=== PATIENT | male | born 2000 | race Asian ===

== ENCOUNTER 2022-05-18 14:08 | Outpatient (CLI) | payer BC, SELFPAY ==
--- OUTSIDE RECORDS SUMMARY | 2022-05-18 14:35 | XMS_ITS | Clinical Summary ---
:2000 Author Organization [facility] Address [address] [place] [id number] Care Team Providers Name Role Phone No Ref-Primary, Physician Primary Care Provider [phone] Allergies Active Allergy Reactions Severity Noted Date Comments Amoxicillin 10/25/2019 I don't even k now Sulfa Drugs 10/25/2019 I don't even k now Medications No known medications Social History Tobacco Use Types Packs/Day Years Used Date Smoking Tobacco: Never Assessed Sex Assigned at Date Recorded Not on file Last Filed Vital Signs Vital Sign Reading Time Taken Comments Blood Pressure 90/60 12/24/2019 6:40 AM CDT Pulse 57 12/24/2019 6:40 AM CDT Temperature 36.5 ??C (97.7 ??F) 12/23/2019 7:18 PM CDT Respiratory Rate 14 12/23/2019 9:45 PM CDT Oxygen Saturation 98% 12/24/2019 6:40 AM CDT Inhaled Oxygen Concentration - - Weight 95.3 kg (210 lb) 11/02/2019 3:09 PM CDT Height 177.8 cm (5' 10) 11/02/2019 3:09 PM CDT Body Mass Index 30.13 11/02/2019 3:09 PM CDT Plan of Treatment Health Maintenance Due Date Last Done Comments ADVANCE CARE PLANNING 2000 ANNUAL REVIEW OF HM ORDERS 2000 COVID-19 Vaccine (#1) 2000 YEARLY PREVENTIVE VISIT 01/28/2009 01/29/2008, 11/09/2006 DTAP/TDAP/TD IMMUNIZATION 01/26/2011 07/12/2004, 05/15/2001 , (6 - Tdap) 2000, Additional history exists HIV SCREENING 01/26/2015 HEPATITIS C SCREENING 01/26/2018 HPV IMMUNIZATION (2 - Male 06/27/2018 05/30/2018 3-dose series) PHQ-2 (once per calendar 07/03/2021 year) INFLUENZA VACCINE (#1) 2022 05/30/2018, 06/15/2010, 06/15/2010, Additional history exists Pneumococcal Vaccine: Aged Out 01/24/2002 No longer eligible Pediatrics (0 to 5 Years) based on patient's age and At-Risk Patients (6 to to co mplete this topic 64 Years) IPV IMMUNIZATION Completed 07/12/2004, 2000, 2000, Additional history exists HEPATITIS B IMMUNIZATION Completed 12/05/2007, 2000, 2000, Additional history exists MENINGITIS IMMUNIZATION Completed 05/30/2018 Insurance Payer Benefit Plan / Subscriber ID Effective Dates Phone Addre ss Type Group [facility] [id number] 2017-Present [phone] [id number] [place] [address] Care Teams Supervisor Dog License Officer Relationship Specialty Start Date End Date No Ref-Primary, Physician PCP - General 10/25/19
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
--- OUTSIDE RECORDS SUMMARY | 2022-05-18 14:35 | XMS_ITS | Encounter Summary ---
:2000 Author Organization [facility] Address [address] [place] [address] Care Team Providers Name Role Phone No Ref-Primary, Physician Primary Care Provider [phone] Reason for Visit Reason Comments Abdominal Pain Encounter Details Date Type Department Care Team Description 11/02/2019 [facility] Abiel Dietrich MD [facility] [address] [place], [place] [id number] Abdominal pain, epigastric; [facility] Emergency Dep t Tyler Wilkins MD [facility] [address] [place], [place] [id number] Likely Acute gastritis with hemorrhage, unspecified gastritis type [address] [place] [id number] Social History Tobacco Use Types Packs/Day Years Used Date Smoking Tobacco: Never Assessed Sex Assigned at Date Recorded Not on file COVID-19 Exposure Response Date Recorded In the last month, have you been in contact with No / Unsure 11/02/2019 3:08 PM CDT someone who was confirmed or suspected to have Coronavirus / COVID-19? documented as of this encounter Last Filed Vital Signs Vital Sign Reading Time Taken Comments Blood Pressure 144/86 11/02/2019 3:09 PM CDT Pulse 76 11/02/2019 3:09 PM CDT Temperature 36.7 ??C (98.1 ??F) 11/02/2019 3:09 PM CDT Respiratory Rate 14 11/02/2019 3:09 PM CDT Oxygen Saturation 96% 11/02/2019 3:09 PM CDT Inhaled Oxygen Concentration - - Weight 95.3 kg (210 lb) 11/02/2019 3:09 PM CDT Height 177.8 cm (5' 10) 11/02/2019 3:09 PM CDT Body Mass Index 30.13 11/02/2019 3:09 PM CDT documented in this encounter Discharge Instructions AttachmentsThe following attachments cannot be sent through Care Everywhere. Gastritis (Adult) (Stateless)documented in this encounter Medications at Time of Discharge Medication Sig Dispensed Refills Start Date End Date pantoprazole (PROTONIX) 40 Take 1 tablet (40 14 tablet 0 11/16/2019 MG EC tablet mg) by mouth daily for 14 days documented as of this encounter ED Notes Kaila Pike RN - 11/02/2019 4:18 PM CDT Reports relief from GI cocktail and pepcid. MD notified Shayy Florez RN - 11/02/2019 3:05 PM CDT Seen last in ED here for abdominal pain. Pt left without getting the recommended ultrasound. States his gallbladder may be infected and needs ultrasound and bloodwork. States RUQ pain that hasremained the same. Denies NVD or fevers. Tyler Wilkins MD - 11/02/2019 3:01 PM CDT History Chief Complaint: Abdominal Pain The history is provided by the patient. Hadley Ratliff is a 19 year old male who presents with abdominal pain. He had an episode of abdominal pain that started about 4 days ago and has continued. He vomited blood once 3 days ago but has had no black or bloody stools. He has no history of medical problems including gastritis, ulcers, or is not and is not on any anticoagulation. The patient notes he currently feels much better after he received ranitidine intravenously and a GI cocktail here in the emergency room prior to my arrival. No history of gallbladder disease. No further vomiting blood and there is only one episode of vomiting blood Allergies: Amoxicillin Sulfa Drugs Medications: The patient is not currently taking any prescribed medications. Past Medical History: ADHD Past Surgical History: The patient does not have any pertinent past surgical history. Family History: No past pertinent family history. Social History: Negative for tobacco use. Negative for alcohol use. Negative for drug use. Marital Status: Single Review of Systems Respiratory: Negative for chest tightness. Cardiovascular: Negative for chest pain. Gastrointestinal: Positive for abdominal pain. Genitourinary: Negative for flank pain. Neurological: Negative for weakness. All other systems reviewed and are negative. Physical Exam Patient Vitals for the past 24 hrs: BP Temp Temp src Pulse Heart Rate Resp SpO2 Height Weight 11/02/19 1509 (!) 144/86 98.1 ??F (36.7 ??C) Oral 76 76 14 96 % 1.778 m (5' 10) 95.3 kg (210 lb) Physical Exam General: Patient is alert and interactive when I enter the room Head: The scalp, face, and head appear normal Eyes: The pupils are equal, round, and reactive to light Conjunctivae and sclerae are normal ENT: External acoustic canals are normal The oropharynx is normal without erythema. Uvula is in the midline Neck: Normal range of motion CV: Regular rate. S1/S2. No murmurs. Resp: Lungs are clear without wheezes or rales. No distress GI: Abdomen is soft, no rigidity, guarding, or rebound No distension. No tenderness to palpation in any quadrant but I did examine him after a GI cocktailwas given and this did alleviate his pain. Prior to my arrival the patient was started by another physician and he did note right upper quadrant and epigastric tenderness.. MS: Normal tone. Joints grossly normal without effusions. No asymmetric leg swelling, calf or thigh tenderness. Normal motor assessment of all extremities. Skin: No rash or lesions noted. Normal capillary refill noted Neuro: Speech is normal and fluent. Face is symmetric. Moving all extremities well. Psych: Awake. Alert. Normal affect. Appropriate interactions. Lymph: No anterior cervical lymphadenopathy noted Emergency Department Course Imaging: US Abdomen, Limited, RUQ Only: Negative abdominal ultrasound. As per radiology. Laboratory: CBC: WBC: 7.1, HGB: 16.8, PLT: 438 CMP: Urea Nitrogen: 6 (L), o/w WNL (Creatinine: 0.74) Lipase: 54 (L) UA with Microscopic: Mucous: Present, o/w Negative Interventions: 1547 GI Cocktail 30 mL PO 1547 Pepcid 20 mg PO Emergency Department Course: Nursing notes and vitals reviewed. 1600 I performed an exam of the patient as documented above. IV inserted. Medicine administered as documented above. Blood drawn. This was sent to the lab for further testing, results above. The patient was sent for an abdominal US while in the emergency department, findings above. 1640 I rechecked the patient and discussed the results of his workup thus far. Findings and plan explained to the Patient. Patient discharged home with instructions regarding supportive care, medications, and reasons to return. The importance of close follow-up was reviewed. The patient was prescribed Protonix. I personally reviewed the laboratory results with the Patient and answered all related questions prior to discharge. Impression & Plan Medical Decision Making: Hadley Ratliff is a 19 year old male who presents for evaluation of epigastric abdominal pain. I considered a broad differential diagnosis for this patient including gastritis, GERD, cholecystitis, choledocholithiasis, biliary colic, pancreatitis, colonic or small bowel pathology, vascular etiologies including aneurysm, ulcer. Signs and symptoms here are consistent with gastritis. Patient experiencedrelief here with GI cocktail. Given extent of relief with GI cocktail would not do a further workup including CT. There are no signs of any serious etiologies as mentioned above or intraabdominal catastrophes. I highly doubt this is a PE or acute coronary syndrome and as he is tender in the abdomen would not do any further workup for this. Doubt perforated ulcer at this point. Will refer back to primary and do scheduled medication for stomach acid reduction x 14 days. Consider endoscopy if further symptoms despite this. Gastritis precautions given for home. Diagnosis: ICD-10-CM 1. Abdominal pain, epigastric R10.13 2. Likely Acute gastritis with hemorrhage, unspecified gastritis type K29.01 Disposition: discharged to home Discharge Medications: Discharge Medication List as of 11/02/2019 4:34 PM START taking these medications Details pantoprazole (PROTONIX) 40 MG EC tablet Take 1 tablet (40 mg) by mouth daily for 14 days, Disp-14 tablet,R-0, Local Print Scribe Disclosure: Alana Duran, am serving as a scribe on 11/02/2019 at 4:50 PM to personally document services performed by Tyler Wilkins MD, based on my observations and the provider's statements to me. Alana Dixonrenny 11/02/2019 [facility] EMERGENCY DEPARTMENT Tyler Wilkins MD 11/02/19 1659 Eliezer Dietrich MD - 11/02/2019 3:01 PM CDT Brief attending note: Patient presents with 1-1/2 weeks of right upper quadrant abdominal pain. Associated nausea and vomiting but has not had any vomiting over the past few days. No fever or cough or diarrhea. He drinks alcohol occasionally but no daily use or heavy use recently. He denies prior abdominal surgeries or medical problems. Lab work and right upper quadrant ultrasound were ordered. Abdomen is without any peritoneal signs but does have mild to moderate tenderness of the right upper quadrant. GI cocktail and famotidine werealso ordered for symptomatic management. Dr Wilkins assumed care. Eliezer Dietrich MD 11/02/19 1625 Tyler Wilkins MD - 11/02/2019 3:01 PM CDT Tyler Wilkins MD 11/03/19 4906 documented in this encounter Plan of Treatment Not on filedocumented as of this encounter Procedures Procedure Name Priority Date/Time Associated Comments Diagnosis US ABDOMEN LIMITED STAT 11/02/2019 4:19 PM Res ults for this CDT procedure are i n the results section. CBC WITH PLATELETS & Routine 11/02/2019 3:57 PM R esults for this DIFFERENTIAL CDT procedure are i n the results section. ROUTINE UA WITH STAT 11/02/2019 3:57 PM Result s for this MICROSCOPIC CDT procedure are i n the results section. LIPASE STAT 11/02/2019 3:57 PM Results f or this CDT procedure are i n the results section. COMPREHENSIVE STAT 11/02/2019 3:57 PM Results for this METABOLIC PANEL CDT procedure ar e in the results section. documented in this encounter Results Abdomen US, limited (RUQ only) (11/02/2019 4:19 PM CDT) Anatomical Region Laterality Modality Abdomen/Pelvis Ultrasound Specimen (Source) Anatomical Location Collection Method / Collectio n Time Received Time / Laterality Volume Impressions 11/02/2019 4:40 PM CDT IMPRESSION: Negative abdominal ultrasound. SUGAR LEON MD Narrative 11/02/2019 4:40 PM CDT ULTRASOUND ABDOMEN LIMITED ??11/02/2019 4:19 PM HISTORY: Right upper quadrant pain. COMPARISON: None. FINDINGS: Liver is unremarkable in echog enicity without focal lesions. Gallbladder is normal without stones or sludge. Extrahepatic bile duct is normal in diameter. Pancreas is greta l where visualized. Right kidney is normal in size. There is no hy dronephrosis. Procedure Note Sugar Leon MD - 11/02/2019Fo rmatting of this note might be different from the original. ULTRASOUND ABDOMEN LIMITED 11/02/2019 4:19 PM HISTORY: Right upper quadrant pain. COMPARISON: None. FINDINGS: Liver is unremarkable in echog enicity without focal lesions. Gallbladder is normal without stones or sludge. Extrahepatic bile duct is normal in diameter. Pancreas is greta l where visualized. Right kidney is normal in size. There is no hy dronephrosis. IMPRESSION: Negative abdominal ultrasoun d. SUGAR LEON MD Eliezer Dietrich MD IMG US ORDERABLES (ABNORMAL) CBC with platelets differential (11/02/2019 3:57 PM CDT) [facility] Method Time Signature WBC 7.1 4.0 - 11/02/2019 [facility] 11.0 4:12 PM [facility] 10e9/L [facility] RBC Count 5.95 (H) 4.4 - 5.9 11/02/2019 [facility] 10e12/L 4:12 PM [facility] Hemoglobin 16.8 13.3 - 11/02/2019 [facility] 17.7 g/dL 4:12 PM [facility] Hematocrit 51.7 40.0 - 11/02/2019 [facility] 53.0 % 4:12 PM [facility] MCV 87 78 - 100 11/02/2019 [facility] fl 4:12 PM [facility] MCH 28.2 26.5 - 11/02/2019 [facility] 33.0 pg 4:12 PM [facility] MCHC 32.5 31.5 - 11/02/2019 [facility] 36.5 g/dL 4:12 PM [facility] RDW 12.0 10.0 - 11/02/2019 [facility] 15.0 % 4:12 PM [facility] Platelet Count 438 150 - 450 11/02/2019 [facility] 10e9/L 4:12 PM [facility] Diff Method Automated 11/02/2019 [facility] Method 4:12 PM [facility] % Neutrophils 57.2 % 11/02/2019 [facility] 4:12 PM [facility] % Lymphocytes 30.1 % 11/02/2019 [facility] 4:12 PM [facility] % Monocytes 11.3 % 11/02/2019 [facility] 4:12 PM [facility] % Eosinophils 0.7 % 11/02/2019 [facility] 4:12 PM [facility] % Basophils 0.3 % 11/02/2019 [facility] 4:12 PM [facility] % Immature 0.4 % 11/02/2019 [facility] Granulocytes 4:12 PM [facility] Nucleated RBCs 0 0 /100 11/02/2019 [facility] 4:12 PM [facility] Absolute 4.0 1.6 - 8.3 11/02/2019 [facility] Neutrophil 10e9/L 4:12 PM [facility] Absolute 2.1 0.8 - 5.3 11/02/2019 [facility] Lymphocytes 10e9/L 4:12 PM [facility] Absolute 0.8 0.0 - 1.3 11/02/2019 [facility] Monocytes 10e9/L 4:12 PM [facility] Absolute 0.1 0.0 - 0.7 11/02/2019 [facility] Eosinophils 10e9/L 4:12 PM [facility] Absolute 0.0 0.0 - 0.2 11/02/2019 [facility] Basophils 10e9/L 4:12 PM [facility] Abs Immature 0.0 0 - 0.4 11/02/2019 [facility] Granulocytes 10e9/L 4:12 PM [facility] Absolute 0.0 11/02/2019 [facility] Nucleated RBC 4:12 PM [facility] Specimen Anatomical Collection Method Collection Time Receive d Time (Source) Location / / Volume Laterality 11/02/2019 3:57 PM 0 4:07 CDT PM CDT Eliezer Dietrich MD LAB - BLOOD ORDERABLES Performing Organization Address City/State/ZIP Code Phon e Number [facility] [address] [place], [place] [address] [facility] [address] [place] [id number] [phone] (ABNORMAL) UA with Microscopic (11/02/2019 3:57 PM CDT) [facility] Method Time Signature Color Urine Yellow 11/02/2019 [facility] 4:14 PM [facility] Appearance Urine Clear 11/02/2019 [facility] 4:14 PM [facility] Glucose Urine Negative NEG^Negat 11/02/2019 [place] clarisse mg/dL 4:14 PM [facility] Bilirubin Urine Negative NEG^Negat 11/02/2019 [facility] clarisse 4:14 PM [facility] Ketones Urine Negative NEG^Negat 11/02/2019 [place] clarisse mg/dL 4:14 PM [facility] Specific [place] 1.023 1.003 - 11/02/2019 [place] Urine 1.035 4:14 PM [facility] Blood Urine Negative NEG^Negat 11/02/2019 [facility] clarisse 4:14 PM [facility] pH Urine 6.0 5.0 - 7.0 11/02/2019 [facility] pH 4:14 PM [facility] Protein Albumin Negative NEG^Negat 11/02/2019 [place] Urine clarisse mg/dL 4:14 PM [facility] Urobilinogen Normal 0.0 - 2.0 11/02/2019 [place] mg/dL mg/dL 4:14 PM [facility] Nitrite Urine Negative NEG^Negat 11/02/2019 [facility] clarisse 4:14 PM [facility] Leukocyte Negative NEG^Negat 11/02/2019 [place] Esterase Urine clarisse 4:14 PM [facility] Source Midstream 11/02/2019 [facility] Urine 3:57 PM [facility] WBC Urine <1 0 - 5 11/02/2019 [place] /HPF 4:14 PM [facility] RBC Urine 1 0 - 2 11/02/2019 [place] /HPF 4:14 PM [facility] Squamous <1 0 - 1 11/02/2019 [place] Epithelial /HPF /HPF 4:14 PM [facility] Mucous Urine Present (A) NEG^Negat 11/02/2019 [place] clarisse /LPF 4:14 PM [facility] Specimen (Source) Anatomical Collection Method Collection Time Re ceived Time Location / / Volume Laterality Examination of 11/02/2019 3:57 11/02/2019 4:09 midstream urine PM CDT PM CDT specimen (procedure) Eliezer Dietrich MD LAB - URINE ORDERABLES Performing Organization Address City/[facility]/ZIP Code Phon e Number M [facility] [address] [place], [place] [address] [facility] [address] [phone] (ABNORMAL) Lipase (11/02/2019 3:57 PM CDT) P athologist Signature Lipase 54 (L) 73 - 393 11/02/2019 [place] U/L 4:30 PM [facility] Specimen Anatomical Collection Method Collection Time Receive d Time (Source) Location / / Volume Laterality Blood specimen 11/02/2019 3:57 PM 020 4:07 (specimen) CDT PM CDT Eliezer Dietrich MD LAB - BLOOD ORDERABLES Performing Organization Address City/State/ZIP Code Phon e Number M [facility] [address] [place] [address] [facility] [address] [address], [place] [phone] (ABNORMAL) Comprehensive metabolic panel (11/02/2019 3:57 PM CDT) P athologist Signature Sodium 141 133 - 144 11/02/2019 [place] mmol/L 4:22 PM [facility] Potassium 3.8 3.4 - 5.3 11/02/2019 [facility] mmol/L 4:22 PM [facility] Chloride 109 98 - 110 11/02/2019 [facility] mmol/L 4:22 PM [facility] Carbon Dioxide 24 20 - 32 11/02/2019 [facility] mmol/L 4:27 PM [facility] Anion Gap 8 3 - 14 11/02/2019 [facility] mmol/L 4:27 PM [facility] Glucose 85 70 - 99 11/02/2019 [facility] mg/dL 4:27 PM [facility] Urea Nitrogen 6 (L) 7 - 30 11/02/2019 [facility] mg/dL 4:27 PM [facility] Creatinine 0.74 0.50 - 11/02/2019 [facility] 1.[facility] mg/dL 4:27 PM [facility] GFR Estimate >90 >60 11/02/2019 [place] mL/min/{1. 4:27 PM [facility] 73_m2} HOSPITAL Comment: Non GFR Calc Starting 06/19/2018, serum creatinine ba sed estimated GFR (eGFR) will be calculated using the Chronic Kidney Dise [facility] Epidemiology Collaboration (CKD-EPI) equation. GFR Estimate If >90 >60 mL/min/{1.73_m2} 11/02/2019 4: 27 PM [facility] Comment: GFR Calc Starting 06/19/2018, serum creatinine ba sed estimated GFR (eGFR) will be calculated using the Chronic Kidney Dise [facility] Epidemiology Collaboration (CKD-EPI) equation. Calcium 9.0 8.5 - 10.1 mg/dL 11/02/2019 4:27 PM [facility] Bilirubin Total 0.7 0.2 - 1.3 mg/dL 11/02/2019 4:30 PM [facility] Albumin 4.1 3.4 - 5.0 g/dL 11/02/2019 4:30 PM [facility] Protein Total 7.7 6.8 - 8.8 g/dL 11/02/2019 4:30 PM [facility] Alkaline Phosphatase 102 65 - 260 U/L 11/02/2019 4:30 PM [facility] ALT 33 0 - 50 U/L 11/02/2019 4:30 PM [facility] AST 19 0 - 35 U/L 11/02/2019 4:30 PM [facility] Specimen Anatomical Collection Method Collection Time Receive d Time (Source) Location / / Volume Laterality Blood specimen 11/02/2019 3:57 PM 020 4:07 (specimen) CDT PM CDT Eliezer Dietrich MD LAB - BLOOD ORDERABLES Performing Organization Address City/State/ZIP Code Phon e Number [facility] [address] [place] [address] [facility] [address] [place], [place] [address], [facility] [phone] [place] [address] [place] [address], [facility] documented in this encounter Visit Diagnoses Diagnosis Abdominal pain, epigastric Likely Acute gastritis with hemorrhage, unspecified gastritis type documented in this encounter Administered Medications Inactive Administered Medications - up to 3 most recent administrations Medication Order MAR Action Action Date Dose Rate Site famotidine (PEPCID) tablet 20 mg Given 11/02/2019 3:47 PM CDT 20 mg 20 mg, Oral, ONCE, On 11/02/19 at 1516, For 1 dose lidocaine (XYLOCAINE) 2 % 15 mL, alum & mag Given 11/02/2019 3:47 PM CDT 30 mLs hydroxide-simethicone (MAALOX ES) 15 mL GI Cocktail 30 mL, Oral, ONCE, On 11/02/19 at 1516, For 1 dose documented in this encounter Active and Recently Administered Medications Times are shown in CDT. Scheduled Medication Order 10/31/2019 11/01/2019 11/02/2019 famotidine (PEPCID) tablet 20 mg (COMPLETED) 1547 (Given - Provider: Kaila Pike RN) 20 mg, Oral, ONCE, 11/02/19 at 1516, For 1 dose lidocaine (XYLOCAINE) 2 % 15 mL, alum & mag hydroxide-simethicone (MAALOX ES) 15 mL GI Cocktail (COMPLETED) 1547 (Given - Provider: Kaila Pike RN) 30 mL, Oral, ONCE, 11/02/19 at 1516, For 1 dose documented in this encounter Care Teams Composer Teaching Artist Relationship Specialty Start Date End Date No Ref-Primary, Physician PCP - General 10/25/19 documented as of this encounter
--- OUTSIDE RECORDS SUMMARY | 2022-05-18 14:35 | XMS_ITS | Encounter Summary ---
:2000 Author Organization [facility] Address [address] [place] [address] Care Team Providers Name Role Phone No Ref-Primary, Physician Primary Care Provider [phone] Encounter Details Date Type Department Care Team Description 11/02/2019 Travel Social History Tobacco Use Types Packs/Day Years Used Date Smoking Tobacco: Never Assessed Sex Assigned at Date Recorded Not on file COVID-19 Exposure Response Date Recorded In the last month, have you been in contact with No / Unsure 11/02/2019 3:08 PM CDT someone who was confirmed or suspected to have Coronavirus / COVID-19? documented as of this encounter Plan of Treatment Not on filedocumented as of this encounter Visit Diagnoses Not on filedocumented in this encounter Care Teams Crm Analyst Relationship Specialty Start Date End Date No Ref-Primary, Physician PCP - General 10/25/19 documented as of this encounter
--- OUTSIDE RECORDS SUMMARY | 2022-05-18 14:35 | XMS_ITS | Encounter Summary ---
:2000 Author Organization [place] Address [address] [place] [address] Care Team Providers Name Role Phone No Ref-Primary, Physician Primary Care Provider [phone] Reason for Visit Reason Comments Generalized Body Aches Encounter Details Date Type Department Care Team Description 10/25/2019 Emergency [facility] Tiffanie Adams B shailesh aches; [facility] Emergency [place] Nonintractable headache, unspecified chr onicity pattern, unspecified headache type; Dept [facility] Vomiting [address] [place], [place] [address] [id number] [facility] [address] [place] [address] (Wo rk) Social History Tobacco Use Types Packs/Day Years Used Date Smoking Tobacco: Never Assessed Sex Assigned at Date Recorded Not on file COVID-19 Exposure Response Date Recorded In the last month, have you been in contact with No / Unsure 10/25/2019 3:03 PM CDT someone who was confirmed or suspected to have Coronavirus / COVID-19? documented as of this encounter Last Filed Vital Signs Vital Sign Reading Time Taken Comments Blood Pressure - - Pulse 101 10/25/2019 3:04 PM CDT Temperature 36.8 ??C (98.3 ??F) 10/25/2019 3:04 PM CDT Respiratory Rate 19 10/25/2019 3:04 PM CDT Oxygen Saturation 97% 10/25/2019 3:04 PM CDT Inhaled Oxygen Concentration - - Weight - - Height - - Body Mass Index - - documented in this encounter Discharge Instructions Discharge InstructionsTiffanie Adams PA - 10/25/2019 3:40 PM CDT We are unable to rule out issues with your gallbladder or appendix without further testing. If you have worsening abdominal pain, persistent vomiting, fevers, you need to return to the emergency department for further evaluation. Your symptoms do not appear consistent with coronavirus. However, due totesting shortage, we are unable to test everyone at this time. documented in this encounter ED Notes Casey Moreno RN - 10/25/2019 3:03 PM CDT Headaches, body aches, no appetite and difficulty sleeping x 3 days. A&O x 4, ABC's intact. Afebrile, work wanted him to get checked out. Tiffanie Adams PA - 10/25/2019 2:55 PM CDT History Chief Complaint: Inability to Sleep WEN Ratliff is a 19 year old male who presents for the evaluation of inability to sleep. The patient reports that over the past three days he has not been able to sleep and that he also has not eaten, prompting him to the ED. The patient notes that over the past few days he has been experiencing increased stress and anxiety as well. He states that his appetite is very decreased, that he has a headache, and that he is also experiencing body aches and right sided abdominal pain. 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 Patient also states that he would like a work note so that he can return to work. The patient denies fever, cough, fatigue, chest celestine n, blood in his stool, and other issues. No recent travel. No history of GERD. Allergies: Amoxicillin Sulfa drugs Medications: The patient is currently on no regular medications. Past Medical History: History reviewed. No pertinent past medical history. Past Surgical History: History reviewed. No pertinent surgical history. Family History: History reviewed. No pertinent family history. Social History: Patient presents to the ED alone. Smoking Status: Never smoker Smokeless Tobacco: No Alcohol Use: No Marital Status: Single Review of Systems Constitutional: Negative for fatigue and fever. Respiratory: Negative for cough. Cardiovascular: Negative for chest pain. Gastrointestinal: Negative for abdominal pain and blood in stool. Musculoskeletal: Positive for myalgias. Neurological: Positive for headaches. All other systems reviewed and are negative. Physical Exam Patient Vitals for the past 24 hrs: Temp Temp src Pulse Heart Rate Resp SpO2 10/25/19 1504 98.3 ??F (36.8 ??C) Oral 101 101 19 97 % Physical Exam General: Well appearing, well nourished. Normal mood and affect. Skin: Good turgor, no rash, no unusual bruising or prominent lesions. HEENT: Head: Normocephalic, atraumatic, no visible masses. Eyes: Conjunctiva clear. Cardiac: Normal rate and regular rhythm, no murmur or gallop. Lungs: Clear to auscultation. Abdomen: Mild right-sided abdominal tenderness, both in the right upper and the right lower quadrants. No rebound or guarding. No CVA tenderness bilaterally. Musculoskeletal: Normal gait and station. No calf tenderness or swelling. Neurologic: Oriented x 3. GCS: 15. Psychiatric: Intact recent and remote memory, judgment and insight. Mildly anxious appearing. Emergency Department Course Emergency Department Course: Past medical records, nursing notes, and vitals reviewed. 1526: I performed an exam of the patient and obtained history, as documented above. Findings and plan explained to the Patient. Patient discharged home with instructions regarding supportive care, medications, and reasons to return. The importance of close follow-up was reviewed. Impression & Plan Medical Decision Making: Hadley Ratliff is a 19 year old male who presents the ED today for evaluation of body aches, headache, vomiting, abdominal discomfort. Details the patient's history can be known the HPI. Differentials considered included gallbladder pathology, appendicitis, gastritis, PUD, IBS, mononucleosis, amongst others. On my exam, he did have right-sided abdominal discomfort. I advised him to complete laboratory testing and imaging studies here to evaluate further for potential gallbladder or appendix etiology. However, at this time he strongly declines this. He feels that his symptoms are related to stress. He simply wishes to have a work note stating that he does not have coronavirus. We discussed that I am unable to complete this as we are not to routinely testing for COVID19 due to testing shortage. I did tell him that he does not currently meet testing criteria at this time. I strongly advised him to return if he has any changing or worsening symptoms, worsening abdominal pain, fevers, weakness, new concerns. We discussed that we cannot rule out serious pathology without further testing and that if he were to have pathology such as appendicitis, this could be a life-threatening. Patient understandsthis. Return precautions stressed. All questions were answered prior to discharge. He is in agreement with the treatment plan as stated above. Diagnosis: ICD-10-CM 1. Body aches R52 2. Nonintractable headache, unspecified chronicity pattern, unspecified headache type R51 3. Vomiting R11.10 Disposition: Discharged to home. Scribe Disclosure: I, Jeet Carias, am serving as a scribe at 3:18 PM on 10/25/2019 to document services personally performed by Tiffanie Adams PA based on my observations and the provider's statements to me. Jeet Carias 10/25/2019 [facility] EMERGENCY DEPARTMENT This was created at least in part with a voice recognition software. Mistakes/typos may be present. Tiffanie Adams PA 10/26/19 0021 documented in this encounter Plan of Treatment Not on filedocumented as of this encounter Visit Diagnoses Diagnosis Body aches Generalized pain Nonintractable headache, unspecified chr onicity pattern, unspecified headache type Vomiting Vomiting alone documented in this encounter Care Teams Bilingual Student Tutor Relationship Specialty Start Date End Date No Ref-Primary, Physician PCP - General 10/25/19 documented as of this encounter
--- OUTSIDE RECORDS SUMMARY | 2022-05-18 14:35 | XMS_ITS | Encounter Summary ---
:2000 Author Organization [facility] Address [address] [place] [address] Care Team Providers Name Role Phone No Ref-Primary, Physician Primary Care Provider [phone] Encounter Details Date Type Department Care Team Description 10/25/2019 Travel Social History Tobacco Use Types Packs/Day [...] on filedocumented in this encounter Care Teams Molded Goods Spot Picker Relationship Specialty Start Date End Date No Ref-Primary, Physician PCP - General 10/25/19 documented as of this encounter
--- OUTSIDE RECORDS SUMMARY | 2022-05-18 14:36 | XMS_ITS | Encounter Summary ---
:2000 Author Organization [facility] Address [address] [place] [address] Care Team Providers Name Role Phone Janelle Ambriz MD Primary Care Provider Reason for Visit Reason Comments OVERDOSE, NOS Encounter Details Date Type Department Care Team Description 11/11/2019 - Emergency [facility] Emergency [facility] Levy Sanford Opioid intoxication without complication (HRC) (Primary Dx); 11/12/2019 Kimberli Sy MD Respiratory arrest (HRC); [place] [address] [address] [facility] Nonintractable headache, unspecified chr onicity pattern, unspecified headache type; [phone] [place], [place] Accidental co deine poisoning, initial encounter (HRC); [id number] Tachycardia, unspecified Social History Tobacco Use Types Packs/Day Years Used Date Smoking Tobacco: Some Days Cigarettes 0.5 Smokeless Tobacco: Never Comments: 4-5 cigs Alcohol Use Standard Drinks/Week Comments Not Currently 0 (1 standard drink = 0.6 oz pure alcoho l) Sex Assigned at Date Recorded Not on file documented as of this encounter Last Filed Vital Signs Vital Sign Reading Time Taken Comments Blood Pressure 107/68 11/11/2019 10:30 PM CDT Pulse 79 11/11/2019 10:30 PM CDT Temperature 36.4 ??C (97.5 ??F) 11/11/2019 8:31 PM CDT Respiratory Rate 19 11/11/2019 10:30 PM CDT Oxygen Saturation 92% 11/11/2019 10:30 PM CDT Inhaled Oxygen Concentration - - Weight - - Height - - Body Mass Index - - documented in this encounter Discharge Instructions Discharge InstructionsStaci Treadwell MD - 11/12/2019 12:03 AM CDT Stop using drugs. Don't use opioids any more because if you stop breathing and nobody is around, youwill . If you do use the drugs, keep the narcan on you and let people know so if you stop breathing again, they can give you the medicine so you don't stop breathing again. Come back to the ER as needed for any new symptoms, if you stop breathing again, or if you have difficulty breathing. documented in this encounter Medications at Time of Discharge Medication Sig Dispensed Refills Start Date End Date Misc. Devices (MUCOSAL Dispense two Mucosal 2 Each 0 05/2020 ATOMIZATION DEVICE) MISC Atomization Devices for use with Naloxone. naloxone (NARCAN) 2 For suspected opioid 4 mL 0 2019 MG/2ML injection overdose, spray 1mL in each nostril. Repeat after 3 minutes if no or minimal response. documented as of this encounter ED Notes Monica Dasilva RN - 11/12/2019 12:33 AM CDT [facility] ED Nursing Discharge Note Patient discharged: to Home. Patient accompanied by: self. Transported by: Walked Valuables were taken home by patient: Yes Work/School Slip given: Yes Discharge instructions given and explained to patient: Yes Discharge prescriptions explained to patient: Yes: Medications Prescribed this Visit Disp Refills Start End naloxone (NARCAN) 2 MG/2ML injection 4 mL 0 11/11/2019 For suspected opioid overdose, spray 1mL in each nostril. Repeat after 3 minutes if no or minimal response. Misc. Devices (MUCOSAL ATOMIZATION DEVICE) MISC 2 Each 0 11/11/2019 Dispense two Mucosal Atomization Devices for use with Naloxone. Patient verbalized understanding. Yes Patient level of pain on discharge: Tolerable. Patients condition on discharge related to chief complaint and treatment in ED: Pt monitored for 4 hours. Pt maintained airway throughout stay. VS WDL. Pt educated by pharmacist on narcan use. Holds documented by nursing during this visit, please review chart for most current hold status: No orders of the defined types were placed in this encounter. ---End of Report--- Erna Sandoval MD - 11/12/2019 12:28 AM CDT ED Patient Handoff Acceptance Note (Staff Supervision) I supervised the resident/PA who assumed patient care and any procedures performed. Discharged after approximately 4 hours observation, given rx for narcan Remains alert and interactive Erna Sandoval MD Saumya Greenwood RN - 11/11/2019 11:25 PM CDT Report handed off to Monica, resting in room until midnight when he is able to be discharged home safely. Levy Sanford MD - 11/11/2019 9:28 PM CDT [facility] Emergency Department Attending Supervision Note I performed the sparks elements of history and exam, and agree with resident's findings and plan of care as discussed with Sai Kumar. I have reviewed and agreed with the PMH, FH, SOC, ROS. Please see today's note by resident physician. Assessment: Opiate overdose Plan: Re-check Vitals Administrative Office Manager patient/family Re-evaluate patient Check response to treatment Planned Disposition: home Author: Levy Sanford MD Staci Treadwell MD - 11/11/2019 9:18 PM CDT [facility] Emergency Medicine Visit Note Chief Complaint: OVERDOSE, NOS HPI Hadley Ratliff is a 19 y.o. old male with a history significant for opiate abuse who presents with an overdose secondary to opioid intoxication. Patient states that he is hang with friends earlier and recently bought a Percocet. He took half a pill in attempt to get high. Patient was then found down by EMS in a gas station bathroom with oxygen saturations in the teens in agonal respirations that werefew. Patient was unresponsive and not following commands. They administered 2 mg intranasal Narcan followed by 0.5 mg IV Narcan. Following the administration of IV Narcan, patient awoke and became morealert with increased respiratory drive. At this point time, patient's only complaint is for headache. He states that this is his 4th time using Percocet to get high. He has required 1 additional episode/trip to the emergency department prior to this episode. Earlier today, he stated he bought this renewed either and snorted it. He denies any chest pain, shortness of breath, muscle aches, abdominal pain, nausea, vomiting, other concerning symptoms. In addition to the above, I have personally reviewed any medications, allergies, problem list, medical history, surgical history and social history in the health record as of this visit. Review of Systems A complete review of systems was performed and is otherwise negative. Triage Vitals [11/11/192030] Temp 97.5 ??F (36.4 ??C) Temp src Oral Pulse (!) 104 Resp 17 BP 136/84 SpO2 99 % Physical Exam General: Tired appearing young male partially reclined in bed in no distress Eyes: PERRL. Pupils 3 mm and react to light bilaterally. HENT: normocephalic, atraumatic. Moist mucous membranes. CV: Tachycardic but regular rhythm. No murmur rubs or gallops. Respiratory: CTAB without wheeze easy work of breathing on room air. GI: abdomen soft, non-tender, non-distended Musculoskel: no lower extremity edema. Moves all extremities appropriately. Skin: warm and dry. No rashes. Neuro: alert and interactive. No gross neurological deficits. Psychiatric: Patient denies any depression, suicidal ideation, homicidal ideation MDM: Hadley Ratliff is a 19 y.o. old male presenting with opiate overdose. Differential includes opiate overdose in attempt to get high versus self-harm. Patient states he is attempting the high. He has used opiates to try to kill himself in the past, but denies this currently. Patient requesting speak with family and is currently okay with observation in the hospital. Patient's vital signs are reassuring he has adequate respiratory drive and normal oxygen saturations on exam. Patient will likely need further observation emergency department for approximately 4 hours given the IV Narcan use with EMS. Anticipate patient will go home following his observation with Narcan kit. I do not believe patient holdable at this time. Plan: Continued monitoring. Anticipate disposition home with Narcan rescue kit. Continued monitoring while in emergency department. Remainder of course as below Sai Kumar MD ED Course as of Nov 12 19MonNovember 11, [id number] Patient requesting to leave. Patient has only been here 1 hour needs further observation. Will place patient on hold if needed. [JM] 2259 Patient signed out pending 1 more hour of eval and d/c home. [JM] 2314 Sign out received, assumed care at this time. [MS] MonNovember 12, 2019 001 Patient has been here approximately 4 hours. No additional narcan given during ED course. Discharged with return precautions and narcan rx. [MS] ED Course User Index [JM] Sai Kumar MD [MS] Staci Treadwell MD Clinical Impressions as of Nov 12 19 Opioid intoxication without complication (HRC) Respiratory arrest (HRC) Nonintractable headache, unspecified chronicity pattern, unspecified headache type documented in this encounter Plan of Treatment Not on filedocumented as of this encounter Visit Diagnoses Diagnosis Opioid intoxication without complication (HRC) - Primary Respiratory arrest (HRC) Respiratory arrest Nonintractable headache, unspecified chr onicity pattern, unspecified headache type Accidental codeine poisoning, initial en counter (HRC) Tachycardia, unspecified Plan of Care - Eren Corcoran, Eleonora - 11/11/2019 11:43 PM CDT Pharmacy Medication Education I was asked by Dr. Kumar to educate this patient on their new regimen of narcan intranasal. I educated this patient on the correct administration, side effects, monitoring parameters and mechanism of action for the drug(s). Unfortunately, patient was alone so was not able to provide educationto family or friends. Informed patient to educate family/friends that may find him down after an overdose on how to administer narcan to him if he is found down. All questions answered. Eren Corcoran PharmD 11/11/2019, 11:43 PM documented in this encounter Administered Medications Inactive Administered Medications - up to 3 most recent administrations Medication Order MAR Action Action Date Dose Rate Site acetaminophen (TYLENOL) tablet 650 Given 11/11/2019 9:39 PM CDT 650 mg mg 650 mg, Oral, NOW, On Mon11/11/19 at 2145, For 1 dose documented in this encounter Active and Recently Administered Medications Times are shown in CDT. Scheduled Medication Order 11/10/2019 11/11/2019 11/12/2019 acetaminophen (TYLENOL) tablet 650 mg (COMPLETED) 2138 (Given - Provider: Saumya Greenwood, CHRISTIAN) 650 mg, Oral, NOW, Mon11/11/19 at 2145, For 1 dose documented in this encounter Care Teams Social Science Teacher Relationship Specialty Start Date End Date Janelle Ambriz MD PCP - General 04/03/07 [address] [place] [address] documented as of this encounter
--- OUTSIDE RECORDS SUMMARY | 2022-05-18 14:36 | XMS_ITS | Encounter Summary ---
:2000 Author Organization [employer] Address [address] [place] [address] Care Team Providers Name Role Phone Janelle Ambriz MD Primary Care Provider Reason for Visit Reason Comments Chlamydia Encounter Details Date Type Department Care Team Description 05/31/2018 Telephone [place] [facility] Yuko Carlin PA-C Chlamydia [address] [place] [address] [place] [address] [phone] (Wo rk) Social History Tobacco Use Types Packs/Day Years Used Date Smoking Tobacco: Some Days Cigarettes 0.5 Smokeless Tobacco: Never Comments: 4-5 cigs Alcohol Use Standard Drinks/Week Comments Not Currently 0 (1 standard drink = 0.6 oz pure alcoho l) Sex Assigned at Date Recorded Not on file documented as of this encounter Patient Instructions Patient InstructionsAfia Centeno RN - 05/31/2018 3:17 PM CST Instructions: It is important that you and your partner(s) begin taking the medication Azithromycin 1 Gram PO x 1 dose and complete the therapy. Abstain from sexual intercourse for 7 days following completion of treatment and resolution of symptoms, if any If you are not , and test positive, please follow up in three months for a urine lab test ora clinic visit. While not necessary, it is encouraged that your partner contact his/her clinician for possible follow up. Abstain from sexual intercourse until your partner has completed treatment therapy and symptoms haveresolved. Follow-up if symptoms persist or reinfection is suspected. IED RESEARCH DIRECTOR documented in this encounter Nursing Notes Afia Centeno RN - 05/31/2018 3:00 PM CST Hadley Ratliff has a positive chlamydia test. The source of the chlamydia test was vaginal swab, endocervical swab, urethral swab, rectal swab, oral swab, or urine specimen? yes Has treatment already been started by clinician? No. Proceed with Chlamydia Treatment Standing Order. Has patient received previous treatment in the past 3-4 months? Yes, will proceed with standing order and will update clinician with number of Chlamydia infections in number of months. 0 If positive, notify patient per clinic/department process. Follow the appropriate [place] or [place] Minor Consent Laws using the appropriate clinical guides for result sharing. Allergies: Allergies Allergen Reactions ??? Amoxicillin ??? Sulfa Antibiotics Is patient ? No Does patient have history of Long (or Prolonged) QT syndrome? No. Patient has been informed of the following: Positive Chlamydia Results. Importance of receiving treatment. If left untreated, serious side effects may occur, including PID, ectopic , and infertility. Importance of completing medication as ordered. Importance of partner(s) being notified and treated if sexual contact occurred during the 60 days preceding the patient's onset of symptoms or chlamydia diagnosis. The most recent sex partner should be evaluated and treated, even if the time of the last sexual contact was >60 days before symptom onset or diagnosis. Partners can be provided treatment via the Expedited Partner Therapy Letter in [employer]: AMB Chlamydia Treatment for Partner. (Go to Letters Activity, search AMB Chlamydia Treatment for Partner Letter. Keep the Patient and sections blank for the recipient to fill in the blanks.) Patient can notify partner(s) by using the website http://www.inspot.org To abstain from sexual intercourse during treatment and for 7 days after completion of treatment. To abstain from sexual intercourse while partner is taking treatment and for 7 days after completionof treatment. All patients (including and non-), to return for re-screening urine tests in 3-4 months after completion of treatment. The Department of Health may be contacting the patient about the positive test results. Follow-up with clinician if symptoms persist or return after treatment. Afia Centeno, RN IED RESEARCH DIRECTOR documented in this encounter Plan of Treatment Not on filedocumented as of this encounter Visit Diagnoses Diagnosis Screening for chlamydial disease Special screening examination for unspec ified chlamydial disease documented in this encounter Care Teams Asphalt Mixer Relationship Specialty Start Date End Date Janelle Ambriz MD PCP - General 04/03/07 [address] [place] [address] documented as of this encounter
--- OUTSIDE RECORDS SUMMARY | 2022-05-18 14:36 | XMS_ITS | Encounter Summary ---
:2000 Author Organization [facility] Address [address] [place] [address] Care Team Providers Name Role Phone Unavailable Primary Care Provider Unavailable Reason for Visit Reason Comments Earache x 3 days Sore Throat Nasal Congestion Encounter Details Date Type Department Care Team Description 02/15/2021 Office Visit Urgent Care, [facility] Remedios Gunn, In [facility], in [place], MARIAMA, C.N .P. Respiratory (Primary [place] [address] Dx) [address] [place] [phone] Social History Tobacco Use Types Packs/Day Years Used Date Smoking Tobacco: Every Day Smokeless Tobacco: Never Sex Assigned at Date Recorded Not on file documented as of this encounter Last Filed Vital Signs Vital Sign Reading Time Taken Comments Blood Pressure 122/71 02/15/2021 12:50 PM CDT Pulse 82 02/15/2021 12:50 PM CDT Temperature 37 ??C (98.6 ??F) 02/15/2021 12:50 PM CDT Respiratory Rate - - Oxygen Saturation 98% 02/15/2021 12:50 PM CDT Inhaled Oxygen Concentration - - Weight - - Height - - Body Mass Index - - documented in this encounter Patient Instructions Patient InstructionsRemedios Gunn, MARIAMA, C.N.P. - 02/15/2021 12:30 PM CDT Continue pain relievers as needed for comfort. Ok to supplement dayquil and nyquil with ibuprofen asdesire. Warm fluids, hot tea, hot honey lemon water, chicken noodle soup, frequent warm showers for steam to loosen post nasal drip. We will notify you of test results. And prescribe antibiotic only if the strep test is positive. Follow up if not gradually improving over the next 5-7 days or sooner if symptoms worsen. Hope you feel better soon. AttachmentsThe following attachments cannot be sent through Care Everywhere. Upper Respiratory Infection Adult Olkn-xv-Idzn (Belarusian)documented in this encounter Progress Notes Remedios Gunn APRN, C.N.P. - 02/15/2021 12:30 PM CDT SUBJECTIVE CHIEF COMPLAINT / REASON FOR VISIT Earache (x 3 days), Sore Throat, and Nasal Congestion HISTORY OF PRESENT ILLNESS Hadley Ratliff is a 21 y.o. male who presents for evaluation of past 3 days sore throat, congestion, rhinitis, ears are plugged. No fever. No chills. Exposed to strep throat 4 days ago. No prior history of strep throat known. Tenderness with swallowing. Forces self to eat. Treating with dayquil nyquil and ecola cough drops. Notes right sided abdominal discomfort. Right lower abdomen. Started yesterday with taking dayquil and nyquil. No longer having discomfort, occurred last night with movement. No nausea no vomiting no diarrhea. LBM last night-normal. The following portions of the patient's history were reviewed and updated as appropriate: Allergies,current medications, medical history. Not covid vaccinated. History of covid disease may 2020. REVIEW OF SYSTEMS Pertinent items are noted in HPI; all other review of systems was negative. OBJECTIVE VITAL SIGNS BP 122/71 Pulse 82 Temp 37 ??C SpO2 98% PHYSICAL EXAMINATION Physical Exam Pleasant 21-year-old male obviously congested, in no acute distress. Skin: Warm dry and intact. Afebrile. Head: Minimal congestion in frontal, maxillary, nasal regions. Nose: Nares boggy draining clear secretions. Nasal alae erythemic an crusted. Throat: Posteriorly clear postnasal drip present on a bright pink base. Ears: Bulging pearly white tympanic membranes bilaterally. Neck: Full and supple. No lymphadenopathy palpated. Full range of motion. Lungs: Clear auscultation anterior and posterior throughout. Respirations nonlabored. Mental status: Alert and oriented. Pleasant and cooperative. DIAGNOSTICS Results for orders placed or performed in visit on 02/15/21 SARS Coronavirus 2, PCR Rapid, V Specimen: Varies Result Value Ref Range SARS Coronavirus 2, Source, Rapid Nasopharynx Strep Group A, PCR, Point of Care Result Value Ref Range Strep Group A, PCR, POCT Collected Strep Group A, PCR, Point of Care Result Value Ref Range Strep Group A, PCR, POCT Negative Negative ASSESSMENT / PLAN #1 Infection Upper Respiratory - SARS Coronavirus-2 RNA, V Symptomatic - Strep Group A, PCR, Point of Care Reviewed symptomatic relief measures. Will notify only of tests come back positive. Main concern is exposure to strep in possibility of strep throat. No further questions or concerns. Follow up as discussed and reviewed in AVS. Discharged from [facility] in stable condition. I personally spent 20 minutes in total care of the patient today. documented in this encounter Plan of Treatment Not on filedocumented as of this encounter Procedures Procedure Name Priority Date/Time Associated Diagnosis Comme nts STREP GROUP A, PCR, Routine 02/15/2021 1:29 PM Re sults for this POCT CDT procedure are i n the results section. SARS CORONAVIRUS 2, STAT 02/15/2021 1:16 PM Re sults for this PCR RAPID, V CDT procedure are i n the results section. STREP GROUP A, PCR, Routine 02/15/2021 1:07 PM Infection Upper Results for this POCT CDT Respiratory procedure are i n the results section. documented in this encounter Results Strep Group A, PCR, Point of Care (02/15/2021 1:29 PM CDT) P athologist Signature Strep Group A, Negative Negative 02/15/2021 [facility] PCR, POCT 1:29 PM CDT Specimen Anatomical Collection Method Collection Time Receive d Time (Source) Location / / Volume Laterality Varies 02/15/2021 1:29 PM 1:30 CDT PM CDT Generic Rals LAB POCT ORDERABLES - DEVICE Performing Organization Address City/State/[facility] Phon e Number [address] [place] [address], [place] [address] [place] [address] SARS Coronavirus 2, PCR Rapid, V (02/15/2021 1:16 PM CDT) Patholo gist Method Time Signature SARS CoV-2, Undetected Undetected 02/15/2021 [facility] PCR, Rapid, V 1:54 PM CDT Comment: ----ADDITIONAL INFORMATION---- This RT-PCR test was performed using the Christelle SARS-CoV-2 and Influenza A/B Reagent assay from [employer], which has received Emergency Use Authori zation(EUA) by the U.S. Food and Drug Administration . Fact sheets for this Emergency Use Autho rization (EUA) assay can be found at the following link s: For Healthcare Providers: https://www.fda.gov/media/036454/downloa d For Patients: https://www.fda.gov/media/396459/downloa d SARS Coronavirus 2, Source, Rapid Nasopharynx 01/31 1:16 PM CDT NPR[facility] Specimen Anatomical Collection Method Collection Time Receive d Time (Source) Location / / Volume Laterality Varies 02/15/2021 1:16 PM 1:16 CDT PM CDT Remedios Gunn APRN C.N.P. LAB MICROBIOLOGY - GENERAL ORDERABLES Performing Organization Address City/[facility]/ZIP Code Phon e Number [address] [address] [address] [place] [address] Strep Group A, PCR, Point of Care (02/15/2021 1:07 PM CDT) Analysis Performed At Patho logist Time Signature Strep Group A, Collected DEFAULT 02/15/2021 [facility] PCR, POCT 1:13 PM CDT Specimen Anatomical Collection Method Collection Time Receive d Time (Source) Location / / Volume Laterality Varies (Throat) 02/15/2021 1:07 PM 2020 1:13 CDT PM CDT Alice Gaston APRNNKaylenePKaylene LAB POCT ORDERABLES - JUAN J CE Performing Organization Address City/State/ZIP Code Phon e Number [facility]- [address] [place], [place] [address] [place] [address] documented in this encounter Visit Diagnoses Diagnosis Infection Upper Respiratory - Primary documented in this encounter Additional Health Concerns Infection Onset Date Last Indicated Resolved Time COVID19 Pending 02/15/2021 02/15/2021 02/15/2021 1:16 PM CDT COVID19 Pending 02/15/2021 02/15/2021 02/15/2021 1:54 PM CDT documented as of this encounter
--- OUTSIDE RECORDS SUMMARY | 2022-05-18 14:36 | XMS_ITS | Encounter Summary ---
:2000 Author Organization [facility] Address [address] [place] [address] Care Team Providers Name Role Phone Unavailable Primary Care Provider Unavailable Reason for Referral Outpatient (Routine) - Authorized Specialty Diagnoses / Procedures Referred By Contact Refer red To Contact Orthopedic Surgery Diagnoses Injury Ankle Initial Right Fracture Lower Leg Other Closed Initial Right Daily Moscoso [facility] A, MARIAMA, C.N.P., D.N.P. [address] [place] [phone] Referral ID Status Reason Start Date Expiration Date Visits V isits Requested Authorized [id number] Authorized 02/23/2022 02/23/2023 1 1 Scheduling Instructions Ortho internal referral panel order, patsy ging before Consult visit utpatient (Routine) - Closed Specialty Diagnoses / Procedures Referred By Contact Refer red To Contact Diagnoses Injury Ankle Initial Right Daily Moscoso [facility] Region Procedures DX Ankle Right 3+ Views MARIAMA, C.N.P., D.N.P. [address] [place] [phone] Referral ID Status Reason Start Date Expiration Date Visits Requ ested Visits Authorized [id number] Closed 02/23/2022 02/23/2023 1 1 Reason for Visit Reason Comments Ankle Pain R last night twisted when wa lking Encounter Details Date Type Department Care Team Description 02/23/2022 Office Visit Urgent Care, [facility], Injury Ankle Initial Right (Primary Dx); [place], in [facility] Daily Zuniga APRN, Fractur e Lower Leg Other Closed Initial Right [place], [place] C.N.P., D.N.P. [address] [place] [phone] (Wo rk) Social History Tobacco Use Types Packs/Day Years Used Date Smoking Tobacco: Every Day Smokeless Tobacco: Never Tobacco Cessation: Ready to Quit: Not As ked; Counseling Given: Not Answered Sex Assigned at Date Recorded Not on file documented as of this encounter Last Filed Vital Signs Vital Sign Reading Time Taken Comments Blood Pressure 133/83 02/23/2022 5:44 PM CDT Pulse 104 02/23/2022 5:44 PM CDT Temperature 37.2 ??C (99 ??F) 02/23/2022 5:44 PM CDT Respiratory Rate - - Oxygen Saturation 99% 02/23/2022 5:44 PM CDT Inhaled Oxygen Concentration - - Weight - - Height - - Body Mass Index - - documented in this encounter Patient Instructions Patient InstructionsDanis Daily Zuniga APRN, C.N.P., D.N.P. - 02/23/2022 5:45 PM CDT Keep on ankle brace at all times, and follow up with ortho in a week. Please do not bear weight on that right foot until ortho clears you. Take tylenol and ibuprofen around the clock for pain control, one every 3 hours not to exceed more than 3000 mg of ibuprofen in a day or 4000 mg of tylenol in a day. Take oxycodone as needed for severe pain. INSTRUCTIONS FOLLOWING AN ACUTE INJURY Obln-Usc-Pdzhvgrfvtc-Elevation (R.I.C.E.) R.I.C.E. stands for Rest, Ice, Compression, and Elevation, the standard treatment method used for sprains, strains, and severe bruises or contusions. R.I.C.E. helps limit pain and swelling after an injury. It also helps injuries heal faster. Begin R.I.C.E. as soon as possible after your injury. This method is an effective mode of treatment for the first 48 to 72 hours. Rest: Pain is your body???s way of telling you to rest an injured area. No sports. Avoid any activity that causes pain, swelling and discomfort. Ice: Cold reduces pain and swelling in injured muscles, joints and ligaments. Apply ice and wrap it (for compression) around the injured area with a towel or efren bandage, for 15 to 20 minutes. Repeat every 2 to 3 hours while awake for the first 48 to 72 hours. Applications can include crushed ice in a wet towel or cloth, a bag of frozen vegetables, or a cold pack. Compression: Between ice applications, apply compression around the injured area to help prevent swelling and to provide support. Wrap the injured area firmly with an elastic (efren) bandage or the appropriate splint. If a hand or foot tingles, becomes discoloured, or feels cold to the touch, the bandage or splint may be too tight.Rewrap it more loosely. If the elastic bandage or splint becomes too loose, rewrap it. Do not wear an elastic bandage or splint overnight. Elevation: Keeping the injured area raised helps reduce swelling, pain, and throbbing. It also speeds up healing. Elevate the injured area. If appropriate, rest it upon a pillow for comfort. Seek medical attention if you notice any of the following: Fingers or toes feel numb, are cold to the touch, or change colour Skin looks shiny or tight Pain, swelling, or bruising worsens and does not improve with elevation documented in this encounter Progress Notes Daily Moscoso APRN, C.N.P., D.N.P. - 02/23/2022 5:45 PM CDT SUBJECTIVE CHIEF COMPLAINT / REASON FOR VISIT Ankle Pain (R last night twisted when walking ). HISTORY OF PRESENT ILLNESS Coel is a 22 y.o. male who presents to the urgent care for evaluation of right ankle pain after twisting it this morning at about 10:30 a.m.. The patient reports that he heard a pop. He reportsthat he has fractured this ankle in the past. He reports he is not taken any medicine for the pain. He denies any numbness or tingling in his foot. He reports pain when walking. REVIEW OF SYSTEMS Review of systems per HPI. All others negative at this time. CURRENT MEDICATIONS Current Outpatient Medications: escitalopram (LEXAPRO) 10 mg tablet, Take 10 mg by mouth daily., Disp: , Rfl: Current Facility-Administered Medications: ketorolac injection 30 mg (TORADOL), 30 mg, intramuscular, Once, Daily Moscoso APRN, C.N.P., D.N.P. ALLERGIES/CONTRAINDICATIONS Allergies Allergen Reactions Amoxicillin Rash I don't even know Sulfa (Sulfonamide Antibiotics) Rash and Other (see comments) I don't even know The following portions of the patient's history were reviewed and updated as appropriate: family history, medical history and surgical history. MEDICAL HISTORY There is no problem list on file for this patient. OBJECTIVE VITAL SIGNS BP 133/83 Pulse 104 Temp 37.2 ??C SpO2 99% PHYSICAL EXAMINATION General: Patient is a pleasant, cooperative 22 y.o. male. He is alert, oriented x3, well-groomed, and reliable historian. He is in no acute distress. Respiratory: Respirations regular and unlabored. Musculoskeletal: CMS intact. Swelling on right outer ankle, tender to touch. Range of motion normal. DIAGNOSTICS EXAM: DX ANKLE RIGHT 3+ VIEWS COMPARISON: None FINDINGS: Ankle joint effusion. Mild soft tissue swelling along anterior/medial aspect of ankle. Ankle mortise intact. Tiny irregular bony density along medial aspect of talus seen on AP view only suggesting subtle avulsion fracture. IMPRESSION: 1. Ankle joint effusion and mild anteromedial soft tissue swelling. 2. Subtle avulsion fracture along medial aspect of talus, seen on AP view only. ASSESSMENT / PLAN #1 Injury Ankle Initial Right - DX Ankle Right 3+ Views; Future; Expected date: 02/23/2022 - ketorolac injection 30 mg (TORADOL); 30 mg, intramuscular, Once, On Mon02/23/22 at 1800, For 1 doseAdult IV push rate: Over 15 seconds. Peds IV push rate: Over 1 minute. 60 mg dose only for IM, not recommended for IV. Keep brace or Efren wrap on at all times. Patient has ankle brace/boot at home as well as crutches. Follow-up with orthopedics within 1 week. Do not bear weight on your ankle. INSTRUCTIONS FOLLOWING AN ACUTE INJURY Zhjp-Hme-Nptjnarcgft-Elevation (R.I.C.E.) R.I.C.E. stands for Rest, Ice, Compression, and Elevation, the standard treatment method used for sprains, strains, and severe bruises or contusions. R.I.C.E. helps limit pain and swelling after an injury. It also helps injuries heal faster. Begin R.I.C.E. as soon as possible after your injury. This method is an effective mode of treatment for the first 48 to 72 hours. Rest: Pain is your body???s way of telling you to rest an injured area. No sports. Avoid any activity that causes pain, swelling and discomfort. Ice: Cold reduces pain and swelling in injured muscles, joints and ligaments. Apply ice and wrap it (for compression) around the injured area with a towel or efren bandage, for 15 to 20 minutes. Repeat every 2 to 3 hours while awake for the first 48 to 72 hours. Applications can include crushed ice in a wet towel or cloth, a bag of frozen vegetables, or a cold pack. Compression: Between ice applications, apply compression around the injured area to help prevent swelling and to provide support. Wrap the injured area firmly with an elastic (efren) bandage or the appropriate splint. If a hand or foot tingles, becomes discoloured, or feels cold to the touch, the bandage or splint may be too tight.Rewrap it more loosely. If the elastic bandage or splint becomes too loose, rewrap it. Do not wear an elastic bandage or splint overnight. Elevation: Keeping the injured area raised helps reduce swelling, pain, and throbbing. It also speeds up healing. Elevate the injured area. If appropriate, rest it upon a pillow for comfort. Seek medical attention if you notice any of the following: Fingers or toes feel numb, are cold to the touch, or change colour Skin looks shiny or tight Pain, swelling, or bruising worsens and does not improve with elevation All questions answered. Patient verbalized understanding and agreement with the plan of care. He wasdischarged in a stable condition. Electronically signed by: Daily Moscoso APRN C.N.PKaylene, D.N.P. 02/23/22 5:55 PM CDT documented in this encounter Plan of Treatment Scheduled Referrals Name Type Priority Associated Order Schedule Diagnoses Orthopedic Surgery - Outpatient Referral Routine Injury Ankle Expected: Trauma (lower Initial Right 02/23/2022 extremity) surgical Fracture Lower Leg (A pproximate), consult (clinic) Other Closed Expires: Initial Right 05/26/2023 documented as of this encounter Results DX Ankle Right 3+ Views (02/23/2022 5:58 PM CDT) Anatomical Region Laterality Modality Lower Extremity, Ankle, Musculoskeletal RST LOS, Right Digital Radiography Musculoskeletal ARZ LOS, Muskuloskeletal FLA LOS Specimen (Source) Anatomical Collection Method Collection Time Re ceived Time Location / / Volume Laterality 02/23/2022 6:18 PM CDT Impressions 02/23/2022 6:23 PM CDT 1. Ankle joint effusion and mild anteromedial soft tissue swelling. 2. Subtle avulsion fracture along medial aspect of talus, seen on AP view only. Narrative 02/23/2022 6:23 PM CDT EXAM: DX ANKLE RIGHT 3+ VIEWS COMPARISON: None FINDINGS: Ankle joint effusion. Mild sof t tissue swelling along anterior/medial aspect of ankle. Ankle mortise intact. Tiny irregular bon y density along medial aspect of talus seen on AP view only suggesting subtle avulsion fracture. Procedure Note Patience Camejo M.D. - 02/23/2022Format ting of this note might be different from the original. EXAM: DX ANKLE RIGHT 3+ VIEWS COMPARISON: None FINDINGS: Ankle joint effusion. Mild sof t tissue swelling along anterior/medial aspect of ankle. Ankle mortise intact. Tiny irregular bon y density along medial aspect of talus seen on AP view only suggesting subtle avulsion fracture. IMPRESSION: 1. Ankle joint effusion and mild anterom edial soft tissue swelling. 2. Subtle avulsion fracture along medial aspect of talus, seen on AP view only. Daily Moscoso APRN, C.N.P., D.N.P. IMG DIAGNOS TIC IMAGING PROCEDURES documented in this encounter Visit Diagnoses Diagnosis Injury Ankle Initial Right - Primary Fracture Lower Leg Other Closed Initial Right Injury Ankle Initial Right documented in this encounter Administered Medications Inactive Administered Medications - up to 3 most recent administrations Medication Order MAR Action Action Date Dose Rate Site ketorolac injection 30 mg Given 02/23/2022 6:06 PM CDT 30 mg Left Deltoid (TORADOL) 30 mg, intramuscular, Once, On Mon02/23/22 at 1800, For 1 dose, Adult IV push rate: Over 15 seconds. Peds IV push rate: Over 1 minute. 60 mg dose only for IM, not recommended for IV. documented in this encounter
--- OUTSIDE RECORDS SUMMARY | 2022-05-18 14:36 | XMS_ITS | Encounter Summary ---
:2000 Author Organization [facility] Address [address] [place] [address] Care Team Providers Name Role Phone Unavailable Primary Care Provider Unavailable Reason for Referral Outpatient (Routine) - Closed Specialty Diagnoses / Procedures Referred By Contact Refer red To Contact Diagnoses Injury Ankle Initial Right Daily Moscoso [facility] Region Procedures DX Ankle Right 3+ Views MARIAMA, C.N.P., D.N.P. [address] [place] [phone] Referral ID Status Reason Start Date Expiration Date Visits Requ ested Visits Authorized [id number] Closed 02/23/2022 02/23/2023 1 1 Reason for Visit Outpatient (Routine) - Closed Specialty Diagnoses / Procedures Referred By Contact Refer red To Contact Diagnoses Injury Ankle Initial Right [facility] Region Procedures DX Ankle Right 3+ Views MARIAMA, C.N.P., D.N.P. [address] [place] [phone] Referral ID Status Reason Start Date Expiration Date Visits Requ ested Visits Authorized [id number] Closed 02/23/2022 02/23/2023 1 1 Encounter Details Date Type Department Care Team Description 02/23/2022 Hospital Encounter Department of Florencio Moscoso Radiology, Steve Zuniga APRN, [facility], in C.N.P., D.N. P. [address] [place] [phone] [place] [phone] (Work) [phone] Social History Tobacco Use Types Packs/Day Years Used Date Smoking Tobacco: Every Day Smokeless Tobacco: Never Sex Assigned at Date Recorded Not on file documented as of this encounter Medications at Time of Discharge Medication Sig Dispensed Refills Start Date End Date escitalopram (LEXAPRO) 10 Take 10 mg by mouth 0 0 12/27/2021 mg tablet daily. oxyCODONE (OXY-IR) 5 mg Take 1 capsule (5 16 capsule 0 02/2302/26/2022 immediate release mg total) by mouth capsuleIndications: Acute every 4 (four) Pain hours as needed for pain for up to 3 days Indication: Acute Pain. documented as of this encounter Plan of Treatment Not on filedocumented as of this encounter Procedures Procedure Name Priority Date/Time Associated Comments Diagnosis DX ANKLE RIGHT 3+ RAD - Routine 02/23/2022 5:58 Injury Ankle Result s for this VIEWS (most inpatients PM CDT Initial Right procedure are in and all the results outpatients) section. documented in this encounter Results DX Ankle Right 3+ [...] Visit Diagnoses Diagnosis Injury Ankle Initial Right documented in this encounter
--- OUTSIDE RECORDS SUMMARY | 2022-05-18 14:36 | XMS_ITS | Encounter Summary ---
:2000 Author Organization [employer] Address [address] [place] [address] Care Team Providers Name Role Phone Janelle Ambriz MD Primary Care Provider Reason for Visit Reason Comments FOLLOW-UP,LAB Encounter Details Date Type Department Care Team Description 10/18/2016 Telephone [facility] David Leonard MD FOLLOW-UP,LAB Practice [id number] [place] [id number] [place] [address] [place], [place] [address] [phone] Social History Tobacco Use Types Packs/Day Years Used Date Smoking Tobacco: Passive Smoke Exposure - Never Smoker Comments: Dad smokes outside Alcohol Use Standard Drinks/Week Comments Not Asked 0 (1 standard drink = 0.6 oz pure alcoho l) Sex Assigned at Date Recorded Not on file documented as of this encounter Nursing Notes Staci Smith LPN - 10/18/2016 10:55 AM CDT Lab results give to father per phone. Staci Smith LPN 10/18/2016, 10:55 AM;' Staci Smith LPN - 10/18/2016 10:24 AM CDT ----- Message from David Leonard MD sent at 10/17/2016 7:47 PM CDT ----- I have reviewed your lab tests and they are all normal or within acceptable limits. David Leonard MD 10/17/2016, 7:46 PM documented in this encounter Plan of Treatment Not on filedocumented as of this encounter Visit Diagnoses Not on filedocumented in this encounter Care Teams Hook Up Relationship Specialty Start Date End Date Janelle Ambriz MD PCP - General 04/03/07 [address] [place] [address] documented as of this encounter
--- OUTSIDE RECORDS SUMMARY | 2022-05-18 14:36 | XMS_ITS | Encounter Summary ---
:2000 Author Organization [facility] Address [address] [place] [address] Care Team Providers Name Role Phone Janelle Ambriz MD Primary Care Provider Reason for Visit Reason Comments Dental Conversion [facility] to [place] convers ion Encounter Details Date Type Department Care Team Description 12/08/2016 Dental Conversion [place] [facility] Chun Domingo, [facility] [address] [place], [place] [address] [phone] [phone] [place] [address] (Wo rk) Social History Tobacco Use Types Packs/Day Years Used Date Smoking Tobacco: Passive Smoke Exposure - Never Smoker Comments: Dad smokes outside Alcohol Use Standard Drinks/Week Comments Not Asked 0 (1 standard drink = 0.6 oz pure alcoho l) Sex Assigned at Date Recorded Not on file documented as of this encounter Discharge Summaries Interface, In Edr Dental Conversion - 09/26/2011 12:00 AM CDT EDR dismissed Popup Note, entered 09/26/2011: We have received returned mail for this member. Please get new address/phone number if patient contacts the clinic. Go to the properties tab to remove the suppressed statement if a new address is documented in this encounter Miscellaneous Notes Miscellaneous - Interface, In Edr Dental Conversion - 01/30/2008 12:00 AM CDT 01/30/2008: Films Duplicated: films dupicated for pt pickup 01/28/08 Miscellaneous - Interface, In Edr Dental Conversion - 01/29/2008 12:00 AM CDT 01/29/2008: In Person Contact: mom says family is going to another dental clinic Miscellaneous - Interface, In Edr Dental Conversion - 12/18/2007 12:00 AM CDT 12/18/2007: SNC/NS Notification: called left mess 12/18/07 .talked to mom yesterday and she said they would be here. Miscellaneous - Interface, In Edr Dental Conversion - 12/18/2007 12:00 AM CDT 12/18/2007: No Show Call: dad called at 9:45 they had a family emerg up in [place]--he knows this is a failed appt and we have no other schedules to offer until aug documented in this encounter Plan of Treatment Not on filedocumented as of this encounter Visit Diagnoses Not on filedocumented in this encounter Care Teams Hospice Administrator Relationship Specialty Start Date End Date Janelle Ambriz MD PCP - General 04/03/07 [address] [place] [address] documented as of this encounter
--- OUTSIDE RECORDS SUMMARY | 2022-05-18 14:36 | XMS_ITS | Encounter Summary ---
:2000 Author Organization [facility] Address [address] [place] [address] Care Team Providers Name Role Phone Janelle Ambriz MD Primary Care Provider Reason for Visit Reason Comments Forms Encounter Details Date Type Department Care Team Description 06/21/2017 Telephone [facility] Practice David Leonard MD Forms [address] [facility] [address] [place], [place] [address] [place] [address] [phone] (Wo rk) Social History Tobacco Use Types Packs/Day Years Used Date Smoking Tobacco: Passive Smoke Exposure - Never Smoker Smokeless Tobacco: Never Comments: Dad smokes outside Alcohol Use Standard Drinks/Week Comments Not Asked 0 (1 standard drink = 0.6 oz pure alcoho l) Sex Assigned at Date Recorded Not on file documented as of this encounter Nursing Notes Dena Perez LPN - 07/04/2017 10:53 AM CST Spoke to school nurse about this form. She will see if she can get this through previous BH. We can toss this form. Nothing more needed at this time. Dena Perez LPN 07/04/2017, 11:43 AM UITER SPECIALIST Dena Perez LPN - 06/21/2017 4:[address] Leonard received forms from pt's school regarding ADHD evaluation from [facility] (pt is trying to get special education help). I do not see that an evaluation was done here at . Spoke to father. He said that pt was seeing outside psych at the [facility] but that was back when he was 6 years old. He reports that he didn't know they were going to send us this form and wonders if school should sent it to the [facility]. Message left with nurse to let her know that we have not seen pt for this and he will need to have done through if [facility] is unable to complete it. Forms will remain in nurse in basket on Dr Leonard's nurses desk until we hear back. Dena Perez LPN 06/21/2017, 4:32 PM UITER SPECIALIST documented in this encounter Plan of Treatment Not on filedocumented as of this encounter Visit Diagnoses Not on filedocumented in this encounter Care Teams Mechanical Operator Relationship Specialty Start Date End Date Janelle Ambriz MD PCP - General 04/03/07 [address] [place] [address] documented as of this encounter
--- OUTSIDE RECORDS SUMMARY | 2022-05-18 14:36 | XMS_ITS | Encounter Summary ---
:2000 Author Organization [facility] Address [address] [place] [address] Care Team Providers Name Role Phone Janelle Ambriz MD Primary Care Provider Encounter Details Date Type Department Care Team Description 05/30/2018 Lab Visit [place] [facility] Hematuria, unspecified type; [address] Screening for STDs (sexually transmitted diseases) [place], [place] [id number] Social History Tobacco Use Types Packs/Day Years Used Date Smoking Tobacco: Some Days Cigarettes 0.5 Smokeless Tobacco: Never Comments: 4-5 cigs Alcohol Use Standard Drinks/Week Comments Not Currently 0 (1 standard drink = 0.6 oz pure alcoho l) Sex Assigned at Date Recorded Not on file documented as of this encounter Progress Notes Yuko Palencia PA-C - 05/30/2018 2:55 PM CST Reviewed and addressed with the patient today. OR SOFTWARE DEVELOPMENT MANAGER Yuko Palencia PA-C - 05/30/2018 2:55 PM CST Reviewed positive chlamydia result, patient was contacted with these results and is being treated appropriately. OR SOFTWARE DEVELOPMENT MANAGER Yuko Palencia PA-C - 05/30/2018 2:55 PM CST Reviewed urine culture results. OR SOFTWARE DEVELOPMENT MANAGER documented in this encounter Plan of Treatment Not on filedocumented as of this encounter Procedures Procedure Name Priority Date/Time Associated Diagnosis Comme nts CHLAMYDIA & GC, Routine 05/30/2018 2:56 PM Screening for STDs Results for this URINE (14 YEARS AND SENIOR SOFTWARE DEVELOPMENT MANAGER (sexually procedur e are in OLDER) transmitted the results diseases) section. URINE MICROSCOPIC STAT 05/30/2018 2:55 PM Resu lts for this SENIOR SOFTWARE DEVELOPMENT MANAGER procedure are i n the results section. URINALYSIS ROUTINE, STAT 05/30/2018 2:55 PM Hematuria, Re sults for this MICRO/CULTURE IF POS SENIOR SOFTWARE DEVELOPMENT MANAGER unspecified type pro cedure are in the results section. URINE CULTURE STAT 05/30/2018 2:55 PM Results for this SENIOR SOFTWARE DEVELOPMENT MANAGER procedure are i n the results section. documented in this encounter Results (ABNORMAL) Chlamydia and GC, Urine STD (05/30/2018 2:56 PM SENIOR SOFTWARE DEVELOPMENT MANAGER) [facility] Method Time Signature Urine Positive (A) Negative PN SOFT Chlamydia STD Comment: This result has been reported to the [facility] Department of Health. Test Performed by Supervisor Salvage Mediated Amplification CLIA Number [id number] Urine N. gonnorrhoeae STD Negative Negative PN S OFT Comment: Test Performed by Supervisor Salvage Mediated Amplification Performed at [facility], [address] [place] [address] CLIA Number [id number] Specimen Anatomical Collection Method Collection Time Receive d Time (Source) Location / / Volume Laterality 05/30/2018 2:56 PM 8 SENIOR SOFTWARE DEVELOPMENT MANAGER 10:03 PM SENIOR SOFTWARE DEVELOPMENT MANAGER Yuko Palencia PA-C LAB_1 Performing Organization Address City/State/ZIP Code Phon e Number PN SOFT [address] [place], [place] [id number] (ABNORMAL) Urine Microscopic (05/30/2018 2:55 PM SENIOR SOFTWARE DEVELOPMENT MANAGER) [facility] Method Time Signature Urine WBC 25-49 (A) 0 - 4 PN SOFT /HPF Urine RBC 0-2 0 - 2 PN SOFT /HPF Bacteria Urine Moderate (A) /HPF PN SOFT Comment: Urine culture has been ordered per reflex protocol. Epithelial Cells Few /HPF PN SOFT Specimen (Source) Anatomical Collection Method Collection Time Re ceived Time Location / / Volume Laterality Urine: 05/30/2018 2:55 PM SENIOR SOFTWARE DEVELOPMENT MANAGER Narrative PN SOFT - 05/30/2018 3:09 PM SENIOR SOFTWARE DEVELOPMENT MANAGER Performed at [facility], [address] [place] [address] CLIA number [id number] Yuko Palencia PA-C LAB_1 Performing Organization Address City/[facility] Phon e Number PN SOFT [address] [place] [address] Urine Culture (05/30/2018 2:55 PM SENIOR SOFTWARE DEVELOPMENT MANAGER) Analysis Performed At Path logist Time Signature Source Urine PN SOFT Site PN SOFT Urine Cuture No Growth 05/31/2018 PN SOFT After 1 Day 8:01 PM SENIOR SOFTWARE DEVELOPMENT MANAGER Specimen (Source) Anatomical Collection Method Collection Time Re ceived Time Location / / Volume Laterality Urine: 05/30/2018 2:55 PM SENIOR SOFTWARE DEVELOPMENT MANAGER Narrative PN SOFT - 05/31/2018 8:01 PM SENIOR SOFTWARE DEVELOPMENT MANAGER Performed at [facility], [address] [place] [address], CLIA Number [id number] Yuko Palencia PA-C LAB_1 Performing Organization Address [facility] Phon e Number PN SOFT [address] [place] [address] [phone] (ABNORMAL) Urinalysis Routine, Micro/Culture if Pos (05/30/2018 2:55 PM SENIOR SOFTWARE DEVELOPMENT MANAGER) [facility] Method Time Signature Urine Type URINE:clean PN SOFT cat Turbidity Sl Cloudy Clear PN SOFT (A) U BILI Negative Negative PN SOFT Blood Urine Trace Neg - Trace PN SOFT Glucose, Negative Neg-30 PN SOFT Qualitative U mg/dL Ketones Negative Negative PN SOFT Leukocyte Small (A) Negative PN SOFT Esterase Urine Nitrite Urine Negative Negative PN SOFT pH Urine 7.0 5.0 - 8.0 PN SOFT Protein Urine Negative Neg - Trace PN SOFT mg/dL U Specific 1.025 1.005 - PN SOFT [place] 1.030 Urobilinogen Negative Negative PN SOFT Urine Eu/dL Specimen (Source) Anatomical Collection Method Collection Time Re ceived Time Location / / Volume Laterality Urine: 05/30/2018 2:55 PM SENIOR SOFTWARE DEVELOPMENT MANAGER Narrative PN SOFT - 05/30/2018 3:00 PM SENIOR SOFTWARE DEVELOPMENT MANAGER Performed at [facility], [address] [facility] [address], [place] [address] CLIA number [id number] Yuko Palencia PA-C LAB_1 Performing Organization Address City/State/ZIP Code Phon e Number PN SOFT [address] [place] [address] documented in this encounter Visit Diagnoses Diagnosis Hematuria, unspecified type Screening for STDs (sexually transmitted diseases) Screening examination for venereal disea se documented in this encounter Care Teams Smooth Plater Relationship Specialty Start Date End Date Janelle Ambriz MD PCP - General 04/03/07 [address] [place] [address] documented as of this encounter
--- OUTSIDE RECORDS SUMMARY | 2022-05-18 14:36 | XMS_ITS | Clinical Summary ---
:2000 Author Organization [facility] Address [address] [place] [address] Care Team Providers Name Role Phone Unavailable Primary Care Provider Unavailable Source Comments Patient records contain information from all sites at [facility]. For routine questions regarding patient records, call [phone] during business hours, M-F 8:00 AM - 5:00 PM Central Time. Record requests for emergency care only can be directed to [phone] at any time.[facility] Allergies Active Allergy Reactions Severity Noted Date Comments Amoxicillin Rash 07/30/2006 I don't even k now Sulfa (Sulfonamide Rash, Other (see 07/30/2006 I do n't even know Antibiotics) comments) Medications Medication Sig Dispensed Refills Start Date End Date Status escitalopram (LEXAPRO) Take 10 mg by 0 12/27/2021 Active 10 mg tablet mouth daily. Active Problems Problem Noted Date Attention Deficit Hyperactive Disorder 11/22/2006 Overview: Formatting of this note might be differe nt from the original. [facility] [phone] Encounters Date Type Specialty Care Team Description 02/23/2022 Hospital Encounter Radiology Danis, Injury An kle Initial Daily Zuniga APRN, Right C.N.P., D.N.P. 02/23/2022 Office Visit Express or Urgent Danis, Injury Ank le Initial Right (Primary Dx); Care Daily Zuniga APRN, Fracture Lower Leg Other Closed Initial Right C.N.P., D.N.P. from Last 3 Months Immunizations Name Administration Dates Next Due 9vHPV 05/30/2018 DTaP (Infanrix, Tripedia) 07/12/2004, 05/15/2001, 2000 , 2000, 2000 DTaP / Hib 2000, 2000, 2000 HepA Pediatric/Adolescent 05/30/2018 HepB Pediatric/Adolescent 12/05/2007, 2000, 2000 , 2000 Hib (HbOC) (discontinued) 07/31/2001 Hib, Unspecified 07/31/2001, 2000, 2000, 2000 IPV 07/12/2004, 2000, 2000, 2000 Influenza TIV (IM) 06/15/2010, 05/16/2007, 04/16/2007 Influenza, Seasonal, Injectable 06/15/2010, 05/16/2007 Influenza, Unspecified 06/15/2010, 05/16/2007 MCV4 (Menveo) 05/30/2018 MMR 07/12/2004, 02/15/2001 PCV7 (discontinued) 01/24/2002 Tdap 02/29/2012 CHIO 12/05/2007, 02/15/2001 influenza vaccine quad 05/30/2018 (FLUZONE/FLUARIX) (6 months and older)(PF) Social History Tobacco Use Types Packs/Day Years [...] - - Body Mass Index - - Plan of Treatment Health Maintenance Due Date Last Done Comments HIV Screening 2000 Hepatitis C Screening 2000 Tobacco Cessation counseling 2000 COVID-19 Vaccine (#1) 2000 Pneumococcal vaccine (0-64 years) 01/26/2006 01/24/2002 (1 - PCV) HPV Vaccines (2 - Male 3-dose 06/27/2018 05/30/2018 series) Depression Screening (Annual 07/03/2021 PHQ-2) DTaP,Tdap,and Td Vaccines (7 - Td 02/28/2022 02/29/2012, , or Tdap) 05/15/2001, Additional history exists Influenza Vaccine (#1) 2022 05/30/2018, 06/15/2010, 06/15/2010, Additional history exists Hepatitis B Vaccines Completed 12/05/2007, 2000, 2000, Additional history exists Meningococcal Vaccine Completed 05/30/2018 Procedures Procedure Name Priority Date/Time Associated Comments Diagnosis DX ANKLE RIGHT 3+ RAD - Routine 02/23/2022 5:58 Injury Ankle Result s for this VIEWS (most inpatients PM CDT Initial Right procedure are in and all the results outpatients) section. from Last 3 Months Results DX Ankle Right 3+ Views (02/23/2022 [...] of talus, seen on AP view only. Jon Jack APRN.N.P., D.N.P. IMG DIAGNOS TIC IMAGING PROCEDURES from Last 3 Months Insurance Payer Benefit Plan / Subscriber ID Effective Dates Phone Addre ss Type Group [facility] [id number] 2017-Present PPO SHIELD BASIC/FOCUS
--- OUTSIDE RECORDS SUMMARY | 2022-05-18 14:36 | XMS_ITS | Encounter Summary ---
:2000 Author Organization [facility] Address [address] [place] [address] Care Team Providers Name Role Phone Janelle Ambriz MD Primary Care Provider Reason for Visit Reason Comments Urine, Blood in x3-4 days Encounter Details Date Type Department Care Team Description 05/30/2018 Office Visit [place] Yuko Soria, Acute cystitis with hematuria (Primary Dx); Medicine PA-C Hematuria, unspecified type; [address] [place] [address] eening for STDs (sexually transmitted diseases); [address] Need for HPV vaccination; [place] [address] [address] [place], [place] Need for influenza vaccinati on; [phone] [address] Need for meningitis vaccination; [phone] (Wo rk) Need for hepatitis A vaccination Social History Tobacco Use Types Packs/Day Years Used Date Smoking Tobacco: Some Days Cigarettes 0.5 Smokeless Tobacco: Never Comments: 4-5 cigs Alcohol Use Standard Drinks/Week Comments Not Currently 0 (1 standard drink = 0.6 oz pure alcoho l) Sex Assigned at Date Recorded Not on file documented as of this encounter Last Filed Vital Signs Vital Sign Reading Time Taken Comments Blood Pressure 120/68 05/30/2018 2:15 PM METER SHOP SUPERINTENDENT Pulse 96 05/30/2018 2:15 PM METER SHOP SUPERINTENDENT Temperature - - Respiratory Rate - - Oxygen Saturation - - Inhaled Oxygen Concentration - - Weight 88.9 kg (196 lb) 05/30/2018 2:15 PM METER SHOP SUPERINTENDENT Height - - Body Mass Index - - documented in this encounter Progress Notes Yuko Palencia PA-C - 05/30/2018 2:00 PM CST SUBJECTIVE: Hadley is a 18 y.o. male presenting to clinic for evaluation of a possible UTI. Over the past 3 days has been experiencing intermittent dysuria, slight increase in urinary urgency and urinaryfrequency. He also noticed a couple drops of dark red blood after completion of micturition, does not occur everytime he urinates. He recently broke up with his girlfriend of 6 months about 1 week ago.Last sexually active 2 weeks ago, did not use condoms. He has never had a STD before and his ex-girlfriend has not told him she had any STDs. Denies any recent fever, localized abdominal pain, back/flank pain, nausea, vomiting, testicular/scrotal pain, or skin changes: Itching, rashes, vesicles, blisters, warts or bumps in his genital area. History reviewed. No pertinent past medical history. No outpatient medications prior to visit. No facility-administered medications prior to visit. Allergies Allergen Reactions ??? Amoxicillin ??? Sulfa Antibiotics Social History Socioeconomic History ??? Marital status: Single Spouse name: Not on file ??? Number of children: Not on file ??? Years of education: Not on file ??? Highest education level: Not on file Social Needs ??? Financial resource strain: Not on file ??? Food insecurity - worry: Not on file ??? Food insecurity - inability: Not on file ??? Transportation needs - medical: Not on file ??? Transportation needs - non-medical: Not on file Occupational History ??? Not on file Tobacco Use ??? Smoking status: Current Some Day Smoker Packs/day: 0.50 Types: Cigarettes ??? Smokeless tobacco: Never Used ??? Tobacco comment: 4-5 cigs Substance and Sexual Activity ??? Alcohol use: Not Currently ??? Drug use: Yes Types: Marijuana ??? Sexual activity: Not Currently Partners: Female Other Topics Concern ??? Bike Helmet Not Asked ??? City Water Not Asked ??? Exercise Not Asked ??? Guns in home Not Asked ??? Seat Belt Not Asked ??? Special Diet Not Asked ??? Weight Concern Not Asked Social History Narrative ??? Not on file OBJECTIVE: Vital Signs: Reviewed. BP 120/68 (BP Location: Right Arm, BP Cuff Size: Adult Regular) Pulse 96 Wt 196 lb (88.9 kg) General: Alert, well-appearing, pleasant male, in NAD. Mouth: Moist mucous membranes. Abdomen: Normal active bowel sounds. Flat, soft and non-tender without guarding rebound or masses. No elicited suprapubic tenderness to palpation. Back: No CVA tenderness to palpation or percussion. : Penis circumcised without lesions. Normal exam, no active source of bleeding, ative purulent-yellow penile discharge or evidence of urethral inflammation/erythema. No scrotal swelling. Skin: No rashes, vesicles, warts or other lesions. Labs: Urine G/C screening: Pending Lab Visit on 05/30/2018 Component Date Value Ref Range Status ??? Urine Type 05/30/2018 URINE:clean cat Final ??? Turbidity 05/30/2018 Sl Cloudy* Clear Final ??? U BILI 05/30/2018 Negative Negative Final ??? Blood Urine 05/30/2018 Trace Neg - Trace Final ??? Glucose, Qualitative U 05/30/2018 Negative Neg-30 mg/dL Final ??? Ketones 05/30/2018 Negative Negative Final ??? Leukocyte Esterase Urine 05/30/2018 Small* Negative Final ??? Nitrite Urine 05/30/2018 Negative Negative Final ??? pH Urine 05/30/2018 7.0 5.0 - 8.0 Final ??? Protein Urine 05/30/2018 Negative Neg - Trace mg/dL Final ??? U Specific [place] 05/30/2018 1.025 1.005 - 1.030 Final ??? Urobilinogen Urine 05/30/2018 Negative Negative Eu/dL Final ??? Urine WBC 05/30/2018 25-49* 0 - 4 /HPF Final ??? Urine RBC 05/30/2018 0-2 0 - 2 /HPF Final ??? Bacteria Urine 05/30/2018 Moderate* /HPF Final Urine culture has been ordered per reflex protocol. ??? Epithelial Cells 05/30/2018 Few /HPF Final ASSESSMENT: ICD-10-CM 1. Acute cystitis with hematuria N30.01 ciprofloxacin (CIPRO) 500 MG tablet 2. Hematuria, unspecified type R31.9 Urinalysis Routine, Micro/Culture if Pos 3. Screening for STDs (sexually transmitted diseases) Z11.3 Chlamydia and GC, Urine STD 4. Need for HPV vaccination Z23 9Vhpv (Gardasil) 5. Need for influenza vaccination Z23 Influenza IIV4 (Quadrivalent) 0.5 mL (28231) 6. Need for meningitis vaccination Z23 MENVEO (MCV4) 7. Need for hepatitis A vaccination Z23 HEPA PED/ADOL (1-18 YRS) PLAN: STD and urine culture results are pending, will post results to [facility] when available. Rx: Ciprofloxacin 500 mg BID x 5 days. Discussed potential side effects of tendon-related issues, patient understood. Discussed sexually transmitted diseases, modes of transmission and methods of prevention. Encouragedpatient to wear a condom to prevent exposure. Reviewed proper hygeine techniques, instructed to empty her bladder often and drink plenty of fluids/water. Given HPV, MCV, Hep A and influenza vaccines in clinic. Counseling completed for all immunization components that were given to the patient today. RTC prn or sooner if symptoms are not gradually improving/worsen. R SHOP SUPERINTENDENT documented in this encounter Plan of Treatment Not on filedocumented as of this encounter Results (ABNORMAL) Chlamydia and GC, Urine STD (05/30/2018 2:56 PM METER SHOP SUPERINTENDENT) [facility] Method Time Signature Urine Positive (A) Negative PN SOFT Chlamydia STD Comment: This result has been reported to the [facility] Department of Health. Test Performed by Balance And Hairspring Assembler Mediated Amplification CLIA Number [id number] Urine N. gonnorrhoeae STD Negative Negative PN S OFT Comment: Test Performed by Balance And Hairspring Assembler Mediated Amplification Performed at [facility], [address], [place], [place] ??[address] CLIA Number [id number] Specimen Anatomical Collection Method Collection Time Receive d Time (Source) Location / / Volume Laterality 05/30/2018 2:56 PM 8 METER SHOP SUPERINTENDENT 10:03 PM METER SHOP SUPERINTENDENT Yuko Palencia PA-C LAB_1 Performing Organization Address City/State/ZIP Code Phon e Number PN SOFT [address] [place] [address] (ABNORMAL) Urinalysis Routine, Micro/Culture if Pos (05/30/2018 2:55 PM METER SHOP SUPERINTENDENT) [facility] Method Time Signature Urine Type URINE:clean PN [...] U Specific 1.025 1.005 - PN SOFT [place] 1.030 Urobilinogen Negative Negative PN SOFT Urine Eu/dL Specimen (Source) Anatomical Collection Method Collection Time Re ceived Time Location / / Volume Laterality Urine: 05/30/2018 2:55 PM METER SHOP SUPERINTENDENT Narrative PN SOFT - 05/30/2018 3:00 PM METER SHOP SUPERINTENDENT Performed at [facility], [address] [place] [address] CLIA number [id number] Yuko Palencia PA-C LAB_1 Performing Organization Address City/State/ZIP Code Phon e Number EMILY SOFT [address] [place] [address] documented in this encounter Visit Diagnoses Diagnosis Acute cystitis with hematuria - Primary Acute cystitis Hematuria, unspecified type Screening for STDs (sexually transmitted diseases) Screening examination for venereal disea se Need for HPV vaccination Need for prophylactic vaccination and in oculation against other viral diseases Need for influenza vaccination Need for prophylactic vaccination and in oculation against influenza Need for meningitis vaccination Need for hepatitis A vaccination Need for prophylactic vaccination and in oculation against viral hepatitis Hematuria, unspecified type Screening for STDs (sexually transmitted diseases) Screening examination for venereal disea se documented in this encounter Care Teams Music Internship Relationship Specialty Start Date End Date Janelle Ambriz MD PCP - General 04/03/07 [address] [place] [address] documented as of this encounter
--- OUTSIDE RECORDS SUMMARY | 2022-05-18 14:36 | XMS_ITS | Clinical Summary ---
:2000 Author Organization [facility] Address [address] [place] [address] Care Team Providers Name Role Phone Janelle Ambriz MD Primary Care Provider Source Comments You are receiving this document as you are listed as the primary care provider,follow-up provider, or the patient has been referred to you for consultation.This is in compliance with the Medicare and Medicaid EHR Incentive Program,which states Providers who transition their patient to another setting of careor provider of care or refers their patient to another provider of care shouldprovide summarycare record for each transition of care or referral. [employer] Allergies Active Allergy Reactions Severity Noted Date Comments Amoxicillin 03/15/2007 Sulfa Antibiotics 03/15/2007 Medications Medication Sig Dispensed Refills Start Date End Date Status naloxone (NARCAN) 2 For suspected opioid 4 mL 0 0 Active MG/2ML injection overdose, spray 1mL in each nostril. Repeat after 3 minutes if no or minimal response. Misc. Devices Dispense two Mucosal 2 Each 0 11/11/2019 Active (MUCOSAL ATOMIZATION Atomization Devices DEVICE) MISC for use with Naloxone. Active Problems Patient Care Coordination Note Formatting of this note might be differe nt from the original. This is an FYI only. No action from the clinic is required. Hadley Ratliff was enrolled in [facility] BH Care Coordination and the case has been closed because they successfully completed the program. Dianne Perdomo MA, LADC 10/10/2017, 5:28 PM Problem Noted Date ADHD (attention deficit hyperactivity disorder) 2006 Overview: Deana Ubaldo Public Health Specialist [facility] [phone] Resolved Problems Problem Noted Date Resolved Date Centralized Behavioral Health Case Management 01/16/2017 10/10/2017 Overview: Background: Diagnosis: PTSD, Separation Anxiety o f childhood, ADHD Current situation: The father indicated that the pt started DBT about a month ago, and showing improvement of mental health symptoms. The father and the pt has been having family therapy, which also lyric ears to be effective. The father is nunam iqua ng to avoid psychiatry medications if appropriate. The mbr is taking Melatonin 3 mg before bed for sleep aid. The father indicated that they are moving in near [facility], though, the location of the move i s uncertain at this point. 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 Providers outside of [facility]: [facility] Ef[facility] garnerociates for psychotherapy and DBT Goals/Recommendations: Outpatient Behavioral Health Case Manage r Contact Information: Dianne Perdomo MA, [facility] [phone] Action Plan: CM to continue to communica te with the father and make certain the providers would be in place when they move to a new address. ADHD (attention deficit hyperactivity disorder) 04/02/2007 04/02/2007 Overview: ICD 10 Immunizations Name Administration Dates Next Due 9vHPV (Gardasil 9) 05/30/2018 DTaP 07/12/2004, 07/12/2004, 05/15/2001, 05/15/2001, 2000, 2000, 2000 DTaP/Hib 2000, 2000, 2000 Flu Vac (3+ yrs) 06/15/2010, 05/16/2007, 04/16/2007 HepA Ped/Adol (1-18 yrs) 05/30/2018 HepB Ped/Adol (0-18 yrs) 12/05/2007, 2000, 2000, 2000, 2000, 2000, 2000 Hib (ActHIB) 07/31/2001 Hib, Unspecified Formulation 07/31/2001, 2000, 000, 2000 IPV (Polio) 07/12/2004, 07/12/2004, 2000, 2000, 2000, 2000, 2000, 2000 Influenza IIV4 (Quadrivalent) 0.5mL 05/30/2018 (53625) Influenza, Unspecified Formulation 06/15/2010, 05/16/2007 MCV4 (Menveo) 05/30/2018 MMR 07/12/2004, 07/12/2004, 02/15/2001, 02/15/2001 Pneumococcal 7, PED 01/24/2002, 01/24/2002 TDAP (BOOSTRIX) 02/29/2012 Tdap 02/29/2012 Varicella 12/05/2007, 12/05/2007, 02/15/2001, 02/15/2001 Social History Tobacco Use Types Packs/Day Years [...] CDT Inhaled Oxygen Concentration - - Weight 88.9 kg (196 lb) 05/30/2018 2:15 PM FOOT DOCTOR Height 177.8 cm (5' 10) 03/11/2017 4:21 PM CDT Body Mass Index - - Plan of Treatment Health Maintenance Due Date Last Done Comments Hep C Screening (Preventive 2000 Services) COVID-19 Vaccine (#1) 2000 Adult Preventive Visit 01/26/2018 01/29/2008, 11/09/2006 HPV Vaccine (2 - Male 06/27/2018 05/30/2018 3-dose series) HepA (2 of 2 - 2-dose 11/27/2018 05/30/2018 series) DTaP/Tdap/Td (7 - Tdap) 02/28/2022 02/29/2012, 02/29/2012, 07/12/2004, Additional history exists Influenza (#1) 2022 05/30/2018, 06/15/2010, 06/15/2010, Additional history exists Zoster/Shingles (1 of 2) 01/26/2050 Hib Completed 07/31/2001, 07/31/2001, 2000, Additional history exists Pneumococcal Aged Out 01/24/2002, 01/24/2002 No longer eligible based on patient 's age to complete this topic IPV (Polio) Completed 07/12/2004, 07/12/2004, 2000, Additional history exists HepB Completed 12/05/2007, 2000, 2000, Additional history exists Varicella Completed 12/05/2007, 12/05/2007, 02/15/2001, Additional history exists HIV Screening (Preventive Completed 10/13/2016 Services) MCV4 Completed 05/30/2018 Insurance Payer Benefit Plan / Subscriber ID Effective Dates Phone Addre ss Type Group BC[facility] [id number] 2017-Present [phone] [id number] [place] [address] Hadley Ratliff Personal/Famil Self [address] (Home) [place] [phone] [address] Rat[place]iff Personal/Famil Father 07/15/1972 [address] [phone] [place] ([place] [address] [address] Ratliff Personal/Famil Other 07/15/[address] (Home) [place] [address] Care Teams Windows System Admin Relationship Specialty Start Date End Date Janelle Ambriz MD PCP - General 04/03/07 [address] [place] [address]
--- OUTSIDE RECORDS SUMMARY | 2022-05-18 14:36 | XMS_ITS | Encounter Summary ---
:2000 Author Organization [facility] Address [address] [place] [address] Care Team Providers Name Role Phone Janelle Ambriz MD Primary Care Provider Encounter Details Date Type Department Care Team Description 03/11/2017 Notes/Orders [facility] Staci Rodrigez Blood in urine [address] [facility] [address] [place], [place] [address] [place], [place] [phone] (Wo rk) Social History Tobacco Use Types Packs/Day Years Used Date Smoking Tobacco: Passive Smoke Exposure - Never Smoker Smokeless Tobacco: Never Comments: Dad smokes outside Alcohol Use Standard Drinks/Week Comments Not Asked 0 (1 standard drink = 0.6 oz pure alcoho l) Sex Assigned at Date Recorded Not on file documented as of this encounter Plan of Treatment Not on filedocumented as of this encounter Procedures Procedure Name Priority Date/Time Associated Diagnosis Comme nts UA MICRO IF Routine 03/11/2017 3:24 PM Blood in urine Results for this CDT procedure are i n the results section . UA MICRO Routine 03/11/2017 3:24 PM Results f or this CDT procedure are i n the results section . documented in this encounter Results UA MICRO (03/11/2017 3:24 PM CDT) [facility] Method Time Signature RBC'S 5-10 0 - 3 [facility] WBC'S 6-10 0 - 5 [facility] Epith, Occ /hpf [facility] Squamous [facility] Bact Occ [facility] Casts 0 /lpf [facility] Other Few Yeast [facility] Other Few Mucous [facility] Specimen Anatomical Collection Method Collection Time Receive d Time (Source) Location / / Volume Laterality 03/11/2017 3:24 PM 7 3:25 CDT PM CDT Narrative [facility] - 03/11/2017 3:37 PM C DT Performed at [facility], [address] [place] [address] Izzy Garnica APRN, CNP LAB_1 Performing Organization Address [facility] Phon e Number [facility] [phone] (ABNORMAL) UA Micro If (03/11/2017 3:24 PM CDT) Component Value Ref Test Analysis Performed At [facility] gist Range Method Time Signature Urine Color Yellow [facility] Urine Clarity Clear [facility] Sp Gr >1.030 (H) 1.005 - [facility] 1.030 [facility] Leuk Tr (A) NEG [facility] Nitr Negative NEG [facility] pH 5.5 4.5 - [facility] 8.0 [facility] Prot 30 (A) NEG [facility] mg/dl [facility] Gluc Negative NEG [facility] Ket Negative NEG [facility] Urob 1.0 0.2 - [facility] 1.0 [facility] EU/dl Bili Sml (A) NEG [facility] Bili False positive results may occur in the presence of Urobilin ogen, [facility] Indoxyl Sulfate, and metabolites of Etodolac. Interpret r esults in LABORATORIES conjunction with clinical presentation. Blood Mod (A) NEGTR [facility] Specimen Anatomical Collection Method Collection Time Receive d Time (Source) Location / / Volume Laterality 03/11/2017 3:24 PM 7 3:25 CDT PM CDT Narrative [facility] - 03/11/2017 3:36 PM C DT Performed at [facility], [address] [place] [address] Izzy Garnica APRN, CNP LAB_1 Performing Organization Address [facility] Phon e Number [facility] [phone] documented in this encounter Visit Diagnoses Diagnosis Blood in urine Hematuria, unspecified documented in this encounter Care Teams Testing Consultant Relationship Specialty Start Date End Date Janelle Ambriz MD PCP - General 04/03/07 [address] [place] [address] documented as of this encounter
--- OUTSIDE RECORDS SUMMARY | 2022-05-18 14:36 | XMS_ITS | Encounter Summary ---
:2000 Author Organization [facility] Address [address] [place] [address] Care Team Providers Name Role Phone Janelle Ambriz MD Primary Care Provider Reason for Visit Reason Comments Centralized Care Coordination Encounter Details Date Type Department Care Team Description 01/16/2017 Telephone [facility] Dianne Perdomo Cent ralized Care HEALTH CASE KIRAN ADAMS, [facility] Coordination [address] [place], [place] [id number] Social History Tobacco Use Types Packs/Day Years Used Date Smoking Tobacco: Passive Smoke Exposure - Never Smoker Comments: Dad smokes outside Alcohol Use Standard Drinks/Week Comments Not Asked 0 (1 standard drink = 0.6 oz pure alcoho l) Sex Assigned at Date Recorded Not on file documented as of this encounter Nursing Notes Deana Jenkins RN - 01/24/2017 1:48 PM CDT Information noted. Deana Jenkins RN 01/24/2017, 1:51 PM Dianne Perdomo MA [facility] - 01/16/2017 4:57 PM CDT This is an FYI only. No action from the clinic is required. Hadley Ratliff is enrolled with Centralized Care Coordination. Please see the Problem List for catalytic case operatored case manager. Dianne Perdomo MA, [facility] 01/16/2017, 5:02 PM documented in this encounter Plan of Treatment Not on filedocumented as of this encounter Visit Diagnoses Not on filedocumented in this encounter Care Teams Industrial Sociologist Relationship Specialty Start Date End Date Janelle Ambriz MD PCP - General 04/03/07 [address] [place] [address] documented as of this encounter
--- OUTSIDE RECORDS SUMMARY | 2022-05-18 14:37 | XMS_ITS | Encounter Summary ---
:2000 [facility] Organization [facility] Address [address] [place] [address] Care Team Providers Name Role Phone Janelle Ambriz MD Primary Care Provider Reason for Visit Procedure/Equipment (Routine) - Incomplete Specialty Diagnoses / Procedures Referred By Contact Refer red To Contact Diagnoses Gamaliel type I physeal fracture of distal end of right fibula, initial encounter Sofie Quach PA-C Procedures XR Ankle Rt 3 Views [address] [place] [address] Referral ID Status Reason Start Date Expiration Date Visits V isits Requested Authorized [id number] Incomplete 09/26/2016 12/26/2017 1 1 Encounter Details Date Type Department Care Team Description 09/26/2016 Imaging [facility] Specialty Arti Quach type I Center [facility] Radiology [facility] physeal fracture of [address] [facility] [place] [address] [place] [address] fibula, initial [phone] (Wo rk) encounter Social History Tobacco Use Types Packs/Day Years [...] Name Priority Date/Time Associated Diagnosis Comme nts XR ANKLE RT 3 VIEWS Routine 09/26/2016 3:54 PM Salter-Ham t ype I Results for this CDT physeal fracture of procedur e are in distal end of right the resu lts fibula, initial section. encounter documented in this encounter Results XR Ankle Rt 3 Views (09/26/2016 3:54 PM CDT) Anatomical Region Laterality Modality Lower Extremity, Ankle, Foot & Ankle Com puted Radiography Specimen (Source) Anatomical Collection Method Collection Time Re ceived Time Location / / Volume Laterality 09/26/2016 3:54 PM CDT Narrative 09/27/2016 10:41 AM CDT XR ANKLE RT 3 VIEWS 09/26/2016 3:54 PM INDICATION: Ankle pain. ? COMPARISON: None. FINDINGS: There is soft tissue swelling laterally at the ankle. The tibia appears normal. There appears be mild wi dening of the distal fibular growth plate. There is a punctate or indicated calcification along the medial aspect of the distal fibular metaphysis. CONCLUSION: Findings are not definitely abnormal but may represent a nondisplaced Salter I or II fracture of the distal fibula. Short-term follow-up imaging may help to confirm. Procedure Note Gerardo Arshad MD - 09/27/2016Form atting of this note might be different from the original. XR ANKLE RT 3 VIEWS 09/26/2016 3:54 PM INDICATION: Ankle pain. COMPARISON: None. FINDINGS: There is soft tissue swelling laterally at the ankle. The tibia appears normal. There appears be mild wi dening of the distal fibular growth plate. There is a punctate or indicated calcification along the medial aspect of the distal fibular metaphysis. CONCLUSION: Findings are not definitely abnormal but may represent a nondisplaced Salter I or II fracture of the distal fibula. Short-term follow-up imaging may help to confirm. Sofie VARELA GD documented in this encounter Visit Diagnoses Diagnosis Salter-Ham type I physeal fracture of distal end of right fibula, initial encounter documented in this encounter Care Teams Speech Pathology Supervisor Relationship Specialty Start Date End Date Janelle Ambriz MD PCP - General 04/03/07 [address] [place] [address] documented as of this encounter
--- OUTSIDE RECORDS SUMMARY | 2022-05-18 14:37 | XMS_ITS | Encounter Summary ---
:2000 Author Organization [facility] Address [address] [place] [address] Care Team Providers Name Role Phone Janelle Ambriz MD Primary Care Provider Encounter Details Date Type Department Care Team Description 09/19/2013 Correspondence [place] UIPMENT Pediatrics MD [place] PROOF OF DELIVERY [address] [place] [phone] Social History Tobacco Use Types Packs/Day Years Used Date Smoking Tobacco: Passive Smoke Exposure - Never Smoker Alcohol Use Standard Drinks/Week Comments Not Asked 0 (1 standard drink = 0.6 oz pure alcoho l) Sex Assigned at Date Recorded Not on file documented as of this encounter Progress Notes Janelle Ambriz MD - 09/19/2013 12:00 AM CDT documented in this encounter Plan of Treatment Not on filedocumented as of this encounter Visit Diagnoses Not on filedocumented in this encounter Care Teams Turning Lathe Tender Relationship Specialty Start Date End Date Janelle Ambriz MD PCP - General 04/03/07 [address] [place] [address] documented as of this encounter
--- OUTSIDE RECORDS SUMMARY | 2022-05-18 14:37 | XMS_ITS | Encounter Summary ---
:2000 Author Organization [facility] Address [address] [place] [address] Care Team Providers Name Role Phone Janelle Ambriz MD Primary Care Provider Reason for Visit Reason Comments Same Day/Next Day Appt. Encounter Details Date Type Department Care Team Description 09/17/2014 Telephone [place] Janelle Ambriz, Same Day/ Next Day Appt. Pediatrics [address] [facility] [address] [place], [place] [address] [place], [place] [phone] (Wo rk) Social History Tobacco Use Types Packs/Day Years Used Date Smoking Tobacco: Passive Smoke Exposure - Never Smoker Alcohol Use Standard Drinks/Week Comments Not Asked 0 (1 standard drink = 0.6 oz pure alcoho l) Sex Assigned at Date Recorded Not on file documented as of this encounter Nursing Notes Afia Norris - 09/17/2014 12:52 PM CDT The pt is scheduled and notify of their upcoming appt. Afia Norris - 09/17/2014 12:46 PM CDT Lmtcb. Ashley Davis - 09/17/2014 11:53 AM CDT Patient would like appointment with: Any Provider Pediatrics or Family Practice Patient requesting appointment for: back pain x 1 week Wants/Needs to be seen within: today Additional Comments: Add Is it okay to leave detailed message on your voicemail? yes Ashley Davis documented in this encounter Plan of Treatment Not on filedocumented as of this encounter Visit Diagnoses Not on filedocumented in this encounter Care Teams Jewelry Making Instructor Relationship Specialty Start Date End Date Janelle Ambriz MD PCP - General 04/03/07 [address] [place] [address] documented as of this encounter
--- OUTSIDE RECORDS SUMMARY | 2022-05-18 14:37 | XMS_ITS | Encounter Summary ---
:2000 Author Organization [facility] Address [address] [place] [address] Care Team Providers Name Role Phone Janelle Ambriz MD Primary Care Provider Encounter Details Date Type Department Care Team Description 09/18/2014 Orders Only [facility] Flank pain [address] [place], [place] [address] Social History Tobacco Use Types Packs/Day Years Used Date Smoking Tobacco: Passive Smoke Exposure - Never Smoker Alcohol Use Standard Drinks/Week Comments Not Asked 0 (1 standard drink = 0.6 oz pure alcoho l) Sex Assigned at Date Recorded Not on file documented as of this encounter Progress Notes David Leonard MD - 09/19/2014 8:14 AM CDT Quick Note: The Xray, urine and lab tests show no abnormalities that would explain Hadley's back pain and loss ofappetite. I think there is a significant emotional aspect to his pain as something is disturbing himat school that he didn't want to share. I suggest in addition to talking to his teachers, a visit with the school psychologist would be helpful to try to determine what is going on. If that is not an option we could arrange for a pediatric psychologist to evaluate. If it is bullying that is continuingin spite of your efforts to discuss with the school, you may have to consider a different school. documented in this encounter Plan of Treatment Not on filedocumented as of this encounter Procedures Procedure Name Priority Date/Time Associated Diagnosis Comme nts LIVER PANEL(HEPATIC Routine 09/18/2014 4:24 PM Flank pain Re sults for this FUNCTION PANEL) CDT procedure ar e in the results section. BASIC METABOLIC Routine 09/18/2014 4:24 PM Flank pain Result s for this PANEL CDT procedure are i n the results section. COMPLETE BLOOD Routine 09/18/2014 4:24 PM Flank pain Results for this COUNT-NO DIFF CDT procedure are in the results section. UA MICRO IF Routine 09/18/2014 4:24 PM Flank pain Results f or this CDT procedure are i n the results section. documented in this encounter Results LFTs (09/18/2014 4:24 PM CDT) [facility] Method Time Signature Alkaline 334 0 - 500 [facility] Phosphatase U/L LAB[facility]ATORIES Bilirubin, Total 0.4 0.2 - 1.3 [facility] mg/dl [facility] Bilirubin, 0.0 0.0 - 0.3 [facility] Direct mg/dl LAB[facility] ALT (SGPT) 28 0 - 69 U/L [facility] AST (SGOT) 47 0 - 66 U/L [facility] Protein, Total 7.4 6.3 - 8.2 [facility] g/dl [facility] Albumin 4.5 3.5 - 5.0 [facility] g/dl [facility] A/G Ratio, calc. 1.6 >1.0 [facility] Specimen Anatomical Collection Method Collection Time Receive d Time (Source) Location / / Volume Laterality 09/18/2014 4:24 PM 5 4:25 CDT PM CDT Narrative [facility] - 09/18/2014 6:46 PM C DT Performed at [facility], [address] [place] [phone] David Leonard MD LAB_1 Performing Organization Address City/State/ZIP Code Phon e Number [facility] [phone] UA MICRO IF (09/18/2014 4:24 PM CDT) [facility] Method Time Signature Urine Color Yellow [facility] Urine Clarity Clear [facility] Sp Gr 1.020 1.005 - [facility] 1.030 [facility] Leuk Negative NEG [facility] Nitr Negative NEG [facility] pH 7.0 4.5 - 8.0 [facility] Prot Negative NEG mg/dl [facility] Gluc Negative NEG [facility] Ket Negative NEG [facility] Urob 0.2 0.2 - 1.0 [facility] EU/dl [facility] Bili Negative NEG [facility] Blood Negative NEG [facility] Comment Micro Not [facility] Indicated [facility] Specimen Anatomical Collection Method Collection Time Receive d Time (Source) Location / / Volume Laterality 09/18/2014 4:24 PM 5 4:25 CDT PM CDT Narrative [facility] - 09/18/2014 4:51 PM C DT Performed at [facility], [address] [place] [id number] David Leonard MD LAB_1 Performing Organization Address City/[facility] Phon e Number [facility] [phone] BMP (09/18/2014 4:24 PM CDT) Component Value Ref Test Analysis Performed At [facility] gist Range Method Time Signature Sodium 141 135 - [facility] 145 LAB[facility]IES mmol/L Potassium 4.5 3.5 - [facility] 5.3 [facility] mmol/L Chloride 102 95 - 106 [facility] mmol/L [facility] CO2 28 22 - 30 [facility] mmol/L [facility] Anion Gap 11 7 - 16 [facility] (calc.) mmol/L [facility] Glucose 98 70 - 180 [facility] mg/dl [facility] Calcium 9.3 8.4 - [facility] 10.2 [facility] mg/dl BUN 14 7 - 20 [facility] mg/dl [facility] Creatinine 0.52 0.39 - [facility] 0.73 [facility] mg/dl GFR, Estimated This assay has ml/min/1 [facility] not been .73m2 LABORATORIES established for patients under 18 years of age. GFR, Est., If This assay has ml/min/1 [facility] Black not been .73m2 LABORATORIES established for patients under 18 years of age. Specimen Anatomical Collection Method Collection Time Receive d Time (Source) Location / / Volume Laterality 09/18/2014 4:24 PM 5 4:25 CDT PM CDT Narrative [facility] - 09/18/2014 6:46 PM C DT Performed at [facility], [address] ??[id number] David Leonard MD LAB_1 Performing Organization Address City/[facility]/ZIP Code Phon e Number [facility] [phone] (ABNORMAL) CBC (09/18/2014 4:24 PM CDT) P athologist Signature WBC 6.6 4.5 - 13.5 [facility] k/ul [facility] RBC 5.31 (H) 4.5 - 5.3 [facility] M/ul [facility] Hemoglobin 13.8 13.0 - [facility] 16.0 g/dl LAB[facility]ATORIES HCT 42.1 37.0 - [facility] 49.0 % LAB[facility]ATORIES MCV 79.3 78 - 98 fl [facility] MCH 26.0 25 - 35 pg [facility] MCHC 32.8 32 - 36 [facility] g/dl [facility] RDW 13.3 11.5 - [facility] 14.0 % [facility] Platelets 461 (H) 150 - 450 [facility] k/ul [facility] Specimen Anatomical Collection Method Collection Time Receive d Time (Source) Location / / Volume Laterality 09/18/2014 4:24 PM 5 4:25 CDT PM CDT Narrative [facility] - 09/18/2014 6:35 PM C DT Performed at [facility], [address] [place] [address] ??[id number] David Leonard MD LAB_1 Performing Organization Address City/State/ZIP Code Phon e Number [facility] [phone] documented in this encounter Visit Diagnoses Diagnosis Flank pain Abdominal pain, unspecified site documented in this encounter Care Teams Hot Metal Mixer Operator Relationship Specialty Start Date End Date Janelle Ambriz MD PCP - General 04/03/07 [address] [place] [address] documented as of this encounter
--- OUTSIDE RECORDS SUMMARY | 2022-05-18 14:37 | XMS_ITS | Encounter Summary ---
:2000 Author Organization [facility] Address [address] [place] [address] Care Team Providers Name Role Phone Janelle Ambriz MD Primary Care Provider Reason for Visit Procedure/Equipment (Routine) - Closed Specialty Diagnoses / Procedures Referred By Contact Refer red To Contact Diagnoses Shoulder injury, right, initial encounter Janelle Ambriz MD Procedures XR SHOULDER 2 VIEWS RIGHT (ROUTINE) [address] [place], [place] [address] Referral ID Status Reason Start Date Expiration Date Visits Requ ested Visits Authorized [id number] Closed 09/19/2013 1 1 Encounter Details Date Type Department Care Team Description 09/19/2013 Imaging [facility] Shoulder injury, right, Radiology initial encounter [id number] [place] [id number] Social History Tobacco Use Types Packs/Day [...] Priority Date/Time Associated Diagnosis Comme nts XR SHOULDER RT Routine 09/19/2013 11:48 AM Shoulder injury, Re sults for this INT/EXT CDT right, initial procedure are in encounter the results section. documented in this encounter Results XR SHOULDER 2 VIEWS RIGHT (ROUTINE) (09/19/2013 11:48 AM CDT) Anatomical Region Laterality Modality Upper Extremity, Shoulder Computed Radio graphy Specimen (Source) Anatomical Collection Method Collection Time Re ceived Time Location / / Volume Laterality 09/19/2013 11:48 AM CDT Narrative 09/19/2013 11:56 AM CDT XR SHOULDER INT/EXT RT 09/19/2013 11:48 AM INDICATION: Shoulder pain. COMPARISON: None. FINDINGS: Negative shoulder. No fracture or dislocation. Procedure Note Zhou Enciso MD - 09/19/2013Form atting of this note might be different from the original. XR SHOULDER INT/EXT RT 09/19/2013 11:48 AM INDICATION: Shoulder pain. COMPARISON: None. FINDINGS: Negative shoulder. No fracture or dislocation. Janelle Ambriz MD RAD GD documented in this encounter Visit Diagnoses Diagnosis Shoulder injury, right, initial encounte r documented in this encounter Care Teams Cardboard Cutter Relationship Specialty Start Date End Date Janelle Ambriz MD PCP - General 04/03/07 [address] [place] [address] documented as of this encounter
--- OUTSIDE RECORDS SUMMARY | 2022-05-18 14:37 | XMS_ITS | Encounter Summary ---
:2000 Author Organization [employer] Address [address] [place] [address] Care Team Providers Name Role Phone Janelle Ambriz MD Primary Care Provider Reason for Visit Reason Comments LAB RESULTS Encounter Details Date Type Department Care Team Description 09/19/2014 Telephone [facility] Janelle Ambriz MD LAB RESULTS [address] [facility] [address] [place], [place] [address] [place] [address] [phone] (Wo rk) Social History Tobacco Use Types Packs/Day Years Used Date Smoking Tobacco: Passive Smoke Exposure - Never Smoker Alcohol Use Standard Drinks/Week Comments Not Asked 0 (1 standard drink = 0.6 oz pure alcoho l) Sex Assigned at Date Recorded Not on file documented as of this encounter Nursing Notes Staci Smith LPN - 09/19/2014 8:21 AM CDT Spoke with father. Given him the result note form . Also father asked about setting up appointment with behavior health. I have given him the number. He is to RTC if he has further questions or needs assistance. Staci Smith LPN 09/19/2014, 8:24 AM; Staci Smith LPN - 09/19/2014 8:16 AM CDT ----- Message from David Leonard MD sent at 09/19/2014 8:14 AM CDT ----- The Xray, urine and lab tests show no abnormalities that would explain Coel's back pain and loss of appetite. I think there is a significant emotional aspect to his pain as something is disturbing him at school that he didn't want to share. I suggest in addition to talking to his teachers, a visit with the school psychologist would be helpful to try to determine what is going on. If that is not an option we could arrange for a pediatric psychologist to evaluate. If it is bullying that is continuing in spite of your efforts to discuss with the school, you may have to consider a different school. documented in this encounter Plan of Treatment Not on filedocumented as of this encounter Visit Diagnoses Not on filedocumented in this encounter Care Teams Senior Engineering Tech Relationship Specialty Start Date End Date Janelle Ambriz MD PCP - General 04/03/07 [address] [place] [address] documented as of this encounter
--- OUTSIDE RECORDS SUMMARY | 2022-05-18 14:37 | XMS_ITS | Encounter Summary ---
:2000 Author Organization [facility] Address [address] [place] [address] Care Team Providers Name Role Phone Janelle Ambriz MD Primary Care Provider Reason for Visit Reason Comments BODY ACHES HEADACHE Encounter Details Date Type Department Care Team Description 06/17/2014 Office Visit [facility] Family Nicole Matamoros Vi ral illness (Primary Dx); Practice [facility] LESLIE Headache; [address] [facility] [address] [place] [address] [phone] Social History Tobacco Use Types Packs/Day Years Used Date Smoking Tobacco: Passive Smoke Exposure - Never Smoker Alcohol Use Standard Drinks/Week Comments Not Asked 0 (1 standard drink = 0.6 oz pure alcoho l) Sex Assigned at Date Recorded Not on file documented as of this encounter Last Filed Vital Signs Vital Sign Reading Time Taken Comments Blood Pressure 109/57 06/17/2014 2:50 PM CHARGING BOARD OPERATOR Pulse 84 06/17/2014 2:50 PM CHARGING BOARD OPERATOR Temperature 36.8 ??C (98.3 ??F) 06/17/2014 2:50 PM CHARGING BOARD OPERATOR Respiratory Rate - - Oxygen Saturation - - Inhaled Oxygen Concentration - - Weight - - Height - - Body Mass Index - - documented in this encounter Patient Instructions Patient InstructionsNicole Matamoros APRN, CNP - 06/17/2014 3:05 PM CHARGING BOARD OPERATOR Images from the original note were not included. zofran - 1 tablet, melts in mouth, use as needed every 4 hours for nausea. Encourage fluids. Ibuprofen 400-600 mg (2-4 tablets) every 6 hours for headache Recommend taking this when you get home with one benadryl tablet, put ice pack on forehead and lay down. Tylenol dose is 650 mg every 4-6 hours for fevers or aches and pains. Restricted diet: Next 48-72 hours: No dairy or soy products. No raw vegetables, no cooked vegetables except potatoes, no fruits exceptapplesauce, bananas, avocados. No hard meat - beef, pork or chicken breast. OK to eat: applesauce, bananas, avocados, rice, noodles, toast with peanut butter, canned (soft) meat like tuna and chicken, flaky fish is ok. Soup is ok especially broth based soup. Slowly advance back to normal after 48-72 hours, reintroducing dairy/soy last! Viral Infections in Teens: After Your Visit Your Care Instructions You don't feel well, but it's not clear what's causing it. You may have a viral infection. Viruses cause many illnesses, such as the common cold, influenza, fever, rashes, and the diarrhea, nausea, andvomiting that are often called stomach flu. You may wonder if antibiotic medicines could make you feel better. But antibiotics only treat infections caused by bacteria. They don't work on viruses. The good news is that viral infections usually aren't serious. Most will go away in a few days without medical treatment. In the meantime, there are a few things you can do to make yourself more comfortable. Follow-up care is a sparks part of your treatment and safety. Be sure to make and go to all appointments, and call your doctor if you are having problems. It's also a good idea to know your test results and keep a list of the medicines you take. How can you care for yourself at home? ?? Get plenty of rest if you feel tired. ?? Take an qubm-lpg-xxjoqbm pain medicine if needed, such as acetaminophen (Tylenol), ibuprofen (Advil, Motrin), or naproxen (Aleve). Read and follow all instructions on the label. No one younger than 20 should take aspirin. It has been linked to Jero syndrome, a serious illness. ?? Be careful when taking wbjw-rkz-igeihrc cold or flu medicines and Tylenol at the same time. Many of these medicines have acetaminophen, which is Tylenol. Read the labels to make sure that you are not taking more than the recommended dose. Too much acetaminophen (Tylenol) can be harmful. ?? Drink plenty of fluids, enough so that your urine is light yellow or clear like water. If you have kidney, heart, or liver disease and have to limit fluids, talk with your doctor before you increasethe amount of fluids you drink. ?? Stay home from school, work, and other public places while you have a fever. When should you call for help? Call 911 anytime you think you may need emergency care. For example, call if: ?? You have severe trouble breathing. ?? You passed out (lost consciousness). Call your doctor now or seek immediate medical care if: ?? You seem to be getting much sicker. ?? You have a new or higher fever. ?? You have blood in your stools. ?? You have new belly pain, or your pain gets worse. ?? You have a new rash. Watch closely for changes in your health, and be sure to contact your doctor if: ?? You start to get better and then get worse. ?? You do not get better as expected. Where can you learn more? Go to [employer] and enter O862 in the search box. Current as of: September 11, 2013 Content Version: 10.1 ?? [id number] [employer]. GING BOARD OPERATOR documented in this encounter Progress Notes Nicole Matamoros APRN, CNP - 06/17/2014 2:55 PM CST DICK Ratliff is a 14 yr male here with father, presenting with loss of appetite, sore throat, upset tummy with nausea and headache. Initial Symptoms: loss of appetite and tummy aches, headache 5 days. Progression: symptoms have continued unchanged. Associated Symptoms: normal activity, mood and playfulness, reduced appetite and normal fluid intake. Pertinent Negatives: no diarrhea or vomiting. Home Treatment: nothing has not been helpful. Current medications on record: Current Outpatient Prescriptions Medication Sig ??? ALBUterol 2.5 mg/3 mL, 0.083%, nebulizer solution Inhale 3-6 mL by mouth every 4 hours as neededfor Wheezing. ??? ALBUterol sulfate hfa (PROAIR HFA) 108 (90 BASE) MCG/ACT inhaler Inhale 1-2 Puffs by mouth every4 hours as needed for Wheezing. Allergies: Amoxicillin and Sulfa drugs OBJECTIVE Vital Signs: BP 109/57 Pulse 84 Temp(Src) 98.3 ??F (36.8 ??C) (Tympanic) Appearance: stated age, healthy, alert, in no distress Head: normocephalic Eyes: no abnormalities detected Ears: right external canal and tympanic membrane free of lesions or abnormalities, left external canal and tympanic membrane free of lesions or abnormalities Nose: clear rhinorrhea, mucosal erythema and mucosal edema. Oropharynx: normal Neck: supple and no adenopathy Heart: regular rate and rhythm, normal S1 and S2 without murmur or click Lungs: clear to auscultation, no wheezes, rales or rhonchi Abdomen: soft, without masses, distention or organomegaly. Very mild tenderness in RLQ and LLQ with deep palpation Skin: no abnormalities noted ASSESSMENT ICD-9-CM 1. Viral illness 079.99 ondansetron (ZOFRAN ODT) 4 MG disintegrating tablet 2. Headache 784.0 3. Nausea 787.02 ondansetron (ZOFRAN ODT) 4 MG disintegrating tablet PLAN Continue to monitor temperature. Tylenol or Ibuprofen for comfort. Diet and activity as tolerated. Encourage fluids. Zofran PRN nausea Restricted diet to help allow GI system to rest and prevent diarrhea/vomiting. Pt and parent are encouraged to give pt ibuprofen and a benadryl when he gets home to help with headache Dad noted his headache won't go away but has not tried to treat it with anything. Given dosages for ibuprofen and tylenol based on patients weight. Pt and parent verbalized understanding of and agreement with this plan. Nicole Matamoros COLD ROLLING MACHINE SETTER-C 06/17/2014 3:10 PM GING BOARD OPERATOR documented in this encounter Plan of Treatment Not on filedocumented as of this encounter Visit Diagnoses Diagnosis Viral illness - Primary Unspecified viral infection, in conditio ns classified elsewhere and of unspecified site Headache Nausea Nausea alone documented in this encounter Care Teams Box Turner Relationship Specialty Start Date End Date Janelle Ambriz MD PCP - General 04/03/07 [address] [place] [address] documented as of this encounter
--- OUTSIDE RECORDS SUMMARY | 2022-05-18 14:37 | XMS_ITS | Encounter Summary ---
:2000 Author Organization [email or web address] Address [address] [place] [address] Care Team Providers Name Role Phone Janelle Ambriz MD Primary Care Provider Reason for Visit Reason Comments Swelling, Groin Encounter Details Date Type Department Care Team Description 10/26/2015 Nurse Triage Careline Unassigned, Provider Swelling, Groin [address] [place], [place] [address] [place] [address] Social History Tobacco Use Types Packs/Day Years Used Date Smoking Tobacco: Passive Smoke Exposure - Never Smoker Comments: Dad smokes outside Alcohol Use Standard Drinks/Week Comments Not Asked 0 (1 standard drink = 0.6 oz pure alcoho l) Sex Assigned at Date Recorded Not on file documented as of this encounter Nursing Notes Kait Coronado RN - 10/26/2015 4:45 AM CDT Protocol: HERNIA - [id number] 1. DIAGNOSIS CONFIRMATION: Did a doctor give your child this diagnosis? If so, When? (If not, do child's findings match definition in disease guideline?) Response: no 2. APPEARANCE of SWELLING: What does it look like? Response: swelling in right groin 3. SIZE: How big is it? (inches, cm or compare to coins) Response: size of a gland 4. LOCATION: Where exactly is the swelling located? Response: right groin 5. PATTERN: Does it come and go, or is it constant? If constant: Is it getting better, staying the same, or worsening? If intermittent: How long does it last? Does your child have the swelling now? Response: lump is always there, it is only painful with movement or touch 6. PAIN: Is there any pain? If so, ask: How bad is it? - Author's note: IAQ's are intended for training purposes and not meant to be required on every call. Response: hurts to touch and states now that it hurts to urinate. Affirmative: Doesn't match the SYMPTOMS of inguinal hernia Protocol: SCROTUM SWELLING OR [id number] Affirmative: [1] Swelling comes and goes (bulges out then goes away completely) AND [2] no pain whengone Kait Youngblood RN - 10/26/2015 4:15 AM CDT Got a voice message stating the voice mailbox has not been set up. Unable to leave a message. Kait Coronado RN 10/26/2015, 4:15 AM 4:37 AM Verified and full name. Yes Situation/Symptom: Swelling in his groin for past 2 days, right sided. No weight lifting Background related to current situation/symptom: none Pertinent Medical history: none Medications: Reviewed Pertinent medications with the patient/caller Yes Protocol disposition does not match SX Advised mom to take him to the ED for Treatment. [facility], so they are goingto go to the [address] [place] [address] for evaluation of inguinal swelling and painful urination. Kait Coronado RN 10/26/2015, 4:39 AM Yuko Knowles - 10/26/2015 4:04 AM CDT Which care system or clinic is the patient normally seen at? [facility]. Situation:Female caller could not verify all pt info but states that she is his mother and he has some swelling near his groin possibly a node. Plan:A nurse will return your call. If your symptoms change for the worse, please call us back [phone].. documented in this encounter Plan of Treatment Not on filedocumented as of this encounter Visit Diagnoses Not on filedocumented in this encounter Care Teams Italian Teacher Relationship Specialty Start Date End Date Janelle Ambriz MD PCP - General 04/03/07 [address] [place] [address] documented as of this encounter
--- OUTSIDE RECORDS SUMMARY | 2022-05-18 14:37 | XMS_ITS | Encounter Summary ---
:2000 Author Organization [facility] Address [address] [place] [address] Care Team Providers Name Role Phone Janelle Ambriz MD Primary Care Provider Encounter Details Date Type Department Care Team Description 06/15/2016 Lab Visit [facility] or[facility] Sore throat [address] [place], [place] [address] Social History Tobacco Use Types Packs/Day Years Used Date Smoking Tobacco: Passive Smoke Exposure - Never Smoker Comments: Dad smokes outside Alcohol Use Standard Drinks/Week Comments Not Asked 0 (1 standard drink = 0.6 oz pure alcoho l) Sex Assigned at Date Recorded Not on file documented as of this encounter Progress Notes Nicole Matamoros APRN, CNP - 06/20/2016 9:03 AM THERMOMETER MAKER Quick Note: Hadley does not have a current mono infection but his tests do indicate he has had one in the past,I cannot say how recently; but with his on/off fatigue and sore throats it would make sense that it was recently. Continue treating symptoms as discussed. Nicole Matamoros APRN, CNP 06/20/2016 9:03 AM MOMETER MAKER documented in this encounter Plan of Treatment Not on filedocumented as of this encounter Procedures Procedure Name Priority Date/Time Associated Diagnosis Comme nts HOSEA PHAN A Routine 06/15/2016 3:42 PM Sore throat Results for this PANEL THERMOMETER MAKER procedure are i n the results section. MONO TEST Routine 06/15/2016 3:42 PM Sore throat Results f or this THERMOMETER MAKER procedure are i n the results section. documented in this encounter Results (ABNORMAL) Hosea Phan A Panel (06/15/2016 3:42 PM THERMOMETER MAKER) Component Value Ref Test Analysis Performed At [facility] Range Method Time Signature Hosea Phan VCA < OR = 0.90 [facility] IgM Reference range: See (NOTE) LA TORI Hosea Phan VCA (NOTE) [facility] IgM ?Value ? I nterpretation LABORATORIES ?----- ? --- ?< or = 0.90 ?? Negati ve ?0.91-1.09 ? Equiv ocal ?> or = 1.10 ?? Positi ve Hosea Phan VCA 4.65 (H) [facility] IgG LABORATORIES Hosea Phan VCA Reference range: [facility] IgG See (NOTE) LABORATORIES Hosea Phan VCA (NOTE) [facility] IgG ?Value ? I nterpretation LABORATORIES ?----- ? --- ?< or = 0.90 ?? Negati ve ?0.91-1.09 ? Equiv ocal ?> or = 1.10 ?? Positi ve Hosea Phan NA >5.00 [facility] IgG Reference range: See (NOTE) LA TORI (H) Hosea Phan NA (NOTE) [facility] IgG ?Value ? I nterpretation LABORATORIES ?----- ? --- ?< or = 0.90 ?? Negati ve ?0.91-1.09 ? Equiv ocal ?> or = 1.10 ?? 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 In infants, a similar pattern may occur as a result of passive maternal transfer of antibody. Test performed at [facility] [address] ??[phone] Director: AZUL GARCIAS MD Specimen Anatomical Collection Method Collection Time Receive d Time (Source) Location / / Volume Laterality 06/15/2016 3:42 PM 06/15/201 6 3:45 THERMOMETER MAKER PM THERMOMETER MAKER Nicole Matamoros APRN, STEEL RIGGER LAB_1 Performing Organization Address City/State/ZIP Code Phon e Number [facility] [phone] [place] [facility] (06/15/2016 3:42 PM THERMOMETER MAKER) athologist Signature [place] Test Negative NEG [facility] Specimen Anatomical Collection Method Collection Time Receive d Time (Source) Location / / Volume Laterality 06/15/2016 3:42 PM 6 3:44 THERMOMETER MAKER PM THERMOMETER MAKER Narrative [facility] - 06/15/2016 7:[address] Performed at [facility], [address] [place] [address] ??[id number] Nicole Matamoros APRN, CNP LAB_1 Performing Organization Address City/State/ZIP Code Phon e Number [facility] [phone] documented in this encounter Visit Diagnoses Diagnosis Sore throat Acute pharyngitis documented in this encounter Care Teams Drafter Electrical Relationship Specialty Start Date End Date Janelle Ambriz MD PCP - General 04/03/07 [address] [place] [address] documented as of this encounter
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
--- OUTSIDE RECORDS SUMMARY | 2022-05-18 14:37 | XMS_ITS | Encounter Summary ---
:2000 Author Organization [employer] Address [address] [place] [address] Care Team Providers Name Role Phone Janelle Ambriz MD Primary Care Provider Reason for Visit Reason Comments BODY ACHES CONGESTION x 2 weeks VOMITING SINUS PAIN/PRESSURE hurts to move his eyes COUGH deep Encounter Details Date Type Department Care Team Description 08/29/2016 Office Visit [facility] Nicole Matamoros Ac ute non- recurrent maxillary sinusitis (Primary Dx); Practice BRITTNY LESLIE Viral URI with cough; [address] [facility] [address] [place] [phone] Social History Tobacco Use Types Packs/Day Years Used Date Smoking Tobacco: Passive Smoke Exposure - Never Smoker Comments: Dad smokes outside Alcohol Use Standard Drinks/Week Comments Not Asked 0 (1 standard drink = 0.6 oz pure alcoho l) Sex Assigned at Date Recorded Not on file documented as of this encounter Last Filed Vital Signs Vital Sign Reading Time Taken Comments Blood Pressure 117/78 08/29/2016 3:26 PM TRACK REPAIRER HELPER Pulse 111 08/29/2016 3:26 PM TRACK REPAIRER HELPER Temperature 37.4 ??C (99.3 ??F) 08/29/2016 3:26 PM TRACK REPAIRER HELPER Respiratory Rate - - Oxygen Saturation - - Inhaled Oxygen Concentration - - Weight 87.2 kg (192 lb 3.2 oz) 08/29/2016 3:26 PM TRACK REPAIRER HELPER Height - - Body Mass Index - - documented in this encounter Patient Instructions Patient InstructionsMorrNicole henning APRN, PIECE DYER - 08/29/2016 3:36 PM TRACK REPAIRER HELPER Images from the original note were not included. Doxycycline 1 capsule twice daily to treat sinus infection. Make sure you drink a minimum of 8-10, 8 ounce cups of water or non-caffeinated beverages daily. Vitamin C 500-1000 mg twice daily has been proven to shorten the life span of virus' and can help shorten your illness. [employer]'s Adult Immunity chews with zinc, vitamin C and elderberry. Maco bees throat lozenges for sore throat. Sore Throat Tea: Warmed up lemon aid with honey OR Warm water with honey and lemon juice in it. I recommend over the counter (OTC) cough medication such as Robitussin DM (guaifenesin and dextromethorphan) as needed for cough. Acetaminophen/Tylenol and/or Ibuprofen/Motrin/Advil for fevers, body aches, and other discomforts. You may take both these medications as needed in an alternating fashion. Acetaminophen dose is 650 mg (2 regular strength tablets) every 4-6 hours OR 1000 mg (2 extra strength tablets) every 6-8 hours. DO NOT take more than 4000 mg of Acetaminophen in a 24 hour period, I recommend staying at or below 3000 mg in 24 hours. Ibuprofen dose is up to 600 mg (3 tablets) every 6-8 hours as needed. Please make sure you are eating something small when taking Ibuprofen to avoid upset stomach. Steamy showers can help relieve congestion. I recommend using saline nasal lavage to help with nasal and sinus congestion. I personally recommend the NetiPot, you can do this up to 3 times a day as long as you are tolerating and do not develop nasal irritation. I recommend taking a daily non-sedating antihistamine such as: Zyrtec/cetirizine, Maria Dolores/Fexofenadine, or Claritin/loratidine. (Zyrtec and Maria Dolores tend to me more effective but can be slightly sedating compared to Claritin; they also work faster). 1-2 tabs taken at bedtime can help to dry up secretions reducing night time and bottled beverage inspector coughing, sore/irritated throat and congestion. If you are not improving in 10-14 days please contact your primary care provider or clinic. If you develop a fever (temp over 100.4), especially if it is over 101.5, deep cough that is productive with milky green, arnold, or brown phlegm; or new and/or worsening symptoms please come back. Sinusitis in Teens: Care Instructions Your Care Instructions Sinusitis is an infection of the lining of the sinus cavities in your head. Sinusitis often follows a cold. It causes pain and pressure in your head and face. In most cases, sinusitis gets better on its own in 1 to 2 weeks. But some mild symptoms may last forseveral weeks. Sometimes antibiotics are needed. Follow-up care is a sparks part of your treatment and safety. Be sure to make and go to all appointments, and call your doctor if you are having problems. It's also a good idea to know your test results and keep a list of the medicines you take. How can you care for yourself at home? ?? Take an godv-tsv-xasnvil pain medicine, such as acetaminophen (Tylenol), ibuprofen (Advil, Motrin), or naproxen (Aleve). Be safe with medicines. Read and follow all instructions on the label. No oneyounger than 20 should take aspirin. It has been linked to Jero syndrome, a serious illness. ?? If the doctor prescribed antibiotics, take them as directed. Do not stop taking them just becauseyou feel better. You need to take the full course of antibiotics. ?? Be careful when taking lpjg-gnz-bxfnhar cold or flu medicines and Tylenol at the same time. Many of these medicines have acetaminophen, which is Tylenol. Read the labels to make sure that you are not taking more than the recommended dose. Too much acetaminophen (Tylenol) can be harmful. ?? Use a nasal spray medicine that relieves a stuffy nose. Do not use the medicine longer than the label says. ?? Breathe warm, moist air from a steamy shower, a hot bath, or a sink filled with hot water. Avoid cold, dry air. Using a humidifier in your home may help. Follow the directions for cleaning the machine. ?? Use saline (saltwater) nasal washes to help keep your nasal passages open and wash out mucus and bacteria. You can buy saline nose drops at a grocery store or drugstore. Or you can make your own at home by adding 1 teaspoon of salt and 1 teaspoon of baking soda to 2 cups of distilled water. If you make your own, fill a bulb syringe with the solution, insert the tip into your nostril, and squeeze gently. Blow your nose. ?? Put a hot, wet towel or a warm gel pack on your face 3 or 4 times a day for 5 to 10 minutes each time. When should you call for help? Call your doctor now or seek immediate medical care if: ?? You have new or worse swelling or redness in your face or around your eyes. ?? You have a new or higher fever. Watch closely for changes in your health, and be sure to contact your doctor if: ?? You have new or worse facial pain. ?? The mucus from your nose becomes thicker (like pus) or has new blood in it. ?? You are not getting better as expected. Where can you learn more? 1. Go to [employer] or [employer]. 2. Enter M284 in the search box. Current as of: June 24, 2015 Content Version: 11.0 ?? [id number] [employer], [employer]. K REPAIRER HELPER documented in this encounter Progress Notes Nicole Matamoros APRN, CNP - 08/29/2016 3:24 PM CST S Patient is a 16 y.o. male who presents with a 2-week(s) history of nasal congestion, non-productive cough and productive cough. Associated symptoms include body aches, facial pain, headache (hurts to move my eyes) and vomiting. Patient does not report diarrhea. Past Medical History is positive for: Asthma and questionable environmental allergies Past Medical History is negative for Pneumonia, COPD and Recurrent sinusitis Smoking status: Never but does have second hand exposure Vomited about 3 times during illness, no diarrhea. No inner ear pain but pain behind left ear. Complete Review of Systems is negative, unless noted in HPI O General Appearance : WNWD male in No Acute Distress. BP 117/78 mmHg Pulse 111 Temp(Src) 99.3 ??F (37.4 ??C) (Tympanic) Wt 192 lb 3.2 oz (87.181 kg) He is well developed, well nourished, well groomed, without obvious deformities. Skin: cyanosis absent, rash absent. Lymph Nodes: small tender postauricular lymph node on the left HEENT: Head: atraumatic, normocephalic; Eyes: Conjunctival erythema: absent Ears: within normal limits bilateral Nose: edmatous mucosa; Throat: mild erythema and PND Sinuses: bilateral maxillary tenderness Neck: supple without mass, adenopathy, or thyromegaly Heart: normal and regular rate and rhythm without murmur, gallop or rub Lungs: Clear to auscultation without rales or rhonchi RST: still pending will call dad if positive A ICD-10-CM 1. Acute non-recurrent maxillary sinusitis J01.00 doxycycline monohydrate (ADOXA) 100 MG tablet 2. Viral URI with cough J06.9 B97.89 3. Sore throat J02.9 Strep Grp A, Rapid Screen P Symptomatic treatment and See prescribed medication(s) New Prescriptions DOXYCYCLINE MONOHYDRATE (ADOXA) 100 MG TABLET Take 1 Tab by mouth two times a day for 10 days. Call in prn if not improving. RTC in prn. Pt verbalized understanding of and agreement with this plan. Nicole Matamoros APRN, BRITTNY 08/29/2016 3:51 PM K REPAIRER HELPER documented in this encounter Plan of Treatment Not on filedocumented as of this encounter Procedures Procedure Name Priority Date/Time Associated Diagnosis Comme nts STREP GRP A, RAPID Waiting 08/29/2016 3:32 PM Sore throat Res ults for this SCREEN TRACK REPAIRER HELPER procedure are i n the results section. STREP GRP A, THROAT Routine 08/29/2016 3:32 PM Re sults for this CULTURE ONLY TRACK REPAIRER HELPER procedure are i n the results section. documented in this encounter Results Strep Grp A, Throat Culture Only (08/29/2016 3:32 PM TRACK REPAIRER HELPER) [facility] Method Time Signature Grp A Culture Negative NEG [facility] Specimen Anatomical Collection Method Collection Time Receive d Time (Source) Location / / Volume Laterality 08/29/2016 3:32 PM 02/27/201 7 3:38 TRACK REPAIRER HELPER PM TRACK REPAIRER HELPER Narrative [facility] - 08/31/2016 8:[address] Performed at [facility] , [address] [place] [address] Nicole Matamoros APRN, CNP LAB_1 Performing Organization Address City/[facility]/ZIP Code Phon e Number [facility] [phone] Strep Grp A, Rapid Screen (08/29/2016 3:32 PM TRACK REPAIRER HELPER) [facility] Method Time Signature Grp A Rapid Negative NEG [facility] Specimen Anatomical Collection Method Collection Time Receive d Time (Source) Location / / Volume Laterality 08/29/2016 3:32 PM 7 3:38 TRACK REPAIRER HELPER PM TRACK REPAIRER HELPER Narrative [facility] - 08/29/2016 3:[address] Performed at [facility], [address] [place] [address] Nicole Matamoros APRN, CNP LAB_1 Performing Organization Address [facility] Phon e Number [facility] [phone] documented in this encounter Visit Diagnoses Diagnosis Acute non-recurrent maxillary sinusitis - Primary Viral URI with cough Acute upper respiratory infections of un specified site Sore throat Acute pharyngitis documented in this encounter Care Teams Marriage And Family Teacher Relationship Specialty Start Date End Date Janelle Ambriz MD PCP - General 04/03/07 [address] [place] [address] documented as of this encounter
--- OUTSIDE RECORDS SUMMARY | 2022-05-18 14:37 | XMS_ITS | Encounter Summary ---
:2000 Author Organization [facility] Address [address] [place] [address] Care Team Providers Name Role Phone Janelle Ambriz MD Primary Care Provider Reason for Referral Consult/Transfer Care (Routine) - Closed Specialty Diagnoses / Procedures Referred By Contact Refer red To Contact Diagnoses Ankle fracture, right, closed, initial encounter Davis Trinidad MD [facility] [address] [place], [place] [address] Referral ID Status Reason Start Date Expiration Date Visits Requ ested Visits Authorized [id number] Closed 09/13/2016 12/13/2017 1 1 Scheduling Instructions Your provider has recommended an appoint ment with [facility]. You may call to schedule your appointment. If you prefer, a space scheduler will contact you [facility] the next 3 business days to assist you in setting up this appointment. We suggest you call your health insurance company about your coverage and benefits for this appo intment. Reason for Visit Reason Comments ANKLE PAIN Encounter Details Date Type Department Care Team Description 09/13/2016 Office Visit [facility] Ankle f racture, right, [place] closed, initial encounter [id number] [address] Lopez (Primary Dx) [place], [place] [address] Social History Tobacco Use [...] Sign Reading Time Taken Comments Blood Pressure 126/76 09/13/2016 6:40 PM CDT Pulse 92 09/13/2016 6:40 PM CDT Temperature 36.6 ??C (97.9 ??F) 09/13/2016 6:40 PM CDT Respiratory Rate 18 09/13/2016 6:40 PM CDT Oxygen Saturation - - Inhaled Oxygen Concentration - - Weight 86.2 kg (190 lb) 09/13/2016 6:40 PM CDT Height - - Body Mass Index - - documented in this encounter Progress Notes Davis Trinidad MD - 09/13/2016 7:48 PM CDT Subjective: 16-year-old white male presents with right pain. He states that school yesterday he played kickball and basketball. At one time he fell to the ground, but reports no significant injury. Yesterday after school noticed that he had difficulty dorsiflexing his right foot. Today after school had significant increased lateral right ankle pain. Denies no further injury today. Objective: Patient is alert and accompanied by his father.BP 126/76 mmHg Pulse 92 Temp(Src) 97.9??F (36.6 ??C) (Oral) Resp 18 Wt 190 lb (86.183 kg) Patient's in no acute distress. Chest: Clear. Right ankle: Positive tenderness distal lateral malleolus with swelling. No bruising seen. Dorsiflexion of right ankle causes pain. Mild anterior ankle tenderness. No medial ankle tenderness or deformity. No tenderness over base of fifth metatarsal. X-ray: Nondisplaced fracture involving base of lateral malleolus. Salter I. Discussed with Dr. Duncan. Assessment: Salter I right lateral malleolus fracture. Plan: Patient placed in Cam Walker. Recommend nonweightbearing and fitted for crutches. Ibuprofen for pain. No written for school. Patient to follow-up in orthopedic clinic in one week. Follow-up sooner if worsening. Davis Trinidad M.D. documented in this encounter Nursing Notes Tashi Mauro LPN - 09/13/2016 7:50 PM CDT Gave patient adult crutches and walking boot per order Tashi Mauro LPN documented in this encounter Plan of Treatment Scheduled Referrals Name Type Priority Associated Diagnoses Order S [facility] Consult Referral Routine Ankle fracture, r ight, Ordered: 09/13/2016 Adult/Peds closed, initial encounter documented as of this encounter Visit Diagnoses Diagnosis Ankle fracture, right, closed, initial e ncounter - Primary documented in this encounter Care Teams Public Health Clinical Nurse Specialist Relationship Specialty Start Date End Date Janelle Ambriz MD PCP - General 04/03/07 [address] [place] [address] documented as of this encounter
--- OUTSIDE RECORDS SUMMARY | 2022-05-18 14:37 | XMS_ITS | Encounter Summary ---
:2000 Author Organization [facility] Address [address] [place] [address] Care Team Providers Name Role Phone Janelle Ambriz MD Primary Care Provider Reason for Visit Procedure/Equipment (Routine) - Incomplete Specialty Diagnoses / Procedures Referred By Contact Refer red To Contact Diagnoses Flank pain David Leonard MD Procedures XR L-SPINE (ROUTINE) [address] [place], [place] [address] Referral ID Status Reason Start Date Expiration Date Visits V isits Requested Authorized [id number] Incomplete 09/18/2014 1 1 Encounter Details Date Type Department Care Team Description 09/18/2014 Imaging [facility] Radiology Flank pain [address] [place], [place] [address] Social History Tobacco Use [...] Priority Date/Time Associated Diagnosis Comme nts XR LUMBAR SPINE 3 Routine 09/18/2014 4:22 PM Flank pain Resu lts for this VIEWS CDT procedure are i n the results section. documented in this encounter Results XR L-SPINE (ROUTINE) (09/18/2014 4:22 PM CDT) [...] site documented in this encounter Care Teams Lead Portfolio Manager Relationship Specialty Start Date End Date Janelle Ambriz MD PCP - General 04/03/07 [address] [place] [address] documented as of this encounter
--- OUTSIDE RECORDS SUMMARY | 2022-05-18 14:37 | XMS_ITS | Encounter Summary ---
:2000 Author Organization [facility] Address [address] [place] [address] Care Team Providers Name Role Phone Janelle Ambriz MD Primary Care Provider Reason for Visit Reason Comments DIARRHEA x 2 days, nausea. 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) [address] [facility] [address] [place] [id number] [phone] Social History Tobacco Use Types Packs/Day Years Used Date Smoking Tobacco: Passive Smoke Exposure - Never Smoker Alcohol Use Standard Drinks/Week Comments Not Asked 0 (1 standard drink = 0.6 oz pure alcoho l) Sex Assigned at Date Recorded Not on file documented as of this encounter Last Filed Vital Signs Vital Sign Reading Time Taken Comments Blood Pressure 104/65 07/29/2014 3:08 PM [employer] Pulse 100 07/29/2014 3:08 PM [employer] Temperature 35.7 ??C (96.3 ??F) 07/29/2014 3:08 PM [employer] Respiratory Rate 20 07/29/2014 3:08 PM [employer] Oxygen Saturation - - Inhaled Oxygen Concentration - - Weight 69.4 kg (153 lb) 07/29/2014 3:08 PM [employer] Height 161.9 cm (5' 3.75) 07/29/2014 3:08 PM [employer] Body Mass Index 26.47 07/29/2014 3:08 PM [employer] Body Mass Index Percentile 95.07 % 07/29/2014 3:08 PM CS T Growth Chart: [facility] (Boys, 2-20 Years) documented in this encounter Patient Instructions Patient InstructionsMoNicole amaya APRN, BRITTNY - 07/29/2014 3:09 PM [employer] Images from the original note were not included. Restricted diet: 24 hours - clear liquids only. Next 48-72 hours: No dairy or soy [...] normal after 48-72 hours, reintroducing dairy/soy last! Gastroenteritis: After Your Child's Visit Your Care Instructions Gastroenteritis is an illness that may cause nausea, vomiting, and diarrhea. It is sometimes called stomach flu. It can be caused by bacteria or a virus. Your child should begin to feel better in 1 or 2 days. In the meantime, let your child get plenty ofrest and make sure he or she does not get dehydrated. Dehydration occurs when the body loses too much fluid. Follow-up care is a sparks part of your child's treatment and safety. Be sure to make and go to all appointments, and call your doctor if your child is having problems. It's also a good idea to know your child's test results and keep a list of the medicines your child takes. How can you care for your child at home? ?? Have your child take medicines exactly as prescribed. Call your doctor if you think your child ishaving a problem with his or her medicine. You will get more details on the specific medicines your doctor prescribes. ?? Give your child lots of fluids, enough so that the urine is light yellow or clear like water. This is very important if your child is vomiting or has diarrhea. Give your child sips of water or drinks such as Pedialyte or Infalyte. These drinks contain a mix of salt, sugar, and minerals. You can buythem at drugstores or grocery stores. Give these drinks as long as your child is throwing up or has diarrhea. Do not use them as the only source of liquids or food for more than 12 to 24 hours. ?? Watch for and treat signs of dehydration, which means the body has lost too much water. As your child becomes dehydrated, thirst increases, and his or her mouth or eyes may feel very dry. Your childmay also lack energy and want to be held a lot. Your child's urine will be darker, and he or she will not need to urinate as often as usual. ?? Wash your hands after changing diapers and before you touch food. Have your child wash his or herhands after using the toilet and before eating. ?? After your child goes 6 hours without vomiting, go back to giving him or her a normal, qtme-kh-mxwmxi diet. ?? Continue to breast-feed, but try it more often and for a shorter time. Give Infalyte or a similardrink between feedings with a dropper, spoon, or bottle. ?? If your baby is formula-fed, switch to Infalyte. Give: ?? 1 tablespoon of the drink every 10 minutes for the first hour. ?? After the first hour, slowly increase how much Infalyte you offer your baby. ?? When 6 hours have passed with no vomiting, you may give your child formula again. ?? Do not give your child mors-drx-hueqisu antidiarrhea or upset-stomach medicines without talking to your doctor first. Do not give Pepto-Bismol or other medicines that contain salicylates, a form of aspirin. Do not give aspirin to anyone younger than 20. It has been linked to Jero syndrome, a serious illness. ?? Make sure your child rests. Keep your child home as long as he or she has a fever. When should you call for help? Call 911 anytime you think your child may need emergency care. For example, call if: ?? Your child passes out (loses consciousness). ?? Your child is confused, does not know where he or she is, or is extremely sleepy or hard to wake up. ?? Your child vomits blood or what looks like coffee grounds. ?? Your child passes maroon or very bloody stools. Call your doctor now or seek immediate medical care if: ?? Your child has severe belly pain. ?? Your child has signs of needing more fluids. These signs include sunken eyes with few tears, a dry mouth with little or no spit, and little or no urine for 6 hours. ?? Your child has a new or higher fever. ?? Your child's stools are black and tarlike or have streaks of blood. ?? Your child has new symptoms, such as a rash, an earache, or a sore throat. ?? Symptoms such as vomiting, diarrhea, and belly pain get worse. ?? Your child cannot keep down medicine or liquids. Watch closely for changes in your child's health, and be sure to contact your doctor if: ?? Your child is not feeling better within 2 days. Where can you learn more? Go to [employer] and enter U768 in the search box. Current as of: April 18, 2013 Content Version: 10.1 ?? [id number] [employer]uk[employer]. [employer] documented in this encounter Progress Notes Nicole Matamoros APRN, CNP - 07/29/2014 3:10 PM CST SUBJECTIVE: Hadley Ratliff is a 14 yr old male who presents to clinic with complaint of diarrhea x 2 days and nausea; no vomiting. Diarrhea is described watery, without mucous or blood. Appetite is decreased. OBJECTIVE: General: BP 104/65 Pulse 100 Temp(Src) 96.3 ??F (35.7 ??C) (Tympanic) Resp 20 Ht 5' 3.75 (1.619 m) Wt 153 lb (69.4 kg) BMI 26.48 kg/m2 He is well developed, well nourished, well groomed, without obvious deformities. Pt playing on cell phone when I entered room, along with brother and father. Abdomen: the abdomen is soft without guarding, mass, rebound or organomegaly. Bowel sounds are normal. No CVA tenderness or inguinal adenopathy noted. There is very mild, generalized tenderness with palpation ASSESSMENT: ICD-9-CM 1. Viral gastroenteritis 008.8 PLAN: Restricted diet. Symptomatic treatment - see pt instructions. Pt dad verbalized understanding of and agreement with this plan. Nicole Matamoros APRN, CNP 07/29/2014 3:18 PM [employer] documented in this encounter Plan of Treatment Not on filedocumented as of this encounter Visit Diagnoses Diagnosis Viral gastroenteritis - Primary Intestinal infection due to other organi sm, not elsewhere classified documented in this encounter Care Teams Clinical Programmer Relationship Specialty Start Date End Date Janelle Ambriz MD PCP - General 04/03/07 [address] [place] [address] documented as of this encounter
--- OUTSIDE RECORDS SUMMARY | 2022-05-18 14:37 | XMS_ITS | Encounter Summary ---
:2000 Author Organization [email or web address] Address [address] [place] [address] Care Team Providers Name Role Phone Janelle Ambriz MD Primary Care Provider Encounter Details Date Type Department Care Team Description 10/13/2016 Lab Visit [facility] Screening for STDs (sexually transmitted diseases); [address] [facility] Sore throat [place], [place] [phone] Social History Tobacco Use Types Packs/Day Years Used Date Smoking Tobacco: Passive Smoke Exposure - Never Smoker Comments: Dad smokes outside Alcohol Use Standard Drinks/Week Comments Not Asked 0 (1 standard drink = 0.6 oz pure alcoho l) Sex Assigned at Date Recorded Not on file documented as of this encounter Progress Notes David Leonard MD - 10/17/2016 7:47 PM CDT Quick Note: I have reviewed your lab tests and they are all normal or within acceptable limits. David Leonard MD 10/17/2016, 7:46 PM documented in this encounter Plan of Treatment Not on filedocumented as of this encounter Procedures Procedure Name Priority Date/Time Associated Diagnosis Comme nts CHLAMYDIA & GC, Routine 10/13/2016 4:54 PM Screening for STDs Results for this URINE (14 YEARS AND CDT (sexually procedur e are in OLDER) transmitted the results diseases) section. COMPLETE BLOOD Routine 10/13/2016 4:54 PM Sore throat Results for this COUNT-W/DIFF CDT procedure are i n the results section. MONO TEST Routine 10/13/2016 4:54 PM Sore throat Results f or this CDT procedure are i n the results section. HIV 1/2 AG/AB 4TH Routine 10/13/2016 4:53 PM Screening for STD s Results for this GEN CDT (sexually procedure are i n transmitted the results diseases) section. documented in this encounter Results (ABNORMAL) Complete Blood Count-W/Diff (10/13/2016 4:54 PM CDT) [facility] Method Time Signature WBC 6.8 4.0 - [facility] 11.0 k/ul [facility] RBC 5.79 (H) 4.5 - 5.3 [facility] M/ul [facility] Hemoglobin 16.3 (H) 13.0 - [facility] 16.0 g/dl [facility] HCT 48.3 37.0 - [facility] 49.0 % [facility] MCV 83.4 78 - 98 [facility] fl [facility] MCH 28.2 25 - 35 [facility] pg [facility] MCHC 33.7 32 - 36 [facility] g/dl [facility] RDW 12.8 11.5 - [facility] 14.5 % [facility] Platelets 339 150 - 450 [facility] k/ul [facility] PMN/Band 58 % [facility] Lymph 24 % [facility] [place] 18 % [facility] Eos 0 % [facility] Baso 0 % [facility] Neutrophil 3.9 1.8 - 8.0 [facility] Absolute k/ul [facility] Lymph Absolute 1.6 1.2 - 5.2 [facility] k/ul [facility] [place] Absolute 1.2 (H) 0.0 - 1.0 [facility] k/ul [facility] Eos Absolute 0.0 0.0 - 0.5 [facility] k/ul [facility] Baso Absolute 0.0 0.0 - 0.2 [facility] k/ul [facility] Immature Gran 0 % [facility] Imm Gran 0.0 0 k/ul [facility] Absolute [facility] Specimen Anatomical Collection Method Collection Time Receive d Time (Source) Location / / Volume Laterality 10/13/2016 4:54 PM 7 4:55 CDT PM CDT Narrative [facility] - 10/13/2016 7:29 PM C DT Performed at [facility], [address] [place] [address] ??[id number] David Leonard MD LAB_1 Performing Organization Address City/State/ZIP Code Phon e Number [facility] [phone] [place] Test (10/13/2016 4:54 PM CDT) P athologist Signature [place] Test Negative NEG [facility] Specimen Anatomical Collection Method Collection Time Receive d Time (Source) Location / / Volume Laterality 10/13/2016 4:54 PM 7 4:55 CDT PM CDT Narrative [facility] - 10/13/2016 7:47 PM C DT Performed at [facility], [address] [place] [address] ??[id number] David Leonard MD LAB_1 Performing Organization Address City/[facility]/ZIP Code Phon e Number [facility] [phone] Chlamydia & GC, Urine (10/13/2016 4:54 PM CDT) Patholo gist Method Time Signature C.trachomatis, Negative NEG [facility] Urine [facility] Comment: Test Performed by Service Supervisor Mediated Amplification N. Gonorrhea, Urine Negative NEG [facility] Comment: Test Performed by Service Supervisor Mediated Amplification Specimen Anatomical Collection Method Collection Time Receive d Time (Source) Location / / Volume Laterality 10/13/2016 4:54 PM 7 4:55 CDT PM CDT Narrative [facility] - 10/14/2016 4:11 PM C DT Performed at [facility], [address] [place] [address] ??[id number] David Leonard MD LAB_1 Performing Organization Address City/[facility]/ZIP Code Phon e Number [facility] [phone] HIV 1/2 Ag/Ab 4th Generation (10/13/2016 4:53 PM CDT) Patholo gist Method Time Signature HIV 1/2 AG/AB Negative NEGNR [facility] 4thGEN (Non LABORATORIES Reactive) Comment: HIV-1 p24 Ag and HIV-1/HIV-2 Ab not detected. Specimen Anatomical Collection Method Collection Time Receive d Time (Source) Location / / Volume Laterality 10/13/2016 4:53 PM 7 4:54 CDT PM CDT Narrative [facility] - 10/14/2016 12:27 PM CDT Performed at [facility], [address] ??[id number] David Leonard MD LAB_1 Performing Organization Address City/State/ZIP Code Phon e Number [facility] [phone] documented in this encounter Visit Diagnoses Diagnosis Screening for STDs (sexually transmitted diseases) Screening examination for venereal disea se Sore throat Acute pharyngitis documented in this encounter Care Teams Ribbing Machine Operator Relationship Specialty Start Date End Date Janelle Ambriz MD PCP - General 04/03/07 [address] [place] [address] documented as of this encounter
--- OUTSIDE RECORDS SUMMARY | 2022-05-18 14:37 | XMS_ITS | Encounter Summary ---
:2000 Author Organization [facility] Address [address] [place] [address] Care Team Providers Name Role Phone Janelle Ambriz MD Primary Care Provider Reason for Visit Reason Comments UPSET, STOMACH x 3 d SORE THROAT, FEVER Encounter Details Date Type Department Care Team Description 04/30/2014 Office Visit [facility] Nicole Matamoros Sore throat (Primary Dx); Practice A, BRITTNY LESLIE Asthma, mild intermittent, uncomplicated [id number] [facility] [address] [place] [address] [id number] Social History Tobacco Use Types Packs/Day Years Used Date Smoking Tobacco: Passive Smoke Exposure - Never Smoker Alcohol Use Standard Drinks/Week Comments Not Asked 0 (1 standard drink = 0.6 oz pure alcoho l) Sex Assigned at Date Recorded Not on file documented as of this encounter Last Filed Vital Signs Vital Sign Reading Time Taken Comments Blood Pressure 92/62 04/30/2014 3:39 PM CDT Pulse 104 04/30/2014 3:39 PM CDT Temperature 36.2 ??C (97.1 ??F) 04/30/2014 3:39 PM CDT Respiratory Rate - - Oxygen Saturation - - Inhaled Oxygen Concentration - - Weight 69.1 kg (152 lb 6.4 oz) 04/30/2014 3:39 PM CDT Height - - Body Mass Index - - documented in this encounter Patient Instructions Patient InstructionsMoNicole amaya APRN, BRITTNY - 04/30/2014 3:50 PM CDT Images from the original note were not included. Most upper respiratory infections, or common colds are caused by viruses. The symptoms tend to last 10-14 days; the cough related to an viral URI on average lasts 18 days. Antibiotics will not treat an illness caused by a virus, therefore we recommend treating your symptoms while your body fights off the virus. Make sure you drink a minimum of 8-10, 8 ounce cups of water or non-caffeinated beverages daily. Vitamin C 250-500 mg twice daily has been proven to shorten the life span of virus' and can help shorten your illness. Maco bees throat lozenges for sore throat. Sore Throat Tea: Warmed up lemon aid with honey OR Warm water with honey and lemon juice in it. I recommend over the counter (OTC) cough medication such as Robitussin DM childrens, or Children's Delsym as needed for cough. Acetaminophen/Tylenol and/or Ibuprofen/Motrin/Advil for fevers, body aches, and other discomforts. You may take both these medications as needed in an alternating fashion. Acetaminophen dose is 500 every 4-6 hours. DO NOT take more than 4000 mg of Acetaminophen in a 24 hour period, I recommend staying at or below 3000 mg in 24 hours. Ibuprofen dose is up to 400 mg every 6-8 hours as needed. Please make [...] tolerating and do not develop nasal irritation. How to use a NetiPot: Neti Pot Use, allergens http://www.youtabulateube.com/watch?v=kX8HyjZsq_o I recommend taking a daily non-sedating antihistamine such as: Zyrtec/cetirizine, Maria Dolores/Fexofenadine, or Claritin/loratidine. (Zyrtec and Maria Dolores tend to me more effective but can be slightly sedating compared to Claritin; they also work faster). If you are not improving in 10-14 days please contact your primary care provider or clinic. If you develop a fever (temp over 100.4), especially if it is over 101.5, deep cough that is productive with milky green, arnold, or brown phlegm; or new and/or worsening symptoms please come back. Cold (Upper Respiratory Infection), 6 Years and Older: After Your Child's Visit Your Care Instructions An upper respiratory infection, also called a URI, is an infection of the nose, sinuses, or throat. URIs are spread by coughs, sneezes, and direct contact. The common cold is the most frequent kind of URI. The flu and sinus infections are other kinds of URIs. Almost all URIs are caused by viruses, so antibiotics won't cure them. But you can do things at hometo help your child get better. With most URIs, your child should feel better in 4 to 10 days. Follow-up care is a sparks part of your child's treatment and safety. Be sure to make and go to all appointments, and call your doctor if your child is having problems. It's also a good idea to know your child's test results and keep a list of the medicines your child takes. How can you care for your child at home? ?? Give your child acetaminophen (Tylenol) or ibuprofen (Advil, Motrin) for fever, pain, or fussiness. Read and follow all instructions on the label. Do not give aspirin to anyone younger than 20. It has been linked to Jero syndrome, a serious illness. ?? Be careful with cough and cold medicines. They may not be safe for young children, so check the label first. If you do give these medicines to a child, always follow the directions about how much togive based on the child's age and weight. ?? Be careful when giving your child kxqe-vra-xhtarhv cold or flu medicines and Tylenol at the same time. Many of these medicines have acetaminophen, which is Tylenol. Read the labels to make sure thatyou are not giving your child more than the recommended dose. Too much acetaminophen (Tylenol) can be harmful. ?? Make sure your child rests. Keep your child at home if he or she has a fever. ?? Place a humidifier by your child's bed or close to your child. This may make it easier for your child to breathe. Follow the directions for cleaning the machine. ?? Keep your child away from smoke. Do not smoke or let anyone else smoke around your child or in your house. ?? Wash your hands and your child's hands regularly so that you don't spread the disease. ?? If the doctor prescribed antibiotics for your child, give them as directed. Do not stop using them just because your child feels better. Your child needs to take the full course of antibiotics. ?? Give your child lots of fluids, [...] for more than 12 to 24 hours. When should you call for help? Call 911 anytime you think your child may need emergency care. For example, call if: ?? Your child has severe trouble breathing. Symptoms may include: ?? Using the belly muscles to breathe. ?? The chest sinking in or the nostrils flaring when your child struggles to breathe. Call your doctor now or seek immediate medical care if: ?? Your child has new or worse trouble breathing. ?? Your child has a new or higher fever. ?? Your child seems to be getting much sicker. ?? Your child has a new rash. Watch closely for changes in your child's health, and be sure to contact your doctor if: ?? Your child is coughing more deeply or more often, especially if you notice more mucus or a changein the color of the mucus. ?? Your child has a new symptom, such as a sore throat, an earache, or sinus pain. ?? Your child is not getting better as expected. Where can you learn more? Go to [employer] and enter N658 in the search box. Current as of: September 11, 2013 Content Version: 10.1 ?? [id number] [employer], [employer]. documented in this encounter Progress Notes Nicole Matamoros, UNIT COORDINATOR, FORM DRAFTER - 04/30/2014 3:38 PM CDT Adriel Ratliff is a 14 yr old male here with mother, who present with a complaint of sore throat for4 days. HPI The sore throat is described as making it hard to swallow and steady. Patient has used OTC throat lozenges. This has not helped. PMH Strep Exposure? Possible school exposure [place] Exposure? none Strep History? Yes Has the patient taken antibiotics in the past 2 weeks for strep? No. ROS Other symptoms fever and stomach ache/nausea, isolated incidents of vomiting on Monday. Medications: Current Outpatient Prescriptions Medication Sig ??? ALBUterol 2.5 mg/3 mL, 0.083%, nebulizer solution Inhale 3 mL by mouth every 4 hours as needed for Wheezing. ??? ALBUterol sulfate hfa (PROAIR HFA) 108 (90 BASE) MCG/ACT inhaler Inhale 1-2 Puffs by mouth every6 hours as needed for Wheezing. Allergies: Amoxicillin and Sulfa drugs Objective Vitals: BP 92/62 Pulse 104 Temp(Src) 97.1 ??F (36.2 ??C) Wt 152 lb 6.4 oz (69.128 kg) General Appearance: well developed, well nourished and in no acute distress Ears: R TM WNL: pearly, nettles with good light reflex L TM WNL: pearly, nettles with good light reflex Nose and Sinuses: normal Throat: mild erythema, tonsillar hypertrophy, 3+ and post nasal drip Neck: supple and no adenopathy Lungs: clear to auscultation, no wheezes, rales or rhonchi bilaterally Abdomen: normal Skin: clear Test results: Rapid Strep: Negative Throat Culture: pending [place]: Not done Assessment ICD-9-CM 1. Sore throat 462 STREP GRP A, RAPID SCREEN 2. Asthma, mild intermittent, uncomplicated 493.00 ALBUterol 2.5 mg/3 mL, 0.083%, nebulizer solution ALBUterol sulfate hfa (PROAIR HFA) 108 (90 BASE) MCG/ACT inhaler Plan Cannot rule out strep infection 100% until negative culture, very likely this is early viral infection, Treat symptomatically Mom needed refills of neb solution and inhalers Note for use of inhaler at school provided. See patient education and prescribed medications. Pt and mom verbalized understanding of and agreement with this plan. Nicole MIRZA 04/30/2014 4:01 PM documented in this encounter Plan of Treatment Not on filedocumented as of this encounter Procedures Procedure Name Priority Date/Time Associated Diagnosis Comme nts STREP GRP A, RAPID Waiting 04/30/2014 3:42 PM Sore throat Res ults for this SCREEN CDT procedure are i n the results section. STREP GRP A, THROAT Routine 04/30/2014 3:42 PM Re sults for this CULTURE ONLY CDT procedure are i n the results section. documented in this encounter Results STREP GRP A, THROAT CULTURE ONLY (04/30/2014 3:42 PM CDT) [facility] gist Method Time Signature Grp A Culture Negative NEG [facility] Specimen Anatomical Collection Method Collection Time Receive d Time (Source) Location / / Volume Laterality 04/30/2014 3:42 PM 4 3:45 CDT PM CDT Narrative [facility] - 05/02/2014 9:09 AM C DT Performed at [facility], [address] [place] [address] ??[id number] Nicole Matamoros APRN, CNP LAB_1 Performing Organization Address City/[facility] Phon e Number [employer] [facility] [phone] STREP GRP A, RAPID SCREEN (04/30/2014 3:42 PM CDT) [facility] [employer] Method Time Signature Grp A Rapid Negative NEG [facility] Specimen Anatomical Collection Method Collection Time Receive d Time (Source) Location / / Volume Laterality 04/30/2014 3:42 PM 4 3:45 CDT PM CDT Narrative [facility] - 04/30/2014 3:48 PM C DT Performed at [facility], [address] [place] [id number] Nicole Matamoros APRN, CNP LAB_1 Performing Organization Address City/[facility] Phon e Number [facility] [phone] documented in this encounter Visit Diagnoses Diagnosis Sore throat - Primary Acute pharyngitis Asthma, mild intermittent, uncomplicated ([facility]) documented in this encounter Care Teams Supervisor Metal Fabricating Relationship Specialty Start Date End Date Janelle Ambriz MD PCP - General 04/03/07 [address] [place] [address] documented as of this encounter
--- OUTSIDE RECORDS SUMMARY | 2022-05-18 14:37 | XMS_ITS | Encounter Summary ---
:2000 Author Organization [facility] Address [address] [place] [address] Care Team Providers Name Role Phone Janelle Ambriz MD Primary Care Provider Reason for Visit Reason Comments Medication Request Encounter Details Date Type Department Care Team Description 09/14/2016 Telephone [facility] Nathen Ambriz MD Medication Request Practice [id number] [facility] [address] [place], [place] [address] [phone] (Wo rk) Social History Tobacco Use Types Packs/Day Years Used Date Smoking Tobacco: Passive Smoke Exposure - Never Smoker Comments: Dad smokes outside Alcohol Use Standard Drinks/Week Comments Not Asked 0 (1 standard drink = 0.6 oz pure alcoho l) Sex Assigned at Date Recorded Not on file documented as of this encounter Nursing Notes Abbie Guadalupe, RN, BSN - 09/14/2016 1:[address] Rangel's recommendations given. Av is unhappy with the recommendations. You guys are retarded. Something should have been given to him last night. My son is in obvious pain at home crying tears. Reviewed RICE recommendations for sprains and fractures. Recommended they at least try the ibuprofenor aleve and if it does not seem to be helping, then we can ask for alternative pain medications. Av then asked if we had cancelled the appointment at the specialty center. Advised him we did notcancel the appointment. Av states, so he still has to see the specialist because you bo don't know what you're f......doing. Afia Norris - 09/14/2016 1:01 PM CDT The pt's father was calling Sloane Slater/CHRISTIAN back. Sloane Rod RN - 09/14/2016 12:56 PM CDT Left message to call back. Urgent care provider recommended ibuprofen for pain, he has a cam walker and has been fitted for crutches for NWB of the RLE. Per chart review, patient was given a letter for school. Are they needing an updated letter? Janelle Ambriz MD - 09/14/2016 11:55 AM CDT Please triage. I was told he has not taken any fnes-vsv-moqwtvx medication. I would recommend that before moving to anything stronger. Also, it looks like the xray report was addended to say there may not be a fracture after all? XR ANKLE RT 3 VIEWS 09/13/2016, 6:58 PM ?? INDICATION: Pain following trauma.? COMPARISON: None. ?? FINDINGS: There is a nondisplaced fracture involving the base of the ?? lateral malleolus. No dislocation. Soft tissue swelling is present over the ??lateral malleolus. Rylan Marcelino MD ?? Tue Sep 13, 2016 ??7:34:16 PM CDT ? Further clinical information of lack of any significant point tenderness ?? over the lateral malleolus has been provided. As such, the lucency at the ?? base of the lateral malleolus could reflect an unfused physis with ?? overlying soft tissue swelling. I would recommend he see ortho sooner if possible for further evaluation. Janelle Ambriz MD Mariana Lundy - 09/14/2016 11:53 AM CDT Dad calling back. Mariana Lundy - 09/14/2016 8:26 AM CDT Describe your symptoms (if pain, include location): Patient was seen last night at [facility] for a fracture and was not given any pain medication. This morning his leg is swollen and he is in a lot of pain.Patient will need a note for school. Would like a call back soon. When did they start: What have you tried at home: Patient is not taking any OTC pain medication. Have you been seen for this recently: Last night.[facility] If a prescription is needed, would you like it filled at our clinic pharmacy? [Fire Safety Inspector/Appt Center: Was the pharmacy entered into the Preferred Pharmacy field? Yes Is it okay to leave detailed message on your voicemail? Yes [Fire Safety Inspector/Appt Center: If this call is after 3 p.m., communicate to patient: If we are not able to get back to you by the end of the day and your symptoms worsen, please contact the Careline [phone] OR at .] Is there anything else I can help you with today? Yu Lundy 09/14/2016, 8:26 AM documented in this encounter Plan of Treatment Not on filedocumented as of this encounter Visit Diagnoses Not on filedocumented in this encounter Care Teams Hand Alterations Seamstress Relationship Specialty Start Date End Date Janelle Ambriz MD PCP - General 04/03/07 [address] [place] [address] documented as of this encounter
--- OUTSIDE RECORDS SUMMARY | 2022-05-18 14:37 | XMS_ITS | Encounter Summary ---
:2000 Author Organization [facility] Address [address] [place] [address] Care Team Providers Name Role Phone Janelle Ambriz MD Primary Care Provider Reason for Visit Reason Onset Date Comments Same Day/Next Day Appt. 04/29/2014 Encounter Details Date Type Department Care Team Description 04/29/2014 Telephone [place] Janelle Ambriz, Same Day/ Next Day Appt. Pediatrics [address] [facility] [address] [place], [place] [address] [place], [place] [phone] (Wo rk) Social History Tobacco Use Types Packs/Day Years Used Date Smoking Tobacco: Passive Smoke Exposure - Never Smoker Alcohol Use Standard Drinks/Week Comments Not Asked 0 (1 standard drink = 0.6 oz pure alcoho l) Sex Assigned at Date Recorded Not on file documented as of this encounter Nursing Notes Afia Norris - 04/29/2014 12:01 PM CDT I called and spoke to the father and informed him we have no openings but he could bring the pt intourgent care tonight he declined urgent care and the call was ended. LT Holli Red - 04/29/2014 11:54 AM CDT Patient would like appointment with: Any Provider Patient requesting appointment for: C/O STOMACH ACHE, NAUSEA, SORE THROAT-FOR ABOUT 3 DAYS Wants/Needs to be seen within: TODAY AFTER 330PM Additional Comments: THERE WASN'T ANY OPENINGS AFTER 330PM AND FATHER DECLINED ANOTHER LOCATION, OR URGENT CARE. FATHER IS OKAY FOR PT TO SEE ANY PROVIDER IF CAN'T SEE HIM AFTER 330PM TODAY. FATHER MADE PAYMENT AND HAD REF#[id number], OKAY TO LIFT RESTRICTION FOR THIS APPOINTMENT PER GUIDELINES. Add Is it okay to leave detailed message on your voicemail? YES Holli Red documented in this encounter Plan of Treatment Not on filedocumented as of this encounter Visit Diagnoses Not on filedocumented in this encounter Care Teams Bag Printer Relationship Specialty Start Date End Date Janelle Ambriz MD PCP - General 04/03/07 [address] [place] [address] documented as of this encounter
--- OUTSIDE RECORDS SUMMARY | 2022-05-18 14:37 | XMS_ITS | Encounter Summary ---
:2000 Author Organization [facility] Address [address] [place] [address] Care Team Providers Name Role Phone Janelle Ambriz MD Primary Care Provider Reason for Visit Reason Comments LETTER NEEDED Encounter Details Date Type Department Care Team Description 09/15/2016 Telephone [facility] Janelle Ambriz MD LETTER NEEDED [id number] [facility] [address] [place], [place] [address] [place] [address] [phone] (Wo rk) Social History Tobacco Use Types Packs/Day Years Used Date Smoking Tobacco: Passive Smoke Exposure - Never Smoker Comments: Dad smokes outside Alcohol Use Standard Drinks/Week Comments Not Asked 0 (1 standard drink = 0.6 oz pure alcoho l) Sex Assigned at Date Recorded Not on file documented as of this encounter Nursing Notes Afia Norris - 09/15/2016 10:46 AM CDT The father is aware via detailed message. Janelle Ambriz MD - 09/15/2016 9:52 AM CDT Letter has been written. Janelle Ambriz MD Afia Norris - 09/15/2016 9:41 AM CDT What form/letter are you requesting: The pt's father was calling and he would like a note for the ptto be out of school for the and the . He states the swelling is still too much for the pt to go to school. No further info given when asked. Why is this form/letter needed: For school How would you like to receive your form/ letter?: [Log Snaker: If pt would like this sent anywhere other than to themselves, we need them to sign a Release of Information] manufactured buildings supervisor at the clinic Is it okay to leave detailed message on your voicemail? Yes [Log Snaker: Communicate to patient: Forms may take up to 7-10 business days to complete. We will complete it as soon as possible and return to the location you requested] Is there anything else I can help you with today? No Afia Norris 09/15/2016, 9:41 AM documented in this encounter Plan of Treatment Not on filedocumented as of this encounter Visit Diagnoses Not on filedocumented in this encounter Care Teams Histotechnician Relationship Specialty Start Date End Date Janelle Ambriz MD PCP - General 04/03/07 [address] [place] [address] documented as of this encounter
--- OUTSIDE RECORDS SUMMARY | 2022-05-18 14:37 | XMS_ITS | Encounter Summary ---
:2000 Author Organization [facility] Address [address] [place] [address] Care Team Providers Name Role Phone Janelle Ambriz MD Primary Care Provider Reason for Visit Reason Comments Pharyngitis symptoms started 05/15/16 ABDOMINAL PAIN Health Maintanence Declined Encounter Details Date Type Department Care Team Description 05/16/2016 Office Visit [facility] Jonny, Katlin [facility] Practice STATIONARY BOILER FIREMAN, DNP respiratory illness [address] [facility] [address] (Primary Dx) [place], [place] [address] [place], [place] [phone] [address] Social History Tobacco Use Types Packs/Day Years Used Date Smoking Tobacco: Passive Smoke Exposure - Never Smoker Comments: Dad smokes outside Alcohol Use Standard Drinks/Week Comments Not Asked 0 (1 standard drink = 0.6 oz pure alcoho l) Sex Assigned at Date Recorded Not on file documented as of this encounter Last Filed Vital Signs Vital Sign Reading Time Taken Comments Blood Pressure 117/65 05/16/2016 2:07 PM ENVIRONMENTAL MONITORING TECHNICIAN Pulse 74 05/16/2016 2:07 PM ENVIRONMENTAL MONITORING TECHNICIAN Temperature 36.5 ??C (97.7 ??F) 05/16/2016 2:07 PM ENVIRONMENTAL MONITORING TECHNICIAN Respiratory Rate 12 05/16/2016 2:07 PM ENVIRONMENTAL MONITORING TECHNICIAN Oxygen Saturation - - Inhaled Oxygen Concentration - - Weight 87.3 kg (192 lb 6.4 oz) 05/16/2016 2:07 PM ENVIRONMENTAL MONITORING TECHNICIAN Height 174 cm (5' 8.5) 05/16/2016 2:07 PM ENVIRONMENTAL MONITORING TECHNICIAN Body Mass Index 28.83 05/16/2016 2:07 PM ENVIRONMENTAL MONITORING TECHNICIAN Body Mass Index Percentile 96.39 % 05/16/2016 2:07 PM CS T Growth Chart: CDC (Boys, 2-20 Years) documented in this encounter Patient Instructions Patient InstructionsJonny Patience MARIAMA Driver, AUTOMOTIVE SERVICE ASSISTANT - 05/16/2016 2:21 PM ENVIRONMENTAL MONITORING TECHNICIAN It was a pleasure seeing you in clinic today. I hope I was able to address your health care concerns to your satisfaction. If you have any further questions or concerns, please contact me by email through the [email or web address] website, [email or web address], or by calling the clinic at [phone]. Here is an outline of what we discussed today and your Plan of Care: Here are some things you can do to help relieve your symptoms: ??? Get plenty of rest. ??? Drink plenty of fluids. This helps to thin the secretions (mucus) and makes it easier to blow them out. ?? Use a warm compress over the sinuses up to 4 times a day. ??? Use Tylenol (acetaminophen), Advil or Motrin (ibuprofen), or Aleve (naproxen), qwrt-nzg-fpnhoqa pain relievers, for fever, body aches, or headaches. ?? Use gegm-zqu-gqavcql cold medicines as needed to treat symptoms. o Mucinex (guaifenesin) to thin mucus o Cough suppressant for a cough o Throat lozenges for a sore throat ?? Use Sudafed (pseudoephedrine) to help dry up the congestion in your sinuses. You can use 1 to 2 tablets every 6 hours as needed. If you have high blood pressure, do not use Sudafed because it can raise your blood pressure. If you have high blood pressure, use Coricidin HBP (chlorpheniramine maleate). ?? Use ehlu-sol-ftshcpi Afrin nasal spray (oxymetazoline) to help with sinus pressure, pain, and congestion. ??? Use nasal saline, such as a nasal saline spray or a Neti Pot. These help to flush the sinuses and may help to improve your symptoms more quickly. ?? If you have allergies, avoid your allergy triggers and take ebpw-xue-assyfzg allergy medicine. o Maria Dolores (fexofenadine) o Claritin (loratadine) o Zyrtec (cetirizine) ??? Use a humidifier near your bed. This helps to maintain moist air passages at night. ??? Do not smoke. Patience Fuller APRN, CNP [facility] [address] [place] [address] RONMENTAL MONITORING TECHNICIAN documented in this encounter Progress Notes Patience Fuller APRN, CNP - 05/16/2016 2:13 PM CST HPI: Hadley Ratliff is a 16 y.o. male who presents today with Pharyngitis; ABDOMINAL PAIN; and Health Maintanence Declined Patient accompanied by his father ?? Throat and stomach started working last night at work ?? Works at [employer] in [place] ?? Brought a pizza home from work, ate whole pizza, went to sleep ?? Awoke this morning and throat feels worse, stomach is the same ?? No known ill contacts ?? Slept well last night; has not eaten today; bowel and bladder function intact ?? Attends high school in [place]; will be returning to local high school in July ROS: Constitutional: No fever, chills Eyes: Redness, irritation, discharge ENT: no abnormally frequent URIs, no decrease in hearing, no sinus problems, no tinnitus, no vertigo Respiratory: no shortness of breath, no cough, no sputum, no wheezing Cardiovascular: no irregular heart beats, no chest pain Gastrointestinal See HPI Hematologic/Lymphatic/Immunologic no swollen lymph nodes I have personally reviewed the patient's allergies, medications, past medical history, family history, social history, rooming notes, problem list and health maintenance record in detail and updated the patient record as necessary. Physical Exam: BP 117/65 mmHg Pulse 74 Temp(Src) 97.7 ??F (36.5 ??C) (Tympanic) Resp 12 Ht 5' 8.5 (1.74 m) Wt 192 lb 6.4 oz (87.272 kg) BMI 28.83 kg/m2 General Appearance: alert, well appearing and in no apparent distress Head: atraumatic Eyes: lids normal sclera clear conjunctiva normal Ears: [id number] Nose: no rhinorrhea/nasal discharge and mild erythema Mouth/Throat: no exudates and no erythema Neck: no lymphadenopathy Heart: regular rate and rhythm and no murmurs, gallops or rubs Lungs: clear to ausculation and no wheezes, rales or rhonchi Musculoskeletal: moves about exam room without difficulty Psychiatric: affect/mood normal, cooperative, normal judgement/insight and memory intact Assessment/Plan: ICD-10-CM 1. Viral upper respiratory illness J06.9 Discussed presenting symptoms and reassuring exam findings.Symptomatic management reviewed. Instructions given to patient in the After Visit Summary. The patient indicates understanding of these issues and agrees with the plan. Letter excusing patient from school today provided. B97.89 Return if symptoms worsen or fail to improve. Health Maintenance: Reviewed outstanding Health Maintenance; declines update today. Plan of Care developed in conjunction with patient. Patient agrees with and verbalizes understandingof plan. Patience Fuller APRN, PRICE ANALYST-C 05/16/2016 2:44 PM RONMENTAL MONITORING TECHNICIAN documented in this encounter Plan of Treatment Not on filedocumented as of this encounter Visit Diagnoses Diagnosis Viral upper respiratory illness - Primar y Acute upper respiratory infections of un specified site documented in this encounter Care Teams Openstack Cloud Consulting Architect Relationship Specialty Start Date End Date Janelle Ambriz MD PCP - General 04/03/07 [address] [place] [address] documented as of this encounter
--- OUTSIDE RECORDS SUMMARY | 2022-05-18 14:37 | XMS_ITS | Encounter Summary ---
:2000 Author Organization [facility] Address [address] [place] [address] Care Team Providers Name Role Phone Janelle Ambriz MD Primary Care Provider Reason for Visit Reason Comments Sore Throat stomach upset / sinus conges tion X 1 week Encounter Details Date Type Department Care Team Description 06/15/2016 Office Visit [facility] Nicole Matamoros, So re throat (Primary Dx); Practice BRITTNY LESLIE Viral URI with cough [id number] [facility] [address] [place] [id number] Social History Tobacco Use Types Packs/Day Years Used Date Smoking Tobacco: Passive Smoke Exposure - Never Smoker Comments: Dad smokes outside Alcohol Use Standard Drinks/Week Comments Not Asked 0 (1 standard drink = 0.6 oz pure alcoho l) Sex Assigned at Date Recorded Not on file documented as of this encounter Last Filed Vital Signs Vital Sign Reading Time Taken Comments Blood Pressure 134/74 06/15/2016 3:21 PM SERVICE STATION HELPER Pulse 102 06/15/2016 3:18 PM SERVICE STATION HELPER Temperature 37.1 ??C (98.8 ??F) 06/15/2016 3:18 PM SERVICE STATION HELPER Respiratory Rate 16 06/15/2016 3:18 PM SERVICE STATION HELPER Oxygen Saturation - - Inhaled Oxygen Concentration - - Weight 87.5 kg (193 lb) 06/15/2016 3:18 PM SERVICE STATION HELPER Height - - Body Mass Index - - documented in this encounter Patient Instructions Patient InstructionsMoNicole amaya, BRITTNY LESLIE - 06/15/2016 3:36 PM SERVICE STATION HELPER Prednisone - 2 tabs once daily for 5 days Albuterol inhaler 1-2 puffs every 4 hours as needed for shortness or breath, wheezing or coughing fit. Hamlin test today, rapid strep test was negative - we will culture this as well. Most upper respiratory infections, or common colds [...] dry up secretions reducing night time and bowling floor desk clerk coughing, sore/irritated throat and congestion. If you are not improving in 10-14 days please contact your primary care provider or clinic. If you develop a fever (temp over 100.4), especially if it is over 101.5, deep cough that is productive with milky green, arnold, or brown phlegm; or new and/or worsening symptoms please come back. ICE STATION HELPER documented in this encounter Progress Notes Nicole Matamoros APRN, CNP - 06/17/2016 8:49 AM SERVICE STATION HELPER Quick Note: Communicate negative results. Nicole Matamoros APRN, CNP 06/17/2016 8:49 AM ICE STATION HELPER Nicole Matamoros APRN, CNP - 06/15/2016 3:17 PM CST DICK Ratliff is a 16 y.o. male here with father, presenting with sinus congestion, sore throat, upset stomach. Initial Symptoms: sore throat 1 weeks. Progression: symptoms have worsened gradually. Associated Symptoms: reduced appetite, reduced fluid intake and nausea. Pertinent Negatives: no diarrhea or vomiting. Home Treatment: antihistamine-decongestant of choice, cough suppressant of choice has not been helpful. OTC cold/flu medications, not very helpful. No known direct exposures but there have been other students out sick, father was sick last week and just started to feel better. Complete Review of Systems is negative, unless noted in HPI OBJECTIVE Vital Signs: BP 134/74 mmHg Pulse 102 Temp(Src) 98.8 ??F (37.1 ??C) (Tympanic) Resp 16 Wt 193 lb (87.544 kg) Appearance: stated age, healthy, alert, in no distress Head: normocephalic Eyes: no abnormalities detected Ears: right external canal and tympanic membrane free of lesions or abnormalities, left external canal and tympanic membrane free of lesions or abnormalities Nose: clear rhinorrhea and mucosal erythema. Oropharynx: mild erythema, tonsillar hypertrophy, 1+ and PND Neck: supple and no adenopathy Heart: regular rate and rhythm, normal S1 and S2 without murmur or click Lungs: clear to auscultation, no wheezes, rales or rhonchi Abdomen: soft, without masses, distention, tenderness or organomegaly Skin: no abnormalities noted RST: Neg, culture pending ASSESSMENT ICD-10-CM 1. Sore throat J02.9 Throat Culture Collection-Ns Strep Grp A, Rapid Screen Hamlin Test Tip Farmer A Panel predniSONE (DELTASONE) 20 MG tablet 2. Viral URI with cough J06.9 B97.89 Suspect viral sore throat, will also rule out mono since he had similar symptoms last month PLAN Tylenol or Ibuprofen for comfort. Diet and activity as tolerated. Encourage fluids. Prednisone burst and albuterol. Pt and father verbalized understanding of and agreement with this plan. Nicole Matamoros APRN, BRITTNY 06/15/2016 3:42 PM ICE STATION HELPER documented in this encounter Plan of Treatment Not on filedocumented as of this encounter Procedures Procedure Name Priority Date/Time Associated Diagnosis Comme nts STREP GRP A, RAPID Waiting 06/15/2016 3:25 PM Sore throat Res ults for this SCREEN SERVICE STATION HELPER procedure are i n the results section. STREP GRP A, THROAT Routine 06/15/2016 3:25 PM Re sults for this CULTURE ONLY SERVICE STATION HELPER procedure are i n the results section. documented in this encounter Results (ABNORMAL) Tip Farmer A Panel (06/15/2016 3:42 PM SERVICE STATION HELPER) Component Value Ref Test Analysis Performed At [facility] Range Method Time Signature Tip Farmer VCA < OR = 0.90 [facility] IgM Reference range: See (NOTE) [place] TORI Tip Farmer VCA (NOTE) [facility] IgM ?Value ? I nterpretation LABORATORIES ?----- ? --- ?< or = 0.90 ?? Negati ve ?0.91-1.09 ? Equiv ocal ?> or = 1.10 ?? Positi ve Tip Famrer VCA 4.65 (H) [facility] IgG LABORATORIES Tip Farmer VCA Reference range: [facility] IgG See (NOTE) BENITA Tip Farmer VCA (NOTE) [facility] IgG ?Value ? I nterpretation LABORATORIES ?----- ? --- ?< or = 0.90 ?? Negati ve ?0.91-1.09 ? Equiv ocal ?> or = 1.10 ?? Positi ve Tip Farmer NA >5.00 [facility] IgG Reference range: See (NOTE) [place] (H) Tip Farmer NA (NOTE) [facility] IgG ?Value ? I nterpretation LABORATORIES ?----- ? --- ?< or = 0.90 ?? Negati ve ?0.91-1.09 ? Equiv ocal ?> or = 1.10 ?? Positi ve EBV [facility] Interpretation LABORATORIES EBV (NOTE) [facility] Interpretation LABORATORIES Suggestive of a past Tip-Farmer virus infection. In infants, a similar pattern may occur as a result of passive maternal transfer of antibody. Test performed at [facility] [address] ??[id number] Director: AZUL GARCIAS MD Specimen Anatomical Collection Method Collection Time Receive d Time (Source) Location / / Volume Laterality 06/15/2016 3:42 PM 6 3:45 SERVICE STATION HELPER PM SERVICE STATION HELPER Nicole Matamoros APRN, CNP LAB_1 Performing Organization Address City/State/ZIP Code Phon e Number [facility] [phone] Hamlin Test (06/15/2016 3:42 PM SERVICE STATION HELPER) P athologist Signature Hamlin Test Negative NEG [facility] Specimen Anatomical Collection Method Collection Time Receive d Time (Source) Location / / Volume Laterality 06/15/2016 3:42 PM 6 3:44 SERVICE STATION HELPER PM SERVICE STATION HELPER Narrative [facility] - 06/15/2016 7:[address] Performed at [facility], [address] [place] [id number] Nicole Matamoros APRN, CNP LAB_1 Performing Organization Address City/State/ZIP Code Phon e Number [facility] [phone] Strep Grp A, Throat Culture Only (06/15/2016 3:25 PM SERVICE STATION HELPER) Patholo gist Method Time Signature Grp A Culture Negative NEG [facility] Final LABORATORIES Specimen Anatomical Collection Method Collection Time Receive d Time (Source) Location / / Volume Laterality 06/15/2016 3:25 PM 201 6 3:26 SERVICE STATION HELPER PM SERVICE STATION HELPER Narrative [facility] - 06/17/2016 8:[address] Performed at [facility] , [address] [place] [address] Nicole Matamoros APRN, CNP LAB_1 Performing Organization Address City/[facility]/ZIP [facility] Phon e Number [facility] [phone] Strep Grp A, Rapid Screen (06/15/2016 3:25 PM SERVICE STATION HELPER) [facility] gist Method Time Signature Grp A Rapid Negative NEG [facility] Screen [facility] Specimen Anatomical Collection Method Collection Time Receive d Time (Source) Location / / Volume Laterality 06/15/2016 3:25 PM 6 3:26 SERVICE STATION HELPER PM SERVICE STATION HELPER Narrative [facility] - 06/15/2016 3:[address] Performed at [facility], [address] [place] [address] Nicole Matamoros APRN, CNP LAB_1 Performing Organization Address [facility] Phon e Number [facility] [phone] documented in this encounter Visit Diagnoses Diagnosis Sore throat - Primary Acute pharyngitis Viral URI with cough Acute upper respiratory infections of un specified site Sore throat Acute pharyngitis documented in this encounter Care Teams Kohinoor Operator Relationship Specialty Start Date End Date Janelle Ambriz MD PCP - General 04/03/07 [address] [place] [address] documented as of this encounter
--- OUTSIDE RECORDS SUMMARY | 2022-05-18 14:37 | XMS_ITS | Encounter Summary ---
:2000 Author Organization [facility] Address [address] [place] [address] Care Team Providers Name Role Phone Janelle Ambriz MD Primary Care Provider Reason for Referral Consult/Transfer Care (Routine) - Closed Specialty Diagnoses / Procedures Referred By Contact Refer red To Contact Mehreen Monaco PA -C [address] [place], [place] [address] Referral ID Status Reason Start Date Expiration Date Visits Requ ested Visits Authorized [id number] Closed 09/29/2015 12/28/2016 1 1 Scheduling Instructions Your provider has recommended an appoint ment with [facility]. You may call [phone] to schedule your a ppointment. If you prefer, a waxed bag machine operator will contact you within the next 3 business d ays to assist you in setting up this appointment. Patient reminder: [facility] coordinated visits with providers who specialize in treating Asthma at [facility] location. Reason for Visit Reason Comments Sore Throat X 3 days VOMITING Encounter Details Date Type Department Care Team Description 09/29/2015 Office Visit [facility] Mehreen Monaco, Alvarado er respiratory tract infection, unspecified type (Primary Dx); Practice [facility] Sore throat [address] [facility] [address] [place] [phone] Social History Tobacco Use Types Packs/Day Years Used Date Smoking Tobacco: Passive Smoke Exposure - Never Smoker Comments: Dad smokes outside Alcohol Use Standard Drinks/Week Comments Not Asked 0 (1 standard drink = 0.6 oz pure alcoho l) Sex Assigned at Date Recorded Not on file documented as of this encounter Last Filed Vital Signs Vital Sign Reading Time Taken Comments Blood Pressure 130/72 09/29/2015 3:28 PM CDT Pulse 102 09/29/2015 3:28 PM CDT Temperature 37.2 ??C (99 ??F) 09/29/2015 3:28 PM CDT Respiratory Rate - - Oxygen Saturation - - Inhaled Oxygen Concentration - - Weight 86 kg (189 lb 9.6 oz) 09/29/2015 3:28 PM CDT Height 170.8 cm (5' 7.25) 09/29/2015 3:28 PM CDT Body Mass Index 29.48 09/29/2015 3:28 PM CDT Body Mass Index Percentile 97.32 % 09/29/2015 3:28 PM CD T Growth Chart: [facility] (Boys, 2-20 Years) documented in this encounter Progress Notes Mehreen Monaco PA-C - 09/29/2015 4:56 PM CDT SUBJECTIVE: Hadley Ratliff is a 15 y.o. male here with father, presenting with congestion, coryza, sore throat and vomiting. Initial Symptoms: congestion yesterday. Vomiting around midnight last night and again this morning once he woke up. Truancy officer is involved with him so he had to go to school today and be checked by the school nurse. No fever, stayed at school. Although dad is upset with this that he had to go to school. Progression: symptoms have remained stable. No fever. No further vomiting. Throat is still sore. No cough. He has a history of asthma, not entirely sure how well controlled it is. Sounds like he has missed alot of school due to illness. But also sounds like there is some mood issues and possibly bullying going on at school. Dad says school is aware of these other issues and doesn't do anything. Hadley gets very jittery and has nausea after using his albuterol nebulizer. OBJECTIVE: BP 130/72 mmHg Pulse 102 Temp(Src) 99 ??F (37.2 ??C) (Oral) Ht 5' 7.25 (1.708 m) Wt 189 lb 9.6 oz (86.002 kg) BMI 29.48 kg/m2 Vitals reviewed by me. Appearance: stated age, alert, in no distress Head: normocephalic Eyes: no abnormalities detected Ears: external canals and tympanic membranes normal Nose: normal. Oropharynx: normal Neck: supple,no adenopathy Heart: regular rate and rhythm, normal S1 and S2 without murmur or click Lungs: clear to auscultation, no wheezes, rales or rhonchi ASSESSMENT: viral upper respiratory illness PLAN: Elevate head. Cold air vaporizer. Continue to monitor temperature. Tylenol or Ibuprofen for comfort. Encourage fluids. Call if symptoms persist or worsen. Order placed for asthma center evaluation given his difficulty with asthma symptoms, unclear he has ever had a true asthma diagnosis. Probably an allergy component as well Mehreen Monaco PA-C 09/29/2015, 5:01 PM documented in this encounter Plan of Treatment Scheduled Referrals Name Type Priority Associated Diagnoses Order S [facility] Referral Routine Ordered: 09/28 documented as of this encounter Procedures Procedure Name Priority Date/Time Associated Diagnosis Comme nts STREP GRP A, RAPID Waiting 09/29/2015 3:37 PM Sore throat Res ults for this SCREEN CDT procedure are i n the results section. STREP GRP A, THROAT Routine 09/29/2015 3:37 PM Re sults for this CULTURE ONLY CDT procedure are i n the results section. documented in this encounter Results STREP GRP A, THROAT CULTURE ONLY (09/29/2015 3:37 PM CDT) [facility] Method Time Signature Grp A Culture Negative NEG [facility] Final [facility] Specimen Anatomical Collection Method Collection Time Receive d Time (Source) Location / / Volume Laterality 09/29/2015 3:37 PM 6 3:38 CDT PM CDT Narrative [facility] - 10/01/2015 12:06 PM CDT Performed at [facility] , [address] [place] [address] Mehreen Monaco PA-C LAB_1 Performing Organization Address City/[facility]/ZIP Code Phon e Number [facility] [phone] STREP GRP A, RAPID SCREEN (09/29/2015 3:37 PM CDT) [facility] gist Method Time Signature Grp A Rapid Negative NEG [facility] Screen [facility] Specimen Anatomical Collection Method Collection Time Receive d Time (Source) Location / / Volume Laterality 09/29/2015 3:37 PM 201 6 3:38 CDT PM CDT Narrative [facility] - 09/29/2015 3:44 PM C DT Performed at [facility], [address] [place] [address] Mehreen Monaco PA-C LAB_1 Performing Organization Address [facility] Code Phon e Number [facility] [phone] documented in this encounter Visit Diagnoses Diagnosis Upper respiratory tract infection, unspe cified type - Primary Sore throat Acute pharyngitis documented in this encounter Care Teams Medical Claims Processor Relationship Specialty Start Date End Date Janelle Ambriz MD PCP - General 04/03/07 [address] [place] [address] documented as of this encounter
--- OUTSIDE RECORDS SUMMARY | 2022-05-18 14:37 | XMS_ITS | Encounter Summary ---
:2000 Author Organization [facility] Address [address] [place] [address] Care Team Providers Name Role Phone Janelle Ambriz MD Primary Care Provider Reason for Referral Procedure/Equipment (Routine) - Incomplete Specialty Diagnoses / Procedures Referred By Contact Refer red To Contact Diagnoses Gamaliel type I physeal fracture of distal end of right fibula, initial encounter Sofie Quach PA-C Procedures XR Ankle Rt 3 Views [address] [place] [address] Referral ID Status Reason Start Date Expiration Date Visits V isits Requested Authorized [id number] Incomplete 09/26/2016 12/26/2017 1 1 Reason for Visit Reason Comments FRACTURE, ANKLE right Consult/Transfer Care (Routine) - Closed Specialty Diagnoses / Procedures Referred By Contact Refer red To Contact Diagnoses Ankle fracture, right, closed, initial encounter Davis Trinidad MD [address] [facility] [address] [place], [place] [address] Referral ID Status Reason Start Date Expiration Date Visits Requ ested Visits Authorized [id number] Closed 09/13/2016 12/13/2017 1 1 Encounter Details Date Type Department Care Team Description 09/26/2016 Office Visit [facility] Roshan Houston MD Salter-Harris type I [facility] [address] [facility] physeal fracture of [address] [place], [place] [address] fibula, initial [phone] encounter (Naima he (Work) Dx) Social History Tobacco Use Types Packs/Day Years Used Date Smoking Tobacco: Passive Smoke Exposure - Never Smoker Comments: Dad smokes outside Alcohol Use Standard Drinks/Week Comments Not Asked 0 (1 standard drink = 0.6 oz pure alcoho l) Sex Assigned at Date Recorded Not on file documented as of this encounter Patient Instructions Patient InstructionsStacey Cedeño LPN - 09/26/2016 4:00 PM CDT Reason for today's visit: Right ankle injury Tests that you will need: None Prescribed Medications: None Supplies you will be leaving with: None Treatment plan: - School note provided with restrictions Follow up appointments: You will follow up with Dr. Roshan Houston in 6-7 week(s). X-Rays: You will have Right Ankle X-Rays taken with your next Orthopaedics appointment. Please arrive 30 minutes early for your appointment. Reason for next Orthopaedics appointment: Follow up right ankle fracture Please stop at the check out desk to schedule a follow up appointment. Use this grid to write down your next appointment. DATE & TIME PROVIDER LOCATION APPT NOTES ( ) [facility]: [address] [place] [address] ( ) [address] ( ) Other: Follow up right ankle fracture ( ) [facility]: [address] [place] [address] ( ) [address] ( ) Other: If you have any questions about your visit, your symptoms, your medication, your test results or it is not clear what your diagnosis or treatment plan is please contact us at [phone] or send us a secure message via [employer]. You may receive a survey in the mail regarding your visit today. Your feedback is very important to us, please take a moment to complete the survey which is completely anonymous. If you would like to speak to someone specifically, you may contact the clinic at [phone] and your call will be directed to someone on our leadership team. Thank you for choosing Roshan Houston MD and [facility]. Did you know, you can now reach us for appointment scheduling seven days a week, 365 days a year from 7am to 9pm? Just call our main number, , listen to the prompts and you will be connected to a billing representative who can assist you with your appointment scheduling needs. Discharged by: documented in this encounter Plan of Treatment Not on filedocumented as of this encounter Results XR Ankle Rt 3 [...] distal end of right fibula, initial encounter - Primary Salter-Ham type I physeal fracture of distal end of right fibula, initial encounter documented in this encounter Care Teams Oil Pipeline Operator Relationship Specialty Start Date End Date Janelle Ambriz MD PCP - General 04/03/07 [address] [place] [address] documented as of this encounter
--- OUTSIDE RECORDS SUMMARY | 2022-05-18 14:37 | XMS_ITS | Encounter Summary ---
:2000 Author Organization [facility] Address [address] [place] [address] Care Team Providers Name Role Phone Janelle Ambriz MD Primary Care Provider Reason for Visit Reason Comments COUGH SOB (SHORTNESS OF BREATH) DIARRHEA Encounter Details Date Type Department Care Team Description 08/31/2014 Office Visit [facility] clarisse cough (Primary Dx); [place] Sore throat [address] [place], [place] [address] Social History Tobacco Use Types Packs/Day Years Used Date Smoking Tobacco: Passive Smoke Exposure - Never Smoker Alcohol Use Standard Drinks/Week Comments Not Asked 0 (1 standard drink = 0.6 oz pure alcoho l) Sex Assigned at Date Recorded Not on file documented as of this encounter Last Filed Vital Signs Vital Sign Reading Time Taken Comments Blood Pressure 127/73 08/31/2014 3:59 PM CREDIT OPERATIONS PROCESSOR Pulse 92 08/31/2014 3:59 PM CREDIT OPERATIONS PROCESSOR Temperature 36.9 ??C (98.5 ??F) 08/31/2014 3:59 PM CREDIT OPERATIONS PROCESSOR Respiratory Rate 18 08/31/2014 3:59 PM CREDIT OPERATIONS PROCESSOR Oxygen Saturation 97% 08/31/2014 3:59 PM CREDIT OPERATIONS PROCESSOR Inhaled Oxygen Concentration - - Weight 71.2 kg (157 lb) 08/31/2014 3:59 PM CREDIT OPERATIONS PROCESSOR Height - - Body Mass Index - - documented in this encounter Patient Instructions Patient InstructionsSaKait arriaga APRN, MARKETING PR INTERN - 08/31/2014 4:24 PM CREDIT OPERATIONS PROCESSOR Cough Cough is one a troublesome (and frequent) problem encountered in pediatrics. It is most often causedby common viruses and seems to be related to stimulation of certain nerve endings in the nose, throat, sinuses and lungs. MEDICATIONS: ?? Cough-suppressant medications such as dextromethorphan and codeine work by deadening the nerves responsible for the cough reflex. ?? Decongestants may help by drying up the secretions which are irritating the nerve endings. ?? Expectorants help by thinning the irritating secretions and are probably no more effective than plain water, which helps control cough by watering down the secretions, allowing the body to dispose of them more easily. (Antihistamines are of no use for coughs, but they help with other cold symptoms such as sneezing and watery eyes.) ?? All of these medications are combined in different ways by different pharmaceutical companies to provide you with plenty of choice. When choosing an hsco-mxt-zzqwiyl medication for cough, choose thecombination of ingredients that best meets your child's individual needs. HOME CARE: ?? There are many techniques you can use in the home to help control a troublesome cough--all of them are related to reducing the irritation of the mucus membranes of the nose, throat and sinuses. To reduce post-nasal drip by promoting drainage, offer extra fluids, elevate the head of the bed, and try letting your child sleep in an upright position. To reduce irritation of the airway, introduce humidity into the environment with a room vaporizer or by turning on the hot shower to produce steam in the bathroom. (In Zulma Terry's day, people managed coughs by holding the child in their laps next to the stove, where water was kept boiling to produce humidity.) Cough is a common problem, it is usually quite benign and self-limiting, and home care can be quite effective. Be sure to have your child drink plenty of water, and remember: YOU ARE NOT ALONE! IIf you need help during office hours, please call our Nurse's Line at [phone]. After hours, call the CareLine at [phone]. IT OPERATIONS PROCESSOR documented in this encounter Progress Notes Kait Singh RN - 09/02/2014 11:54 AM CREDIT OPERATIONS PROCESSOR Quick Note: Results noted Kait Oswald RN 09/02/2014, 11:54 AM Kait Mane, ARMORING MACHINE OPERATOR, MARKETING PR INTERN - 08/31/2014 5:01 PM CST DICK Ratliff is a 14 yr male here with father, presenting with congestion, cough and sore throat. Initial Symptoms: congestion and cough 1 weeks. Progression: symptoms have remained stable. Associated Symptoms: normal activity, mood and playfulness, normal appetite, normal fluid intake, normal sleep and normal urination. Pertinent Negatives: no fever. Home Treatment: Albuterol has been helpful. Current medications on record: Current Outpatient Prescriptions Medication Sig ??? ALBUterol 2.5 mg/3 mL, 0.083%, nebulizer solution Inhale 3-6 mL by mouth every 4 hours as neededfor Wheezing. ??? ALBUterol sulfate hfa (PROAIR HFA) 108 (90 BASE) MCG/ACT inhaler Inhale 1-2 Puffs by mouth every4 hours as needed for Wheezing. ??? azithromycin (AKA ZITHROMAX) 250 MG tablet Take two tablets on the first day, and take one tablet each day on days 2-5 Allergies: Amoxicillin and Sulfa drugs OBJECTIVE Vital Signs: BP 127/73 Pulse 92 Temp(Src) 98.5 ??F (36.9 ??C) (Tympanic) Resp 18 Wt 157 lb (71.215 kg) SpO2 97% Appearance: stated age, healthy, alert, in no distress Head: normocephalic Eyes: no abnormalities detected Ears: external canals and tympanic membranes normal Nose: clear rhinorrhea. Oropharynx: normal Neck: supple and small, benign anterior cervical nodes bilaterally Heart: regular rate and rhythm, normal S1 and S2 without murmur or click Lungs: Mild rales noted in LLL. Abdomen: soft, without masses, distention, tenderness or organomegaly Skin: no abnormalities noted GRP A RAPID SCREEN (no units) Date Value 08/31/2014 Negative ASSESSMENT ICD-9-CM 1. Productive cough 786.2 azithromycin (AKA ZITHROMAX) 250 MG tablet 2. Sore throat 462 STREP GRP A, RAPID SCREEN PLAN Elevate head. Cold air vaporizer. Tylenol or Ibuprofen for comfort. Diet and activity as tolerated. Encourage fluids. Monitor urine output. Call if symptoms persist or worsen. See patient education. Side effects and potential drug interactions discussed with patient. Follow up as needed. IT OPERATIONS PROCESSOR documented in this encounter Plan of Treatment Not on filedocumented as of this encounter Procedures Procedure Name Priority Date/Time Associated Diagnosis Comme nts STREP GRP A, RAPID Waiting 08/31/2014 4:04 PM Sore throat Res ults for this SCREEN CREDIT OPERATIONS PROCESSOR procedure are i n the results section. STREP GRP A, THROAT Routine 08/31/2014 4:04 PM Re sults for this CULTURE ONLY CREDIT OPERATIONS PROCESSOR procedure are i n the results section. documented in this encounter Results STREP GRP A, THROAT CULTURE ONLY (08/31/2014 4:04 PM CREDIT OPERATIONS PROCESSOR) [facility] Method Time Signature Grp A Culture Negative NEG [facility] Specimen Anatomical Collection Method Collection Time Receive d Time (Source) Location / / Volume Laterality 08/31/2014 4:04 PM 5 4:07 CREDIT OPERATIONS PROCESSOR PM CREDIT OPERATIONS PROCESSOR Narrative [facility] - 09/02/2014 10:39 AM CREDIT OPERATIONS PROCESSOR Performed at [facility] , [address] [place] [address] Kait Gtz APRN, CNP LAB_1 Performing Organization Address [facility] Phon e Number [facility] [phone] STREP GRP A, RAPID SCREEN (08/31/2014 4:04 PM CREDIT OPERATIONS PROCESSOR) [facility] Method Time Signature Grp A Rapid Negative NEG [facility] Specimen Anatomical Collection Method Collection Time Receive d Time (Source) Location / / Volume Laterality 08/31/2014 4:04 PM 5 4:07 CREDIT OPERATIONS PROCESSOR PM CREDIT OPERATIONS PROCESSOR Narrative [facility] - 08/31/2014 4:[address] Performed at [facility], [address] [place] [id number] Kait Gtz APRN, CNP LAB_1 Performing Organization Address City/[facility] Phon e Number [facility] [phone] documented in this encounter Visit Diagnoses Diagnosis Productive cough - Primary Cough Sore throat Acute pharyngitis documented in this encounter Care Teams Semiconductor Processing Technician Relationship Specialty Start Date End Date Janelle Ambriz MD PCP - General 04/03/07 [address] [place] [address] documented as of this encounter
--- OUTSIDE RECORDS SUMMARY | 2022-05-18 14:37 | XMS_ITS | Encounter Summary ---
:2000 Author Organization [employer] Address [address] [place] [address] Care Team Providers Name Role Phone Janelle Ambriz MD Primary Care Provider Reason for Visit Reason Comments SORE THROATMD STD Check Encounter Details Date Type Department Care Team Description 10/13/2016 Office Visit [facility] Horacio Davidottoniel Hopper thr oat (Primary Dx); Matt Morales MD Screening for STDs (sexually transmitted diseases); [address] [facility] [address] [facility] Viral [place] [address] [phone] Social History Tobacco Use Types Packs/Day Years [...] Taken Comments Blood Pressure - - Pulse - - Temperature 37.2 ??C (99 ??F) 10/13/2016 4:02 PM CDT Respiratory Rate - - Oxygen Saturation - - Inhaled Oxygen Concentration - - Weight 89.4 kg (197 lb) 10/13/2016 4:02 PM CDT Height - - Body Mass Index - - documented in this encounter Patient Instructions Patient InstructionsDavid Leonard MD - 10/13/2016 4:31 PM CDT Always use a condom. Talk to your dad if you are feeling like hurting yourself Take ibuprofen 600mg every 6 hours as needed for fever or sore throat If your headache becomes more severe and you develop fever you should go to the emergency room documented in this encounter Progress Notes David Leonard MD - 10/13/2016 4:20 PM CDT SUBJECTIVE: Hadley Ratliff is a 16 y.o. old male who presents with his father with the following concerns 1. 5 days of fatigue, myalgias then onset last night of severe throat pain, headache. No fever or chills. No photophobia. No rash. Slight cough. Also has few days of nasal congestion 2. Would like STD testing. Was sexually active with female partner. Condoms used. No symptoms of std. No dysuria, no rashes. No discharge. 3. I noticed some self inflicted superfical lacerations on left forearm. He states he did that last week. Denies any emotional concerns at this time. Broke up with his girlfriend. Denies any desire to hurt himself. No suicidal ideation. Past History reviewed. Medications reviewed. Allergies reviewed. PHYSICAL EXAM: Appears alert and in no distress Temperature 99 ??F (37.2 ??C), temperature source Tympanic, weight 197 lb (89.359 kg). Ears: Right TM WNL: pearly, nettles with good light reflex Left TM WNL: pearly, nettles with good light reflex Eyes: No discharge. Throat:mild erythema Neck: Soft, without cervical adenopathy. Chest: symmetric, clear to auscultation Heart: HS normal with no murmurs. Skin: no rash. Multiple superficial lacerations on left forearm that appear to be about 1-2 weeks old. Rapid strep neg ASSESSMENT/PLAN: ICD-10-CM 1. Sore throat J02.9 Throat Culture Collection-Ns Strep Grp A, Rapid Screen Hardy Test Complete Blood Count-W/Diff 2. Screening for STDs (sexually transmitted diseases) Z11.3 HIV 1/2 Ag/Ab 4th Generation Chlamydia & GC, Urine 3. Viral upper respiratory tract infection J06.9 B97.89 Patient already has a counselor he sees weekly. 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 See AVS David Leonard MD 10/13/2016, 5:44 PM documented in this encounter Plan of Treatment Not on filedocumented as of this encounter Procedures Procedure Name Priority Date/Time Associated Diagnosis Comme nts STREP GRP A, RAPID Waiting 10/13/2016 4:12 PM Sore throat Res ults for this SCREEN CDT procedure are i n the results section. STREP GRP A, THROAT Routine 10/13/2016 4:12 PM Re sults for this CULTURE ONLY CDT procedure are i n the results section. documented in this encounter Results (ABNORMAL) Complete Blood Count-W/Diff (10/13/2016 4:54 PM CDT) [facility] gist Method Time Signature WBC 6.8 4.0 - [...] [facility] Lymph 24 % [facility] Hardy 18 % [facility] Eos 0 % [facility] Baso 0 % [facility] Neutrophil 3.9 1.8 - 8.0 [facility] Absolute k/ul [facility] Lymph Absolute 1.6 1.2 - 5.2 [facility] k/ul [facility] Hardy Absolute 1.2 (H) 0.0 - 1.0 [facility] [...] 10/13/2016 7:29 PM C DT Performed at [facility], [address] [place] [id number] David Leonard MD LAB_1 Performing Organization Address City/[facility]/ZIP Code Phon e Number [facility] [phone] Hardy Test (10/13/2016 4:54 PM CDT) P athologist Signature Hardy Test Negative NEG [facility] Specimen Anatomical Collection Method Collection Time Receive d Time (Source) Location / / Volume Laterality 10/13/2016 4:54 PM 7 4:55 CDT PM CDT Narrative [facility] - 10/13/2016 7:47 PM C DT Performed at [facility], [address] [place] [phone] David Leonard MD LAB_1 Performing Organization Address [facility] Code Phon e Number [facility] [phone] Chlamydia & GC, Urine (10/13/2016 4:54 PM CDT) [facility] [employer] Method Time Signature C.trachomatis, Negative NEG [facility] Urine [facility] Comment: Test Performed by Vice Investigator Mediated Amplification N. Gonorrhea, Urine Negative NEG [facility] Comment: Test Performed by Vice Investigator Mediated Amplification Specimen Anatomical Collection Method Collection Time Receive d Time (Source) Location / / Volume Laterality 10/13/2016 4:54 PM 7 4:55 CDT PM CDT Narrative [facility] - 10/14/2016 4:11 PM C DT Performed at [facility], [address] [place] [address] ??[phone] David Leonard MD LAB_1 Performing Organization Address City/[facility]/ZIP Code Phon e Number [facility] [phone] HIV 1/2 Ag/Ab 4th Generation (10/13/2016 4:53 PM CDT) [facility] Method Time Signature HIV 1/2 AG/AB Negative NEGNR [facility] 4thGEN (Non LABORATORIES Reactive) Comment: HIV-1 p24 Ag and HIV-1/HIV-2 Ab not detected. Specimen Anatomical Collection Method Collection Time Receive d Time (Source) Location / / Volume Laterality 10/13/2016 4:53 PM 7 4:54 CDT PM CDT Narrative [facility] - 10/14/2016 12:27 PM CDT Performed at [facility], [address] [place] [address] ??[phone] David Leonard MD LAB_1 Performing Organization Address City/State/ZIP Code Phon e Number [facility] [phone] Strep Grp A, Throat Culture Only (10/13/2016 4:12 PM CDT) Patholo gist Method Time Signature Grp A Culture Negative NEG [facility] Specimen Anatomical Collection Method Collection Time Receive d Time (Source) Location / / Volume Laterality 10/13/2016 4:12 PM 7 4:13 CDT PM CDT Narrative [facility] - 10/15/2016 7:27 AM C DT Performed at [facility] , [address] [place] [address] David Leonard MD LAB_1 Performing Organization Address City/[facility] Code Phon e Number [facility] [phone] Strep Grp A, Rapid Screen (10/13/2016 4:12 PM CDT) Patholo gist Method Time Signature Grp A Rapid Negative NEG [facility] Screen [facility] Specimen Anatomical Collection Method Collection Time Receive d Time (Source) Location / / Volume Laterality 10/13/2016 4:12 PM 7 4:13 CDT PM CDT Narrative [facility] - 10/13/2016 4:24 PM C DT Performed at [facility], [address] [place] [address] David Leonard MD LAB_1 Performing Organization Address City/State/ZIP Code Phon e Number [facility] [phone] documented in this encounter Visit Diagnoses Diagnosis Sore throat - Primary Acute pharyngitis Screening for STDs (sexually transmitted diseases) Screening examination for venereal disea se Viral upper respiratory tract infection Acute upper respiratory infections of un specified site Screening for STDs (sexually transmitted diseases) Screening examination for venereal disea se Sore throat Acute pharyngitis documented in this encounter Care Teams Intake Coordinator Relationship Specialty Start Date End Date Janelle Ambriz MD PCP - General 04/03/07 [address] [place] [address] documented as of this encounter
--- OUTSIDE RECORDS SUMMARY | 2022-05-18 14:37 | XMS_ITS | Encounter Summary ---
:2000 Author Organization [facility] Address [address] [place] [address] Care Team Providers Name Role Phone Janelle Ambriz MD Primary Care Provider Reason for Visit Procedure/Equipment (Routine) - Incomplete Specialty Diagnoses / Procedures Referred By Contact Refer red To Contact Procedures Davis Trinidad MD XR Ankle Rt 3 Views [address] [facility] [address] XR Ankle Lt 3 Views [place], [place] [address] Referral ID Status Reason Start Date Expiration Date Visits V isits Requested Authorized [id number] Incomplete 09/13/2016 12/13/2017 1 1 Encounter Details Date Type Department Care Team Description 09/13/2016 Imaging [facility] Davis Trinidad ght ankle pain, [place] Clair Driver MD unspecified chronicity [address] [facility] [address] [place] [address] [address] [place] [address] (Wo rk) Social History Tobacco Use Types Packs/Day Years Used Date Smoking Tobacco: Passive Smoke Exposure - Never Smoker Comments: Dad smokes outside Alcohol Use Standard Drinks/Week Comments Not Asked 0 (1 standard drink = 0.6 oz pure alcoho l) Sex Assigned at Date Recorded Not on file documented as of this encounter Progress Notes Kait Singh RN - 09/14/2016 1:34 PM CDT Quick Note: Results noted Kait Oswald RN 09/14/2016, 1:34 PM documented in this encounter Plan of Treatment Not on filedocumented as of this encounter Procedures Procedure Name Priority Date/Time Associated Diagnosis Comme nts XR ANKLE RT 3 VIEWS STAT 09/13/2016 6:58 PM Right ankle celestine n, Results for this CDT unspecified procedure are i n chronicity the results section. documented in this encounter Results XR Ankle Rt 3 Views (09/13/2016 6:58 PM CDT) Anatomical Region Laterality Modality Lower Extremity, Ankle, Foot & Ankle Com puted Radiography Specimen (Source) Anatomical Collection Method Collection Time Re ceived Time Location / / Volume Laterality 09/13/2016 6:58 PM CDT Addenda Addendum by Rylan Marcelino MD on 0 09/13/2016 7:34 PM CDT Further clinical information of lack of any significant point tenderness over the lateral malleolus has been prov ided. As such, the lucency at the base of the lateral malleolus could refl ect an unfused physis with overlying soft tissue swelling. Narrative 09/13/2016 7:09 PM CDT XR ANKLE RT 3 VIEWS 09/13/2016, 6:58 PM INDICATION: Pain following trauma. ? COMPARISON: None. FINDINGS: There is a nondisplaced fractu re involving the base of the lateral malleolus. No dislocation. Soft tissue swelling is present over the lateral malleolus. Procedure Note Rylan Marcelino MD - 09/13/2016Form atting of this note might be different from the original. XR ANKLE RT 3 VIEWS 09/13/2016, 6:58 PM INDICATION: Pain following trauma. COMPARISON: None. FINDINGS: There is a nondisplaced fractu re involving the base of the lateral malleolus. No dislocation. Soft tissue swelling is present over the lateral malleolus. Davis Trinidad MD RAD GD documented in this encounter Visit Diagnoses Diagnosis Right ankle pain, unspecified chronicity documented in this encounter Care Teams Health Physicist Relationship Specialty Start Date End Date Janelle Ambriz MD PCP - General 04/03/07 [address] [place] [address] documented as of this encounter
--- OUTSIDE RECORDS SUMMARY | 2022-05-18 14:38 | XMS_ITS | Encounter Summary ---
:2000 Author Organization [employer] Address [address] [place] [address] Care Team Providers Name Role Phone Janelle Ambriz MD Primary Care Provider Reason for Visit Reason Onset Date Comments RESULTS, TEST 09/17/2009 Encounter Details Date Type Department Care Team Description 09/17/2009 Telephone [facility] Janette Mckenzie RN RESULTS, TEST Department [facility] [address] [place] [address] [place], [place] [address] [phone] Social History Tobacco Use Types Packs/Day Years Used Date Smoking Tobacco: Passive Smoke Exposure - Never Smoker Alcohol Use Standard Drinks/Week Comments Not Asked 0 (1 standard drink = 0.6 oz pure alcoho l) Sex Assigned at Date Recorded Not on file documented as of this encounter Nursing Notes Elmira Mckenzie - 09/17/2009 3:16 PM CDT Parent informed via telephone, understands clinic will call ONLY if status change and will send rx to [facility] pharmacy per verbal request at nurse visit. Gave vis information verbally, parent understands and agrees with plan of care. Elmira Mckenzie LPN 09/17/2009, 3:16 PM documented in this encounter Plan of Treatment Not on filedocumented as of this encounter Visit Diagnoses Not on filedocumented in this encounter Care Teams Neon Glass Blower Relationship Specialty Start Date End Date Janelle Ambriz MD PCP - General 04/03/07 [address] [place] [address] documented as of this encounter
--- OUTSIDE RECORDS SUMMARY | 2022-05-18 14:38 | XMS_ITS | Encounter Summary ---
:2000 Author Organization [employer] Address [address] [place] [address] Care Team Providers Name Role Phone Janelle Ambriz MD Primary Care Provider Reason for Visit Reason Onset Date Comments APPOINTMENT REQUEST 11/18/2009 Encounter Details Date Type Department Care Team Description 11/18/2009 Telephone [facility] Janelle Ambriz, APPOINTMENT REQUEST [address] [place], [place] [address] [facility] [phone] [place] [address] (Wo rk) Social History Tobacco Use Types Packs/Day Years Used Date Smoking Tobacco: Passive Smoke Exposure - Never Smoker Alcohol Use Standard Drinks/Week Comments Not Asked 0 (1 standard drink = 0.6 oz pure alcoho l) Sex Assigned at Date Recorded Not on file documented as of this encounter Nursing Notes Klaudia Diego - 11/18/2009 10:05 AM CDT cough last week- seemed to get better- no fever, c/o only when he swallows., today cough worse when waking- barky cough- now it is sounding used Albuterol inhaler x one- last week one day, inhaler gone, did help pt, last refilled 2006. -- mother to request [facility] provider for refill of Albuterol if indicated. Offered appt with Dr Thompson today at 1:00pm for pt & sibling-- mother declined as Mom has appt with the school and unable to cancel that appt. Recommend child to be seen in [facility] for evaluation. Klaudia Diego RN 11/18/2009, 10:04 AM Jeana Glaser - 11/18/2009 9:02 AM CDT Has questions regrading a cough and sore throat and would like to know if child should be seen today documented in this encounter Plan of Treatment Not on filedocumented as of this encounter Visit Diagnoses Not on filedocumented in this encounter Care Teams Loss Prevention And Safety Manager Relationship Specialty Start Date End Date Janelle Ambriz MD PCP - General 04/03/07 [address] [place] [address] documented as of this encounter
--- OUTSIDE RECORDS SUMMARY | 2022-05-18 14:38 | XMS_ITS | Encounter Summary ---
:2000 [facility] Address [address] [place] [address] Care Team Providers Name Role Phone Janelle Ambriz MD Primary Care Provider Encounter Details Date Type Department Care Team Description 07/17/2008 PN Conversion Only CABLE CONVERSION [address] [place] [address] Social History Tobacco Use Types Packs/Day Years [...] filedocumented in this encounter Care Teams Mechanical Maintenance Technician Relationship Specialty Start Date End Date Janelle Ambriz MD PCP - General 04/03/07 [address] [place] [address] documented as of this encounter
--- OUTSIDE RECORDS SUMMARY | 2022-05-18 14:38 | XMS_ITS | Encounter Summary ---
:2000 Author Organization [employer] Address [address] [place] [address] Care Team Providers Name Role Phone Janelle Ambriz MD Primary Care Provider Reason for Visit Reason Onset Date Comments LETTER NEEDED 09/12/2013 Encounter Details Date Type Department Care Team Description 09/12/2013 Telephone [facility] Jeet Oglesby MD LETTER NEEDED Practice [address] [facility] [address] [place] [address] [place], [place] [address] [phone] Social History Tobacco Use Types Packs/Day Years Used Date Smoking Tobacco: Passive Smoke Exposure - Never Smoker Alcohol Use Standard Drinks/Week Comments Not Asked 0 (1 standard drink = 0.6 oz pure alcoho l) Sex Assigned at Date Recorded Not on file documented as of this encounter Nursing Notes Sheila Arreola - 09/12/2013 2:23 PM CDT Lm to [employer] pick[employer] letter. Luci Garcia LPN - 09/12/2013 2:04 PM CDT Pt was seen 09/09/[address] Oglesby. Will write letter for dad. Will have [place] call dad and inform him that letter has been written. Luci Garcia LPN Sheila Arreola - 09/12/2013 1:58 PM CDT Patient missed school again yesterday and today so they are needing another letter to give to schoolstating he was unable to attend school 09/11 and 09/12 due to an illness. His father would like to [employer] picker the letter at the front end assistant. Please call when ready. documented in this encounter Plan of Treatment Not on filedocumented as of this encounter Visit Diagnoses Not on filedocumented in this encounter Care Teams Zinc Etcher Relationship Specialty Start Date End Date Janelle Ambriz MD PCP - General 04/03/07 [address] [place] [address] documented as of this encounter
--- OUTSIDE RECORDS SUMMARY | 2022-05-18 14:38 | XMS_ITS | Encounter Summary ---
:2000 Author Organization [employer] Address [address] [place] [address] Care Team Providers Name Role Phone Janelle Ambriz MD Primary Care Provider Reason for Visit Reason Comments Refill Encounter Details Date Type Department Care Team Description 01/25/2011 Refill [facility] Heather Choudhary, ALKA Refill [address] [place], [place] [address] [place] [address] [phone] (Wo rk) Social History Tobacco Use Types Packs/Day Years Used Date Smoking Tobacco: Passive Smoke Exposure - Never Smoker Alcohol Use Standard Drinks/Week Comments Not Asked 0 (1 standard drink = 0.6 oz pure alcoho l) Sex Assigned at Date Recorded Not on file documented as of this encounter Nursing Notes Andrés Thompson MD - 01/26/2011 11:15 AM CDTApproved Prescriptions: Disp Refills PROAIR HFA 108 (90 BASE) MCG/ACT inhaler 8.5 g prnSig: INHALE 1 TO 2 PUFFS BY MOUTH EVERY 4 HOURS NEEDED FOR WHEEZINGAuthorizing Provider: ANDRÉS THOMPSON Andrés Thompson MD - 01/26/2011 11:15 AM CDTApproved Prescriptions: Disp Refills PROAIR HFA 108 (90 BASE) MCG/ACT inhaler 8.5 g prnSig: INHALE 1 TO 2 PUFFS BY MOUTH EVERY 4 HOURS NEEDED FOR WHEEZINGAuthorizing Provider: ANDRÉS THOMPSON documented in this encounter Plan of Treatment Not on filedocumented as of this encounter Visit Diagnoses Not on filedocumented in this encounter Care Teams Wind Up Operator Relationship Specialty Start Date End Date Janelle Ambriz MD PCP - General 04/03/07 [address] [place] [address] documented as of this encounter
--- OUTSIDE RECORDS SUMMARY | 2022-05-18 14:38 | XMS_ITS | Encounter Summary ---
:2000 Author Organization [employer] Address [address] [place] [address] Care Team Providers Name Role Phone Janelle Ambriz MD Primary Care Provider Reason for Visit Reason Comments Refill Encounter Details Date Type Department Care Team Description 05/29/2012 Refill [facility] Andrés Guajardo MD Refill [address] [place], [place] [address] Social History Tobacco Use Types Packs/Day Years Used Date Smoking Tobacco: Passive Smoke Exposure - Never Smoker Alcohol Use Standard Drinks/Week Comments Not Asked 0 (1 standard drink = 0.6 oz pure alcoho l) Sex Assigned at Date Recorded Not on file documented as of this encounter Nursing Notes Jessica Bailey RN - 05/31/2012 11:20 AM CST RN is unable to fill, because it does not meet medication refill standing order criteria. Standing Orders Exist Last Labs as appropriate for medication: na Last office visit: last [facility] 01/29/08 Last time med was ordered: Date: 01/25/11 Dispensed: 8.5 Number of refills: prn R ASSOCIATE documented in this encounter Plan of Treatment Not on filedocumented as of this encounter Visit Diagnoses Not on filedocumented in this encounter Care Teams Security Assurance Specialist Relationship Specialty Start Date End Date Janelle Ambriz MD PCP - General 04/03/07 [address] [place] [address] documented as of this encounter
--- OUTSIDE RECORDS SUMMARY | 2022-05-18 14:38 | XMS_ITS | Encounter Summary ---
:2000 Author Organization [facility] Address [address] [place] [address] Care Team Providers Name Role Phone Janelle Ambriz MD Primary Care Provider Reason for Visit Reason Onset Date Comments MEDICATION, NOS 01/25/2011 needs refill for pro air. [facility] [place] ([phone] ). He is wheezing very bad and needs something carmen. Plea se call [phone] if there is any questions. Thank you Encounter Details Date Type Department Care Team Description 01/25/2011 Telephone [facility] Heather Corral, GILBERT (needs Practice A, PA-C refill for proair. [address] please send to [place], [place] [address] [place], [place] pam [place] [phone] ([phone]). He is [phone] (Wo rk) wheezing very bad and needs heidi ething carmen. Please call [phone] if there is any question s. Thank you) Social History Tobacco Use Types Packs/Day Years Used Date Smoking Tobacco: Passive Smoke Exposure - Never Smoker Alcohol Use Standard Drinks/Week Comments Not Asked 0 (1 standard drink = 0.6 oz pure alcoho l) Sex Assigned at Date Recorded Not on file documented as of this encounter Nursing Notes Aura Dhillon - 01/25/2011 4:14 PM CDT .r documented in this encounter Plan of Treatment Not on filedocumented as of this encounter Visit Diagnoses Not on filedocumented in this encounter Care Teams Catheter Builder Relationship Specialty Start Date End Date Janelle Ambriz MD PCP - General 04/03/07 [address] [place] [address] documented as of this encounter
--- OUTSIDE RECORDS SUMMARY | 2022-05-18 14:38 | XMS_ITS | Encounter Summary ---
:2000 Author Organization [employer] Address [address] [place] [address] Care Team Providers Name Role Phone Janelle Ambriz MD Primary Care Provider Reason for Visit Reason Onset Date Comments LAB RESULTS 09/13/2012 Strep negative Encounter Details Date Type Department Care Team Description 09/13/2012 [facility]elle Ambriz LA B RESULTS (Strep Practice MD negative) [address] [facility] [address] [place], [place] [address] [place], [place] [phone] (Wo rk) Social History Tobacco Use Types Packs/Day Years Used Date Smoking Tobacco: Passive Smoke Exposure - Never Smoker Alcohol Use Standard Drinks/Week Comments Not Asked 0 (1 standard drink = 0.6 oz pure alcoho l) Sex Assigned at Date Recorded Not on file documented as of this encounter Nursing Notes Abbie Killian RN - 09/13/2012 11:27 AM CDT Spoke with Dad, state he thinks he is better. No vomiting today thus far, no fever, slight cough, throat is sore but thinks it might be from the vomiting. Taking Gatorade and water, voiding. Will monitor and if any worsening will call and schedule appointment for tomorrow. Abbie Killian RN 09/13/2012, 11:30 AM Janelle Ambriz MD - 09/13/2012 11:12 AM CDT Please triage. Reviewed Dr. Gonzalez's note. She thought it was a virus at the time. It sounds like he was not throwingup then, so this must have developed after he was seen. From the info below, now it sounds like he is getting better---no fever and has not vomited for a day. If his only symptom is headache and he overall seems to be getting better, I would give it another day. If dad thinks he is worsening, then it is better to have him seen. There are no medications I would recommend over the phone. Janelle Ambriz MD Ekta Meeks LPN - 09/13/2012 10:01 AM CDT Called pt to let him know of negative culture. Pts dad states Coel is still vomiting twice yesterdayand once day before, c/o h/a denies fever. Please advise. EKTA MEEKS LPN 09/13/2012, 10:02 AM documented in this encounter Plan of Treatment Not on filedocumented as of this encounter Visit Diagnoses Not on filedocumented in this encounter Care Teams Bobtailer Relationship Specialty Start Date End Date Janelle Ambriz MD PCP - General 04/03/07 [address] [place] [address] documented as of this encounter
--- OUTSIDE RECORDS SUMMARY | 2022-05-18 14:38 | XMS_ITS | Encounter Summary ---
:2000 Author Organization [employer] Address [address] [place] [address] Care Team Providers Name Role Phone Janelle Ambriz MD Primary Care Provider Reason for Visit Reason Comments STAPLE REMOVAL--ED staple removal from back of head , staple put in on 12/03/2010 at [facility], patient running and hit parked car and fell and hit head on tar road Encounter Details Date Type Department Care Team Description 12/08/2010 Office Visit [facility] Abby Mckinney MD Removal of staple [address] (Primary Dx) [place], [place] [address] Social History Tobacco Use Types [...] - - Temperature 37.2 ??C (99 ??F) 12/08/2010 11:05 AM CDT Respiratory Rate - - Oxygen Saturation - - Inhaled Oxygen Concentration - - Weight 34.4 kg (75 lb 12.8 oz) 12/08/2010 11:05 AM CDT Height - - Body Mass Index - - documented in this encounter Progress Notes Abby Mckinney MD - 12/08/2010 11:14 AM CDT SUBJECTIVE: Hadley Ratliff is a 10 yr old male who present with father with concern regarding staple removal. Heran into a park car and fell hit the cement and lacerated the scalp, he had 4 aneesh done at [facility]. OBJECTIVE: Temp(Src) 99 ??F (37.2 ??C) (Oral) Wt 75 lb 12.8 oz (34.383 kg) 4 aneesh on the back of the head toward the right, laceration healing well. ASSESSMENT: Staple removal PLAN: Removed all 4 aneesh with no problem He can wash his hairs and swim in a couple of days So Ludmila Mckinney MD 12/08/2010 documented in this encounter Plan of Treatment Not on filedocumented as of this encounter Visit Diagnoses Diagnosis Removal of staple - Primary Encounter for removal of sutures documented in this encounter Care Teams Watch Dial Printer Relationship Specialty Start Date End Date Janelle Ambriz MD PCP - General 04/03/07 [address] [place] [address] documented as of this encounter
--- OUTSIDE RECORDS SUMMARY | 2022-05-18 14:38 | XMS_ITS | Encounter Summary ---
:2000 Author Organization [facility] Address [address] [place] [address] Care Team Providers Name Role Phone Janelle Ambriz MD Primary Care Provider Reason for Visit Reason Comments IMMUNIZATIONS Encounter Details Date Type Department Care Team Description 02/29/2012 Nursing Visit [facility], [facility] Need for [address] [id number] [address] tussis (Tdap) vaccine [phone] (Primary Dx) Social History Tobacco Use Types Packs/Day Years Used Date Smoking Tobacco: Passive Smoke Exposure - Never Smoker Alcohol Use Standard Drinks/Week Comments Not Asked 0 (1 standard drink = 0.6 oz pure alcoho l) Sex Assigned at Date Recorded Not on file documented as of this encounter Plan of Treatment Not on filedocumented as of this encounter Visit Diagnoses Diagnosis Need for pnzybhkkym-byhgwft-onmhhtfek (T dap) vaccine - Primary Need for prophylactic vaccination with c ombined wadjcfrnyb-mpfvdrw-ptpwpigyt (DTP) vaccine documented in this encounter Care Teams Clay Digger Relationship Specialty Start Date End Date Janelle Ambriz MD PCP - General 04/03/07 [address] [place], [place] [id number] documented as of this encounter
--- OUTSIDE RECORDS SUMMARY | 2022-05-18 14:38 | XMS_ITS | Encounter Summary ---
:2000 Author Organization [employer] Address [address] [place] [address] Care Team Providers Name Role Phone Janelle Ambriz MD Primary Care Provider Reason for Visit Reason Comments COUGH x 2 days also has sore throa t [facility] Declined h1n1 Encounter Details Date Type Department Care Team Description 11/19/2009 Office Visit [facility], Heather richter (Primary Dx); Practice A, PAMarandaC Sore Throat; [address] [place], [place] [address] S [phone] [place] [address] Social History Tobacco Use Types Packs/Day Years [...] Pressure - - Pulse - - Temperature - - Respiratory Rate - - Oxygen Saturation - - Inhaled Oxygen Concentration - - Weight 29.5 kg (65 lb) 11/19/2009 2:14 PM CDT Height 131.8 cm (4' 3.9) 11/19/2009 2:14 PM CDT Body Mass Index 16.97 11/19/2009 2:14 PM CDT Body Mass Index Percentile 58.49 % 11/19/2009 2:14 PM CD T Growth Chart: [facility] (Boys, 2-20 Years) documented in this encounter Progress Notes Ellis Heather A - 11/19/2009 5:16 PM CDT Hadley Ratliff is a 9 yr old male with father with primary concern: non productive cough Wheezing Father states he had a cough last week. Then it seemed to improve. Yesterday it was worse upon waking, sounding a bit barky. Today it is better. He has never had a fever. He has a sore throat only when he swallows. He has used an albuterol inhaler once last week, and it worked very well. It helped him to breathe better. They ran out so they need a refill of it. Father states he is wondering if nebulizer would help him more. He states they have needed to bring Hadley to ER several times over the pastfew years for croupy cough and wheezing Each time albuterol nebulizer helps very quickly. Symptomstypically are worse at nighttime. No wheezing right now. Pt saw Dr. Powell in allergy dept last month for complete skin testing and no allergies were noted. Per Dr. Powell's notes: Problem 2. Wheezing. He develops wheezing after viral infection which require nebulizer treatment once or twice a year. He may have bronchial asthma triggered by viral URI. Today's PFT is completely normal. Significant positive medical hx: possible bronchial asthma triggered by viral URIs Exposures: URI (father, brother) History Tobacco Use ??? Passive Associated symptoms: General symptoms:difficulty sleeping at times due to coughing, wheezing HEENT symptoms: sore throat Chest symptoms: cough, wheezing Abd/GI symptoms: none Red flag symptoms: none Objective Appears healthy and alert, comfortable Ht 4' 3.9 (1.318 m) Wt 65 lb (29.484 kg) HEENT: EAC's/TM's normal, conjunctiva normal, no sinus tenderness, pharynx erythematous without exudate, no significant cervical adenopathy and neck supple Chest: heart exam normal; lungs clear bilaterally without wheezing at time of exam Abd: normal Skin: no rash, no purpura/petechia Lab/xray data: rapid strep test: Negative PFTs done last month, WNL Assessment viral URI and bronchial asthma/exacerbation Plan Symptomatic treatment and See prescribed medication(s)-Refilled albuterol inhaler. Also rx for albuterol nebulizer. Nursing explained how to use neb machine as well. Call or return to clinic if these symptoms worsen or fail to improve as anticipated. Pt should f/u with PCP prn. The issues outlined above were discussed, and all related concerns and questions addressed. Differential diagnosis, medical workup, management options, and treatment guidelines were reviewed. Patient education was provided, including review of medication side effects, where applicable. Please refer tomed orders and/or patient instructions for further information. The patient was instructed to call or seek medical attention in the event of progressive symptoms or related concerns. A personalized, detailed, handwritten after visit summary was given to the patient today. We reviewed it together. Heather Corral PA-C 5:16 PM 11/19/2009 documented in this encounter Plan of Treatment Not on filedocumented as of this encounter Procedures Procedure Name Priority Date/Time Associated Diagnosis Comme nts STREP GRP A, RAPID Waiting 11/19/2009 2:22 PM Sore Throat Res ults for this SCREEN CDT procedure are i n the results section. STREP GRP A, THROAT Routine 11/19/2009 2:22 PM Re sults for this CULTURE ONLY CDT procedure are i n the results section. documented in this encounter Results STREP GRP A, THROAT CULTURE ONLY (11/19/2009 2:22 PM CDT) [facility] Method Time Signature Grp A Culture Negative [facility]G [facility] Final Specimen Anatomical Collection Method Collection Time Receive d Time (Source) Location / / Volume Laterality 11/19/2009 2:22 PM 0 2:32 CDT PM CDT Heather Corral PA-C LAB_1 Performing Organization Address City/State/ZIP Code Phon e Number [facility] [employer] [phone] [address] STREP GRP A, RAPID SCREEN (11/19/2009 2:22 PM CDT) [facility] Method Time Signature Grp A Rapid Negative NEG [facility] Screen Specimen Anatomical Collection Method Collection Time Receive d Time (Source) Location / / Volume Laterality 11/19/2009 2:22 PM 0 2:32 CDT PM CDT Heather Corral PA-C LAB_1 Performing Organization Address City/State/ZIP Code Phon e Number [facility] [phone] [address] documented in this encounter Visit Diagnoses Diagnosis Wheezing - Primary Sore throat Acute pharyngitis Cough documented in this encounter Care Teams Grill Attendant Relationship Specialty Start Date End Date Janelle Ambriz MD PCP - General 04/03/07 [address] [place], [place] [id number] documented as of this encounter
--- OUTSIDE RECORDS SUMMARY | 2022-05-18 14:38 | XMS_ITS | Encounter Summary ---
:2000 Author Organization [email or web address] Address [address] [place] [address] Care Team Providers Name Role Phone Janelle Ambriz MD Primary Care Provider Reason for Visit Reason Comments JOE THROAT, vomiting,stomach ache, h/a Encounter Details Date Type Department Care Team Description 09/05/[address] [facility] Sophie Petit (upper respiratory infection) (Primary Dx); Matt Brown MD Sore throat [address] [facility] [address] [place] [address] [phone] Social History Tobacco Use Types Packs/Day Years Used Date Smoking Tobacco: Passive Smoke Exposure - Never Smoker Alcohol Use Standard Drinks/Week Comments Not Asked 0 (1 standard drink = 0.6 oz pure alcoho l) Sex Assigned at Date Recorded Not on file documented as of this encounter Last Filed Vital Signs Vital Sign Reading Time Taken Comments Blood Pressure 108/72 09/05/2013 3:23 PM COUNCILPERSON Pulse 104 09/05/2013 3:23 PM COUNCILPERSON Temperature 36.4 ??C (97.6 ??F) 09/05/2013 3:23 PM COUNCILPERSON Respiratory Rate - - Oxygen Saturation - - Inhaled Oxygen Concentration - - Weight 61.7 kg (136 lb) 09/05/2013 3:23 PM COUNCILPERSON Height - - Body Mass Index - - documented in this encounter Progress Notes Sophie Petit MD - 09/05/2013 4:02 PM CST Subjective: 13-year-old male comes in with father with three-day history of sore throat. Vomiting yesterday but not today. He was coughing initially but that seems better. No known exposures to strep. Usually quite healthy. He does have a history of reactive airway but has not required his albuterol. Uncertain of fevers. Objective:BP 108/72 Pulse 104 Temp(Src) 97.6 ??F (36.4 ??C) (Tympanic) Wt 136 lb (61.689 kg) He appears well. Both TMs look fine. Oropharynx shows mild injection. No exudate. Neck is supple with some nodes noted bilaterally. Lungs are clear. Strep is negative. Assessment: Upper respiratory infection, likely viral. Plan: Continue his symptomatic treatment. Call as needed. CILPERSON documented in this encounter Plan of Treatment Not on filedocumented as of this encounter Procedures Procedure Name Priority Date/Time Associated Diagnosis Comme nts STREP GRP A, RAPID Waiting 09/05/2013 3:29 PM Sore throat Res ults for this SCREEN COUNCILPERSON procedure are i n the results section. STREP GRP A, THROAT Routine 09/05/2013 3:29 PM Re sults for this CULTURE ONLY COUNCILPERSON procedure are i n the results section. documented in this encounter Results STREP GRP A, THROAT CULTURE ONLY (09/05/2013 3:29 PM COUNCILPERSON) [facility] Method Time Signature Grp A Culture Negative NEG [facility] Specimen Anatomical Collection Method Collection Time Receive d Time (Source) Location / / Volume Laterality 09/05/2013 3:29 PM 4 3:30 COUNCILPERSON PM COUNCILPERSON Narrative [facility] - 09/07/2013 9:[address] Performed at [facility], [address] ??[address] Sophie Petit MD LAB_1 Performing Organization Address City/State/ZIP Code Phon e Number [facility] [phone] STREP GRP A, RAPID SCREEN (09/05/2013 3:29 PM COUNCILPERSON) [facility] Method Time Signature Grp A Rapid Negative NEG [facility] Specimen Anatomical Collection Method Collection Time Receive d Time (Source) Location / / Volume Laterality 09/05/2013 3:29 PM 4 3:30 COUNCILPERSON PM COUNCILPERSON Narrative [facility] - 09/05/2013 3:[address] Performed at [facility], [address] [place] [address] Sophie Petit MD LAB_1 Performing Organization Address City/State/ZIP Code Phon e Number [facility] [phone] documented in this encounter Visit Diagnoses Diagnosis URI (upper respiratory infection) - Prim ying Acute upper respiratory infections of un specified site Sore throat Acute pharyngitis documented in this encounter Care Teams Vp Transportation Relationship Specialty Start Date End Date Janelle Ambriz MD PCP - General 04/03/07 [address] [place] [address] documented as of this encounter
--- OUTSIDE RECORDS SUMMARY | 2022-05-18 14:38 | XMS_ITS | Encounter Summary ---
:2000 Author Organization [facility] Address [address] [place] [address] Care Team Providers Name Role Phone Janelle Ambriz MD Primary Care Provider Reason for Visit Reason Onset Date Comments WALK-IN 06/24/2010 foot pin backwards Encounter Details Date Type Department Care Team Description 06/24/2010 Telephone [facility] Unassigned, WALK-IN ( foot pin Practice Provider backwards) [address] [place], [place] [address] [place], [place] [phone] Social History Tobacco Use Types Packs/Day Years Used Date Smoking Tobacco: Passive Smoke Exposure - Never Smoker Alcohol Use Standard Drinks/Week Comments Not Asked 0 (1 standard drink = 0.6 oz pure alcoho l) Sex Assigned at Date Recorded Not on file documented as of this encounter Nursing Notes Nenita Hassan RN - 06/24/2010 9:02 AM CST Patient is on Dr Fletcher's schedule at 10:00. Will see as soon as we can- patient is not in any distress. Nenita Hassan RN 06/24/2010, 9:02 AM Abbie Bhatt - 06/24/2010 8:53 AM CST Pt has walked in to clinic with father in wheel chair. Jumped over sofa. Left foot got pinned backwards. Top of foot is red, swollen, painful, can't walk on. Made appt for 10 am with Chance. Please see pt in [place]. SLINGER documented in this encounter Plan of Treatment Not on filedocumented as of this encounter Visit Diagnoses Not on filedocumented in this encounter Care Teams Small Arms Repairer Relationship Specialty Start Date End Date Janelle Ambriz MD PCP - General 04/03/07 [address] [place] [address] documented as of this encounter
--- OUTSIDE RECORDS SUMMARY | 2022-05-18 14:38 | XMS_ITS | Encounter Summary ---
:2000 Author Organization [facility] Address [address] [place] [address] Care Team Providers Name Role Phone Janelle Ambriz MD Primary Care Provider Reason for Visit Reason Onset Date Comments ERRONEOUS ENTRY 01/21/2011 Encounter Details Date Type Department Care Team Description 01/21/2011 Telephone [facility] Heather Corral E RRONEOUS ENTRY Practice PA-C [address] [place], [place] [address] [place], [place] [phone] (Wo rk) Social History Tobacco Use Types Packs/Day Years Used Date Smoking Tobacco: Passive Smoke Exposure - Never Smoker Alcohol Use Standard Drinks/Week Comments Not Asked 0 (1 standard drink = 0.6 oz pure alcoho l) Sex Assigned at Date Recorded Not on file documented as of this encounter Nursing Notes Reza Cornejo - 01/21/2011 3:59 PM CDT ALERT!!! THE ORIGINAL NOTE WAS CREATED IN ERROR AND IS DELETED. PLEASE DISREGARD ALL CONTENT!! documented in this encounter Plan of Treatment Not on filedocumented as of this encounter Visit Diagnoses Not on filedocumented in this encounter Care Teams Plasterer Spot Relationship Specialty Start Date End Date Janelle Ambriz MD PCP - General 04/03/07 [address] [place] [address] documented as of this encounter
--- OUTSIDE RECORDS SUMMARY | 2022-05-18 14:38 | XMS_ITS | Encounter Summary ---
:2000 Author Organization [facility] Address [address] [place] [address] Care Team Providers Name Role Phone Janelle Ambriz MD Primary Care Provider Encounter Details Date Type Department Care Team Description 10/08/2009 [facility] ZEB Powell QUESTIONNAIRE [facility] MD Bobby [address] [place] [address] Social History Tobacco Use Types Packs/Day Years Used Date Smoking Tobacco: Passive Smoke Exposure - Never Smoker Alcohol Use Standard Drinks/Week Comments Not Asked 0 (1 standard drink = 0.6 oz pure alcoho l) Sex Assigned at Date Recorded Not on file documented as of this encounter Progress Notes Bobby Powell - 10/15/2009 11:09 AM CDT documented in this encounter Plan of Treatment Not on filedocumented as of this encounter Visit Diagnoses Not on filedocumented in this encounter Care Teams Etl Software Engineer Relationship Specialty Start Date End Date Janelle Ambriz MD PCP - General 04/03/07 [address] [place], [place] [id number] documented as of this encounter
--- OUTSIDE RECORDS SUMMARY | 2022-05-18 14:38 | XMS_ITS | Encounter Summary ---
:2000 Author Organization [facility] Address [address] [place] [address] Care Team Providers Name Role Phone Janelle Ambriz MD Primary Care Provider Encounter Details Date Type Department Care Team Description 09/18/2008 PN Conversion Only [facility] [address] [place] [address] Social History Tobacco Use Types Packs/Day Years [...] on filedocumented in this encounter Care Teams Professional Skater Relationship Specialty Start Date End Date Janelle Ambriz MD PCP - General 04/03/07 [address] [place], [place] [id number] documented as of this encounter
--- OUTSIDE RECORDS SUMMARY | 2022-05-18 14:38 | XMS_ITS | Encounter Summary ---
:2000 Author Organization [facility] Address [address] [place] [address] Care Team Providers Name Role Phone Janelle Ambriz MD Primary Care Provider Reason for Visit Reason Onset Date Comments Same Day/Next Day Appt. 12/07/2010 Encounter Details Date Type Department Care Team Description 12/07/2010 Telephone [facility][1] Unassigned, Same Day/ Next Day Practice Provider Appt. [address] [place], [place] [address] [place], [place] [phone] Social History Tobacco Use Types Packs/Day Years Used Date Smoking Tobacco: Passive Smoke Exposure - Never Smoker Alcohol Use Standard Drinks/Week Comments Not Asked 0 (1 standard drink = 0.6 oz pure alcoho l) Sex Assigned at Date Recorded Not on file documented as of this encounter Nursing Notes Jeana Glaser - 12/07/2010 4:44 PM CDT Appt made Kait Aguilar - 12/07/2010 4:26 PM CDT Patient requesting appointment for: Next Day Symptoms: MILVIA NEED REMOVAL FROM BACK OF HEAD, PUT IN 12/03 [facility] Kait Aguilar documented in this encounter Plan of Treatment Not on filedocumented as of this encounter Visit Diagnoses Not on filedocumented in this encounter Care Teams Parts Facilitator Relationship Specialty Start Date End Date Janelle Ambriz MD PCP - General 04/03/07 [address] [place] [address] documented as of this encounter
--- OUTSIDE RECORDS SUMMARY | 2022-05-18 14:38 | XMS_ITS | Encounter Summary ---
:2000 Author Organization [facility] Address [address] [place] [address] Care Team Providers Name Role Phone Janelle Ambriz MD Primary Care Provider Reason for Visit Reason Comments FEVER headache, vomit SORE THROAT, Health Maintenance Communication hpv and menactra Encounter Details Date Type Department Care Team Description 09/09/2013 Office Visit [facility] Jeet Oglesby MD Viral syndrome Practice [address] [facility] (Primary Dx) [address] [place] [address] [phone] Social History Tobacco Use Types Packs/Day Years Used Date Smoking Tobacco: Passive Smoke Exposure - Never Smoker Alcohol Use Standard Drinks/Week Comments Not Asked 0 (1 standard drink = 0.6 oz pure alcoho l) Sex Assigned at Date Recorded Not on file documented as of this encounter Last Filed Vital Signs Vital Sign Reading Time Taken Comments Blood Pressure 93/63 09/09/2013 3:27 PM CDT Pulse 106 09/09/2013 3:27 PM CDT Temperature 37.4 ??C (99.3 ??F) 09/09/2013 3:27 PM CDT Respiratory Rate 16 09/09/2013 3:27 PM CDT Oxygen Saturation - - Inhaled Oxygen Concentration - - Weight - - Height - - Body Mass Index - - documented in this encounter Progress Notes Jeet Oglesby MD - 09/09/2013 4:14 PM CDT SUBJECTIVE: Patient comes in accompanied by father with continued symptoms over the last week of nausea, occasional vomiting, epigastric discomfort, headache. Has had some sore throat and minimal cough. No nasal discharge. Uncertain about fever. Was seen on September 05 and strep test was negative. Symptoms overall have not improved. Workup this morning with increased symptoms, vomited once about 11 AM. Has vomited a total of 3 times in the last week. No stool changes or diarrhea. Appetite seems okay. Has taken ibuprofen once in the last week, otherwise no medications OBJECTIVE: BP 93/63 Pulse 106 Temp(Src) 99.3 ??F (37.4 ??C) (Oral) Resp 16 Low-grade temp, no acute distress. Ear canals and TMs are normal. Nose is clear. Throat is nonerythematous. Neck with no adenopathy. Noaxillary adenopathy. Chest is clear. Cardiac exam without murmur gallop, rhythm regular. Abdomen is soft with slight tenderness in the right lower quadrant and right epigastric area. No rebound or guarding. No organomegaly. No masses palpable. ASSESSMENT: Viral syndrome most likely cause of his multiple symptoms. No evidence of acute abdomen. PLAN: Continued symptomatic care. Stressed hydration, nutrition. Use Tylenol for headache which may help reduce nausea, avoid ibuprofen for now Followup if not improving over the next 3-4 days. documented in this encounter Plan of Treatment Not on filedocumented as of this encounter Visit Diagnoses Diagnosis Viral syndrome - Primary Unspecified viral infection, in conditio ns classified elsewhere and of unspecified site documented in this encounter Care Teams Foundry Metallurgist Relationship Specialty Start Date End Date Janelle Ambriz MD PCP - General 04/03/07 [address] [place] [address] documented as of this encounter
--- OUTSIDE RECORDS SUMMARY | 2022-05-18 14:38 | XMS_ITS | Encounter Summary ---
:2000 Author Organization [email or web address] Address [address] [place] [address] Care Team Providers Name Role Phone Janelle Ambriz MD Primary Care Provider Encounter Details Date Type Department Care Team Description 04/10/2008 Office Visit [place] Michelle Garcia MD [address] [place] [address] [address] [place] [address] (Wo rk) Social History Tobacco Use Types Packs/Day Years Used Date Smoking Tobacco: Passive Smoke Exposure - Never Smoker Alcohol Use Standard Drinks/Week Comments Not Asked 0 (1 standard drink = 0.6 oz pure alcoho l) Sex Assigned at Date Recorded Not on file documented as of this encounter Last Filed Vital Signs Vital Sign Reading Time Taken Comments Blood Pressure 98/68 04/10/2008 9:25 AM CDT Pulse 72 04/10/2008 9:25 AM CDT Temperature - - Respiratory Rate - - Oxygen Saturation - - Inhaled Oxygen Concentration - - Weight 22 kg (48 lb 9.4 oz) 04/10/2008 9:25 AM CDT C: 2 2.0kg Height 124.5 cm (4' 1) 04/10/2008 9:25 AM CDT C: 124.5 cm Body Mass Index 14.23 04/10/2008 9:25 AM CDT Body Mass Index Percentile 10.99 % 04/10/2008 9:25 AM CD T Growth Chart: [facility] (Boys, 2-20 Years) documented in this encounter Progress Notes Kippes, Michelle A, MD - 04/10/2008 12:01 AM CDT Progress Notes signed by Michelle Osorio MD at 04/10/08 1725 Author: Michelle Osorio MD Service: (none) Author Type: Physician Filed: 10/23/10 0726 Note Time: 04/10/08 0001 Status: Signed Brimmer Blocker: Michelle Osorio MD (Physician) Date: April 10, 2008 : 2000 Chronological Age: 8 years, 3 months Primary Care Physician: Janelle Ambriz M.D. PRESENTING CONCERNS: Hadley, his mother, and his father presented [facility] on April 10, 2008 for a medication follow-up. Hadley was last seen at his initial developmental pediatrics evaluation on March 14, 2008. INTERIM HISTORY: At that last visit, a trial of Vyvanse 50 mg daily was initiated. Hadley was changed from Adderall XR 25 mg daily because he was having significant appetite suppression and some mood changes. On the Vyvanse, Hadley has done very well. He has good symptom control of his ADHD without any suppression of his appetite. They also feel this medication has not created any personality or mood changes. He continues to sleep well. The only complaint that Hadley has had is that he experienced some heartburn-like pain in his lower chest and upper abdomen one afternoon (several hours after here taken the Vyvanse). Hadley's parents state that his teachers have also been very impressed. PAST MEDICAL HISTORY: Information reviewed. No new information. MEDICATIONS: Reviewed, updated today in Last Word. 1. Vyvanse 50 mg daily. 2. Albuterol MDI two puffs p.r.n.. ALLERGIES: Amoxicillin, sulfa cause rash. IMMUNIZATIONS: UP TO DATE REVIEW OF SYSTEMS: A complete review of systems was done and negative. FAMILY HISTORY: Information reviewed. No new information since last visit. SOCIAL HISTORY: Information reviewed. No new information since last visit. PHYSICAL EXAMINATION: GROWTH: Wt: 48.6 lbs (5-10%) Ht: 49 in (25%) VITALS: HR: 72 BP: 98/68 GENERAL: Hadley is an adorable 8 year-old male who is well-nourished and nondysmorphic. HEENT: Normocephalic. Pupils equally round and reactive to light. Extraocular movements are intact. Palate, dentition and oropharynx are within normal limits. NECK: Supple. No lymphadenopathy. No thyromegaly. LUNGS: Clear to auscultation bilaterally. CV: S1, S2 without murmur. Pulses are symmetric. Capillary refill is brisk. ABDOMEN: Bowel sounds+. Soft, nontender, no hepatosplenomegaly or mass. : Not examined. DERM: No birthmarks or skin lesions noted. EXTREMITIES: Muscle bulk and strength normal & symmetric in the upper and lower extremities. Muscle tone is normal and symmetric. NEUROLOGICAL: Cranial Nerves II-XII were observed and tested to the best of the child's ability and are intact. Deep tendon reflexes are 2/4 and symmetric at the bilateral patella, ankles and biceps. No clonus is noted. There is no nystagmus, ataxia or tremor noted. Gait pattern is mature with symmetric movement of the upper and lower extremities. OBSERVATIONS: Hadley provided wonderful eye contact and joint referencing today. He was interactive and cooperative. He was present during his brother's evaluation today and did not interrupt once. No hyperactivity or impulsivity was noted. He focused nicely on coloring pictures during the discussion portions of today's visit. IMPRESSIONS: Hadley is an 8 year, 3 month old male with: 1. ADHD, Combined Type. RECOMMENDATIONS: 1. Continue Vyvanse 50 mg by mouth daily. A prescription was provided today for quantity 30 and no refills. 2. Documentation for RX Hope was initiated today for the family to complete and mail-in. 3. RTC 3 months for medication and weight check. Michelle Osorio MD Developmental Worship Director TT: [address]: 15 minutes CC: Janelle Ambriz M.D. *JIMMY~STEVEN~yahaira documented in this encounter Plan of Treatment Not on filedocumented as of this encounter Visit Diagnoses Not on filedocumented in this encounter Care Teams Production Control Clerk Relationship Specialty Start Date End Date Janelle Ambriz MD PCP - General 04/03/07 [address] [place] [address] documented as of this encounter
--- OUTSIDE RECORDS SUMMARY | 2022-05-18 14:38 | XMS_ITS | Encounter Summary ---
:2000 Author Organization [employer] Address [address] [place] [address] Care Team Providers Name Role Phone Janelle Ambriz MD Primary Care Provider Reason for Referral Procedure/Equipment (Routine) - Closed Specialty Diagnoses / Procedures Referred By Contact Refer red To Contact Diagnoses Shoulder injury, right, initial encounter Janelle Ambriz MD Procedures XR SHOULDER 2 VIEWS RIGHT (ROUTINE) [address] [place], [place] [address] Referral ID Status Reason Start Date Expiration Date Visits Requ ested Visits Authorized [id number] Closed 09/19/2013 1 1 Reason for Visit Reason Comments INJURY, ARM RT Encounter Details Date Type Department Care Team Description 09/19/2013 Office Visit Janelle Clayton, Shoulder sprain, right, initial encounter (Primary Dx); Pediatrics Shoulder injury, right, initial encounte r [address] [facility] [address] [place] [address] [phone] Social History Tobacco Use Types Packs/Day Years Used Date Smoking Tobacco: Passive Smoke Exposure - Never Smoker Alcohol Use Standard Drinks/Week Comments Not Asked 0 (1 standard drink = 0.6 oz pure alcoho l) Sex Assigned at Date Recorded Not on file documented as of this encounter Last Filed Vital Signs Vital Sign Reading Time Taken Comments Blood Pressure 99/65 09/19/2013 11:23 AM CDT Pulse 94 09/19/2013 11:23 AM CDT Temperature 36.6 ??C (97.9 ??F) 09/19/2013 11:23 AM CDT Respiratory Rate 16 09/19/2013 11:27 AM CDT Oxygen Saturation - - Inhaled Oxygen Concentration - - Weight 64 kg (141 lb) 09/19/2013 11:23 AM CDT Height - - Body Mass Index - - documented in this encounter Patient Instructions Patient InstructionsJanelle Ambriz MD - 09/19/2013 11:59 AM CDT Wear the sling for comfort and to prevent further injury/pain as your shoulder is healing. Take ibuprofen or Tylenol for pain control. If there is no improvement over the next few days, or you are still having pain next week, the please Return to clinic. Thank you for visiting the [facility]. Should you have any questions or concerns please call my office during business hours at [phone] and leave a message along with a phone number where you can be reached during the day and a member of my care team will contact you. If you need assistance after business hours you can speak with a registered nurse by calling the Careline at [phone]. In addition we provide services after hours at the [facility] at our walk-in Urgent Care. Urgent Care Clinic hours are: Mon-Mon 5:00pm-9:00pm Monday 9:00am-5:00pm Monday Noon-5:00 pm To schedule an appointment please call [phone]. documented in this encounter Progress Notes Janelle Ambriz MD - 09/19/2013 11:31 AM CDT German Ratliff is a 13 yr old male here with dad with concerns of right shoulder injury. This morning he was playing basketball in gym and a classmate fell, pulling on patient's right arm as he wentdown. Since then he has had pain and can't raise his arm or bend his elbow much without pain. His right fingers feel tingly. O: BP 99/65 Pulse 94 Temp(Src) 97.9 ??F (36.6 ??C) (Tympanic) Resp 16 Wt 141 lb (63.957 kg) GEN: alert, awake, NAD, holding his right arm at his side MS: his shoulders appear even. He refuses to move his right arm actively or passively at the shoulder, He will bend it slightly at the elbow, and I can go a little further passively, but not a significant amount. He has normal ROM of his wrist and normal strength in his hand. He complains of tenderness over the distal clavicle and anterior shoulder. There is no crepitus. There is no bruising of the skin. His left upper ext is normal Xray of shoulder: xray obtained given limited exam due to pain. On independent review it appeared normal. I called radiologist who agreed there was no dislocation or fracture present A: right shoulder sprain P: recommended rest, ice and NSAIDS Also recommended sling for comfort and protection and allow it to heal. If there is no improvement in the next week, he should Return to clinic, sooner if he is getting worse. They agreed with the plan and their questions were answered. Janelle Ambriz MD documented in this encounter Nursing Notes 09/19/2013 11:20 AM CDT >> Staci Smith LPN Alethea Sep 19, 2013 12:02 PM Arm sling given pt to wear rt arm. Staci Smith LPN 09/19/2013, 12:02 PM; documented in this encounter Plan of Treatment Not on filedocumented as of this encounter Results XR SHOULDER 2 VIEWS [...] in this encounter Visit Diagnoses Diagnosis Shoulder sprain, right, initial encounte r - Primary Shoulder injury, right, initial encounte r Shoulder injury, right, initial encounte r documented in this encounter Care Teams Head Buyer Tobacco Relationship Specialty Start Date End Date Janelle Ambriz MD PCP - General 04/03/07 [address] [place] [address] documented as of this encounter
--- OUTSIDE RECORDS SUMMARY | 2022-05-18 14:38 | XMS_ITS | Encounter Summary ---
:2000 Author Organization [facility] Address [address] [place] [address] Care Team Providers Name Role Phone Janelle Ambriz MD Primary Care Provider Reason for Visit Reason Onset Date Comments RASH 07/27/2011 Encounter Details Date Type Department Care Team Description 07/27/2011 Telephone Careline Unknown, Physician RASH [address] [place], [place] [address] [place] [address] [phone] (Wo rk) Social History Tobacco Use Types Packs/Day Years Used Date Smoking Tobacco: Passive Smoke Exposure - Never Smoker Alcohol Use Standard Drinks/Week Comments Not Asked 0 (1 standard drink = 0.6 oz pure alcoho l) Sex Assigned at Date Recorded Not on file documented as of this encounter Nursing Notes Abbie Sweet, CHRISTIAN - 07/27/2011 7:21 PM CST Rash over whole body. Red and blotchy. Rash feels hot. Does not itch all over but in some areas. He has a slight sore throat and now his stomach aches and is developing a headache. TRIAGE REFERENCE: SORE THROAT - PEDS CNG (c) 2011 STAT SYMPTOMS: None per guideline ASSESSMENT Onset: today Duration: 1-2 days Severity of Pain: Moderate. Strep Related History:no known hx Complicating History:NONE: Temperature : unknown, mother does not have a thermometer. Throat Symptoms: Able to swallow, slight sore throat. Rash: Yes: blotchy all over body but not raised PMH: Patient Active Problem List Diagnoses Code ??? ADHD (Attention Deficit Hyperactivity Disorder) 314.01L ??? Rash and Other Nonspecific Skin Eruption 782.1 ??? Wheezing 786.07 CURRENT MEDICATIONS: Current outpatient prescriptions Medication Sig ??? Acetaminophen (TYLENOL CHILDRENS OR) ??? ALBUterol 2.5 mg/3 mL, 0.083%, nebulizer solution Inhale 3 mL by mouth every 4 hours as needed for Wheezing. ??? PROAIR HFA 108 (90 BASE) MCG/ACT inhaler INHALE 1 TO 2 PUFFS BY MOUTH EVERY 4 HOURS NEEDED FOR WHEEZING MEDICATION ALLERGIES: Yes: Allergies Allergen Reactions ??? Sulfa Drugs ??? Amoxicillin WEIGHT: not asked HOME TREATMENT: Rest Ensure adequate fluid intake Soft food, cold beverages, frozen desserts Frequent warm or cold fluids ([place]. broth, bouillon, hot cider, hot lemonade) Child over 6 yr - salt water gargles up to every hr (1/4 tsp in 8 oz water) Increased humidity (especially at bedside) Acetaminophen per weight for fever/pain PRN: Tips on using fever/pain reducing medications in children: ?? Always dose children???s medications based on body weight (if that information is available). ?? For accurate dispensing, ALWAYS use a measuring device (cup, syringe, or medicine spoon) with graduated markings. Because the volume they hold varies from 4-20 ml, the use of kitchen spoons is discouraged!! Remember: 5ml= 5cc= 1 tsp. ?? The height of the fever doesn???t always correlate with how serious the illness/reaction is. ?? Treat the child, not the thermometer!! If your child has a low grade temperature and is acting fine, there is no reason to use fever reducing medications unless directed to do so. ?? Not all fevers need to be treated. For appropriate weight based dosing, please refer to your child's weight below ACETAMINOPHEN (Tylenol??) DOSING CHART Give orally every 4 hours as needed for pain/fever Weight (lbs) * Drops 80 mg/0.8 ml ml(droppers) Liquid Suspension 160mg/5ml(tsp) Chewable Tablets 80 mg/tab Jr. Strength Cap or Entimsju073sr/caplet Regular Strength Tablet 325mg/tab 6-8 lbs *0.4ml *(?? dropper) 1.25 ml (1/4 tsp) 9-10 lbs *0.6 ml *(?? dropper) 2 ml 11-12 lbs *0.8 ml *(1 dropper) 2.5 ml (1/2 tsp) 13-15 lbs *1.0 ml *(1?? dropper) 2.5 ml (?? tsp) 16-18 lbs *1.2 ml *(1?? dropper) 3.5 ml (?? tsp) 19-20 lbs *1.4 ml *(1?? dropper) 4 ml (?? tsp) 21-25 lbs *1.6 ml *(2 dropper) 5 ml (1 tsp) 2 tabs 1 tab 26-30 lbs *2.0 ml *(2?? dropper) 6 ml (1?? tsp) 2?? tabs 1 tab 31-35 lbs *2.4 ml *(3 dropper) 7.5 ml (1?? tsp) 3 tabs 1?? tabs 36-41 lbs *2.6 ml *(3?? dropper) 8 ml (1?? tsp) 3?? tabs 1?? tabs 42-47 lbs 10 ml (2 tsp) 4 tabs 2 tabs 1 tab 48-53 lbs 11 ml (2?? tsp) 4?? tabs 2 tabs 1 tab 54-59 lbs 12 ml (2?? tsp) 5 tabs 2?? tabs 1 tab 60-65 lbs 13 ml (2?? tsp) 5?? tabs 2?? tabs 1 tab 66-90 lbs 15 ml (3 tsp) 6 tabs 3 tabs 1?? tabs 90-115 lbs 20 ml (3-4 tsp) 7-8 tabs 4 tabs 2 tabs 116-140 lbs 9-10 tabs 5 tabs 2-3 tabs >140 lbs 11-12 tabs 5-6 tabs 3-4 tabs * Due to confusion caused by selling multiple liquid concentrations, the concentrated infant drops of both acetaminophen and ibuprofen will be taken off the shelves sometime during 2010 and will no longer be manufactured. These medications are still safe to give to infants if the correct dose is used. PLAN: Urgent Care [facility] Follow up clinic and/or Primary Care Provider as directed Abbie Sweet, RN SMELTER Violetta Padron - 07/27/2011 6:19 PM CST Which care system or clinic is the patient normally seen at?[facility] What would caller have done if unable to contact the CareLine?Seek Urgent Care Situation:Patient has a full body rash, states he has had it for 2 days. Reports no difficulty breathing or fever. Wondering if they should be concerned. Plan:A nurse will call you back within the hour. If you have not received a callback, please call [phone] and state that you are waiting for a callback. SMELTER documented in this encounter Plan of Treatment Not on filedocumented as of this encounter Visit Diagnoses Not on filedocumented in this encounter Care Teams Manager Country Relationship Specialty Start Date End Date Janelle Ambriz MD PCP - General 04/03/07 [address] [place] [address] documented as of this encounter
--- OUTSIDE RECORDS SUMMARY | 2022-05-18 14:38 | XMS_ITS | Encounter Summary ---
:2000 Author Organization [facility] Address [address] [place] [address] Care Team Providers Name Role Phone Janelle Ambriz MD Primary Care Provider Encounter Details Date Type Department Care Team Description 06/24/2010 Correspondence None Inactive, Provider MEDICAL EQUIP PROOF OF DELIVERY Social History Tobacco Use Types Packs/Day Years Used Date Smoking Tobacco: Passive Smoke Exposure - Never Smoker Alcohol Use Standard Drinks/Week Comments Not Asked 0 (1 standard drink = 0.6 oz pure alcoho l) Sex Assigned at Date Recorded Not on file documented as of this encounter Progress Notes Interface, In Chrtscr And Scan - 06/30/2010 12:13 PM SHOP SERVICE TECHNICIAN SERVICE TECHNICIAN documented in this encounter Plan of Treatment Not on filedocumented as of this encounter Visit Diagnoses Not on filedocumented in this encounter Care Teams Sales Hunter Relationship Specialty Start Date End Date Janelle Ambriz MD PCP - General 04/03/07 [address] [place] [address] documented as of this encounter
--- OUTSIDE RECORDS SUMMARY | 2022-05-18 14:38 | XMS_ITS | Encounter Summary ---
:2000 Author Organization [employer] [facility] Address [address] [place] [address] Care Team Providers Name Role Phone Janelle Ambriz MD Primary Care Provider Reason for Visit Reason Comments HEADACHE Encounter Details Date Type Department Care Team Description 11/27/2012 Office Visit [facility] Sophie Petit Head ache (Primary Dx) [place] [address] [address] [phone] Social History Tobacco Use Types Packs/Day Years [...] Pressure - - Pulse - - Temperature 36.3 ??C (97.3 ??F) 11/27/2012 3:52 PM CDT Respiratory Rate - - Oxygen Saturation - - Inhaled Oxygen Concentration - - Weight 52.6 kg (116 lb) 11/27/2012 3:52 PM CDT Height 149.9 cm (4' 11) 11/27/2012 3:52 PM CDT Body Mass Index 23.43 11/27/2012 3:52 PM CDT Body Mass Index Percentile 91.83 % 11/27/2012 3:52 PM CD T Growth Chart: CDC (Boys, 2-20 Years) documented in this encounter Progress Notes Sophie Petit MD - 11/27/2012 4:29 PM CDT Subjective: 12-year-old male with 4-5 day history of malaise, headache, abdominal pain. No nausea orvomiting. No real sore throat to speak of. No fever. Just some general fatigue. Eating okay. No diarrhea. Generally healthy. No known exposures. Objective:Temp(Src) 97.3 ??F (36.3 ??C) Ht 4' 11 (1.499 m) Wt 116 lb (52.617 kg) BMI 23.42 kg/m2 He appears well. Pupils equally round and reactive to light. Extraocular movements are intact. TMs look fine. Oropharynx looks fine. Neck is supple. Full range of motion. No adenopathy. Lungs are clear. Heart is regular. Abdomen is soft. Some very mild tenderness in the epigastric area and just to the left. Strep is negative. Assessment: Probable viral illness. Plan: Symptomatic treatment for now. Fluids. Tylenol. Rest. Call if symptoms are not improving. documented in this encounter Plan of Treatment Not on filedocumented as of this encounter Procedures Procedure Name Priority Date/Time Associated Diagnosis Comme nts STREP GRP A, RAPID Waiting 11/27/2012 3:55 PM Headache Res ults for this SCREEN CDT procedure are i n the results section. STREP GRP A, THROAT Routine 11/27/2012 3:55 PM Re sults for this CULTURE ONLY CDT procedure are i n the results section. documented in this encounter Results STREP GRP A, THROAT CULTURE ONLY (11/27/2012 3:55 PM CDT) [facility] gist Method Time Signature Grp A Culture Negative NEG [facility] Specimen Anatomical Collection Method Collection Time Receive d Time (Source) Location / / Volume Laterality 11/27/2012 3:55 PM 3 3:56 CDT PM CDT Sophie Petit MD LAB_1 Performing Organization Address City/State/ZIP Code Phon e Number [facility] [phone] [facility] [phone] STREP GRP A, RAPID SCREEN (11/27/2012 3:55 PM CDT) [facility] Method Time Signature Grp A Rapid Negative NEG [facility] Screen [facility] Specimen Anatomical Collection Method Collection Time Receive d Time (Source) Location / / Volume Laterality 11/27/2012 3:55 PM 3 3:56 CDT PM CDT Sophie Petit MD LAB_1 Performing Organization Address City/State/ZIP Code Phon e Number [facility] [phone] [facility] [phone] documented in this encounter Visit Diagnoses Diagnosis Headache(784.0) - Primary Headache documented in this encounter Care Teams Thoracic Medicine Specialist Relationship Specialty Start Date End Date Janelle Ambriz MD PCP - General 04/03/07 [address] [place] [address] documented as of this encounter
--- OUTSIDE RECORDS SUMMARY | 2022-05-18 14:38 | XMS_ITS | Encounter Summary ---
:2000 Author Organization [facility] Address [address] [place] [address] Care Team Providers Name Role Phone Janelle Ambriz MD Primary Care Provider Reason for Visit Reason Comments SORE THROAT,NURSE Encounter Details Date Type Department Care Team Description 09/17/2009 Office Visit [facility] aryngitis Department (Primary Dx) [address] [place], [place] [address] Social History Tobacco Use Types [...] Pressure - - Pulse - - Temperature 36.2 ??C (97.1 ??F) 09/17/2009 2:37 PM CDT Respiratory Rate - - Oxygen Saturation - - Inhaled Oxygen Concentration - - Weight 30.4 kg (67 lb) 09/17/2009 2:37 PM CDT Height - - Body Mass Index - - documented in this encounter Progress Notes Elmira Mckenzie S - 09/17/2009 2:35 PM CDT Meera Ratliff complains of sore throat lasting 1 day(s). Other presenting symptoms include: HEADACHE Fever? No Pertinent medical history includes: STREP EXPOSURE IN FAMILY/OTHER O There were no vitals taken for this visit. Objective exam of patient indicates RED, INFLAMED THROAT Complicating symptoms or history includes: NONE Phone number: Telephone Information: , alternate number na. A Sore Throat. P Call mobile number with rapid strep results, would like rx sent to this pharmacy. Parent informed via telephone along with verbal information for care of sore throats, agrees and understands plan of care and also understands clinic will ONLY call if status changes. Elmira Mckenzie LPN documented in this encounter Plan of Treatment Not on filedocumented as of this encounter Procedures Procedure Name Priority Date/Time Associated Diagnosis Comme nts STREP GRP A, RAPID Waiting 09/17/2009 2:41 PM Acute Pharyngiti s Results for this SCREEN CDT procedure are i n the results section. STREP GRP A, THROAT Routine 09/17/2009 2:41 PM Re sults for this CULTURE ONLY CDT procedure are i n the results section. documented in this encounter Results STREP GRP A, THROAT CULTURE ONLY (09/17/2009 2:41 PM CDT) [employer] Method Time Signature Grp A Culture Negative [facility]G [facility] Spec[facility] Anatomical Collection Method Collection Time Receive d Time (Source) Location / / Volume Laterality 09/17/2009 2:41 PM 0 2:59 CDT PM CDT Andrés Thompson MD LAB_1 Performing Organization Address City/[facility]/ZIP Code Phon e Number [facility] [phone] [email or web address] [address] [address] RAPID, GPA STREP SCREEN (WAITI [[id number]] (09/17/2009 2:41 PM CDT) [employer] Method Time Signature Grp A Rapid Negative NEG [facility] Screen Specimen Anatomical Collection Method Collection Time Receive d Time (Source) Location / / Volume Laterality 09/17/2009 2:41 PM 0 2:59 CDT PM CDT Andrés Thompson MD LAB_1 Performing Organization Address City/[facility] Phon e Number [facility] [phone] [facility] [address] [address] documented in this encounter Visit Diagnoses Diagnosis Acute pharyngitis - Primary documented in this encounter Care Teams Speech And Hearing Director Relationship Specialty Start Date End Date Janelle Ambriz MD PCP - General 04/03/07 [address] [place] [address] documented as of this encounter
--- OUTSIDE RECORDS SUMMARY | 2022-05-18 14:38 | XMS_ITS | Encounter Summary ---
:2000 Author Organization [employer] [facility] Address [address] [place] [address] Care Team Providers Name Role Phone Janelle Ambriz MD Primary Care Provider Reason for Visit Reason Onset Date Comments WALK-IN 06/17/2010 strep test results Encounter Details Date Type Department Care Team Description 06/17/2010 Telephone [facility] Heather Corral WALK -IN (strep test Practice A, PA-C results) [address] [place], [place] [address] [place], [place] [phone] (Wo rk) Social History Tobacco Use Types Packs/Day Years Used Date Smoking Tobacco: Passive Smoke Exposure - Never Smoker Alcohol Use Standard Drinks/Week Comments Not Asked 0 (1 standard drink = 0.6 oz pure alcoho l) Sex Assigned at Date Recorded Not on file documented as of this encounter Nursing Notes Keily Norris RN - 06/17/2010 2:02 PM CST Pt/parent received results of rapid at clinic visit but thought he would receive call for culture. Informed pt/parent we only call if positive. Informed it was negative. Keily Norris RN D WASTE DIVISION SUPERVISOR Abbie Francisco - 06/17/2010 1:53 PM CST Had strep test 123/14. Never got results. See pt father in [place]. D WASTE DIVISION SUPERVISOR documented in this encounter Plan of Treatment Not on filedocumented as of this encounter Visit Diagnoses Not on filedocumented in this encounter Care Teams Lacquer Polisher Relationship Specialty Start Date End Date Janelle Ambriz MD PCP - General 04/03/07 [address] [place] [address] documented as of this encounter
--- OUTSIDE RECORDS SUMMARY | 2022-05-18 14:38 | XMS_ITS | Encounter Summary ---
:2000 Author Organization [facility] Address [address] [place] [address] Care Team Providers Name Role Phone Janelle Ambriz MD Primary Care Provider Encounter Details Date Type Department Care Team Description 06/24/2010 Imaging [facility] Radiology Foot pain:left [address] [place], [place] [address] Social History Tobacco Use Types Packs/Day Years [...] Priority Date/Time Associated Diagnosis Comme nts XR FOOT LT Routine 06/24/2010 9:44 AM Foot pain:left Results for this AP/MO/LAT APPIAN BPM DEVELOPER procedure are i n the results section. documented in this encounter Results XR FOOT LEFT (06/24/2010 9:44 AM APPIAN BPM DEVELOPER) Anatomical Region Laterality Modality Lower Extremity, Foot, Foot & Ankle Comp uted Radiography Specimen (Source) Anatomical Collection Method Collection Time Re ceived Time Location / / Volume Laterality 06/24/2010 9:44 AM APPIAN BPM DEVELOPER Narrative 06/24/2010 1:00 PM APPIAN BPM DEVELOPER LEFT FOOT, 3 VIEWS 06/24/2010 INDICATION: Injury, pain. FINDINGS: No bone or joint abnormality. Procedure Note Magnus Hyatt MD - 06/24/2010 LEFT FOOT, 3 VIEWS 06/24/2010 INDICATION: Injury, pain. FINDINGS: No bone or joint abnormality. Grace Fletcher MD RAD GD documented in this encounter Visit Diagnoses Diagnosis Foot pain:left Pain in limb documented in this encounter Care Teams Cheese Weigher Relationship Specialty Start Date End Date Janelle Ambriz MD PCP - General 04/03/07 [address] [place] [address] documented as of this encounter
--- OUTSIDE RECORDS SUMMARY | 2022-05-18 14:38 | XMS_ITS | Encounter Summary ---
:2000 Author Organization [facility] Address [address] [place] [address] Care Team Providers Name Role Phone Janelle Amrbiz MD Primary Care Provider Encounter Details Date Type Department Care Team Description 07/17/2008 [facility] Noman Witt [address] [place], [place] [address] Social History Tobacco Use Types Packs/Day Years [...] Pressure - - Pulse - - Temperature 37.3 ??C (99.1 ??F) 07/17/2008 11:14 AM C: 37.3 C ASSOCIATE PROFESSOR OF MEDICINE Respiratory Rate - - Oxygen Saturation - - Inhaled Oxygen Concentration - - Weight 21.8 kg (47 lb 15.9 oz) 07/17/2008 11:14 AM C: 2 1.8kg ASSOCIATE PROFESSOR OF MEDICINE Height - - Body Mass Index - - documented in this encounter Progress Notes Noman Witt - 07/17/2008 12:01 AM CST Progress Notes signed by Noman Witt PA-C at 07/17/08 1530 Author: Nomna Witt PA-C Service: (none) Author Type: Physician Circus Hand Filed: 10/23/10 0950 Note Time: 07/17/08 0001 Status: Signed Buckle Attacher: Noman Witt PA-C (Physician Circus Hand) NAME: HADLEY NEAL MR#: [id number] ACCT: [id number] VISIT: [id number] DICTATING CLINICIAN: ZAIDA Cardona CONFIRM #: [id number] LOC: 1202 CLINIC PROGRESS NOTE DATE OF VISIT: 07/17/2008 SUBJECTIVE: : 2000. CHIEF COMPLAINT: Rash. HPI: Patient developed a rash that started this morning. There are a number of pustular lesions on the lower part of his face. Also, at the left angle of his lip there is a macular, erythematous area with some honey-colored drainage. The student states that there apparently was another student with a similar rash recently. The patient has a mild sore throat, low grade fever. There was no other evidence of infection. PAST MEDICAL HISTORY: ADHD. PAST SURGICAL: None. CURRENT MEDS: Reviewed and updated in [employer]. ADR/ALLERGIES: REVIEWED AND UPDATED IN [employer]. OBJECTIVE: VS: Reviewed in [employer]. Patient is an 8-year-old male who appeared in no acute distress. He was alert and oriented x3. Head: Normocephalic. Inspection of the face reveals several pustules and a macular, erythematous rash at the left angle of the left lower lip. NECK: Tender with anterior cervical lymphadenopathy on palpation. Posterior erythema. LUNGS: Clear to auscultation. No wheezes. No crackles. No rhonchi. HEART: Regular rate and rhythm. No murmurs. SKIN: Otherwise normal, other than findings on HEENT. Rapid strep was negative. ASSESSMENT: Impetigo. PLAN: Patient will be treated with cefdinir twice daily for 10 days, along with Bactroban ointment due to the extent of the infection. He will be advised if there appears to be strep involved as well, although covered well with the cefdinir. If patient has any worsening symptoms, he will follow up. JFK:[id number] C: 07/17/08 14:55 CONFIRM #: [id number] CIATE PROFESSOR OF MEDICINE documented in this encounter Plan of Treatment Not on filedocumented as of this encounter Visit Diagnoses Not on filedocumented in this encounter Care Teams Web Site Manager Relationship Specialty Start Date End Date Janelle Ambriz MD PCP - General 04/03/07 [address] [place] [address] documented as of this encounter
--- OUTSIDE RECORDS SUMMARY | 2022-05-18 14:38 | XMS_ITS | Encounter Summary ---
:2000 Author Organization [facility] Address [address] [place] [address] Care Team Providers Name Role Phone Janelle Ambriz MD Primary Care Provider Encounter Details Date Type Department Care Team Description 08/08/2008 Office Visit [facility] Michelle Osorio MD [address] [place] [address] [address] [place] [id number] (Wo rk) Social History Tobacco Use Types Packs/Day Years Used Date Smoking Tobacco: Passive Smoke Exposure - Never Smoker Alcohol Use Standard Drinks/Week Comments Not Asked 0 (1 standard drink = 0.6 oz pure alcoho l) Sex Assigned at Date Recorded Not on file documented as of this encounter Last Filed Vital Signs Vital Sign Reading Time Taken Comments Blood Pressure 84/48 08/08/2008 10:26 AM DIRECTOR GLOBAL DEVELOPMENT Pulse 78 08/08/2008 10:26 AM DIRECTOR GLOBAL DEVELOPMENT Temperature - - Respiratory Rate - - Oxygen Saturation - - Inhaled Oxygen Concentration - - Weight 20.2 kg (44 lb 9.6 oz) 08/08/2008 10:26 AM C: 20 .2kg DIRECTOR GLOBAL DEVELOPMENT Height 124.5 cm (4' 1) 08/08/2008 10:26 AM C: 124.5cm DIRECTOR GLOBAL DEVELOPMENT Body Mass Index 13.06 08/08/2008 10:26 AM DIRECTOR GLOBAL DEVELOPMENT Body Mass Index Percentile 0.48 % 08/08/2008 10:26 AM DIRECTOR GLOBAL DEVELOPMENT Growth Chart: CDC (Boys, 2-20 Years) documented in this encounter Progress Notes Michelle Osorio MD - 08/08/2008 12:01 AM CST Progress Notes signed by Michelle Osorio MD at 08/08/08 1514 Author: Michelle Osorio MD Service: (none) Author Type: Physician Filed: 10/23/10 1026 Note Time: 08/08/08 0001 Status: Signed Bulk Plant Supervisor: Michelle Osorio MD (Physician) ADDENDUM: Will obtain ADHD rating scales to gather data re: medication effect at school. Discussed [place] Instant Breakfast in milk with meals to help with boosting calories. CK 08/08/08 CTOR GLOBAL DEVELOPMENT Michelle Osorio MD - 08/08/2008 12:01 AM CST Progress Notes signed by Michelle Osorio MD at 08/08/08 1058 Author: Michelle Osorio MD Service: (none) Author Type: Physician Filed: 10/23/10 1025 Note Time: 08/08/08 0001 Status: Signed Bulk Plant Supervisor: Michelle Osorio MD (Physician) Date: August 08, 2008 : 2000 Chronological Age: 8 years, 6 months Primary Care Physician: Janelle Ambriz M.D. PRESENTING CONCERNS: Hadley and his father presented [facility] on August 08, 2008 for a medication follow-up. Hadley was last seen for a medication follow-up on April 10, 2008. INTERIM HISTORY: Since that last visit, Hadley has been maintained on Vyvanse 50 mg daily. On the days that he takes his medication, he has good control of focus and attention and has good remarks from his teacher. On the days that he doesn't take his medication his teacher notices difficulty with paying attention and there are more behavioral issues. In fact, there has been some problem with Hadley taking things are not his on some of these days without his medication. Hadley does continue to have appetite suppression. Previously the family was providing [place] Instant Breakfast or Ensure, but they haven't been doing this for a couple of months. PAST MEDICAL HISTORY: Information reviewed. Hadley had impetigo in July 2008. He has otherwise been healthy since last visit. MEDICATIONS: Reviewed, updated today in Last Word. 1. Vyvanse 50 mg daily. 2. Albuterol MDI two puffs p.r.n.. ALLERGIES: Amoxicillin, sulfa cause rash. IMMUNIZATIONS: UP TO DATE REVIEW OF SYSTEMS: A complete review of systems was done and negative. FAMILY HISTORY: Information reviewed. His brother Siddharth has strep throat. SOCIAL HISTORY: Information reviewed. Both parents are currently underemployed. There been significant financial and marital stresses. Hadley's parents are working with a marriage counselor. Things seemed to be stabilizing at the moment, however couple a month ago divorce seemed inevitable. PHYSICAL EXAMINATION: GROWTH: Wt: 44.6 Lbs (3-5%) Ht: 49 in (10-25%) VITALS: HR: 78 BP: 84/48 GENERAL: Hadley is an adorable 8 year-old [...] visit. IMPRESSIONS: Hadley is an 8 year, 6 month old male with: 1. ADHD, Combined Type. 2. Psychosocial stressors. RECOMMENDATIONS: 1. Continue Vyvanse 50 mg by mouth daily. A prescription was provided today for quantity 30 and no refills. Standing orders for refills per auto system. 2. I recommend the family reconnect with Mike Medina PsyD. Dr. Medina can assist Coel and his brother with coping with the family stressors over the past year and with behavioral stratgies for children with ADHD. 3. RTC 3 months for medication and weight check. Michelle Osorio MD Developmental Paid Search Specialist TT: [address]: 15 minutes CC: Janelle Ambriz M.D. *SH~DNS~medcheck CTOR GLOBAL DEVELOPMENT documented in this encounter Plan of Treatment Not on filedocumented as of this encounter Visit Diagnoses Not on filedocumented in this encounter Care Teams [employer] Relationship Specialty Start Date End Date Janelle Ambriz MD PCP - General 04/03/07 [address] [place] [address] documented as of this encounter
--- OUTSIDE RECORDS SUMMARY | 2022-05-18 14:38 | XMS_ITS | Encounter Summary ---
:2000 Author Organization [facility] Address [address] [place] [address] Care Team Providers Name Role Phone Janelle Ambriz MD Primary Care Provider Reason for Visit Reason Onset Date Comments MEDICATION, NOS 04/23/2009 Encounter Details Date Type Department Care Team Description 04/23/2009 Telephone [facility] Andrés Thompson MD MEDICATION, NOS [address] [place], [place] [address] Social History Tobacco Use Types Packs/Day Years Used Date Smoking Tobacco: Passive Smoke Exposure - Never Smoker Alcohol Use Standard Drinks/Week Comments Not Asked 0 (1 standard drink = 0.6 oz pure alcoho l) Sex Assigned at Date Recorded Not on file documented as of this encounter Nursing Notes Andrés Thompson - 04/23/2009 12:18 PM CDT Sibling with pinworms. documented in this encounter Plan of Treatment Not on filedocumented as of this encounter Visit Diagnoses Not on filedocumented in this encounter Care Teams Rolled Seat Trimmer Relationship Specialty Start Date End Date Janelle Ambriz MD PCP - General 04/03/07 [address] [place] [address] documented as of this encounter
--- OUTSIDE RECORDS SUMMARY | 2022-05-18 14:38 | XMS_ITS | Encounter Summary ---
:2000 Author Organization [facility] Address [address] [place] [address] Care Team Providers Name Role Phone Janelle Ambriz MD Primary Care Provider Reason for Visit Reason Comments SORE THROAT, started this am swollen priscila ds Encounter Details Date Type Department Care Team Description 06/15/2010 Office Visit [facility] Heather Corral Phar yngitis (Primary Dx); Practice A, [facility] Flu shot [address] [place], [place] [address] [address] [phone] [place] [address] Social History Tobacco Use Types Packs/Day Years Used Date Smoking Tobacco: Passive Smoke Exposure - Never Smoker Alcohol Use Standard Drinks/Week Comments Not Asked 0 (1 standard drink = 0.6 oz pure alcoho l) Sex Assigned at Date Recorded Not on file documented as of this encounter Last Filed Vital Signs Vital Sign Reading Time Taken Comments Blood Pressure 102/50 06/15/2010 2:10 PM CASTING MACHINE SERVICE OPERATOR Pulse 82 06/15/2010 2:10 PM CASTING MACHINE SERVICE OPERATOR Temperature 36.9 ??C (98.4 ??F) 06/15/2010 2:10 PM CASTING MACHINE SERVICE OPERATOR Respiratory Rate 14 06/15/2010 2:10 PM CASTING MACHINE SERVICE OPERATOR Oxygen Saturation - - Inhaled Oxygen Concentration - - Weight 31.8 kg (70 lb) 06/15/2010 2:10 PM CASTING MACHINE SERVICE OPERATOR Height - - Body Mass Index - - documented in this encounter Patient Instructions Patient InstructionsHeather Corral - 06/15/2010 3:09 PM CST Tips on using fever/pain reducing medications in children: ?? Always dose children???s medications based on body weight (if that information is available). For accurate dispensing, ALWAYS use a measuring device (cup, syringe, or medicine spoon) with graduated markings. Because the volume they hold varies from 4-20 ml, the use of kitchen spoons is discouraged!! Remember: 5ml= 5cc= 1 tsp. The height of the fever doesn???t always correlate with how serious the illness/reaction is. Treat the child, not the thermometer!! If your child has a low grade temperature and is acting fine,there is no reason to use fever reducing medications unless directed to do so. Not all fevers need to be treated. For appropriate weight based dosing, please refer to your child's weight below. ACETAMINOPHEN (Tylenol ??) DOSING CHART Give orally every 4 hours as needed for pain/fever Weight (lbs) Infant Drops 80mg/0.8ml ml(droppers) Liquid Suspension 160mg/5ml(tsp) Chewable Tablets 80mg/tab Jr.Strength Cap or Chewable 160mg/caplet Regular Strength Tablet 325mg/tab 6-8 lbs 0.4ml (?? dropper) 9-10 lbs 0.6 ml (?? dropper) 11-12 lbs 0.8 ml (1 dropper) 13-15 lbs 1.0 ml (1?? droppers) 2.5 ml (?? tsp) 16-18 lbs 1.2 ml (1?? droppers) 3.5 ml (?? tsp) 19-20 lbs 1.4 ml (1?? droppers) 4 ml (?? tsp) 21-25 lbs 1.6 ml (2 droppers) 5 ml (1 tsp) 2 tabs 1 tab 26-30 lbs 2.0 ml (2?? droppers) 6 ml (1?? tsp) 2?? tabs 1 tab 31-35 lbs 2.4 ml (3 droppers) 7.5 ml (1?? tsp) 3 tabs 1?? tabs 36-41 lbs 2.6 ml (3?? droppers) 8 ml (1 ?? tsp) 3?? tabs 1?? tabs 42-47 lbs 10 ml (2 tsp) 4 tabs 2 tabs 1 tab 48-53 lbs 11 ml (2?? tsp 4?? tabs 2 tabs 1 tab 54-59 [...] lbs 11-12 tabs 5-6 tabs 3-4 tabs IBUPROFEN (Advil ?? Motrin ??) DOSE for PAIN/FEVER Give orally every 6-8 hours as needed. Weight (lbs) Oral Drops 50mg/1.2ml Liquid Suspension 100mg/5ml Chewable Tabs 50mg/tab Chewable Tabs/Caps 100mg/tab 6-8 lbs 9-10 lbs IBUPROFEN SHOULD NOT BE USED IN CHILDREN UNDER THE AGE OF 6 MONTHS WITHOUT FIRST DISCUSSING IT WITH YOUR 11-12 lbs DOCTOR OR NURSE PRACTITIONER 13-15 lbs 16-18 lbs 1.8 ml (1?? droppers) 3.5 ml (?? tsp) Note: Ibuprofen drops are 4 times more 19-20 lbs 2 ml (1?? droppers) 4 ml (?? tsp) expensive then liquid suspension 21-25 lbs 2.4 ml (2 droppers) 5 ml (1 tsp) 2 tab 1 tab 26-30 lbs 3 ml (2?? droppers) 6 ml (1?? tsp) 2?? tab 1 tab 31-35 lbs 3.5 ml (2?? droppers) 7.5 ml (1?? tsp) 3 tab 1?? tab 36-41 lbs 4 ml (3 droppers) 8 ml (1?? tsp) 3?? tab 1?? tab 42-47 lbs 10 ml (2 tsp) 4 tabs 2 tabs 48-53 lbs 11 ml (2?? tsp) 5 tabs 2 tabs 54-59 lbs 12 ml (2?? tsp) 5?? tabs 2?? tabs 60-65 lbs 13 ml (2?? tsp) 6 tabs 2?? tabs 65-90 lbs 15 ml (3 tsp) 8 tabs 3 tabs 91-119 lbs 2 (200 mg) tabs = 400 mg 120-180 lbs 3 (200 mg) tabs = 600 mg >181 lbs 4 (200 mg) tabs = 800 mg ING MACHINE SERVICE OPERATOR documented in this encounter Progress Notes Heather Corral - 06/15/2010 3:32 PM CST Hadley Ratliff is a 10 yr old male with primary concern: sore throat Enlarged lymph nodes NO fever, chills, sweats. Duration: 1-day(s) Significant positive medical hx: none Exposures: none History Tobacco Use ??? Passive Associated symptoms: General symptoms:none HEENT symptoms: sore throat Chest symptoms: none Abd/GI symptoms: none Red flag symptoms: none Objective Appears healthy and alert, comfortable BP 102/50 Pulse 82 Temp(Src) 98.4 ??F (36.9 ??C) (Oral) Resp 14 Wt 70 lb (31.752 kg) HEENT: EAC's/TM's normal, conjunctiva normal, no sinus tenderness, pharynx erythematous without exudate, cervical adenopathy bilaterally and neck supple Chest: heart exam normal; lungs clear Abd: normal Skin: no rash, no purpura/petechia Lab/xray data: rapid strep test: Negative Assessment viral URI and pharyngitis Plan Symptomatic treatment Call or return to clinic if these symptoms worsen or fail to improve as anticipated. The issues outlined above were discussed, and [...] We reviewed it together. Heather Corral PA-C 3:32 PM 06/15/2010 ING MACHINE SERVICE OPERATOR documented in this encounter Plan of Treatment Not on filedocumented as of this encounter Procedures Procedure Name Priority Date/Time Associated Diagnosis Comme nts STREP GRP A, RAPID Waiting 06/15/2010 2:55 PM Pharyngitis Res ults for this SCREEN CASTING MACHINE SERVICE OPERATOR procedure are i n the results section. STREP GRP A, THROAT Routine 06/15/2010 2:55 PM Re sults for this CULTURE ONLY CASTING MACHINE SERVICE OPERATOR procedure are i n the results section. documented in this encounter Results STREP GRP A, THROAT CULTURE ONLY (06/15/2010 2:55 PM CASTING MACHINE SERVICE OPERATOR) [facility] gist Method Time Signature Grp A Culture Negative [facility] Final Specimen Anatomical Collection Method Collection Time Receive d Time (Source) Location / / Volume Laterality 06/15/2010 2:55 PM 0 3:04 CASTING MACHINE SERVICE OPERATOR PM CASTING MACHINE SERVICE OPERATOR Heather Corral PA-C LAB_1 Performing Organization Address [facility] Phon e Number [employer] [phone] [facility] [address] [place] [phone] STREP GRP A, RAPID SCREEN (06/15/2010 2:55 PM CASTING MACHINE SERVICE OPERATOR) [facility] gist Method Time Signature Grp A Rapid Negative [facility] Screen Specimen Anatomical Collection Method Collection Time Receive d Time (Source) Location / / Volume Laterality 06/15/2010 2:55 PM 0 3:04 CASTING MACHINE SERVICE OPERATOR PM CASTING MACHINE SERVICE OPERATOR Heather Corral PA-C LAB_1 Performing Organization Address [facility] Phon e Number [employer] [phone] [facility] [address] [place] [phone] documented in this encounter Visit Diagnoses Diagnosis Pharyngitis - Primary Acute pharyngitis Flu shot Need for prophylactic vaccination and in oculation against influenza documented in this encounter Care Teams Football Pad Repairer Relationship Specialty Start Date End Date Janelle Ambriz MD PCP - General 04/03/[id number] [place] [id number] documented as of this encounter
--- OUTSIDE RECORDS SUMMARY | 2022-05-18 14:38 | XMS_ITS | Encounter Summary ---
:2000 Author Organization [facility] Address [address] [place] [address] Care Team Providers Name Role Phone Janelle Ambriz MD Primary Care Provider Reason for Visit Reason Comments COUGH Rhinitis Encounter Details Date Type Department Care Team Description 10/08/2009 Office Visit [facility], Rash and Other Nonspecific S kin Eruption (Primary Dx); [address] [place], [place] [address] Social History Tobacco Use Types Packs/Day Years Used Date Smoking Tobacco: Passive Smoke Exposure - Never Smoker Alcohol Use Standard Drinks/Week Comments Not Asked 0 (1 standard drink = 0.6 oz pure alcoho l) Sex Assigned at Date Recorded Not on file documented as of this encounter Last Filed Vital Signs Vital Sign Reading Time Taken Comments Blood Pressure 98/64 10/08/2009 1:00 PM CDT Pulse 90 10/08/2009 1:00 PM CDT Temperature - - Respiratory Rate - - Oxygen Saturation - - Inhaled Oxygen Concentration - - Weight 30.2 kg (66 lb 9.6 oz) 10/08/2009 1:00 PM CDT Height 130.5 cm (4' 3.38) 10/08/2009 1:00 PM CDT Body Mass Index 17.74 10/08/2009 1:00 PM CDT Body Mass Index Percentile 71.56 % 10/08/2009 1:00 PM CD T Growth Chart: [facility] (Boys, 2-20 Years) documented in this encounter Patient Instructions Patient InstructionsBobby Powell - 10/08/2009 2:00 PM CDT If you have questions, please call the Allergy department at [phone]. Today's allergy skin test was negative. Two episodes of itchy skin rash with wheezing and coughing were not allergy-related. The problem might have been due to viral infection. Today's breathing function test was normal. In light of his history it is possible that he develops bronchospasm due to viral infections. 1. Cetirizine (Zyrtec) 10 mg once a day as needed. 2. RTC in 6 months. documented in this encounter Progress Notes Bobby Powell - 10/08/2009 1:39 PM CDT AUTHOR: BOBBY POWELL ALLERGY EVALUATION (NEW PATIENT) SUBJECTIVE: This 9 years old male, who was born in and has lived in [place], was self-referred to our allergy clinic for the evaluation of his skin and breathing problem. He is here with his step father. His history was obtained via his father. According to his step father he has developed 2 acute episodes of itchy skin rash with difficulty inbreathing. The first one was about 3 months ago. At that time he was at the house of his step father's mother. She has 4 dogs. He was, however, in that house many times before. Within 1 to 2 hours he developed generalized pruritic skin rash (chief complaint) together with coughing and wheezing. He was also febrile. He was brought to [facility] in [place], [place]. He was probably given a short course of oral steroid with great help. He ate turkey before this episode but he has been eating turkey without any problem in the past. The second episode took place about 2 weeks ago. At that time he developed pruritic skin rash on thechest. He also developed coughing and wheezing. Prior to this episode he complained of sore throat. Strept screening was negative. He was born 7 weeks premature. Since he was born, he develops croupy cough once or twice a year, usually in late fall and winter. Nebulized bronchodilator is usually effective. He does not develop nasal or ocular symptoms suggestive of allergic rhinoconjunctivitis. R.O.S.: Constitutional; no fever, chills or weight loss. Eyes; no itchy or watery eyes. ENT; PE tubes in the past. GI; no nausea or vomiting. CV; no chest pain or cyanosis. ; no burning or frequency. M/S; no joint pain, redness or swelling. Integument; no itchy or dry skin. Neuro; no tremor or dizziness. Endo; no hot flashes or excessive sweating. Psych; no problems identified. Skin rash due to PCN and sulfa. No chronic illness such as diabetes mellitus or seizure disorder. No major operation. Family History: One of his brothers, 12 years old, has suffered from hay fever, bronchial asthma andeczema. 18 years old brother also has hay fever. His sister, 14, has eczema. Environment: The patient has lived in the present house for 2 years. It is equipped with a hot waterheating system and a window unit air conditioner. There is a carpet, feather pillows and a regular mattress in the bedroom. Animals: one cat. He does not develop any immediate reaction on exposure to animals. Social History: His step father smokes outside. OBJECTIVE: BP 98/64 Pulse 90 Ht 4' 3.38 (1.305 m) Wt 66 lb 9.6 oz (30.21 kg) General Appearance; in no acute distress, alert Eyes; conjunctivae clear, [facility] E[facility]; nose showed slightly swollen nasal membranes with a small amount of clear discharge, throat no injection or swelling, neck supple with no tenderness, mass or thyromegaly, ears TM intact with normal light reflection Lung; clear without wheezing, rales or rhonchi and with good breath sound Heart; S1 plus S2 without murmur Abdomen; flat, soft, no tenderness, no organomegaly Heme/Lymph; no lymphadenopathy in cervical area Skin; warm and well-perfused. Neuro; speech normal, mental status intact, muscle tone normal Psych; no sign of depression or nervousness Spirometry; FVC 1.88 (predicted 1.89), FEV1 1.74 (1.70), [id number]% 2.29 (2.11) Allergy Skin Test: I checked the results (wheal and flare formations) by myself and confirmed it. See a separate skin test form for details. prick test; negative to all allergens applied with a positive histamine control. ASSESSMENT: Problem 1. Acute episodes of pruritic skin rash with wheezing and coughing. The first episode was accompanied by fever and the second followed sore throat. Today's skin test was negative. It is possible that his problem was due to viral infections. Problem 2. Wheezing. He develops wheezing after viral infection which require nebulizer treatment once or twice a year. He may have bronchial asthma triggered by viral URI. Today's PFT is completely normal. PLAN: 1. Cetirizine (Zyrtec) 10 mg once a day as needed. 2. Albuterol as needed. 3. RTC in 6 months. Bobby Powell MD 3:00 PM 10/08/2009 documented in this encounter Procedure Notes Pulmonary, Provider - 10/08/2009 12:00 AM CDTAssociated Order(s): SPIROMETRY--SCAN documented in this encounter Plan of Treatment Not on filedocumented as of this encounter Procedures Procedure Name Priority Date/Time Associated Diagnosis Comme nts SPIROMETRY--SCAN 10/08/2009 12:00 AM Resu lts for this CDT procedure are i n the results section. documented in this encounter Results SPIROMETRY--SCAN (10/08/2009 12:00 AM CDT) Specimen (Source) Anatomical Location Collection Method / Collectio n Time Received Time / Laterality Volume 10/08/2009 Narrative This result has an attachment that is no t available. Transcriptions Pulmonary, Provider - 10/08/2009 12:00 A M CDT Bobby Powell MD EEG/RH documented in this encounter Visit Diagnoses Diagnosis Rash and other nonspecific skin eruption - Primary Wheezing documented in this encounter Care Teams Tire Stripper Relationship Specialty Start Date End Date Janelle Ambriz MD PCP - General 04/03/07 [address] [place] [address] documented as of this encounter
--- OUTSIDE RECORDS SUMMARY | 2022-05-18 14:38 | XMS_ITS | Encounter Summary ---
:2000 Author Organization [employer] Address [address] [place] [address] Care Team Providers Name Role Phone Janelle Ambriz MD Primary Care Provider Encounter Details Date Type Department Care Team Description 09/18/2008 Office Visit [facility] Porfirio Rao PA-C [address] [place] [address] [facility] [address] [place] [address] [phone] (Wo rk) Social History Tobacco Use Types [...] - - Temperature 36.3 ??C (97.3 ??F) 09/18/2008 3:10 PM CDT C: 36 .3 C Respiratory Rate - - Oxygen Saturation - - Inhaled Oxygen Concentration - - Weight 21.3 kg (46 lb 15.7 oz) 09/18/2008 3:10 PM CDT C : 21.3kg Height - - Body Mass Index - - documented in this encounter Progress Notes Porfirio Edwards PA-C - 09/18/2008 12:01 AM CDT Progress Notes signed by Porfirio Edwards PA-C at 09/18/08 1639 Author: Porfirio Edwards PA-C Service: (none) Author Type: Physician Resource Conservationist Filed: 10/23/10 1134 Note Time: 09/18/08 0001 Status: Signed Senior Research Scientist: Porfirio Edwards PA-C (Resource) NAME: HADLEY NEAL MR#: [id number] ACCT: [id number] VISIT: [id number] DICTATING CLINICIAN: Porfirio Edwards PA-C CONFIRM #: [id number] LOC: 1402 CLINIC PROGRESS NOTE DATE OF VISIT: 09/18/2008 SUBJECTIVE: : 2000. CHIEF COMPLAINT: Nausea, headache, and dizziness. Patient is an 8-year-old boy who has had a couple of bouts of some nausea and complaints of mild headache and lightheadedness over the last 2 days. He was sent home by nurse at school today. Upon arrival, he is actually feeling much better and does not complain of significant nausea. He has had no episode of vomiting nor diarrhea. He has had a normal bowel movement today. No fevers or chills. No upper respiratory symptoms. A brother at home has similar symptoms and mom is also being seen for gastroenteritis. PAST MEDICAL HISTORY: Reviewed and updated in [employer]. MEDICATIONS: Reviewed and updated in [employer]. REVIEW OF SYSTEMS: All other systems are negative. ADR/ALLERGIES: REVIEWED AND UPDATED IN [employer]. OBJECTIVE: VS: T: 97.4. He is an alert child who is not in any acute distress. HEENT: Head is normocephalic. Ears are clear. TMs are pearly bradley. Eyes: PERRL. Nose and throat are unremarkable. NECK: Supple. CHEST: Clear. HEART: Regular rate and rhythm. ABDOMEN: Soft, nondistended. No appreciable tenderness to palpation, masses, or organomegaly. : Deferred. EXTREMITIES: No cyanosis, clubbing or edema. ASSESSMENT: Gastroenteritis. PLAN: Encouraged clear liquids and frequent small amounts over the next 12-24 hours with gradual advance to bland diet as tolerated. Follow up with inability to keep foods down, worsening symptoms or concerns and return to clinic if symptoms persist. DJP:[id number] C: 09/18/08 16:36 CONFIRM #: [id number] documented in this encounter Plan of Treatment Not on filedocumented as of this encounter Visit Diagnoses Not on filedocumented in this encounter Care Teams Salesperson Pianos And Organs Relationship Specialty Start Date End Date Janelle Ambriz MD PCP - General 04/03/07 [address] [place] [address] documented as of this encounter
--- OUTSIDE RECORDS SUMMARY | 2022-05-18 14:38 | XMS_ITS | Encounter Summary ---
:2000 Author Organization [employer] Address [address] [place] [address] Care Team Providers Name Role Phone Janelle Ambriz MD Primary Care Provider Reason for Visit Reason Comments HEADACHE stomache , nausea started ye sterday Encounter Details Date Type Department Care Team Description 09/11/2012 Office Visit [facility] Leyla Gonzalez MD Viral syndrome Practice [address] [facility] (Primary Dx) [address] [place] [address] [phone] Social History Tobacco Use Types Packs/Day Years Used Date Smoking Tobacco: Passive Smoke Exposure - Never Smoker Alcohol Use Standard Drinks/Week Comments Not Asked 0 (1 standard drink = 0.6 oz pure alcoho l) Sex Assigned at Date Recorded Not on file documented as of this encounter Last Filed Vital Signs Vital Sign Reading Time Taken Comments Blood Pressure 116/69 09/11/2012 3:48 PM CDT Pulse 88 09/11/2012 3:48 PM CDT Temperature 36.5 ??C (97.7 ??F) 09/11/2012 3:48 PM CDT Respiratory Rate 16 09/11/2012 3:48 PM CDT Oxygen Saturation - - Inhaled Oxygen Concentration - - Weight 50.8 kg (112 lb) 09/11/2012 3:48 PM CDT Height - - Body Mass Index - - documented in this encounter Patient Instructions Patient Leyla Diaz MD - 09/11/2012 4:23 PM CDT Tips on using fever/pain reducing medications ?? Always dose children???s medications based on [...] refer to your child's weight below. ACETAMINOPHEN (Tylenol?? and other brands) DOSING CHART (Give orally every 4-6 hours as needed for pain/fever) Weight (lbs) and Children???s Suspension 160mg/5ml(tsp) Chewable Tablets 80 mg/tab Jr. Strength Cap or Chewable 160mg/caplet Regular Strength Tablet 325mg/tab 6-8 lbs 1.25 ml (?? tsp) 9-10 lbs 2 ml 11-12 lbs 2.5 ml (?? tsp) 13-15 lbs 2.5 ml (?? tsp) 16-18 lbs 3.5 ml (?? tsp) 19-20 lbs 4 ml (?? tsp) 21-25 lbs 5 ml (1 tsp) 2 tabs 1 tab 26-30 lbs 6 ml (1?? tsp) 2?? tabs 1 tab 31-35 lbs 7.5 ml (1?? tsp) 3 tabs 1?? tabs 36-41 lbs 8 ml (1?? tsp) 3?? tabs 1?? [...] tabs 4 tabs 2 tabs 116-140 lbs Maximum Dose is 4000 mg per 24 hrs 9-10 tabs 5 tabs 2-3 tabs >140 lbs 11-12 tabs 5-6 tabs 3 tabs IBUPROFEN (Advil ?? Motrin ?? and other brands) DOSE for PAIN/FEVER (Give orally every 6-8 hours as needed for pain, inflammation and/or fever) *Warning! Under the age of 6 months, ibuprofen should not be used without first discussing it with your doctor or nurse practitioner Weight (lbs) Liquid Suspension 100mg/5ml Chewable Tablets 50 mg/tab Chewable Tabs/Caps 100mg/tab Ibuprofen tablets 200 mg/tab 6-8 lbs 9-10 lbs 11-12 lbs 2.5ml (?? tsp) 13-15 lbs 3 ml 16-18 lbs 3.5 ml (?? tsp) 1-1?? tabs ?? tab 19-20 lbs 4 ml (?? tsp) 1?? tabs ?? tab 21-25 lbs 5 ml (1 tsp) 2 tabs 1 tab 26-30 lbs 6 ml (1?? tsp) 2?? tabs 1 tab 31-35 lbs 7.5 ml (1?? tsp) 3 tabs 1?? tabs 36-41 lbs 8 ml (1?? tsp) 3?? tabs 1?? tabs 42-47 lbs 10 ml (2 tsp) 4 tabs 2 tabs 1 tab 48-53 lbs 11 ml (2?? tsp) 5 tabs 2 tabs 1 tab 54-59 lbs 12 ml (2?? tsp) 5?? tabs 2?? tabs 1 tab 60-65 lbs 13 ml (2?? tsp) 6 tabs 2?? tabs 1 tab 66-90 lbs 15 ml (3 tsp) 6 tabs 3 tabs 1 tab 91-119 lbs 20 ml (4 tsp) 8 tabs 4 tabs 2 tabs 120-180 lbs 5-6 tabs 3 tabs >181 lbs 7-8 tabs 4 tabs Tips on using fever/pain reducing medications in [...] please refer to your child's weight below documented in this encounter Progress Notes Leyla Gonzalez MD - 09/11/2012 4:13 PM CDT Chief Complaint Patient presents with ??? HEADACHE stomache , nausea started yesterday Patient is here with fatehr. 12 yo M here for some stomachache, nausea, BRANTLEY and sore throat starting last night. Patient had decreased appetite last night. Also had BRANTLEY-took some ibuprofen which helped BRANTLEY. Stomachache this AM as well-patient eating small amount of breakfast, lunch, tolerating water. Denies emeses. Denies fevers, chi lls, tactile fevers-some nasal congestion/minimal coughing. Denies wheezing- patient is not having toneed his albuterol inhaler. Denies changes in stools/urination, rash. Patient more tired today. No known sick contacts-not aware of strep contacts. Allergies Allergen Reactions ??? Amoxicillin ??? Sulfa Drugs ROS: see above for pertinents. BP 116/69 Pulse 88 Temp(Src) 97.7 ??F (36.5 ??C) (Tympanic) Resp 16 Wt 112 lb (50.803 kg) General: He appears alert, talkative, no coughing during exam. Ears: WNL Nose: +minimal nasal congestion. Oropharynx: tonsillar pillars minimal erythema, no edema, no exudates. Neck: supple and free of adenopathy. EYES: no conjunctival injection b/l. Chest: clear to IPPA. Heart: sounds are normal, no murmurs. Abdomen: +BS's, soft, no tenderness, no distention, no masses or organomegaly. A/P: 1. Viral syndrome: rapid strep negative, f/u culture. Supportive cares discussed. Given refill for albuterol per Epic, SERD as patient with h/o viral induced bronchospasm per father. Warning signs given.Leyla Gonzalez MD 09/12/2012, 10:52 PM documented in this encounter Plan of Treatment Not on filedocumented as of this encounter Procedures Procedure Name Priority Date/Time Associated Diagnosis Comme nts STREP GRP A, RAPID Waiting 09/11/2012 3:54 PM Res ults for this SCREEN CDT procedure are i n the results section. STREP GRP A, THROAT Routine 09/11/2012 3:54 PM Re sults for this CULTURE ONLY CDT procedure are i n the results section. documented in this encounter Results STREP GRP A, THROAT CULTURE ONLY (09/11/2012 3:54 PM CDT) [facility] Gingerd Method Time Signature Grp A Culture Negative NEG [facility] Final Specimen Anatomical Collection Method Collection Time Receive d Time (Source) Location / / Volume Laterality 09/11/2012 3:54 PM 3 3:56 CDT PM CDT Leyla Gonzalez MD LAB_1 Performing Organization Address City/State/ZIP Code Phon e Number [facility] [phone] [facility] [address] [address] STREP GRP A, RAPID SCREEN (09/11/2012 3:54 PM CDT) [facility] Method Time Signature Grp A Rapid Negative NEG [facility] Screen Specimen Anatomical Collection Method Collection Time Receive d Time (Source) Location / / Volume Laterality 09/11/2012 3:54 PM 3 3:56 CDT PM CDT Leyla Gonzalez MD LAB_1 Performing Organization Address City/State/ZIP Code Phon e Number [facility] [phone] [address] documented in this encounter Visit Diagnoses Diagnosis Viral syndrome - Primary Unspecified viral infection, in conditio ns classified elsewhere and of unspecified site documented in this encounter Care Teams Burnishing Machine Operator Relationship Specialty Start Date End Date Janelle Ambriz MD PCP - General 04/03/07 [address] [place] [address] documented as of this encounter
--- OUTSIDE RECORDS SUMMARY | 2022-05-18 14:39 | XMS_ITS | Encounter Summary ---
:2000 Author Organization [employer] Address [address] [place] [address] Care Team Providers Name Role Phone Janelle Ambriz MD Primary Care Provider Reason for Visit Reason Comments SHOT,FLU Encounter Details Date Type Department Care Team Description 04/16/2007 Immunization [facility] Need fo r Prophylactic Department Vaccination and [address] [facility] Inoculation Against [place], [place] [address] Influenza (Primary Dx) [phone] Social History Tobacco Use Types Packs/Day Years Used Date Smoking Tobacco: Passive Smoke Exposure - Never Smoker Alcohol Use Standard Drinks/Week Comments Not Asked 0 (1 standard drink = 0.6 oz pure alcoho l) Sex Assigned at Date Recorded Not on file documented as of this encounter Progress Notes Shona Quiñones - 04/16/2007 5:08 PM CDT SUBJECTIVE: Hadley Ratliff is a 7 yr old male here for a flu shot. Severe allergy to eggs: no Severe allergy to latex (If yes, refer to standing order for additional information): no Previous severe reaction to influenza vaccine: no Severe reaction to thimerosal (Does not apply to persons receiving Fluzone 100% Preservative-free vaccine): no Recent onset of major neurological problem: no Ill appearing with increased respiratory rate, moderate fever (>101.0 F), and increased heart rate: no NOTE: a moderate illness such as otitis, sinusitis or URI accompanied by a fever up to 102.0 isnot a contraindication to immunization. History of bleeding problem: no History of [place] within 6 weeks of receiving an influenza immunization: no (If YES to any of the above, consult MD) OBJECTIVE: Temp (only if ill today): Mother states not ill today ASSESSMENT: Eligible for flu vaccine today: YES PLAN: Administer vaccine: Education: discussed possible side effects and provided health education materials. Deana Quiñones LPN 04/16/2007 5:08 PM documented in this encounter Plan of Treatment Not on filedocumented as of this encounter Visit Diagnoses Diagnosis Need for prophylactic vaccination and in oculation against influenza - Primary documented in this encounter Care Teams Surveillance Sensor Officer Relationship Specialty Start Date End Date Janelle Ambriz MD PCP - General 04/03/07 [address] [place] [address] documented as of this encounter
--- OUTSIDE RECORDS SUMMARY | 2022-05-18 14:39 | XMS_ITS | Encounter Summary ---
:2000 Author Organization [employer] Address [address] [place] [address] Care Team Providers Name Role Phone Janelle Ambriz MD Primary Care Provider Reason for Visit Reason Comments COUGH Encounter Details Date Type Department Care Team Description 05/17/2007 Office Visit [place] Janelle Ambriz, Cough (Pr imary Dx); Pediatrics Bronchospasm; [address] [facility] [address] [facility] Wheezing [place], [place] [address] [place], [place] [phone] [address] Social History Tobacco Use Types Packs/Day Years Used Date Smoking Tobacco: Passive Smoke Exposure - Never Smoker Alcohol Use Standard Drinks/Week Comments Not Asked 0 (1 standard drink = 0.6 oz pure alcoho l) Sex Assigned at Date Recorded Not on file documented as of this encounter Last Filed Vital Signs Vital Sign Reading Time Taken Comments Blood Pressure - - Pulse 83 05/17/2007 2:00 PM SECURITY CONTROL ROOM OFFICER Temperature 36.4 ??C (97.5 ??F) 05/17/2007 2:00 PM SECURITY CONTROL ROOM OFFICER Respiratory Rate - - Oxygen Saturation - - Inhaled Oxygen Concentration - - Weight 20.7 kg (45 lb 9.6 oz) 05/17/2007 2:00 PM SECURITY CONTROL ROOM OFFICER Height 118.7 cm (3' 10.75) 05/17/2007 2:00 PM SECURITY CONTROL ROOM OFFICER Nwslzz-rhd-Wlwbie Percentile 26.92 % 05/17/2007 2:00 PM SECURITY CONTROL ROOM OFFICER Growth Chart: CDC (Boys, 2-20 Years) Body Mass Index 14.67 05/17/2007 2:00 PM SECURITY CONTROL ROOM OFFICER Body Mass Index Percentile 24.34 % 05/17/2007 2:00 PM CS T Growth Chart: [facility] (Boys, 2-20 Years) documented in this encounter Progress Notes Janelle Ambriz - 05/18/2007 8:07 AM CST This office note has been dictated. Janelle Ambriz MD RITY CONTROL ROOM OFFICER Janelle Ambriz - 05/17/2007 12:00 AM SECURITY CONTROL ROOM OFFICER SUBJECTIVE: A 7-year-old male here with his dad with concerns about possible asthma. He was seen yesterday for cough and history of wheezing, was given albuterol. They were then told to follow up with their primary doctor to discuss asthma further. He has had a cough dad says since he was a baby and it sounds very barky and he will develop stridor. At times it is so severe that it looks like he is turning blue and struggling to breathe. This has been going on off and on since he was born. Dad has been told that it has been croup, but then he has also been told that he is too old for croup. A couple of nights ago he came down with a bad coughing attack and they gave him his brother's inhaler and this seemed to help. I demonstrated stridor and wheezing to him and dad said both are occurring. Cough is described as both barky and other times junky. They did receive albuterol yesterday, but dad says they have not used it because last night he seemed fine. Runny nose developed yesterday. He has not had any fevers. PAST MEDICAL HISTORY: He was born mgzsg-hnc-fplq weeks prematurely. Dad cannot recall if he was on a ventilator, but he spent about elb-qve-texsm in the hospital. He does have a brother who has asthma. Dad has eczema. There is a paternal uncle with asthma and half-sister with eczema. On exam, saturations are 98% on room air. In general he is awake, alert, in no distress. HEENT: Conjunctivae are normal. Ears are within normal limits. Oropharynx is clear. Neck is supple with full range of motion. Lungs: When I first listened, he had a few scattered wheezes that cleared with deep inspiration. They did not persist and were not heard throughout. He is in no respiratory distress. He has a normal respiratory rate and no labored breathing. His heart had a normal rate and rhythm without murmur. ASSESSMENT: Viral URI with possible bronchospasm and mild wheezing. PLAN: Discussed with dad that Coel could have a component of bronchospasm. He is too old for what is considered to be classic croup, but he could certainly have a barky cough with other cold viruses. He does have a strong family history of atopic disease and he seemed to be helped by his brother's inhaler, so I recommended that they continue to use the albuterol as needed during this viral upper respiratory tract infection and when he is healthy, return for a pulmonary function test. If he is unable to cooperate with them here, then we can refer him to a dockmaster where they can do further evaluation. The order was placed and he will follow up on the nurse's schedule for PFTs. Dad's questions were answered. They agreed with the plan. He was given a spacer so that he can have one for use at school. A cc: RITY CONTROL ROOM OFFICER documented in this encounter Plan of Treatment Not on filedocumented as of this encounter Visit Diagnoses Diagnosis Cough - Primary Bronchospasm Acute bronchospasm Wheezing documented in this encounter Care Teams Communications Station Manager Relationship Specialty Start Date End Date Janelle Ambriz MD PCP - General 04/03/07 [address] [place] [address] documented as of this encounter
--- OUTSIDE RECORDS SUMMARY | 2022-05-18 14:39 | XMS_ITS | Encounter Summary ---
:2000 Author Organization [facility] Address [address] [place] [address] Care Team Providers Name Role Phone Janelle Ambriz MD Primary Care Provider Encounter Details Date Type Department Care Team Description 02/28/2008 Office Visit [facility] Mike Medina, [address] [place], [place] [address] [address] [place], [place] [id number] Social History Tobacco Use Types Packs/Day Years Used Date Smoking Tobacco: Passive Smoke Exposure - Never Smoker Alcohol Use Standard Drinks/Week Comments Not Asked 0 (1 standard drink = 0.6 oz pure alcoho l) Sex Assigned at Date Recorded Not on file documented as of this encounter Progress Notes Mike Medina PsyD, LP - 02/28/2008 12:01 AM CDT Progress Notes signed by Mike Medina PSYD, LP at 02/28/08 1398 Author: Mike Medina PSYD, LP Service: (none) Author Type: Resource Filed: 10/23/10 0624 Note Time: 02/28/08 0001 Status: Signed Solderer: Mike Medina PSYD, LP (Resource) NAME: HADLEY NEAL MR#: [id number] ACCT: [id number] VISIT: [id number] DICTATING CLINICIAN: Mike Medina PSYD, LP CONFIRM #: [id number] LOC: 1637 CLINIC PROGRESS NOTE DATE OF VISIT: 02/28/2008 SUBJECTIVE: MEDICAL RECORD: [id number]. Hadley was seen for his 2nd appointment at the [facility], along with parents Ching and Av. This was scheduled as a 50-minute conjoint appointment to address problems with motor restlessness, self-regulation, and variable attention. I began with Hadley individually. He from his parents easily - no obvious distress. His eye contact was good, but he exhibited motor restlessness bordering on hyperactivity in my office during today's 9 a.m. appointment. He did intrude into adult conversation at times. He responded well to limit-setting. I screened him regarding possible abuse. He did not report any. He described his mood as happy, and did not report any situations involving anxiety, sadness, anger, or frustration. He stated that he gets along with both parents and with his siblings. OBJECTIVE: I then had parents join us. We began by having them review notes from the last appointment, dated 02/06/2008. Some minor corrections were noted related to the parentage of Hadley's half-siblings. The parents and I reviewed data collected to this point (estimated 10 minutes). Parents completed the Behavioral Rating Inventory of Executive Functions. There were borderline elevations in the following areas: Organization of materials T 64. There were marked elevations in the following areas: Inhibit T 73. Emotional control T 73. Working Memory T 67. Plan/Organize T 73. Behavioral regulation index T 70. Method cognition index T 69. Global executive composite T 71. Parents completed the Valentine' Parent Rating Scale: Oppositional T 71. Inattention T 70. Hyperactivity T 87. ADHD index T 77. Parents completed Disruptive Behavior Disorder Rating Scales. This indicates their rating of Hadley according to diagnostic criteria established by the [employer] [employer] for attention deficit hyperactivity disorder, oppositional defiant disorder, and conduct disorder. The form completed by Av indicated 11 of 18 ADHD endorsements at a significant level. The same form completed by Ching indicated 15 out of 18 ADHD criteria endorsed at a significant level. Parents completed the Child Behavior Checklist. There were borderline concerns in the following areas: Activities T 32. Withdrawn/depressed T 66. Affective problems T 65. There were clinically significant concerns reported in the following areas: Total competence T 24. Social T 28. School T 27. Social T 83. Attention T 79. Rule-breaking T 77. Aggressive behavior. T 89. Internalizing problems T 65. Externalizing problems T 80. Affective anxiety problems T 70. ADHD T 80. Oppositional T 77. Conduct T 80. The results of the BRIEF, Valentine Parent Rating Scale, Disruptive Behavior Disorder Rating Scale, along with developmental history offered by parents, supports a diagnosis of ADHD - combined type. ASSESSMENT: Hadley Neal is an 8-year-old boy of Japanese/ heritage, who will be a 3rd grade student at [employer] during the 2245-9247 academic year. He comes to the [facility] with a previous diagnosis of ADHD. There have been trials of numerous medications, according to parents, without benefit. ADHD symptoms are reported to continue. During the clinical interview, there was no report or indication of a mood disorder, anxiety disorder, or pervasive developmental disorder. There are significant psychosocial stressors, including parents' marital problems and individuals challenges. It is my opinion that the weight of the data continues to support a diagnosis of ADHD, combined type. He has not been evaluated through school regarding the possibility of learning disabilities. PLAN: Parents and I talked briefly about a multimodal approach to treating ADHD that includes accommodation plans, behavioral management, ongoing education for parents, and pharmacological interventions. Per their request, I have put in an interoffice referral for consultation with medical staff at the [facility]. They will seek a return appointment with me, as soon as possible (parent only), to have a more in-depth discussion about ADHD management. I have asked them to write down questions and to keep a behavior log. Thirty-five minutes testing time submitted, to include 20 minutes scoring and interpretation and 15 minutes report writing. DPB:[id number] C: 02/28/08 17:35 CONFIRM #: [id number] documented in this encounter Plan of Treatment Not on filedocumented as of this encounter Visit Diagnoses Not on filedocumented in this encounter Care Teams Receivable Manager Relationship Specialty Start Date End Date Janelle Ambriz MD PCP - General 04/03/07 [address] [place] [address] documented as of this encounter
--- OUTSIDE RECORDS SUMMARY | 2022-05-18 14:39 | XMS_ITS | Encounter Summary ---
:2000 Author Organization [email or web address] Address [address] [place] [address] Care Team Providers Name Role Phone Concepcion Rasmussen MD Primary Care Provider Reason for Visit Reason Comments MEDICATION CHECK Encounter Details Date Type Department Care Team Description 04/02/2007 Office Visit [place] Janelle Ambriz ADHD (Attent ion Deficit Pediatrics J, Hyperactivity Disorder) [address] [facility] [address] [facility] (Primary Dx) [place] [address] [phone] Social History Tobacco Use Types Packs/Day Years Used Date Smoking Tobacco: Passive Smoke Exposure - Never Smoker Alcohol Use Standard Drinks/Week Comments Not Asked 0 (1 standard drink = 0.6 oz pure alcoho l) Sex Assigned at Date Recorded Not on file documented as of this encounter Last Filed Vital Signs Vital Sign Reading Time Taken Comments Blood Pressure 84/52 04/02/2007 4:00 PM CDT Pulse - - Temperature - - Respiratory Rate - - Oxygen Saturation - - Inhaled Oxygen Concentration - - Weight 21.3 kg (47 lb) 04/02/2007 4:00 PM CDT Height 118.1 cm (3' 10.5) 04/02/2007 4:00 PM CDT Fmkjrh-iph-Htydtq Percentile 46.96 % 04/02/2007 4:00 PM CDT Growth Chart: CDC (Boys, 2-20 Years) Body Mass Index 15.28 04/02/2007 4:00 PM CDT Body Mass Index Percentile 42.57 % 04/02/2007 4:00 PM CD T Growth Chart: [facility] (Boys, 2-20 Years) documented in this encounter Progress Notes Janelle Ambriz - 04/02/2007 5:40 PM CDT This office note has been dictated. Janelle Ambriz MD Janelle Ambriz - 04/02/2007 12:00 AM CDT SUBJECTIVE: A 7-year-old male here with his dad for followup of ADHD. He is a patient of Dr. Rasmussen and he was started on 5 mg of Adderall at noontime because most of the symptoms seem to occur in the afternoon. Since he started, however, they have noticed that he is very hyper in the morning and teachers have commented on this as well. The afternoon seems to be growing better for him. He at home reports to be less angry and seems to be doing well on the medications. He has a list of questions from mom, one of which is can the dose be increased or can he be switched over to extended release. This works better for his brother. They deny any side effects. The followup parent and teacher informant forms are reviewed. All of the questions from the parents informants scored either and often or very often and all except two of the teacher informant questions also score often or very often. Most of his performance seems to be somewhat of a problem according to his parents and somewhat problematic according to his teachers. His teachers have not noticed any side effects. There has been some trouble sleeping noted, extreme sadness, or unusual crying and also nail biting. Dad, however, says that these have occurred prior to the medications and they have not noticed any increase since starting the medications. No exam was done at this time. ASSESSMENT: Attention deficit disorder. PLAN: Given his symptoms and the timing, recommended 5 mg of Adderall XR to start. I told them that this needs to be taken in the morning. I will have him follow up by phone in two weeks and at that time we can discuss whether or not an increase would be appropriate. There were given new forms to fill out because I explained to dad right now looking his forms, it looks like there is no help from the medications. Their questions were answered and his forms will be scanned into the computer. Total appointment time was more than 20 minutes, all of which was spent in counseling and coordination of care. P cc: documented in this encounter Plan of Treatment Not on filedocumented as of this encounter Visit Diagnoses Diagnosis ADHD (attention deficit hyperactivity di sorder) ([facility]) - Primary Attention deficit disorder with hyperact ivity documented in this encounter Care Teams Decal Transferrer Relationship Specialty Start Date End Date Concepcion Rasmussen MD PCP - General 11/20/06 04/02/07 documented as of this encounter
--- OUTSIDE RECORDS SUMMARY | 2022-05-18 14:39 | XMS_ITS | Encounter Summary ---
:2000 Author Organization [employer] Address [address] [place] [address] Care Team Providers Name Role Phone Janelle Ambriz MD Primary Care Provider Reason for Visit Reason Onset Date Comments Refill 08/27/2007 Encounter Details Date Type Department Care Team Description 08/27/2007 Refill [place] Pharmac y Janelle Ambriz MD Refill [address] [facility] [address] [place], [place] [address] [place], [place] [phone] (Wo rk) Social History Tobacco Use Types Packs/Day Years Used Date Smoking Tobacco: Passive Smoke Exposure - Never Smoker Alcohol Use Standard Drinks/Week Comments Not Asked 0 (1 standard drink = 0.6 oz pure alcoho l) Sex Assigned at Date Recorded Not on file documented as of this encounter Nursing Notes Janelle Ambriz - 08/28/2007 12:07 PM CSTApproved Prescriptions: Disp Refills ADDERALL XR 10 MG CAP 30 0 Sig: Take one capsule in the morning. Authorizing Provider: JANELLE AMBRIZ [place] Janelle Ambriz - 08/28/2007 12:07 PM CST Refilled, in outbasket for [facility] pharm. Needs f/u in October 2007 [place] Janelle Ambriz - 08/28/2007 12:07 PM CSTApproved Prescriptions: Disp Refills ADDERALL XR 10 MG CAP 30 0 Sig: Take one capsule in the morning. Authorizing Provider: JANELLE AMBRIZ IN Erlinda Cantu - 08/28/2007 10:47 AM CST (No f/u call noted per this visit of 04/02/07) PLAN: Given his symptoms and the timing, [...] in counseling and coordination of care. P [place] Cherrie Schmid - 08/27/2007 7:18 PM CST Last fill on 06.20.07 for a quantity of 30 This prescription is for a scheduled II controlled substance. The order will print at your care unitprinter. Please sign and route to [facility] [place] documented in this encounter Plan of Treatment Not on filedocumented as of this encounter Visit Diagnoses Diagnosis ADHD (attention deficit hyperactivity di sorder) ([facility]) - Primary Attention deficit disorder with hyperact ivity documented in this encounter Care Teams Census Clerk Relationship Specialty Start Date End Date Janelle Ambriz MD PCP - General 04/03/07 [address] [place] [address] documented as of this encounter
--- OUTSIDE RECORDS SUMMARY | 2022-05-18 14:39 | XMS_ITS | Encounter Summary ---
:2000 Author Organization [employer] Address [address] [place] [address] Care Team Providers Name Role Phone Janelle Ambriz MD Primary Care Provider Reason for Visit Reason Comments PE,C&TC Encounter Details Date Type Department Care Team Description 01/29/2008 Office Visit [place] Elizabeth Gallagher Routine In pily or Child Health Check (Primary Dx); Pediatrics MD Veronica ADHD [address] [facility] [address] [place] [id number] Social History Tobacco Use Types Packs/Day Years Used Date Smoking Tobacco: Passive Smoke Exposure - Never Smoker Alcohol Use Standard Drinks/Week Comments Not Asked 0 (1 standard drink = 0.6 oz pure alcoho l) Sex Assigned at Date Recorded Not on file documented as of this encounter Last Filed Vital Signs Vital Sign Reading Time Taken Comments Blood Pressure 82/40 01/29/2008 4:01 PM CDT Pulse 84 01/29/2008 4:01 PM CDT Temperature - - Respiratory Rate - - Oxygen Saturation - - Inhaled Oxygen Concentration - - Weight 22.2 kg (49 lb) 01/29/2008 4:01 PM CDT Height 122.6 cm (4' 0.25) 01/29/2008 4:01 PM CDT Body Mass Index 14.8 01/29/2008 4:01 PM CDT Body Mass Index Percentile 24.44 % 01/29/2008 4:01 PM CD T Growth Chart: [facility] (Boys, 2-20 Years) documented in this encounter Patient Instructions Patient InstructionsElizabeth Gallagher - 01/29/2008 4:40 PM CDT It has been a pleasure attending to Hadley's health maintenance needs today. A dentist appointment each year is important for your child's health. Your child's insurance pays for this. If you don't know where to take your child to see the dentist, check your child's insurance card or call [phone] for help.It has been a pleasure attending to [facility]'s health maintenance needstoday. A dentist appointment each year is important for your child's health. Your child's insurance pays for this. If you don't know where to take your child to see the dentist, check your child's insurance card or call [phone] for help. documented in this encounter Progress Notes Elizabeth Gallagher - 02/07/2008 5:52 PM CDT Addended by: ELIZABETH GALLAGHER on: 02/07/2008 5:52:26 PM Modules accepted: Orders, Level of Service, SmartSet Elizabeth Gallagher - 02/07/2008 5:51 PM CDT Subjective Hadley Ratliff is a 8 yr male who presents accompanied by his mother for routine child health associate. Parental/Patient Concerns History of ADHD. On Adderal XR10 q AM. Has appt with [facility] for full eval of ADHD and other issues. SCHOOL Name: unknown Grade: 3 Success: does well Sports/Recreational Activities Sports: none Exercise: adequate Extracurricular Activities: none Recreation/Hobbies/TV: reads daily Cardiovascular Risk none I have reviewed and updated the family, past and surgical history. Daily Activities Nutrition: well balanced and varied diet Sleep: adequate sleep Dental Care: last dental visit within 6 months brushes daily Developmental Assessment Family/Relationships/Community Current Living Situation: lives with parent(s) Family: no problems identified Peer: sociable, participates in organized activities, school problems Abuse: absent Mental Health Issues: None Active Support/Resources: Family/Friends, [place] Environmental Risks Tuberculosis Screening: Not indicated Review of Systems Detailed review of systems including constitutional, skin, eyes, ENT, resp, CVS, GI & , revealed no abnormality except as detailed above. Objective BP 82/40 Pulse 84 Ht 4' 0.25 (1.226 m) Wt 49 lb (22.226 kg) Body mass index is 14.80 kg/(m^2). Normal Abnormal GENERAL X HEENT Head X Eyes/Nose X Ears X Mouth/Pharynx X NECK X LYMPHATICS X LUNGS X CV X ABDOMEN X X MS X NEURO X SKIN X Vision Objective exam completed. No problems found. and Subjective assessment. No problems found Visual Acuity Screening performed and documented in nurse's note. Hearing Objective exam completed. No problems found. and Subjective assessment. No problems found Audiogram passed. Donny Staging GENITALS 1: preadolescent PUBIC HAIR 1: preadolescent. Assessment Healthy child. Plan Per orders and patient instructions. Counseling Immunizations: Discussed risks, benefits and side effects of immunizations given today. Social: increased responsibility Parenting: increased autonomy in decision making Nutrition: nutritious snacks and age specific nutritional needs Play and communication: organized sports/regular exercise and appropriate use of TV/video games (total Screen Time) Health: adequate rest at night Dental: Reinforced need for regular brushing and flossing. Emphasized need for annual dental exam by a licensed dentist. Safety: bike helmets, seat belts Follow-up Next preventive health care visit in 1 year Elizabeth Gallagher MD Elizabeth Gallagher - 01/29/2008 4:39 PM CDT This office note has been dictated. Elizabeth Gallagher - 01/29/2008 12:00 AM CDT Cimdr-scnl-zwn boy will be in the 3rd grade this fall in [place]. He has a history of ADHD for which he currently is on Adderall XR 10 mg q.a.m. and his mother notes that he is scheduled for an evaluation at the [facility] to look into his ADHD problem. O: Healthy-appearing 8-year-old child. Exam of head, neck, heart, lungs, abdomen, genitalia, and extremity is entirely unremarkable. A: Healthy child, history of ADHD. P: No immunizations due today. Recheck p.r.n. Family may be changing medical care to a clinic in [place]. P cc: documented in this encounter Nursing Notes 01/29/2008 4:00 PM CDT >> FINN Brannon Jan 29, 2008 4:13 PM Eye exam: L: 20/ 20, R: 20/ 20 Lenses: NO audiogram results: Right:908 18 2925 15 2000 10 4000 10 Left: 517 68 9696 15 2000 10 4000 10 documented in this encounter Plan of Treatment Not on filedocumented as of this encounter Visit Diagnoses Diagnosis Routine infant or child health check - P rimary ADHD Attention deficit disorder with hyperact ivity documented in this encounter Care Teams Needle Leader Relationship Specialty Start Date End Date Janelle Ambriz MD PCP - General 04/03/07 [address] [place] [address] documented as of this encounter
--- OUTSIDE RECORDS SUMMARY | 2022-05-18 14:39 | XMS_ITS | Encounter Summary ---
:2000 Author Organization [facility] Address [address] [place] [address] Care Team Providers Name Role Phone Janelle Ambriz MD Primary Care Provider Reason for Visit Reason Onset Date Comments Refill 10/16/2007 Encounter Details Date Type Department Care Team Description 10/16/2007 Refill [place] Pharmac y Janelle Ambriz MD Refill [address] [facility] [address] [place], [place] [address] [place] [address] [phone] (Wo rk) Social History Tobacco Use Types Packs/Day Years Used Date Smoking Tobacco: Passive Smoke Exposure - Never Smoker Alcohol Use Standard Drinks/Week Comments Not Asked 0 (1 standard drink = 0.6 oz pure alcoho l) Sex Assigned at Date Recorded Not on file documented as of this encounter Nursing Notes Ginette Begum - 10/17/2007 8:51 AM CDT Advised mom(Ching) that it is too early to have the concerta refilled. She states understanding and will call back on the 22 of October to have this refilled. Also advised pt. Does have a follow up on 10/26/07. Ginette Begum RN Janelle Ambriz - 10/16/2007 5:11 PM CDT Refused Prescriptions: Disp Refills CONCERTA 18 MG TAB 30 0 Sig: Take one tablet by mouth every morning. Refused By: JANELLE AMBRIZ Reason for Refusal: Unclear why requested by patient Janelle Ambriz - 10/16/2007 5:10 PM CDT He is more than a week early for this refill. He should have enough to get him through to 10/23 at least. Would recommend refill at that time. Has appt next week 10/25, if he is not taking it on the weekends, can refill at that time as well. Please inform and let me know if there is a reason for the early request. Janelle Ambriz MD Veronica Zimmerman - 10/16/2007 3:43 PM CDT Last fill on [id number] for a quantity of 30 documented in this encounter Plan of Treatment Not on filedocumented as of this encounter Visit Diagnoses Diagnosis ADHD (attention deficit hyperactivity di sorder) ([facility]) - Primary Attention deficit disorder with hyperact ivity documented in this encounter Care Teams Collection Teller Relationship Specialty Start Date End Date Janelle Ambriz MD PCP - General 04/03/07 [address] [place] [address] documented as of this encounter
--- OUTSIDE RECORDS SUMMARY | 2022-05-18 14:39 | XMS_ITS | Encounter Summary ---
:2000 Author Organization [employer] Address [address] [place] [address] Care Team Providers Name Role Phone Janelle Ambriz MD Primary Care Provider Reason for Visit Reason Comments MEDICATION CHECK Encounter Details Date Type Department Care Team Description 09/25/2007 [place] ADHD (Attent ion Deficit Pediatrics J, Hyperactivity Disorder) [address] (Primary Dx) [place] [address] [phone] Social History Tobacco Use Types Packs/Day Years Used Date Smoking Tobacco: Passive Smoke Exposure - Never Smoker Alcohol Use Standard Drinks/Week Comments Not Asked 0 (1 standard drink = 0.6 oz pure alcoho l) Sex Assigned at Date Recorded Not on file documented as of this encounter Last Filed Vital Signs Vital Sign Reading Time Taken Comments Blood Pressure 90/50 09/25/2007 1:50 PM CDT Pulse 80 09/25/2007 1:50 PM CDT Temperature - - Respiratory Rate - - Oxygen Saturation - - Inhaled Oxygen Concentration - - Weight 21.1 kg (46 lb 9.6 oz) 09/25/2007 1:50 PM CDT Height 121.3 cm (3' 11.75) 09/25/2007 1:50 PM CDT Tyfcdh-ivo-Tecdij Percentile 16.61 % 09/25/2007 1:50 PM CDT Growth Chart: CDC (Boys, 2-20 Years) Body Mass Index 14.37 09/25/2007 1:50 PM CDT Body Mass Index Percentile 15.54 % 09/25/2007 1:50 PM CD T Growth Chart: [facility] (Boys, 2-20 Years) documented in this encounter Progress Notes Janelle Ambriz - 09/26/2007 2:50 PM CDT This office note has been dictated. Janelle Ambriz MD Janelle Ambriz - 09/25/2007 12:00 AM CDT SUBJECTIVE: Lmgpc-bcdc-gtr male here with his parents for followup of ADHD. He was started on Adderall XR 5 mg last fall and then was increased to 10 mg. He seemed to be doing well on it. The teachers were noticing a difference but saying that he still needed some reminders. At home, parents were noticing no difference at all. He has been off of the medication for the last three weeks and they do see that they notice a difference when he is off of it. He restarted it a few days ago. He has had a stomachache a few times in the last few days and threw up once two days ago, but he says his stomachache has gone. Parents deny that he had frequent stomachaches when he was on the medication regularly throughout the fall and early winter. He was on a lower dose of Adderall in the past, which did not seem to help him much. Mom, however, thinks that he should be switched to different medication because she does not think that this is doing very much for him. On exam, in general, he is awake, alert, in no distress. His pupils are equally round and reactive to light. Oropharynx appears normal. His lungs are clear with good air movement. Heart has a normal rate and rhythm. No murmur is heard. He has 2+ bilateral patellar reflexes. ASSESSMENT: ADHD. PLAN: Discussed with mom rationale and reasons for switching him to different medication. I suggested that we do different doses of Adderall first prior to switching to a totally different medication, but she would like to try a different medicine altogether. Therefore after discussion recommended switching him to a low dose of Concerta. Because he is trying a new medication, I asked that they follow up in one month to assess how things are going. Discussed the side effects including headaches, stomachache, appetite suppression and heart issues that can come with Concerta. Currently right now, his weight gain and height look appropriate, so just encouraged them to continue to encourage him to eat three meals a day regularly. Their questions were answered, and they agreed with the plan. He will be following up in one month for medication recheck, sooner if any new concerns develop. P cc: documented in this encounter Plan of Treatment Not on filedocumented as of this encounter Visit Diagnoses Diagnosis ADHD (attention deficit hyperactivity di sorder) ([facility]) - Primary Attention deficit disorder with hyperact ivity documented in this encounter Care Teams Wafer Fabrication Operator Relationship Specialty Start Date End Date Janelle Ambriz MD PCP - General 04/03/07 [address] [place] [address] documented as of this encounter
--- OUTSIDE RECORDS SUMMARY | 2022-05-18 14:39 | XMS_ITS | Encounter Summary ---
:2000 Author Organization [employer] Address [address] [place] [address] Care Team Providers Name Role Phone Janelle Ambriz MD Primary Care Provider Encounter Details Date Type Department Care Team Description 03/14/[address] [facility] Michelle Osorio MD [address] [place] [address] [address] [place] [address] (Wo rk) Social History Tobacco Use Types Packs/Day Years Used Date Smoking Tobacco: Passive Smoke Exposure - Never Smoker Alcohol Use Standard Drinks/Week Comments Not Asked 0 (1 standard drink = 0.6 oz pure alcoho l) Sex Assigned at Date Recorded Not on file documented as of this encounter Last Filed Vital Signs Vital Sign Reading Time Taken Comments Blood Pressure 84/52 03/14/2008 1:55 PM CDT Pulse 78 03/14/2008 1:55 PM CDT Temperature - - Respiratory Rate - - Oxygen Saturation - - Inhaled Oxygen Concentration - - Weight 23 kg (50 lb 12.7 oz) 03/14/2008 1:55 PM CDT C: 23.0kg Height 123.8 cm (4' 0.75) 03/14/2008 1:55 PM CDT C: 12 3.8cm Head Circumference 53.3 cm 03/14/2008 1:55 PM CDT C: 53. 3cm Body Mass Index 15.03 03/14/2008 1:55 PM CDT Body Mass Index Percentile 29.67 % 03/14/2008 1:55 PM CD T Growth Chart: [facility] (Boys, 2-20 Years) documented in this encounter Progress Notes Michelle Osorio MD - 03/14/2008 12:01 AM CDT Progress Notes signed by Michelle Osorio MD at 03/18/08 1520 Author: Michelle Osorio MD Service: (none) Author Type: Physician Filed: 10/23/10 0646 Note Time: 03/14/08 0001 Status: Signed Email Administrator: Michelle Osorio MD (Physician) NEW PATIENT CONSULTATION DATE: March 14, 2008 : 2000 CHRONOLOGICAL AGE: 8 years, 1.5 months PRIMARY CARE PHYSICIAN: Janelle Ambriz M.D., [facility] CONSULT REQUESTED BY: Emile Carlos M.D. [facility] PRESENTING CONCERNS: Hadley and his mother presented the [facility] on April 13, 2008 for a new developmental pediatrics consultation. This consultation was requested by Dr. Carlos for additional evaluation of ADHD medication options. Hadley was evaluated by Martín Medina Psy.D., at the [facility] on 2008 for second opinion regarding his ADHD. Dr. Patricio concluded that Hadley does have symptoms of ADHD, Combined Type. But he has been poorly responsive to previous medications tried in the past. Hadley was diagnosed with ADHD in the spring of 2006. He was first tried on Strattera without any improvement in attention span, focus, and impulsivity. He was then tried on Concerta 18 mg which was then increased to 27 mg. Concerta did suppress his appetite but did not create any improvement of his ADHD symptoms. A trial of short acting Adderall was initiated with some improvement in his ADHD symptoms but it did not last long enough. This also suppressed his appetite some. In the hopes of having longer duration of medication effect, Hadley was placed on Adderall XR. This medication seemed to work for his symptoms but it did seem to make him cervantes and sad especially as it was wearing off. The Adderall XR also suppressed his appetite. Hadley last took Adderall XR at the end of the school year, December 2007. Hadley's mother feels that they have never really found a good fit for his medication. His mornings always seem to be under better control and the afternoons are when he seemed to have more difficulty with his ADHD symptoms. Hadley's mother describes him as outgoing, helpful, talkative and loving. Her main concerns are his impulsiveness and some of his fearless behaviors that he will demonstrate. She gave some examples were Hadley will go up and talked to strangers. She sees him doing some physical activities that put his body in danger at times. Hadley's mother is also concerned about the social effects of his ADHD and his academic underachievement. PREVIOUS EVALUATIONS: Please see the detailed evaluation completed by Martín Medina Psy.D.. Hadley has not had a formal evaluation through the school district but he has received [employer] services in second grade for his reading. SCHOOL: Hadley currently attends third grade at [employer] in [place], [place]. PAST MEDICAL HISTORY: Hadley was born to a 25-year-old 6, para 4 mother at about 32 weeks gestation. Unfortunately, Celso's mother did experience two early miscarriages before she was with Hadley. The was complicated with labor requiring bedrest for several weeks. Hadley's mother did take vitamins. She did smoke about a half a pack of cigarettes per day. She denies any alcohol or other medication or drug exposure strength . Hadley's mother experienced spontaneous rupture of membranes at 32 weeks and labor was induced. The delivery was an uncomplicated vaginal delivery. Hadley remained in the hospital for 3 weeks. Hadley has had no subsequent hospitalizations. He does have a history of asthma that has improved with time. Because of frequent ear infections he did have myringotomy tubes placed at [age] year. He broke his arm about a year ago after a fall. He has had several injuries requiring stitches on his forehead, scalp, chin, and foot. At 6 years of age he had a dog bite on his buttocks that also required stitches. No other reported injuries. MEDICATIONS: 1. Adderall XR 25 mg daily. None since December 2007. 2. Albuterol MDI two puffs every 4 hours as needed. ALLERGIES: Amoxicillin and Sulfa Causes Rash. IMMUNIZATIONS: UP TO DATE REVIEW OF SYSTEMS: A complete review of systems was done. NEURO: No signs or symptoms of seizures. No severe head injuries. HEENT: Hearing eval/Vision eval: Both were screened and passed within the past year. RESPIRATORY: History of asthma. Occasional use of albuterol with upper respiratory infection. CARDIAC: Negative. GI: No constipation or diarrhea. Good appetite. No choking or gagging with feeds. Good variety in diet. Hadley tends to eat fast or a small amount so that he can go back to playing. He does have a hard time sitting still at the table he tends to get up a lot. : No daytime or nighttime accidents. DERM: Birthmark on the forehead. MUSCULOSKELETAL: Hadley is as well coordinated as his peers. Many of his injuries have been due to impulsive behaviors and falls as a result. IMMUNOLOGIC: Negative. HEMATOLOGIC: Negative. LYMPHATIC/INFECTIOUS: Negative. ENDOCRINE: Negative. SLEEP: Onset less than 30 minutes. Stays asleep all night. Wakes well rested. No daytime sleepiness. In the past Hadley has fought going to bed. The family has found to his sleep onset improves with white noise. He shares a room with his brother. FAMILY HISTORY: A three generational family history was reviewed. Maternal family history: There are members with ADHD, depression, and anxiety. Paternal family history: There are members with ADHD, depression, anxiety, and alcohol dependence. The paternal grandmother does have a history of heart problems. Celso's mother denies any mental retardation, develop mental delays, autism, bipolar disorder, or schizophrenia on either side of the family. She also denies any history of sudden or heart attack in the family member under the age of 50. There is also no history of arrhythmias or hypertrophic cardiomyopathy. SOCIAL HISTORY: Hadley is with his mother, stepfather and 3 siblings. Vivek is 17 years old. Siddharth is 11 years old and has ADHD that is treated with Adderall XR. Aranza is 13 years old. The family also has a Siamese cat named Darci. The family has had significant stressors in the past year because of housing. There currently living in transitional housing provided by the generosity of several groups in the [facility]. PHYSICAL EXAMINATION: GROWTH: Wt: 50.8 lbs.(10-25 %) Ht: 48 3/4 in.(5-10 %) HC: 21 in.(50-75 %) VITALS: HR: 78 BP: 84/52 GENERAL: Hadley is an adorable 8 year-old male who is well-nourished and nondysmorphic. HEENT: Normocephalic. Pupils equally round and reactive to light. Extraocular movements are intact. Pinnae are well formed and normally positioned. Palate, dentition and oropharynx are within normal limits. Faint cafe au lait area between the eyebrows. NECK: Supple. No lymphadenopathy. No thyromegaly. LUNGS: [...] ankles and biceps. No clonus is noted. Babinski is down-going bilaterally. There is no nystagmus, ataxia or tremor noted. Rhomberg is negative. Vyudod-vd-bfeq task completed accurately and without error. Rapid repetitive nqjhbz-yc-lytta movements completed accurately without synkinesis. Gait pattern is mature with symmetric movement of the upper and lower extremities. Tiptoe walk, heel walk, and forward and reverse tandem walk were completed without difficulty. OBSERVATIONS: Hadley provided good eye contact and joint referencing. He was very pleasant and interactive. He was cooperative with the evaluation. He was eager to please but was noted to be slightly impulsive and moved frequently from toy to toy. No oppositional behavior was noted from him today. IMPRESSIONS: Hadley is an 8-year-old male with ADHD, Combined Type. RECOMMENDATIONS: 1. I had a detailed discussion with Celso's mother educating and counseling her about medication options for ADHD. The benefits and side effects of the stone medications were reviewed in detail and a handout was provided today. Her questions were answered. 2. Based on our discussion, it was determined to try a trial of Vyvanse to see if that improves Celso's ADHD symptoms and causes less emotional changes. We discussed how Vyvanse is different from Adderall XR. We discussed the common side effects and how often mild side effects will subside about 4 weeks into therapy. Hadley's mother acknowledged her understanding of this. A prescription was provided today for Vyvanse 50 mg daily, quantity 30 with no refills. A inspector barrel's voucher was also provided today. 3. I would like Hadley to return for a medication follow-up in 3 to 4 weeks. The family should call her if there are any problems or concerns. Michelle Osorio MD Developmental Grant Coordinator TT: [address]: 40 minutes CC: Janelle Ambriz M.D., [address] [place] [address] Parents of Hadley Ratliff *SH~DNS~medcheck documented in this encounter Plan of Treatment Not on filedocumented as of this encounter Visit Diagnoses Not on filedocumented in this encounter Care Teams Dental Hygiene Professor Relationship Specialty Start Date End Date Janelle Ambriz MD PCP - General 04/03/07 [address] [place] [address] documented as of this encounter
--- OUTSIDE RECORDS SUMMARY | 2022-05-18 14:39 | XMS_ITS | Encounter Summary ---
:2000 Author Organization [employer] Address [address] [place] [address] Care Team Providers Name Role Phone Janelle Ambriz MD Primary Care Provider Reason for Visit Reason Onset Date Comments Refill 05/09/2007 Encounter Details Date Type Department Care Team Description 05/09/2007 Refill [facility] Pharmac y Janelle Ambriz MD Refill [address] [facility] [address] [place], [place] [address] [place] [address] [phone] (Wo rk) Social History Tobacco Use Types Packs/Day Years Used Date Smoking Tobacco: Passive Smoke Exposure - Never Smoker Alcohol Use Standard Drinks/Week Comments Not Asked 0 (1 standard drink = 0.6 oz pure alcoho l) Sex Assigned at Date Recorded Not on file documented as of this encounter Nursing Notes oSphie Tyson - 05/09/2007 10:06 AM CSTApproved Prescriptions: Disp Refills ADDERALL XR 5 MG CAP 30 0 Sig: take one tablet daily in the morning Authorizing Provider: SOPHIE TYSON [facility] Sophie Tyson - 05/09/2007 10:06 AM CSTApproved Prescriptions: Disp Refills ADDERALL XR 5 MG CAP 30 0 Sig: take one tablet daily in the morning Authorizing Provider: SOPHIE TYSON [facility]T Ellie Gilmore - 05/09/2007 9:18 AM CST Last fill on [id number] for a quantity of 30 This prescription is for a scheduled II controlled substance. The order will print at your care unitprinter. Please sign and route to av pharmacy [facility] documented in this encounter Plan of Treatment Not on filedocumented as of this encounter Visit Diagnoses Diagnosis ADHD (attention deficit hyperactivity di sorder) ([facility]) - Primary Attention deficit disorder with hyperact ivity documented in this encounter Care Teams Volleyball Referee Relationship Specialty Start Date End Date Janelle Ambriz MD PCP - General 04/03/07 [address] [place] [address] documented as of this encounter
--- OUTSIDE RECORDS SUMMARY | 2022-05-18 14:39 | XMS_ITS | Encounter Summary ---
:2000 Author Organization [employer] Address [address] [place] [address] Care Team Providers Name Role Phone Janelle Ambriz MD Primary Care Provider Reason for Visit Reason Comments COUGH, CROUPY 2 days Encounter Details Date Type Department Care Team Description 05/16/2007 Office Visit Reading Josee Gutierres (Upper Respiratory Infection) (Primary Dx); Family Practice A, POLICE LIAISON OFFICER, ANIMAL KEEPER HEAD Need for Prophylactic Vaccination and In oculation Against Influenza; [address] [address] [place] [address] [place] [address] [place] [id number] Social History Tobacco Use Types Packs/Day Years Used Date Smoking Tobacco: Passive Smoke Exposure - Never Smoker Alcohol Use Standard Drinks/Week Comments Not Asked 0 (1 standard drink = 0.6 oz pure alcoho l) Sex Assigned at Date Recorded Not on file documented as of this encounter Last Filed Vital Signs Vital Sign Reading Time Taken Comments Blood Pressure - - Pulse 116 05/16/2007 8:29 AM OVERHEAD DOOR TECHNICIAN Temperature 37 ??C (98.6 ??F) 05/16/2007 8:29 AM OVERHEAD DOOR TECHNICIAN Respiratory Rate 20 05/16/2007 8:29 AM OVERHEAD DOOR TECHNICIAN Oxygen Saturation - - Inhaled Oxygen Concentration - - Weight 20.6 kg (45 lb 8 oz) 05/16/2007 8:29 AM OVERHEAD DOOR TECHNICIAN Height - - Body Mass Index - - documented in this encounter Progress Notes Josee Gutierres - 05/16/2007 10:24 AM CST S: Hadley Ratliff is a 7 yr old male here with his parents for a one day history of cough. Started last night and mom reports that it is harsh and wheezy. She gave him a sibling's Qvar, which seemed tohelp. Cough is non-productive. No other URI symptoms. No fever, chills. Tolerating PO. Normal voiding and stooling. Parents are concerned because this cough seems to happen frequently. They thought it was croup, but have been told that he is too old for croup. He does not have a known history of asthma, allergies, or other atopic diseases. Dad, however does have eczema, as well as his other 2 brothers. Mom does not personally have history of atopic diseases and is adopted, not knowing her family medical history. O: Pulse 116 Temp (Src) 98.6 ??F (37 ??C) (Oral) Resp 20 Wt 45 lb 8 oz (20.64 kg) Hadley Ratliff is a 7 yr old male who is calm and playing with toys in the exam room. Ears: External inspection shows no lesions, no scars and no mass. The ear canals have no inflamationand no obstructing wax. The TMs are not opaque, not dull and not bulging Nose: septum midline. The mucosa is pale with clear rhinorrhea. No lesions, swelling, or bleeding. Throat exam normal. Oral cavity, tongue, pharynx and palate have no inflammation or suspicious lesions. Tonsils - tonsils are present and normal. Neck: no masses, trachea is midline, no crepitus, thyroid not enlarged Lungs: clear throughout Heart: regular rate and rhythym without murmur. A: Viral URI Wheezing P: Based on conversation with parents and physical exam, it is fairly possible that this child has asthma. I discussed the pathophysiology of this condition and the way it reacts during colds with bronchospasm. Also addressed the relationship with highly familial trends in atopic diseases. For now, will give an albuterol inhaler and instruct on use. Recommended that the family follow up with the regular cream dipper to further discuss asthma and start an action plan if needed. Patient/parents verbalize understanding and is in agreement with plan Josee Chandan RN, ANIMAL KEEPER HEAD HEAD DOOR TECHNICIAN documented in this encounter Plan of Treatment Not on filedocumented as of this encounter Visit Diagnoses Diagnosis URI (upper respiratory infection) - Prim ying Acute upper respiratory infections of un specified site Need for prophylactic vaccination and in oculation against influenza Wheezing documented in this encounter Care Teams Asset Recovery Specialist Relationship Specialty Start Date End Date Janelle Ambriz MD PCP - General 04/03/07 [address] [place] [address] documented as of this encounter
--- OUTSIDE RECORDS SUMMARY | 2022-05-18 14:39 | XMS_ITS | Encounter Summary ---
:2000 Author Organization [employer] Address [address] [place] [address] Care Team Providers Name Role Phone Concepcion Rasmussen MD Primary Care Provider Reason for Visit Reason Comments SORE THROATMD Encounter Details Date Type Department Care Team Description 03/27/2007 Office Visit Urgent Care [facility] P haryngitis ([facility]) [address] [place], [place] [address] Social History Tobacco Use [...] Pressure - - Pulse - - Temperature 36.7 ??C (98 ??F) 03/27/2007 6:30 PM CDT Respiratory Rate - - Oxygen Saturation - - Inhaled Oxygen Concentration - - Weight 21.8 kg (48 lb) 03/27/2007 6:30 PM CDT Height - - Body Mass Index - - documented in this encounter Patient Instructions Patient Yotphzrwsgmg26/25/2007 6:50 PM CDT Antibiotics not indicated at this time. Rest and increased oral fluids. Gargle salt water (8 oz warm water with one teaspoon salt). Over the counter (non-prescription) medications as needed for symptomatic relief (may take in any combination): *Pain relief: acetaminophen (generic for Tylenol) or ibuprofen *Cough syrup: any brand *Decongestant: pseudoephedrine (generic for Sudafed) Call or return to clinic if these symptoms worsen or fail to improve as anticipated within a week. Viral symptoms may last longer than this but should be improving. documented in this encounter Progress Notes Salvador Krueger - 03/27/2007 6:31 PM CDT SUBJECTIVE: Hadley Ratliff is a 7 yr male here with mother and sibling (3) with a sore throat. Onset 1 day ago. Associated symptoms cough and sore throat. Previous Strep history: NO Known Strep Exposure: none although three siblings have similar Medication Sig ??? ADDERALL 5 MG OR TABS one tablet by mouth at noon time for 2 days, then increase to 2 tablets atnoon time Allergies: Sulfa drugs and Amoxicillin OBJECTIVE: Wt 48 lb (21.77 kg) Appearance: stated age, healthy, in no distress, well nourished Ears: both external canals and tympanic membranes free of lesions or abnormalities Nose: normal Oropharynx:mild erythema Neck: supple and small, benign anterior cervical nodes bilaterally Lungs: clear to auscultation, no wheezes, no rales or rhonchi Heart: regular rate and rhythm, normal S1 and S2 without murmur or click Abdomen: normal Skin clear TESTS: Rapid Strep Screen: negative [place] spot: not indicated ASSESSMENT: viral pharyngitis PLAN: Medications: Antibiotics not indicated at this time. Rest and increased oral fluids. Gargle salt water (8 oz warm water with one teaspoon salt). Over the counter (non-prescription) medications as needed for symptomatic relief (may take in any combination): *Pain relief: acetaminophen (generic for Tylenol) or ibuprofen *Cough syrup: any brand *Decongestant: pseudoephedrine (generic for Sudafed) Call or return to clinic if these symptoms worsen or fail to improve as anticipated within a week. Viral symptoms may last longer than this but should be improving. documented in this encounter Plan of Treatment Not on filedocumented as of this encounter Procedures Procedure Name Priority Date/Time Associated Diagnosis Comme nts STREP GRP A, RAPID Waiting 03/27/2007 6:12 PM Acute Pharyngiti s Results for this SCREEN CDT procedure are i n the results section. documented in this encounter Results STREP GRP A, RAPID SCREEN (03/27/2007 6:12 PM CDT) [facility] Method Time Signature Patient Home None [facility] Phone # Patient Work None [facility] Phone # Grp A Rapid Negative [facility] Screen Grp A Culture Negative [facility] Final Specimen Anatomical Collection Method Collection Time Receive d Time (Source) Location / / Volume Laterality 03/27/2007 6:12 PM 7 6:13 CDT PM CDT Salvador Krueger MD LAB_1 Performing Organization Address City/State/ZIP Code Phon e Number [facility] [phone] [facility] [address] [place] [phone] documented in this encounter Visit Diagnoses Diagnosis Acute pharyngitis - Primary documented in this encounter Care Teams Core Dropper Relationship Specialty Start Date End Date Concepcion Rasmussen MD PCP - General 11/20/06 04/02/07 documented as of this encounter
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
--- OUTSIDE RECORDS SUMMARY | 2022-05-18 14:39 | XMS_ITS | Encounter Summary ---
:2000 Author Organization [facility] Address [address] [place] [address] Care Team Providers Name Role Phone Janelle Ambriz MD Primary Care Provider Encounter Details Date Type Department Care Team Description 02/05/2008 PN Conversion Only [facility] [id number] [place] [address] Social History Tobacco Use Types Packs/Day Years [...] on filedocumented in this encounter Care Teams It Security Analyst Relationship Specialty Start Date End Date Janelle Ambriz MD PCP - General 04/03/07 [address] [place], [place] [phone] documented as of this encounter
--- OUTSIDE RECORDS SUMMARY | 2022-05-18 14:39 | XMS_ITS | Encounter Summary ---
:2000 Author Organization [facility] Address [address] [place] [address] Care Team Providers Name Role Phone Janelle Ambriz MD Primary Care Provider Encounter Details Date Type Department Care Team Description 02/06/2008 Office Visit [facility] Mike Medina, [address] [place] [address] [address] [place], [place] [id number] Social History Tobacco Use Types Packs/Day Years Used Date Smoking Tobacco: Passive Smoke Exposure - Never Smoker Alcohol Use Standard Drinks/Week Comments Not Asked 0 (1 standard drink = 0.6 oz pure alcoho l) Sex Assigned at Date Recorded Not on file documented as of this encounter Progress Notes Mike Medina PsyD, LP - 02/06/2008 12:01 AM CDT Progress Notes signed by Mike Medina PSYD, LP at 02/07/08 1154 Author: Mike Medina PSYD, LP Service: (none) Author Type: Resource Filed: 10/23/10 0552 Note Time: 02/06/08 0001 Status: Signed Contractor Buyer: Mike Medina PSYD, LP (Resource) NAME: HADLEY NEAL MR#: [id number] ACCT: [id number] VISIT: [id number] DICTATING CLINICIAN: Mike Medina PSYD, LP CONFIRM #: [id number] LOC: 1637 CLINIC PROGRESS NOTE DATE OF VISIT: 02/06/2008 SUBJECTIVE: . LENGTH OF LKSR-RN-CDCM TIME: Hadley was accompanied to the [facility] for his first appointment by his biological parents Ching Neal, 33 and Av Neal, 35. This was a 60 minute diagnostic interview. Psychological testing time was not submitted today. This will be submitted in the future if needed. It appears that prior authorization for testing is not required in that the family has [facility]. BACKGROUND INFORMATION: Hadley is an 8-year-old young man of and [place] heritage living with his parents in [place]. Also in the home are half-siblings Tashi 17, Siddharth 11, and Aranza 13. Tashi and Siddharth are Ching's children with Mr. Marco Martinez. Aranza is Ching's daughter from her relationship with Mr. Sears. I will note that Siddharth has also been a patient at the [facility] previously. Hadley will be a 3rd grade student at [employer] in [place] during the 6277-8372 academic year. Ching works for [employer] as a health unit care sales and marketing administrator. She has certifications in that area and is a service technician copier. She also completed some education towards her NEGATIVE SPOTTER. Av currently is driving a water truck. His education includes high school and college - where he studied law enforcement. However, he is approximately 19 credits short of a law enforcement degrees. He was active service in the [employer] for approximately 3 years and then in the [employer] for about 9 years. PRESENTING CONCERN: Parents bring Hadley to the [facility] with a previous diagnosis of attention deficit hyperactivity disorder, unspecified type. They report that he has taken numerous medications for this disorder in the past without benefit. They are requesting a second opinion regarding the diagnosis and treatment recommendations. Regarding her concerns, Ching said no medications have helped him so far. We are mostly concerned about his impulsiveness, lack of listening, talking back, instigative, no fear and being constantly on the go. We would like him to understand things and show it, to slow down, comprehend and listen, to follow directions. PREVIOUS ASSESSMENTS, TESTING AND TREATMENT: This list represents the best efforts of Ching and Av to reconstruct Hadley's therapeutic history from memory. Therefore, there may be inaccuracies in it. 1. Parents stated that he was initially evaluated as having ADHD by Dr. Sadler, Family Practice, and [facility] in spring. Parents state that the diagnosis was based primarily on behavioral rating scales completed by parents and teachers. Parents state that there was a trial of Concerta with no benefit, followed eventually with a trial of Strattera - again, no benefit. He was then tried on Adderall and then Adderal XR (beginning May of 2007). Parents are uncertain what dose of Adderal XR he was taking. They believe that they saw slight benefit from this during the school year. He is not taking any medication for ADHD during the summer. 2. There was consultation with a child psychiatrist, Dr. Cooney at [facility] in 09/07. This was 1 appointment. It is my understanding that a prescription for Adderal XR was offered. Parents did not return to see Dr. Cooney. 3. His prescription is currently supervised by his primary care provider Janelle Ambriz MD, [facility]. Dr. Ambriz reportedly is on maternity leave. In her absence prescription is supervised by Dr. Petit, [facility]. 4. He participated in Title I services for reading in 2nd grade. At the end of the year he was at grade level and no longer qualified for services. There has been no 504 plan, IEP, or psychoeducational evaluation at this point. MEDICAL HISTORY: As above he is a patient of Dr. Ambriz at [facility]. No medicines currently. ADR/ALLERGIES: HE IS ALLERGIC TO AMOXICILLIN AND SULFA. He had tubes placed in his ears at age 1. Does not wear corrective lenses. No history of head injuries or illness with loss of consciousness, no surgeries other than tubes in ears. No hospitalizations. HEALTH CONCERNS NOTED BY PARENTS: Include: Delayed sleep onset; difficulty sitting at the table; range manager awaking; nail biting; unafraid of dangerous activities; not respectful of authority; difficulty making and keeping friends. FAMILY MEDICAL HISTORY: The immediate family is noteworthy for the following: Depression, suicide attempts, anxiety disorders, psychiatric hospitalizations, alcohol concerns and ADHD. Parent's noted they are both taking medicines for mood and anxiety problems. They acknowledge a number of very significant psychosocial stressors over the past several years including financial difficulties and marital difficulties. Ching noted that she will begin work with a new psychologist later today. The extended family history is noteworthy for suicide attempts and anxiety disorders. EDUCATIONAL HISTORY: As above, he will be a 3rd grade student at [employer] in [place] during the 3185-8735 academic year. There has been no psychoeducational evaluation, 504, IEP or speech and language evaluation at this point. He did receive Title I services for reading last year. Parents report the following concerns at school: Academic underachievement; peer and teacher relationships; reading; math; off-task behavior; organization; attention; concentration; disruptive behavior; difficulty waiting turn; excessive socializing; following rules; completing work on time; following directions; turning in assignments; rushing to complete work; careless responding; long-term projects; organization; forgetting homework materials. Parents reported the following speech and language concerns: Following multi-part instructions, understanding questions, understanding idioms, maintaining a topic of conversation, using appropriate vocabulary, adjusting to listeners needs, distracted by background noise. DEVELOPMENTAL HISTORY: This was the 6th of 6 with 4 live births and 2 miscarriages for Ching. She was 25 and Av was 27 at the time of this . Delivery was at [facility] in [facility] after a 30 week noteworthy for cigarette use and vitamins. Delivery was vaginal and under general anesthesia after induced labor. At he weighed 4 lb 8-1/2 oz. Mother and son were discharged 3 days post hospital. There was some incubator care after and he was slightly jaundiced. As an infant and toddler he was pleasant and happy, although extremely active. He experienced recurrent ear infections, high activity level, short attention span, difficulty with structured activities and peer relationships and attention prior to kindergarten. OBJECTIVE: Hadley presented in a casually, but appropriately dressed and groomed manner today. He appears to be of average height and stature with straight dark brown hair, combed and bangs. He was friendly, cooperative and in no obvious distress today. His eye contact was good - when I could get his attention. He did not exhibit excessive motor restlessness or hyperactivity in my office. He played with blocks while the adults conversed. He did not intrude into conversations between adults and I did not have to place any limits on Hadley's behavior. His speech was fluent and of a normal volume and rate. He was fully oriented. Cognition seemed to be grossly intact based on use of language and understanding of social interaction. There was no report or indication of the following from Hadley or his parents: Depressed mood that endures more than situationally (although he is reported to become situationally dysregulated), suicidal thinking with or without plan or intent, history of suicide attempts or otherwise intentionally self-injurious behavior, distinct episodes of adrian or hypomania, known family history of bipolar disorder, gross deficits in cognitive abilities or adaptive living skills, loss of previously acquired adaptive living skills, motor or vocal tics, separation anxiety, generalized anxiety, specific phobias, trauma reaction, known instances of abuse, ritual/compulsive behaviors, bizarre sensory experiences, symptoms consistent with an autism spectrum disorder. ASSESSMENT: Hadley Neal is an 8-year-old boy who will be a 3rd grade student at [employer] next year. He comes to the [facility] with a previous diagnosis of attention deficit hyperactivity disorder - unspecified type. He has had trials of numerous medications without benefit. Parents are requesting a second opinion regarding ADHD. He did receive Title I services for reading last year, but there has been no psychoeducational evaluation to this point. There are very significant psychosocial stressors in the family over the past several years. DIAGNOSTIC CONSIDERATIONS: Humboldt I: 1. ADHD - by history. 2. Rule out learning disability. 3. Rule out adjustment disorder. Humboldt II: None. Humboldt III: ALLERGIC TO AMOXICILLIN AND SULFA. History of tubes placed in ears. [place]umboldt IV: Moderate to severe (parental strife, parental mental health concerns, financial concerns). Humboldt V: GAF = 50. PLAN: I talked with parents about services at the [facility], how to access [facility] during office hours and after hours emergencies, limits to confidentiality, my qualifications and a safety plan. Parents were sent home with a BRIEF and Howard behavioral rating scales to add to the intake form they completed; however, we do not have DBD forms or the CBCL as of yet. In addition, we do not have data from school. Parents will bring in copies of report cards for me to review at the next appointment. If needed, we will continue the evaluated process in the fall of next school year in order to get current opinions from teachers related to ADHD problems. At the next appointment I will begin my meeting with Hadley. It is possible that I may have him complete the CDI, MASC or similar. Parents said they were satisfied with the plan we came up with today, but they will call me before the next appointment if they need to. DPB:[id number] C: 02/07/08 06:56 CONFIRM #: [id number] documented in this encounter Plan of Treatment Not on filedocumented as of this encounter Visit Diagnoses Not on filedocumented in this encounter Care Teams Registered Nurse Post Partum Relationship Specialty Start Date End Date Janelle Ambriz MD PCP - General 04/03/07 [address] [place] [address] documented as of this encounter
--- OUTSIDE RECORDS SUMMARY | 2022-05-18 14:39 | XMS_ITS | Encounter Summary ---
:2000 Author Organization [facility] Address [address] [place] [address] Care Team Providers Name Role Phone Janelle Ambriz MD Primary Care Provider Encounter Details Date Type Department Care Team Description 03/18/2007 Correspondence External to External, [facility] [place] ASSESSMENT [place] [address] Social History Tobacco Use Types Packs/Day Years Used Date Smoking Tobacco: Passive Smoke Exposure - Never Smoker Alcohol Use Standard Drinks/Week Comments Not Asked 0 (1 standard drink = 0.6 oz pure alcoho l) Sex Assigned at Date Recorded Not on file documented as of this encounter Progress Notes External, Provider - 03/18/2007 12:00 AM CDT documented in this encounter Plan of Treatment Not on filedocumented as of this encounter Visit Diagnoses Not on filedocumented in this encounter Care Teams Alliance Director Relationship Specialty Start Date End Date Janelle Ambriz MD PCP - General 04/03/07 [address] [place], [place] [phone] documented as of this encounter
--- OUTSIDE RECORDS SUMMARY | 2022-05-18 14:39 | XMS_ITS | Encounter Summary ---
:2000 Author Organization [facility] Address [address] [place] [address] Care Team Providers Name Role Phone Janelle Ambriz MD Primary Care Provider Encounter Details Date Type Department Care Team Description 03/18/2007 Correspondence External to External, [facility] er [place] ASSESSMENT [place] [address] Social History Tobacco Use Types Packs/Day Years [...] on filedocumented in this encounter Care Teams Dam Tender Relationship Specialty Start Date End Date Janelle Ambriz MD PCP - General 04/03/07 [address] [place], [place] [phone] documented as of this encounter
--- OUTSIDE RECORDS SUMMARY | 2022-05-18 14:39 | XMS_ITS | Encounter Summary ---
:2000 Author Organization [facility] Address [address] [place] [address] Care Team Providers Name Role Phone Janelle Ambriz MD Primary Care Provider Encounter Details Date Type Department Care Team Description 03/06/2008 PN Conversion Only [facility] [address] [place] [address] Social History Tobacco Use Types Packs/Day Years [...] on filedocumented in this encounter Care Teams Office Technician Relationship Specialty Start Date End Date Janelle Ambriz MD PCP - General 04/03/07 [address] [place], [place] [phone] documented as of this encounter
--- OUTSIDE RECORDS SUMMARY | 2022-05-18 14:40 | XMS_ITS | Encounter Summary ---
:2000 Author Organization [facility] Address [address] [place] [address] Care Team Providers Name Role Phone Janelle Ambriz MD Primary Care Provider Encounter Details Date Type Department Care Team Description 08/16/2005 PN Conversion Only [facility] [address] [place] [address] Social History Tobacco Use Types Packs/Day Years Used Date Smoking Tobacco: Never Assessed Sex Assigned at Date Recorded Not on file documented as of this encounter Plan of Treatment Not on filedocumented as of this encounter Visit Diagnoses Not on filedocumented in this encounter Care Teams Field Sales Specialist Relationship Specialty Start Date End Date Janelle Ambriz MD PCP - General 04/03/07 [address] [place] [address] documented as of this encounter
--- OUTSIDE RECORDS SUMMARY | 2022-05-18 14:40 | XMS_ITS | Encounter Summary ---
:2000 Author Organization [employer] Address [address] [place] [address] Care Team Providers Name Role Phone Concepcion Rasmussen MD Primary Care Provider Reason for Visit Reason Comments Careplan: ADHD Encounter Details Date Type Department Care Team Description 03/15/2007 Office Visit Marianna Concepcion Rasmussen MD ADHD (Attention Med/Peds [address] Deficit Hyperactivity [address] [place], [place] Disorder) (Primary Dx) [place] [address] [id number] [phone] Social History Tobacco Use Types Packs/Day Years Used Date Smoking Tobacco: Passive Smoke Exposure - Never Smoker Alcohol Use Standard Drinks/Week Comments Not Asked 0 (1 standard drink = 0.6 oz pure alcoho l) Sex Assigned at Date Recorded Not on file documented as of this encounter Last Filed Vital Signs Vital Sign Reading Time Taken Comments Blood Pressure 90/40 03/15/2007 3:20 PM CDT Pulse 86 03/15/2007 3:20 PM CDT Temperature 36.6 ??C (97.8 ??F) 03/15/2007 3:20 PM CDT Respiratory Rate 16 03/15/2007 3:20 PM CDT Oxygen Saturation - - Inhaled Oxygen Concentration - - Weight 21.6 kg (47 lb 9.6 oz) 03/15/2007 3:20 PM CDT Height 118.1 cm (3' 10.5) 03/15/2007 3:20 PM CDT Nolwvh-foy-Plymlw Percentile 52.96 % 03/15/2007 3:20 PM CDT Growth Chart: [facility] (Boys, 2-20 Years) Body Mass Index 15.48 03/15/2007 3:20 PM CDT Body Mass Index Percentile 48.57 % 03/15/2007 3:20 PM CD T Growth Chart: [facility] (Boys, 2-20 Years) documented in this encounter Progress Notes Concepcion Rasmussen - 03/15/2007 12:00 AM CDT SUBJECTIVE: The patient is a sikrl-hehr-wux male who came here to follow up on ADHD. I saw this patient at the end of last school year for evaluation of ADHD and he did meet the criteria for this. He was started on Ritalin 5 mg at noontime. He seems to do fairly well in the mornings usually and by the afternoon that is when his attention starts to drift and he needs frequent reminders. Unfortunately at that time there was only one-week left in the school year. The week that he tried mom did not seem to notice any difference and the schoolteacher did not seem to notice any difference either. The patient is here now to follow up for the fall. School has started for the last two weeks. The teacher says that he is still hyperactive and needs frequent reminders to do his homework and also frequent reminders with instructions as well. He is now 2nd grade at [employer]. The schoolteacher said that the afternoon is the time when he needs more reminders and morning he seems to be doing better. Mom did not think that he had any side effects from the Ritalin at the end of the school year. He has an older brother who was also diagnosed with ADHD by another clinic; this brother did not do well on the Concerta. OBJECTIVE: Temperature 97.8. Pulse 86. Blood pressure 90/40. Respiration 16. In general, this is a pleasant ihbow-zwyl-gci male in no acute distress. He is very active in the exam room and he goes up and down the exam table, moves around the exam room doing different things nonstop. When his brother came in to the room he keeps to talking to him. The patient does answer questions and is cooperative, but cannot sit still. ASSESSMENT AND PLAN: ADHD. Since his brother did not do well with Concerta and the patient did not seem to have any response with Ritalin, I will try Adderall to see if he may do better with Adderall. We will have him take 5 mg at noontime for a couple of days and then increase it to 10 mg, stay at that dose. Follow up in clinic with Dr. Ambriz in two weeks. I also gave mom a parents followup evaluation form and a teacher followup evaluation form. Mom and the teacher should fill out the forms and bring them back at the followup visit. Certainly if the patient reports any significant side effects, mom should contact us right away. P cc: documented in this encounter Plan of Treatment Not on filedocumented as of this encounter Visit Diagnoses Diagnosis ADHD (attention deficit hyperactivity di sorder) ([facility]) - Primary Attention deficit disorder with hyperact ivity documented in this encounter Care Teams Electronic Parts Salesperson Relationship Specialty Start Date End Date Concepcion Rasmussen MD PCP - General 11/20/06 04/02/07 documented as of this encounter
--- OUTSIDE RECORDS SUMMARY | 2022-05-18 14:40 | XMS_ITS | Encounter Summary ---
:2000 Author Organization [employer] Address [address] [place] [address] Care Team Providers Name Role Phone Concepcion Rasmussen MD Primary Care Provider Encounter Details Date Type Department Care Team Description 10/20/2006 Correspondence External to External, Provid er [place] [address] Social History Tobacco Use Types Packs/Day Years Used Date Smoking Tobacco: Never Assessed Sex Assigned at Date Recorded Not on file documented as of this encounter Progress Notes External, Provider - 10/20/2006 12:00 AM CDT documented in this encounter Plan of Treatment Not on filedocumented as of this encounter Visit Diagnoses Not on filedocumented in this encounter Care Teams Milker Machine Relationship Specialty Start Date End Date Concepcion Rasmussen MD PCP - General 11/20/06 04/02/07 documented as of this encounter
--- OUTSIDE RECORDS SUMMARY | 2022-05-18 14:40 | XMS_ITS | Encounter Summary ---
:2000 Author Organization [employer] Address [address] [place] [address] Care Team Providers Name Role Phone Concepcion Rasmussen MD Primary Care Provider Encounter Details Date Type Department Care Team Description 10/11/2006 Correspondence External to External, Provid karl PERRY TEACHER [place] [address] Social History Tobacco Use Types Packs/Day Years Used Date Smoking Tobacco: Never Assessed Sex Assigned at Date Recorded Not on file documented as of this encounter Progress Notes External, Provider - 10/11/2006 12:00 AM CDT documented in this encounter Plan of Treatment Not on filedocumented as of this encounter Visit Diagnoses Not on filedocumented in this encounter Care Teams Allergist/Immunologist Physician Relationship Specialty Start Date End Date Concepcion Rasmussen MD PCP - General 11/20/06 04/02/07 documented as of this encounter
--- OUTSIDE RECORDS SUMMARY | 2022-05-18 14:40 | XMS_ITS | Encounter Summary ---
:2000 Author Organization [employer] Address [address] [place] [address] Care Team Providers Name Role Phone Concepcion Rasmussen MD Primary Care Provider Reason for Visit Reason Comments ADD (ATTENTION DEFICIT DISORDER) Encounter Details Date Type Department Care Team Description 11/22/2006 Office Visit Concepcion Whalen MD ADHD (Attention Med/Peds [address] Deficit Hyperactivity [address] [place], [place] Disorder) (Primary Dx) [place], [place] [address] [phone] Social History Tobacco Use Types Packs/Day Years Used Date Smoking Tobacco: Passive Smoke Exposure - Never Smoker Alcohol Use Standard Drinks/Week Comments Not Asked 0 (1 standard drink = 0.6 oz pure alcoho l) Sex Assigned at Date Recorded Not on file documented as of this encounter Last Filed Vital Signs Vital Sign Reading Time Taken Comments Blood Pressure 86/50 11/22/2006 8:40 AM CDT Pulse 78 11/22/2006 8:40 AM CDT Temperature 36.7 ??C (98 ??F) 11/22/2006 8:40 AM CDT Respiratory Rate - - Oxygen Saturation - - Inhaled Oxygen Concentration - - Weight 20.4 kg (45 lb) 11/22/2006 8:40 AM CDT Height - - Body Mass Index - - documented in this encounter Progress Notes Verna Cantu - 11/22/2006 1:25 PM CDT Addended by: VERNA CANTU on: 11/22/2006 1:25:37 PM Modules accepted: Orders Verna Cantu - 11/22/2006 1:25 PM CDT Mother calling from Pharmacy at 12:10 Verbal Ok given to pharmacist for tablets of same dose , as pts insurance does not cover Chewables. Concepcion Rasmussen - 11/22/2006 12:00 AM CDT SUBJECTIVE: The patient is a 6-year-old boy brought in by his mom for evaluation of ADHD. Mom is concerned about the patient starting this last year when he was preschool he seemed to be able to pay attention to class and be able to concentrate and play well with other kids. He was going to half day preschool at the time. Starting the first grade at [employer], the teacher has noted that he is not paying attention in class as well especially in the afternoons. In the morning he seems to be doing okay. He is also very frigidity. He has to be doing something at all times. He does not usually interrupt people and sometimes he does not wait for his turns. He cannot sit still most of the time. The parents have to call him multiple times to get him do anything. Right now he does not really have that much homework in the evenings. He seems to be able to complete them with supervision. His grades are below average. The teacher is more concerned that he does not pay much attention in class. The patient, otherwise, does not have anger issues, behavior out burst. Mom does not think he has any social problems such as depression or being anxious. He plays well with other friends. PAST MEDICAL HISTORY: Patient is two months premature. He had ear tubes when he was really young. Also he fractured his right wrist at age 2. No other surgery or hospitalizations. MEDICATIONS: He is currently not on any medications. ALLERGIES: He has no drug allergies. In terms of family history, he has an older brother with ADHD and also dyslexia and sleep disturbance. His father has history of anxiety and is on medication. Mom has anxiety too but is not treated. There is no family history of high blood pressure, diabetes or heart disease. There is difficulty with sleep that runs in the family. Mom and older son and an older brother all have sleep problems, all of them are taking melatonin. The patient also has some difficulty of falling asleep but it is not as bed as the other son and daughter. The patient does not snore at night. When he does fall asleep he has restless sleep. In terms of social history, the patient lives at home with his parents and three older siblings. Both parents and maternal grandmother smoke outside the house. They have also two cats in the home. His older brother and sister have allergies to the cats but the patient does not. OBJECTIVE: Temperature 98. Pulse 78. Blood pressure 85/50. Weight is 45 pounds. In general, this is a pleasant 6-year-old in no acute distress, the patient is quite frigidity and spinning around in the chair and moves about all the times as mom and I talked. He does not interrupt our conversation and he answers questions appropriately when he is asked. Howard parent and teacher rating skills were reviewed with patient's mom. These skills endorsed hyperactivity and inattentive symptoms, most of which are above the threshold for DSM4 diagnosis based on Howard rating skills. ASSESSMENT AND PLAN: ADHD. The patient does meet the DSM4 criteria for ADHD. Please see the (scanned in) form for details of the scores. We discussed with mom regarding medication treatment versus observation and also educational support from the School System. Mom wanted to try stimulant for a couple of weeks to see if it helps him in the school year and if it helps, consider restarting medication in the fall of school year. We will put him on Ritalin 5 mg at noontime; afternoon seems to be the time when he has trouble paying attention. We will have both mom and the teacher fill out a followup rating skill at the end of two weeks to see how he is doing with that. Mom has also question about the older brother who was diagnosed with ADHD and using Strattera that was not helping and mom was wondering if Ritalin may be helping the older brother as well. I think we did decide to have him reevaluate it in the fall as the school year is almost out and his brother will have to come back for a separate visit. I did discuss with mom medication side effects such as palpitations, chest pain, difficulty with sleep, poor appetite. We will need to have them come back at the end of the two weeks to address these issue. Mom shows understanding. Medication was given. Letter was written for the school and medication authorization letter was given to mom as well. Total time spent with the patient was 45 minutes, greater than 50% of which was in care coordination and counseling. A cc: documented in this encounter Plan of Treatment Not on filedocumented as of this encounter Visit Diagnoses Diagnosis ADHD (attention deficit hyperactivity di sorder) ([facility]) - Primary Attention deficit disorder with hyperact ivity documented in this encounter Care Teams Java Programmer Analyst Relationship Specialty Start Date End Date Concepcion Rasmussen MD PCP - General 11/20/06 04/02/07 documented as of this encounter
--- OUTSIDE RECORDS SUMMARY | 2022-05-18 14:40 | XMS_ITS | Encounter Summary ---
:2000 Author Organization [facility] Address [address] [place] [address] Care Team Providers Name Role Phone Janelle Ambriz MD Primary Care Provider Encounter Details Date Type Department Care Team Description 10/31/2005 Office Visit [facility] Mimi Molina APRN, [address] [place] [address] [phone] [address] [place], [place] [address] Social History Tobacco Use Types Packs/Day Years Used Date Smoking Tobacco: Never Assessed Sex Assigned at Date Recorded Not on file documented as of this encounter Progress Notes Mimi Rodriguez - 10/31/2005 12:01 AM CDT Progress Notes signed by Mimi Rodriguez APRN, [place] TORQUE TESTER at 11/01/05 1423 Author: FARZANEH Keen Service: (none) Author Type: Nurse Practitioner Filed: 10/22/10 1114 Note Time: 10/31/05 0001 Status: Signed Wafer Polisher: FARZANEH Keen (Nurse Practitioner) NAME: HADLEY NEAL MR: [id number] ACCT: [id number] VISIT: [id number] DICTATING CLINICIAN: FARZANEH KEEN JOB: [id number] CLINIC PROGRESS NOTE DATE OF VISIT: 10/31/2005 SUBJECTIVE: Chief Complaint: Recheck ear lobes. Patient was seen in the emergency room a few days ago where they did an I and D and put him on antibiotics for an infection in his earlobe. It was from an area of a pierced ear. OBJECTIVE: VS: T: 97.5. Wt: 41.4. Healthy-appearing child in no acute distress. Examination of the earlobe, minimal erythema. There is still some fullness, nontender to palpation. ASSESSMENT: Resolving cellulitis of the left earlobe. PLAN: Will complete the course of antibiotics. May try warm compresses. Will follow up if not resolved or any worsening of symptoms. DIAGNOSIS: Recheck cellulitis, left ear lobe. MARY:[id number] C: 11/01/05 13:26 DOCUMENT: [id number] documented in this encounter Plan of Treatment Not on filedocumented as of this encounter Visit Diagnoses Not on filedocumented in this encounter Care Teams Betting Agency Counter Clerk Relationship Specialty Start Date End Date Janelle Ambriz MD PCP - General 04/03/07 [address] [place] [address] documented as of this encounter
--- OUTSIDE RECORDS SUMMARY | 2022-05-18 14:40 | XMS_ITS | Encounter Summary ---
:2000 Author Organization [employer] Address [address] [place] [address] Care Team Providers Name Role Phone Janelle Ambriz MD Primary Care Provider Reason for Visit Reason Comments Other Encounter Details Date Type Department Care Team Description 10/26/2005 Telephone [facility] Caitlyn Arce RN Other [address] [place], [place] [id number] Social History Tobacco Use Types Packs/Day Years Used Date Smoking Tobacco: Never Assessed Sex Assigned at Date Recorded Not on file documented as of this encounter Progress Notes Caitlyn Arce RN - 10/26/2005 7:35 PM CDT Phone Note filed by Caitlyn Arce RN at 10/19/10323 Author: Caitlyn Arce RN Service: (none) Author Type: Registered Nurse Filed: 10/19/10323 Note Time: 10/26/051934 Status: Signed Family Living Educator: Caitlyn Arce RN (Registered Nurse) CLINICIAN FOLLOW-UP: None IMPRESSION: Ear Discharge. SYMPTOMS: mom calling with child who has had an ear piercing and today child complained of ear swelling. Child did not feel well and took a nap and mom noted ear is swollen, hot, red and draining pus. Is unsure if febrile but says he does not feel well. Denies emergent symptoms PATIENT INFORMATION: Problem List: reviewed in LastWord --- Allergies: Reviewed/updated in LastWord --- Medications: Reviewed/updated in LastWord CARE ADVICE: Advised mom to take patient to urgent care tonight due to signs of infection. Advised to call back if any of the following occur: any other questions or concerns. PLAN: GO TO URGENT CARE Patient/Caller agrees with plan and denies additional questions. Reference(s) Used: Pediatric Telephone Protocols-- Ear Discharge. Call Complete. *SH~PNNL~PEDSCHOLAR~ Created on 26Oct2005 7:35pm by CAITLYN ARCE UCT SUPPORT REP documented in this encounter Plan of Treatment Not on filedocumented as of this encounter Visit Diagnoses Not on filedocumented in this encounter Care Teams Check Totaler Relationship Specialty Start Date End Date Janelle Ambriz MD PCP - General 04/03/07 [address] [place] [address] documented as of this encounter
--- OUTSIDE RECORDS SUMMARY | 2022-05-18 14:40 | XMS_ITS | Encounter Summary ---
:2000 Author Organization [employer] Address [address] [place] [address] Care Team Providers Name Role Phone Janelle Ambriz MD Primary Care Provider Reason for Visit Reason Comments Other Encounter Details Date Type Department Care Team Description 11/13/2005 Telephone [place] [facility] Patience Chin RN Other [address] [place], [place] [address] Social History Tobacco Use Types Packs/Day Years Used Date Smoking Tobacco: Never Assessed Sex Assigned at Date Recorded Not on file documented as of this encounter Progress Notes Patience Loredo RN - 11/13/2005 9:59 PM CDT Phone Note filed by Patience Loredo RN at 10/19/102 Author: Patience Loredo RN Service: (none) Author Type: Registered Nurse Filed: 10/19/10402 Note Time: 11/13/05 2822 Status: Signed Manager Support: Patience Loredo RN (Registered Nurse) CLINICIAN FOLLOW-UP: None IMPRESSION: Bite, Animal or Human. SYMPTOMS: Mom calling: approx 1.5h ago was bitten in buttocks by neighbors dog. Broke skin on buttocks. State initially didn't bleed much, mom cleaned, applied abx oint and covered. Noted now that it has bleed through dressing, and clothing. State wounds are approx size of tip of ring finger, but mom feel so deep that you can see underlying muscle tissue. State the dog is up to date on his shots. PATIENT INFORMATION: Problem List: reviewed in LastWord --- Allergies: Reviewed/updated in LastWord --- Medications: Reviewed/updated in LastWord CARE ADVICE: They will take to ER at this time. Advised to call back if any of the following occur: symptoms worsen or persist, any other questions or concerns. PLAN: GO TO THE EMERGENCY ROOM NOW Patient/Caller agrees with plan and denies additional questions. Reference(s) Used: Pediatric Telephone Protocols-- Bite, Animal or Human. Call Complete. *SH~PNNL~PEDSCHOLAR~ Created on 13Nov2005 9:59pm by PATIENCE LOREDO AND FIXTURE REPAIRER documented in this encounter Plan of Treatment Not on filedocumented as of this encounter Visit Diagnoses Not on filedocumented in this encounter Care Teams Construction Estimator Relationship Specialty Start Date End Date Janelle Ambriz MD PCP - General 04/03/07 [address] [place] [address] documented as of this encounter
--- OUTSIDE RECORDS SUMMARY | 2022-05-18 14:40 | XMS_ITS | Encounter Summary ---
:2000 Author Organization [facility] Address [address] [place] [address] Care Team Providers Name Role Phone Janelle Ambriz MD Primary Care Provider Encounter Details Date Type Department Care Team Description 10/31/2005 PN Conversion Only [place] [address] [place] [address] Social History Tobacco Use Types Packs/Day Years Used Date Smoking Tobacco: Never Assessed Sex Assigned at Date Recorded Not on file documented as of this encounter Plan of Treatment Not on filedocumented as of this encounter Visit Diagnoses Not on filedocumented in this encounter Care Teams Lieutenant Ballistics Relationship Specialty Start Date End Date Janelle Ambriz MD PCP - General 04/03/07 [address] [place] [address] documented as of this encounter
--- OUTSIDE RECORDS SUMMARY | 2022-05-18 14:40 | XMS_ITS | Encounter Summary ---
:2000 Author Organization [employer] Address [address] [place] [address] Care Team Providers Name Role Phone Janelle Ambriz MD Primary Care Provider Reason for Visit Reason Comments Other Encounter Details Date Type Department Care Team Description 07/29/2006 Telephone [facility] Rosalia La RN Other [address] [facility] [address] [place] [address] [place], [place] [address] Social History Tobacco Use Types Packs/Day Years Used Date Smoking Tobacco: Never Assessed Sex Assigned at Date Recorded Not on file documented as of this encounter Progress Notes Rosalia La RN - 07/29/2006 11:31 PM CST Phone Note filed by Rosalia La RN at 10/19/10 1500 Author: Rosalia La RN Service: (none) Author Type: Registered Nurse Filed: 10/19/101499 Note Time: 07/29/06 2331 Status: Signed Maintenance Service Technician: Rosalia La RN (Registered Nurse) CLINICIAN FOLLOW-UP: None IMPRESSION:neck trauma SYMPTOMS: Mom calling, pt playing with brother around 11 am today, older brother throwing him on the bed. Pt heard a crack and neck pain while bouncing on the bed. Active the rest of the day. This evening with some neck pain, moved head side to side and back, refused to move head to look down. No loss of strength or sensation. Pt now asleep next to Mom.Referenced [facility] Pediatric Telephone Protocols, neck pain or stiffness protocol. Advised bring pt to ER now, do not test neck movement, have pt keep neck in one position. Caller agreed with plan. PLAN: GO TO THE EMERGENCY ROOM NOW Patient/Caller agrees with plan and denies additional questions. Reference(s) Used: Call Complete. *SH~PNNL~PEDSCHOLAR~ Created on 29Jul2006 11:31pm by ROSALIA LA SHER FINE DIAMOND DIES documented in this encounter Plan of Treatment Not on filedocumented as of this encounter Visit Diagnoses Not on filedocumented in this encounter Care Teams Piping Drafter Relationship Specialty Start Date End Date Janelle Ambriz MD PCP - General 04/03/07 [address] [place] [address] documented as of this encounter
--- OUTSIDE RECORDS SUMMARY | 2022-05-18 14:40 | XMS_ITS | Encounter Summary ---
:2000 Author Organization [facility] Address [address] [place] [address] Care Team Providers Name Role Phone Concepcion Rasmussen MD Primary Care Provider Reason for Visit Reason Onset Date Comments ERRONEOUS ENTRY 11/22/2006 Encounter Details Date Type Department Care Team Description 11/22/2006 Telephone [facility] Concepcion Rasmussen M D ERRONEOUS ENTRY Practice [address] [facility] [address] [address] [place], [place] [address] [place] [address] 551 24 [phone] Social History Tobacco Use Types Packs/Day Years [...] on filedocumented in this encounter Care Teams Weight Shifter Relationship Specialty Start Date End Date Concepcion Rasmussen MD PCP - General 11/20/06 04/02/07 documented as of this encounter
--- OUTSIDE RECORDS SUMMARY | 2022-05-18 14:40 | XMS_ITS | Encounter Summary ---
:2000 Author Organization [facility] Address [address] [place] [address] Care Team Providers Name Role Phone Janelle Ambriz MD Primary Care Provider Encounter Details Date Type Department Care Team Description 08/16/2005 PN Conversion Only RELIGIOUS CONVERSION Olga Milligan MD [address] [place] [address] 41 Social History Tobacco Use Types Packs/Day Years Used Date Smoking Tobacco: Never Assessed Sex Assigned at Date Recorded Not on file documented as of this encounter Plan of Treatment Not on filedocumented as of this encounter Procedures Procedure Name Priority Date/Time Associated Diagnosis Comme nts STREP GROUP A Routine 08/16/2005 12:26 PM Results for this ANTIGEN TEST COGENERATION TECHNICIAN procedure are i n the results section. documented in this encounter Results Strep Group A Antigen Test (08/16/2005 12:26 PM COGENERATION TECHNICIAN) Analysis Performed At Patho logist Time Signature Strep Group A Positive Negative HP CONVERSION Antigen Test Specimen (Source) Anatomical Collection Method Collection Time Re ceived Time Location / / Volume Laterality 08/16/2005 12:26 PM COGENERATION TECHNICIAN Elmira Milligan MD LAB_1 Performing Organization Address City/State/ZIP Code Phon e Number HP CONVERSION documented in this encounter Visit Diagnoses Not on filedocumented in this encounter Care Teams Maintenance Mechanic Technician Relationship Specialty Start Date End Date Janelle Ambriz MD PCP - General 04/03/07 [address] [place] [address] documented as of this encounter
--- OUTSIDE RECORDS SUMMARY | 2022-05-18 14:40 | XMS_ITS | Encounter Summary ---
:2000 Author Organization [facility] Address [address] [place] [address] Care Team Providers Name Role Phone Concepcion Rasmussen MD Primary Care Provider Reason for Visit Reason Onset Date Comments COUGH 11/27/2006 Encounter Details Date Type Department Care Team Description 11/27/2006 Telephone Careline Cherrie Evans RN COUGH [address] [place], [place] [address] Social History Tobacco Use Types Packs/Day Years Used Date Smoking Tobacco: Passive Smoke Exposure - Never Smoker Alcohol Use Standard Drinks/Week Comments Not Asked 0 (1 standard drink = 0.6 oz pure alcoho l) Sex Assigned at Date Recorded Not on file documented as of this encounter Nursing Notes Cherrie Evans - 11/27/2006 2:29 AM CDT TRIAGE REFERENCE: COUGH - PEDS CNG (c) 2007 STAT SYMPTOMS: None per guideline ASSESSMENT Cough: irritated, congested-sounding but not croupy or wheezing Respirations: night cough with frequent waking Temperature:nml, PMH: Patient Active Problem List Diagnoses Code ??? ADHD (Attention Deficit Hyperactivity Disorder) 314.01L CURRENT MEDICATIONS: Current outpatient prescriptions prior to encounter Medication Sig Dispense Refill ??? METHYLPHENIDATE HCL (METHYLIN) 5MG CHEW TABS 1 tablet at noon time 15 0 ??? METHYLPHENIDATE HCL 5 MG OR TABS Take 1 tablet daily at noon 15 0 MEDICATION ALLERGIES: No HOME TREATMENT: Discussed per guideline Push fluids (liquefies secretions in breathing tubes to enhance clearing) Humidity in home-cool mist vaporizer Acetaminophen with temp >101 degree or very uncomfortable Ibuprofen with temp > 101 degree or very uncomfortable Rest, elevation of head at rest OTC cough med for children PLAN: Urgent Care eval documented in this encounter Plan of Treatment Not on filedocumented as of this encounter Visit Diagnoses Not on filedocumented in this encounter Care Teams Clinical Information Systems Director Relationship Specialty Start Date End Date Concepcion Rasmussen MD PCP - General 11/20/06 04/02/07 documented as of this encounter
--- OUTSIDE RECORDS SUMMARY | 2022-05-18 14:40 | XMS_ITS | Encounter Summary ---
:2000 Author Organization [facility] Address [address] [place] [address] Care Team Providers Name Role Phone Janelle Ambriz MD Primary Care Provider Encounter Details Date Type Department Care Team Description 08/16/2005 [facility] Elmira Milligan, [address] Farrell MD [address] [place] [address] [facility] [phone] [place], [place] [address] Social History Tobacco Use Types Packs/Day Years Used Date Smoking Tobacco: Never Assessed Sex Assigned at Date Recorded Not on file documented as of this encounter Last Filed Vital Signs Vital Sign Reading Time Taken Comments Blood Pressure - - Pulse - - Temperature 36.1 ??C (97 ??F) 08/16/2005 11:35 AM BARN MANAGER C: 36. 1 C Respiratory Rate - - Oxygen Saturation - - Inhaled Oxygen Concentration - - Weight 17.3 kg (38 lb 1.9 oz) 08/16/2005 11:35 AM BARN MANAGER C : 17.3kg Height - - Body Mass Index - - documented in this encounter Progress Notes Elmira Milligan MD - 08/16/2005 12:01 AM CST Progress Notes signed by Elmira Milligan MD at 08/16/05 1251 Author: Elmira Milligan MD Service: (none) Author Type: Physician Filed: 10/22/10 0937 Note Time: 08/16/05 0001 Status: Signed Paint Laboratory Technician: Elmira Milligan MD (Physician) Acute Clinic Visit IMPRESSION: Strep Pharyngitis Chief Complaint: Fever SUBJECTIVE: History of Present Illness: Illness began yesterday Fever has been 101-102 degrees F. Symptoms stable Fatigue Activity level decreased. No headache No ear pain No nasal congestion/rhinorrhea No cough Decreased appetite today Taking liquids well No nausea No vomiting No diarrhea Acute Medications: Ibuprofen Past History: No History of Respiratory Disease Family member or close contact has a sore throat Adverse Drug Reactions: Amox; sulfa Chronic Medications: none Online medical records were reviewed by me. OBJECTIVE: Vital Signs: T: 97.0 ax degrees F. Weight: 38.1 lbs. General Appearance: Well-appearing in NAD Eyes: External exam is normal bilaterally Ears: Bilateral pinnae, canals and TMs normal Nose/sinuses: Nose mildly congested Oropharynx: Mildly injected No exudate Tonsils: 2+ enlarged; strawberry tongue Neck: Large anterior adenopathy bilaterally Respiratory: Lungs clear to auscultation without respiratory distress Cardiac: RRR without murmurs Skin: Clear without rash or lesions Lab & X-Ray: Rapid strep test is positive. ASSESSMENT: Strep Pharyngitis PLAN: Azithromycin 12 mg/kg (or maximum of 500 mg) daily for 5 days. Symptomatic care with OTC medications for comfort RTC PRN if not gradually improving *SH~PC~QP ~[place] Note completed on: 08/16/2005 12:49 PM MANAGER documented in this encounter Plan of Treatment Not on filedocumented as of this encounter Visit Diagnoses Not on filedocumented in this encounter Care Teams Oncology Patient Navigator Relationship Specialty Start Date End Date Janelle Ambriz MD PCP - General 04/03/07 [address] [place] [address] documented as of this encounter
--- OUTSIDE RECORDS SUMMARY | 2022-05-18 14:40 | XMS_ITS | Encounter Summary ---
:2000 Author Organization [facility] Address [address] [place] [address] Care Team Providers Name Role Phone Unassigned, Provider Primary Care Provider Unavailable Encounter Details Date Type Department Care Team Description 10/30/2006 Scanned History External to Transferred Record, [facility] Provider Social History Tobacco Use Types Packs/Day Years Used Date Smoking Tobacco: Never Assessed Sex Assigned at Date Recorded Not on file documented as of this encounter Progress Notes Transferred Record, Provider - 10/30/2006 12:00 AM CDT documented in this encounter Plan of Treatment Not on filedocumented as of this encounter Visit Diagnoses Not on filedocumented in this encounter Care Teams County Agricultural Agent Relationship Specialty Start Date End Date Unassigned, Provider PCP - General 00 11/19/06 [address] [place] [address] documented as of this encounter
--- OUTSIDE RECORDS SUMMARY | 2022-05-18 14:40 | XMS_ITS | Encounter Summary ---
:2000 Author Organization [email or web address] Address [address] [place] [address] Care Team Providers Name Role Phone Unassigned, Provider Primary Care Provider Unavailable Reason for Visit Reason Comments PE Encounter Details Date Type Department Care Team Description 11/09/2006 Office Visit [facility] Sophie Petit Infant or Practice MD Kevin Child Health Check [address] (Primary Dx) [place] [address] [phone] Social History Tobacco Use Types Packs/Day Years Used Date Smoking Tobacco: Passive Smoke Exposure - Never Smoker Alcohol Use Standard Drinks/Week Comments Not Asked 0 (1 standard drink = 0.6 oz pure alcoho l) Sex Assigned at Date Recorded Not on file documented as of this encounter Last Filed Vital Signs Vital Sign Reading Time Taken Comments Blood Pressure 80/50 11/09/2006 4:20 PM CDT Pulse - - Temperature - - Respiratory Rate - - Oxygen Saturation - - Inhaled Oxygen Concentration - - Weight 20.3 kg (44 lb 12.8 oz) 11/09/2006 4:20 PM CDT Height 116.8 cm (3' 10) 11/09/2006 4:20 PM CDT Ntdzgp-bqs-Aadsgu Percentile 34.53 % 11/09/2006 4:20 PM CDT Growth Chart: CDC (Boys, 2-20 Years) Body Mass Index 14.89 11/09/2006 4:20 PM CDT Body Mass Index Percentile 32.62 % 11/09/2006 4:20 PM CD T Growth Chart: CDC (Boys, 2-20 Years) documented in this encounter Progress Notes Sophie Petit - 11/09/2006 12:00 AM CDT SUBJECTIVE: Roc-xdxx-iqb patient new to me comes in for a routine physical. He is accompanied by his mother and his older sister and older brother. He is the youngest of four children. Lives with both parents. They are not in daycare. Currently in the first grade. He is on no medications. He delivered about four weeks early. Weighed 4 pounds at . Spent three to four weeks in the hospital and was sent home on an apnea monitor. He has done well with the exception of recurrent otitis and had PE tubes placed once. Mom states he is also accident-prone. He has had stitches. He broke his right wrist when falling off the scooter. Tends to be quite active. Has good energy level. No wheezing or coughing. He eats well, sleeps well. Bowels are working fine. Gets along with his siblings. Mom is somewhat concerned about how he is doing in the first grade, as there is a concern about ADD. She has an appointment with a transitional care liaison next week to discuss this. Other than that he is physically very healthy. OBJECTIVE: Appears well. Cooperative. HEENT is normal. Neck is supple with no adenopathy. No thyromegaly. Lungs are clear. Heart is regular. I do not hear murmur. Abdomen is benign. Normal genitalia. Testicles are descended. Circumcised male. Femoral pulses are intact. Skin is clear. Neuro is intact. ASSESSMENT: Physical exam. PLAN: As above. He also has been to a dentist and apparently has three cavities that will require filling. That is scheduled for next week also. PROBLEM: Physical exam. P cc: documented in this encounter Nursing Notes 11/09/2006 4:20 PM CDT >> Staci Smith LPN [facility] November 09, 2006 4:34 PM Eye exam: L: 20/20 , R: 20/20 Lenses: NO 'E' BLOCK USED. Staci Smith LPN 11/09/2006, 4:32 PM documented in this encounter Plan of Treatment Not on filedocumented as of this encounter Visit Diagnoses Diagnosis Routine infant or child health check - P rimary documented in this encounter Care Teams Digital Account Coordinator Relationship Specialty Start Date End Date Unassigned, Provider PCP - General 00 11/19/[address] [place] [address] documented as of this encounter
--- OUTSIDE RECORDS SUMMARY | 2022-05-18 14:41 | XMS_ITS | Encounter Summary ---
:2000 Author Organization [facility] Address [address] [place] [address] Care Team Providers Name Role Phone Janelle Ambriz MD Primary Care Provider Reason for Visit Reason Comments Other Encounter Details Date Type Department Care Team Description 01/06/2004 Telephone [facility] Rosalia La RN Other [address] [place] [address] [place], [place] [id number] Social History Tobacco Use Types Packs/Day Years Used Date Smoking Tobacco: Never Assessed Sex Assigned at Date Recorded Not on file documented as of this encounter Progress Notes Rosalia La RN - 01/06/2004 8:43 PM CDT Phone Note filed by Rosalia La RN at 10/18/10 1312 Author: Rosalia La RN Service: (none) Author Type: Registered Nurse Filed: 10/18/10 1312 Note Time: 01/06/042042 Status: Signed Batteryman: Rosalia La RN (Registered Nurse) Mom calling, pt climbed into neighbor's baby walker, fell down a flight of stairs in baby walker. Has red bump on his head above his right eye. Did not loose consciousness. Referenced Isaac Antunez's Pediatric Telephone Protocols, 10th ed, Trauma, head protocol and reviewed information with caller. Advised pt be seen in [facility] Urgent Care or ER, on site nurse will triage for Urgent Care or ER. Mom agreed with plan. Created on [id number] 8:43pm by ROSALIA LA documented in this encounter Plan of Treatment Not on filedocumented as of this encounter Visit Diagnoses Not on filedocumented in this encounter Care Teams Binding Folder Machine Relationship Specialty Start Date End Date Janelle Ambriz MD PCP - General 04/03/07 [address] [place] [address] documented as of this encounter
--- OUTSIDE RECORDS SUMMARY | 2022-05-18 14:41 | XMS_ITS | Encounter Summary ---
:2000 Author Organization [facility] Address [address] [place] [address] Care Team Providers Name Role Phone Janelle Ambriz MD Primary Care Provider Reason for Visit Reason Comments Other Encounter Details Date Type Department Care Team Description 09/13/2004 Telephone [facility] Aaron Jose MD Other [address] [place] [address] [place] [address] [phone] (Wo rk) Social History Tobacco Use Types Packs/Day Years Used Date Smoking Tobacco: Never Assessed Sex Assigned at Date Recorded Not on file documented as of this encounter Progress Notes Luci Segura RN - 09/13/2004 4:08 PM CST Phone Note filed by Luci Segura RN at 10/18/10 6004 Author: Luci Segura RN Service: (none) Author Type: Registered Nurse Filed: 10/18/109 Note Time: 09/13/04 1608 Status: Signed Lumber Kiln Operator: Luci Segura RN (Registered Nurse) Phone Care Triage Note IMPRESSION: fever SYMPTOMS: Mom calling with several concerns. Pt was overdosed on tylenol last week on Mon--given 240 instead of 180mg. Switched to motrin for fever that was [id number] ax without point. Then on Mon and Sat no fever. Fever back on Monday to 102.3 ax without point. Has runny nose and nasal drainage. However since , has had leg pain and does not want to walk because of pain. REviewed with pharmacist about sx that from over using motrin. She said the sx more kidney and stomach related. Pt's sibling had flu last week. PATIENT INFORMATION: Problem List: Reviewed today in [employer] --- Weight: 39# INTERIM/HOME MANAGEMENT: Reviewed fever guidelinef Leon Antunez. Also reviewed differences tween cold and flu sx. Did advise appt. Mom made one for tomorrw so she can monitor rest of day . Advised: call back if any other questions or concerns. PLAN: SCHEDULE APPOINTMENT WITHIN 12 HOURS Patient/Caller agrees with plan and denies additional questions. Denies emergent, urgent symptoms Created on 13Sep2004 4:08pm by LUCI SEGURA Acknowledged by AARON FELDMAN on 4:40pm NCIAL SERVICES INTERN documented in this encounter Plan of Treatment Not on filedocumented as of this encounter Visit Diagnoses Not on filedocumented in this encounter Care Teams Core Feeder Relationship Specialty Start Date End Date Janelle Ambriz MD PCP - General 04/03/07 [address] [place] [address] documented as of this encounter
--- OUTSIDE RECORDS SUMMARY | 2022-05-18 14:41 | XMS_ITS | Encounter Summary ---
:2000 Author Organization [facility] Address [address] [place] [address] Care Team Providers Name Role Phone Janelle Ambriz MD Primary Care Provider Encounter Details Date Type Department Care Team Description 03/27/2003 PN Conversion Only [place] MD Medicine [address] [facility] [address] [place] [address] [phone] Social History Tobacco Use Types Packs/Day Years Used Date Smoking Tobacco: Never Assessed Sex Assigned at Date Recorded Not on file documented as of this encounter Progress Notes Phone Note, Clinician - 03/27/2003 12:01 AM CDT Phone Note filed by Clinician Phone Note at 10/19/101208 Author: Clinician Phone Note Service: (none) Author Type: Resource Filed: 10/19/101208 Note Time: 03/27/03 0001 Status: Signed Receiver/Laborer: Clinician Phone Note (Resource) - TREATING PROVIDER: DELMI FELDMAN - APPOINTMENT MADE WITH DELMI FELDMAN * HOME PHONE:[phone] * 03/27/2003 08:15AM * WORK PHONE:[phone] * SUBJECTIVE: PATIENT COMPLAINS OF... Sore throat,< 3 years of age, without cough or cold, child is cringing when he swallows. Had a fever on 03/23. Which went away. Now has this apparent sore throat. ALLERGIES/SENSITIVITIES... Pediazole, Augmentin (the one that has sulfa in it.) 03/23/03 CURRENT MEDICATIONS... 03/23/03 PERTINENT PAST HISTORY... 03/23/03 ASSESSMENT: Sore Throat-(Child)-triage guideline DISPOSITION: SEMI-URGENT PLAN: RECOMMENDED THE FOLLOWING... Referenced guideline Sore Throat-(Child)-triage guideline. Schedule appointment with provider within 24-48 hours. -Give acetaminophen or ibuprofen as directed -Encourage liquids: 8-10 regular glasses each day. Juice and water are best. Cool beverages or warm liquids are most soothing. -Encourage soft foods or flavored frozen desserts -Encourage extra rest so the body can use it's natural resources to recuperate -Use humidity for respiratory comfort Patient information given per Sore Throat nurse guidelines. Verbalizes understanding and agrees with phone care recommendation INFORMED PATIENT TO CALLBACK IF... Reasons to call back reviewed- caller verbalizes understanding of the need to call back for the following reasons: -Breathing or swallowing becomes difficult -Any other questions or concerns CALL BY DIONICIO VENEGAS RN 03/27/2003 07:47AM [phone] ADDENDUM: Delmi Novoa MD - 03/27/2003 12:01 AM CDT Progress Notes signed by Delmi Feldman MD at 02/11/042036 Author: Delmi Feldman MD Service: (none) Author Type: Physician Filed: 10/21/10 1542 Note Time: 03/27/032036 Status: Signed Receiver/Laborer: Delmi Feldman MD (Physician) NAME: LIZZY RATLIFF MR: [id number] ACCT: [id number] VISIT: [id number] DICTATING CLINICIAN: DELMI FELDMAN MD JOB: [id number] CLINIC PROGRESS NOTE DATE OF VISIT: 03/27/2003 SUBJECTIVE: : 2000Kaylene Houston is a 3-year-old male who has had a little bit of fever a couple of days ago. This morning he has been fussy and not eating. He has had some swollen glands and has vomited once. MEDICATIONS: He is on no regular medications. ADR/ALLERGIES: HE IS ALLERGIC TO PEDIAZOLE. OBJECTIVE: VS: T: 98.5. GENERAL: Well-developed, well-nourished child who appears acutely ill and tired. HEENT: Atraumatic, normocephalic. Pupils equal, round and reactive to light. Conjunctivae clear. Both tympanic membranes are erythematous. NECK: Supple without adenopathy. LUNGS: Clear. HEART: Regular rate and rhythm. He is noted in the office to be extremely fussy and not very cooperative with his exam. ASSESSMENT: Bilateral otitis media. PLAN: Amoxil 400 mg/5 mL. He is to take 4 mL b.i.d. for 10 days and follow up as needed. TT: CT: [facility]:[id number] C: 04/10/03 02:30 DOCUMENT: [id number] Phone Note, Clinician - 03/23/2003 12:01 AM CDT Phone Note filed by Clinician Phone Note at 10/19/10 1201 Author: Clinician Phone Note Service: (none) Author Type: Resource Filed: 10/19/10 1200 Note Time: 03/23/03 0001 Status: Signed Receiver/Laborer: Clinician Phone Note (Resource) SUBJECTIVE: PATIENT COMPLAINS OF... Fever, * HOME PHONE:[phone] * -Absence of other symptoms for < * WORK PHONE:[phone] * 3-5 days Mom calling says pt. has a temperature of 100.9 axillary. No other symptoms. Pt. is playing and eating. ALLERGIES/SENSITIVITIES... Pediazole, Augmentin (the one that has sulfa in it.) 03/23/03 CURRENT MEDICATIONS... 03/23/03 PERTINENT PAST HISTORY... 03/23/03 ASSESSMENT: Fever-(3months to 3 years)-triage guideline DISPOSITION: HOME CARE PLAN: RECOMMENDED THE FOLLOWING... Referenced guideline Fever-(3months to 3 years)-triage guideline. -Dress lightly -Encourage increased intake of clear liquids -Give acetaminophen as directed for discomfort Caregiver to observe appearance and behavior and call back if child remains uncomfortable or if symptoms worsen. Patient information given per Fever nurse guideline. Verbalizes understanding and agrees with phone care recommendation INFORMED PATIENT TO CALLBACK IF... Reasons to call back reviewed- caller verbalizes understanding of the need to call back for the following reasons: -Serious symptoms develop -Any other questions or concerns CALL BY ESTEE GUSTAFSON RN 03/23/2003 06:55PM [phone] ADDENDUM: Delmi Novoa MD - 02/17/2003 12:01 AM CDT H&P signed by Delmi Feldman MD at 02/11/042013 Author: Delmi Feldman MD Service: (none) Author Type: Physician Filed: 10/21/10 1505 Note Time: 02/17/03 0001 Status: Signed Receiver/Laborer: Delmi Feldman MD (Physician) NAME: LIZZY RATLIFF MR: [id number] ACCT: [id number] VISIT: [id number] DICTATING CLINICIAN: DELMI FELDMAN MD JOB: [id number] CLINIC PHYSICAL DATE OF VISIT: 02/17/2003 SUBJECTIVE: : 2000. Lizzy is a 3-year-old male who presents with his mom for a well exam. She has no concerns about him. He eats well. He drinks milk. He does sleep well, but not always in his own bed. He does have bowel movements every day and is in the process of potty training. He does use a car seat regularly. ADR/ALLERGIES: HE IS ALLERGIC TO AMOXICILLIN. He lives with his parents and older brother. His parents do smoke outside. They have two cats and city water. OBJECTIVE: VS: BP: 70/40. Ht: 36 in. Wt: 31.3 lb. GENERAL: Well-developed, well-nourished child in no acute distress. HEENT: Atraumatic, normocephalic. Pupils equal, round, and reactive to light. Conjunctivae clear. TMs clear bilaterally. Oropharynx clear. NECK: Supple. LUNGS: Clear. HEART: Regular rate and rhythm. ABDOMEN: Soft, nontender, nondistended with good bowel sounds. No organomegaly is noted. EXTREMITIES: Without clubbing, cyanosis, or edema. ASSESSMENT: Well exam. PLAN: Follow up at five years for a well-child exam. TT: CT: [facility]:[id number] C: 02/20/03 05:44 DOCUMENT: [id number] Delmi Feldman MD - 02/06/2003 12:01 AM CDT Progress Notes signed by Delmi Feldman MD at 02/11/042007 Author: Delmi Feldman MD Service: (none) Author Type: Physician Filed: 10/21/10 1455 Note Time: 02/06/03 0001 Status: Signed Receiver/Laborer: Delmi Feldman MD (Physician) NAME: ILZZY RATLIFF MR: [id number] ACCT: [id number] VISIT: [id number] DICTATING CLINICIAN: DELMI FELDMAN MD JOB: [id number] CLINIC PROGRESS NOTE DATE OF VISIT: 02/06/2003 SUBJECTIVE: : 2000. Lizzy presents today with a small dog bite on his lower lip. Last night he was at his neighbor's, and the dog apparently liked to give kisses but sometimes his teeth hit a little bit and scraped Lizzy's lip. Mother thinks that it looks a little bit worse today than it did last night. MEDICATIONS: He is on no regular medications. ADR/ALLERGIES: HE IS ALLERGIC TO SULFA OR AUGMENTIN. He is exposed to tobacco smoke at home. OBJECTIVE: VS: Wt: 31 lb. GENERAL: Well-developed, well-nourished child in no acute distress. Exam of his lower lip does reveal one tiny laceration on the inside of his lower lip and one small puncture on the outside of his lower lip. ASSESSMENT: Dog bite. PLAN: Will put him on Zithromax for prevention of infection and will have him follow up as needed. TT: CT: [facility]:[id number] C: 02/06/03 13:16 DOCUMENT: [id number] Phone Note, Clinician - 02/05/2003 12:01 AM CDT Phone Note filed by Clinician Phone Note at 10/19/10 1148 Author: Clinician Phone Note Service: (none) Author Type: Resource Filed: 10/19/10 1148 Note Time: 02/05/03 0001 Status: Signed Receiver/Laborer: Clinician Phone Note (Resource) - TREATING PROVIDER: DELMI FELDMAN - APPOINTMENT MADE WITH DELMI FELDMAN * HOME PHONE:[phone] * 02/06/2003 10:30AM * WORK PHONE:[phone] * SUBJECTIVE: PATIENT COMPLAINS OF... Animal bite or scratch from dog, -Location on hands, feet, neck, joints, face or genitals Mother calling; Stated that son bent to pet a neighbor dog. Dog then bit the child under the lip. Noting a small puncture wound that does not go through below the lower lip area as well as brusing on the inside of the lip. Has washed the area well. Bleeding is stopped. Is unsure of the status of the pets immunizations, will check on this. ALLERGIES/SENSITIVITIES... pediazole or augmentin; 01/29/03 CURRENT MEDICATIONS... none; 01/29/03 PERTINENT PAST HISTORY... healthy; 01/29/03 ASSESSMENT: Bites animal-(child)-triage guideline DISPOSITION: SEMI-URGENT PLAN: RECOMMENDED THE FOLLOWING... Referenced guideline Bites animal-(child)-triage guideline. Schedule appointment with provider within 8 hours -Cleanse area for 15 minutes with soap and warm running water, then rinse for 10 minutes Patient information given perAnimal Bite nurse guidelines. Cleansing the wound with liberal amounts of water is the most important part of the treatment. Verbalizes understanding and agrees with phone care recommendation INFORMED PATIENT TO CALLBACK IF... Reasons to call back reviewed- caller verbalizes understanding of the need to call back for the following reasons: -Symptoms of infection -Any other questions or concerns CALL BY LUIS LOWE RN 02/05/2003 08:57PM [phone] ADDENDUM: Mike Rodriguez MD - 01/31/2003 12:01 AM CDT Progress Notes signed by Mike Brumfield MD at 02/03/03 1314 Author: Mike Burmfield MD Service: (none) Author Type: Physician Filed: 10/21/10 1450 Note Time: 01/31/032036 Status: Signed Receiver/Laborer: Mike Brumfield MD (Physician) NAME: LIZZY RATLIFF MR: [id number] ACCT: [id number] VISIT: [id number] DICTATING CLINICIAN: MIKE BRUMFIELD MD JOB: [id number] CLINIC PROGRESS NOTE DATE OF VISIT: 01/31/2003 SUBJECTIVE: Reason for Visit: Follow up greenstick fracture. He has been doing well in the cast. Cast did have to be replaced by Dr. Sharma early on. OBJECTIVE: Cast was taken off today. Patient is using his arm fine. He is bending it well. He has a little bit of irritation around where the cast was on the antecubital fossa. He is nontender. X-ray reveals very good healing, essentially circumferential callus formation. ASSESSMENT: Healed greenstick fracture. PLAN: Stay out of cast. Try to avoid any serious falls. Otherwise, he can use it as tolerated. TT: CT: ALEX:[id number] C: 01/31/03 21:28 DOCUMENT: [id number] Phone Note, Clinician - 01/29/2003 12:01 AM CDT Phone Note filed by Clinician Phone Note at 10/19/10 1145 Author: Clinician Phone Note Service: (none) Author Type: Resource Filed: 10/19/10 1145 Note Time: 01/29/03 0001 Status: Signed Receiver/Laborer: Clinician Phone Note (Resource) TO: RASHIDA SYED FROM: BARTOLOME CINTRON [phone] 01/29/03 * PROVIDER MESSAGE: RETURN * 11:29AM * CALL REQUESTED * MESSAGE: Mom (Ching) calling. Pt is * HOME PHONE:[phone] * 3yr old who broke rt ulna on * CONTACT PHONE:[phone] * 01-11-03, casted on 01-13-03. told to return in 3 weeks to remove cast. Mom wondering if this removal can be done this Monday or does she have to wait till Monday? Over weekend family wanted to go to [facility] and go on water ride --cannot go if has cast on. SUBJECTIVE: ALLERGIES/SENSITIVITIES... pediazole or augmentin; 1 01/29/03 CURRENT MEDICATIONS... none; 01/29/03 PERTINENT PAST HISTORY... healthy; 01/29/03 WEIGHT: 32 ASSESSMENT: cast off question PLAN: DISPOSITION: NO DISPOSITION GIVEN CALL BY BARTOLOME CINTRON 01/29/2003 11:26AM [phone] ADDENDUM: <> 01/29/2003 02:12PM by ISABELLA PRITCHARD: Ok to come in on monday. NTORY ASSOCIATE Danika Sharma MD - 01/18/2003 12:01 AM CDT Progress Notes signed by Danika Sharma MD at 02/27/03 0909 Author: Danika Sharma MD Service: (none) Author Type: Physician Filed: 10/21/10 1438 Note Time: 01/18/03 0001 Status: Signed Receiver/Laborer: Danika Sharma MD (Physician) NAME: LIZZY RATLIFF MR: [id number] ACCT: [id number] VISIT: [id number] DICTATING CLINICIAN: DANIKA SHARMA MD JOB: [id number] CLINIC PROGRESS NOTE DATE OF VISIT: 01/18/2003 SUBJECTIVE: The patient is here for checkup of his cast. The patient's cast is becoming disheveled rapidly because it was pretty much broken up, it was removed and recasting was started again. A long arm cast had to be used because of his age and size to avoid it just sliding off. Mother will watch for any problems. Otherwise cast removed per Dr. Brumfield's suggestion. OBJECTIVE: ASSESSMENT: Fractured forearm. PLAN: TT: CT: JOSHUA:[id number] C: 01/18/03 14:33 DOCUMENT: [id number] Phone Note, Clinician - 01/17/2003 12:01 AM CDT Phone Note filed by Clinician Phone Note at 10/19/10 1141 Author: Clinician Phone Note Service: (none) Author Type: Resource Filed: 10/19/10 1141 Note Time: 01/17/03 0001 Status: Signed Receiver/Laborer: Clinician Phone Note (Resource) SUBJECTIVE: PATIENT COMPLAINS OF... Casted * HOME PHONE:[phone] * extremity, Mom calling, pt fractured his arm on 01/09 and a cast was put on 01/13. Now the cast is wet and fall ing apart. Questioning what to do? -Wet, soggy cast ALLERGIES/SENSITIVITIES... pediazole or augmentin; 06/11/02 CURRENT MEDICATIONS... none 06/11/02 PERTINENT PAST HISTORY... healthy; 06/11/02 ASSESSMENT: Cast care-(child)-triage guideline DISPOSITION: EMERGENCY PLAN: RECOMMENDED THE FOLLOWING... Referenced guideline Cast care-(child)-triage guideline. Schedule stat appointment with provider. Call placed to [facility] ER nurse stated that eit her the ER or the could re cast it. Assure patient safety -Elevate casted extremity above the level of the heart -Give acetaminophen as directed for discomfort -Do not attempt to put foreign objects or powder into the cast Verbalizes understanding and agrees with phone care recommendation INFORMED PATIENT TO CALLBACK IF... Reasons to call back reviewed- caller verbalizes understanding of the need to call back for the following reasons: -Any other questions or concerns CALL BY KYLE WONG RN 01/17/2003 05:35PM [phone] ADDENDUM: <> 01/18/2003 09:27AM by CHANTAL MCKENZIE RN: Mom calling back and says went to [facility] last evening for right arm cast. Mom says Child Fx right arm. The cast Mom says ,Parts of the cast are weakening. The [facility] Not able to do Casting. Child was not seen by Orthopedics and has no appt with Orthopedics. Appt made at [facility]. MOm says near the Thumb at the crease has broken down area.. Appt made with [facility] [place] today. Mike Rodriguez MD - 01/13/2003 12:01 AM CDT Progress Notes signed by Mike Brumfield MD at 01/14/03 0811 Author: Mike Brumfield MD Service: (none) Author Type: Physician Filed: 10/21/10 1432 Note Time: 01/13/032036 Status: Signed Receiver/Laborer: Mike Brumfield MD (Physician) NAME: MELISSAPARAG LZIZY MR: [id number] ACCT: [id number] VISIT: [id number] DICTATING CLINICIAN: MIKE BRUMFIELD MD JOB: [id number] CLINIC PROGRESS NOTE DATE OF VISIT: 01/13/2003 SUBJECTIVE: Reason For Visit: Fractured arm. HISTORY OF PRESENT ILLNESS: This is an almost 3-year-old who was playing last when he hurt his arm. Parents really did not think much about it because he was using it. There was some swelling and he seemed to have a little bit more pain so they brought him into the emergency department on Monday where a greenstick fracture was noted. He is in today for casting. OBJECTIVE: Physical exam shows a child who is happy. He is using his arm quite well in the splint. The patient was brought to the cast room and a long-arm cast was applied. The bony prominences around the elbow were padded well as well as the prominences around the hand. ASSESSMENT: Greenstick fracture. PLAN: Cast placement as noted. Parents were warned about possibility of the cast being too tight, rubbing on the arm. If he has a lot of pain they should bring him back for possible reapplication. They will follow up otherwise in three weeks. TT: CT: DJD:[id number] C: 01/13/03 13:21 DOCUMENT: [id number] Conversion, [facility] - 06/11/2002 12:01 AM CST Phone Note signed by at 06/11/02 1032 Author: Mandeep Conversion Service: (none) Author Type: (none) Filed: 10/21/10 1036 Note Time: 06/11/02 0001 Status: Signed Receiver/Laborer: Mandeep Conversion IMPRESSION: Eye pink or red-(child < age 12)-triage guideline - PHARMACY: [phone] synderPL SUBJECTIVE: * HOME PHONE:[phone] * PATIENT COMPLAINS OF... Leupp or red eyes, and/or purulent discharge with: -Symptoms of bacterial conjunctivitis Mom calling that child has pink eye sx with goopy drainage. Denies ea r pain, fever , or any rigidness around eye. ALLERGIES/SENSITIVITIES... pediazole or augmentin; 06/11/02 CURRENT MEDICATIONS... none 06/11/02 PERTINENT PAST HISTORY... healthy; 06/11/02 ASSESSMENT: Eye pink or red-(child < age 12)-triage guideline DISPOSITION: HOME CARE WEIGHT: 26 PLAN: STANDING ORDERS IMPLEMENTED... Tobramycin Opthalmic Solution 1-2 gtts q 4 hours RECOMMENDED THE FOLLOWING... Referenced guideline Eye pink or red-(child < age 12)-triage guideline. Nurse to call pharmacy with prescription as directed by physician standing order -Wash hands before and after care of eyes -Apply warm moist compresses to closed eyes for 10 mintues 4-5 times a day -Clean eyelids thoroughly before administering eye drops -Use medication as directed -Discourage child from touching or rubbing eye -Give acetaminophen as directed for discomfort -Have child wear sunglasses or avoid bright light if eyes are sensitive to light Patient information given per Leupp Eye triage guidelines. Bacterial pinkeye is contagious until treatment has continued for 24 hours. Symptoms often start in one eye and spread to the other. Verbalizes understanding and agrees with phone care recommendation INFORMED PATIENT TO CALLBACK IF... Caregiver to call back if: -Fever, eye pain, blurred vision, redness or swelling around eyes -Ear pain -Symptoms of possible ear pain in child < 3 years of age -Occurrence of thick yellow/green discharge -Symptoms not improved or worsen after 48 hours of home management or prescribed drops -Symptoms not completely resolved within 1 week of home management or prescribed drops -Any other symptoms or concerns MISC COMMENTS... cld into pharmacy at 10:30am CALL BY BARTOLOME CINTRON RN 06/11/2002 10:23AM [phone] ADDENDUM: NTORY ASSOCIATE Danika Nunez - 05/31/2002 12:01 AM CST Progress Notes signed by at 08/24/02 0001 Author: Danika Nunez MD Service: (none) Author Type: Physician Filed: 10/21/10 1021 Note Time: 05/31/02 0001 Status: Signed Receiver/Laborer: Danika Nunez MD (Physician) IMPRESSION: URI. SUBJECTIVE: This is a child who was up fussing some last night, picking at his right ear. He has been having a cough and congestion. He just had an acute otitis about five weeks ago. Mom said he had PE tubes placed in December of 2000. OBJECTIVE: VS: T: 97.6. Wt: 29. NOSE: There is a lot of rhinorrhea. The pharynx just shows watery postnasal drainage. Both ear drums appear completely normal. There is no tubes present on either side. The lungs were clear. ASSESSMENT: URI. PLAN: Will treat that symptomatically and followup p.r.n. TT: CT: DELFINO:[id number] C: 05/31/02 12:35 DOCUMENT: [id number] NTORY ASSOCIATE Mimi Rodriguez - 04/26/2002 12:01 AM CDT Progress Notes signed by Mimi Rodriguez APRN, ENGRAVER [employer] at 05/09/02 5377 Author: FARZANEH Caruso Service: (none) Author Type: Nurse Practitioner Filed: 10/21/10 0932 Note Time: 04/26/02 0001 Status: Signed Receiver/Laborer: FARZANEH Caruso (Nurse Practitioner) IMPRESSION: Limp. SUBJECTIVE: Chief complaint: Limping. The patient has been limping for the past couple of days. He has had no injuries. Mom took him to the ER last night and they were told that if his symptoms continued they should follow up today for x-rays. He was not x-rayed yesterday. He has been afebrile. He is currently on Zithromax for an ear infection. OBJECTIVE: VS: T: 97. Wt: 29 lb. Young child who does not appear in acute distress. Slight limp noted. Examination of the hip and knee totally unremarkable. X-rays negative. ASSESSMENT: Slight limp unclear etiology. PLAN: Advised continued observation. Follow up for non-resolution or worsening of symptoms. TT: CT: MARY:[id number] C: DOCUMENT: [id number] NTORY ASSOCIATE Delmi Feldman MD - 04/24/2002 12:01 AM CDT Progress Notes signed by at 08/24/022036 Author: Delmi Feldman MD Service: (none) Author Type: Physician Filed: 10/21/10 0928 Note Time: 04/24/022036 Status: Signed Receiver/Laborer: Delmi Feldman MD (Physician) IMPRESSION: Right otitis media. Possible histoplasmosis exposure. SUBJECTIVE: Lizzy is a 2-year-old male brought in by his mother to have him tested for histoplasmosis. They lived in a dwelling from December 2000 to March of 2002, and it has been found to have two colonies of bats in the attic. During the time they lived in this dwelling, the child had a lot of cough. Today, he is currently having upper respiratory symptoms, and she has been using Delsym cough syrup without much relief. He is on no regular medications. ADR/ALLERGIES: NO KNOWN ALLERGIES. OBJECTIVE: VS: T: 96.5. Wt: 29 lb. GENERAL: Well-developed, well-nourished male, in no acute distress. HEENT: Atraumatic, normocephalic. Pupils are equal, round, and reactive to light. Conjunctivae clear. Left TM is clear. Right TM is erythematous. NECK: Supple without adenopathy. LUNGS: Clear. HEART: Regular rate and rhythm. ASSESSMENT: Right otitis media. Possible histoplasmosis exposure. PLAN: He is put on Zithromax 100 mg/5 ml, one teaspoon on day one, 1/2 teaspoon days 2-5 for his otitis media. I did discuss with mother that most people will come in contact with histoplasmosis sometime in their life and most infections are not treated. She would like to have him tested anyway to see if he has been exposed so will obtain blood for histoplasmosis today. TT: CT: [facility]:[id number] C: DOCUMENT: [id number] NTORY ASSOCIATE Delmi Feldman MD - 01/24/2002 12:01 AM CDT Progress Notes signed by Delmi Feldman MD at 04/13/02 1615 Author: Delmi Feldman MD Service: (none) Author Type: Physician Filed: 10/21/10 0724 Note Time: 01/24/02 0001 Status: Signed Receiver/Laborer: Delmi Feldman MD (Physician) IMPRESSION: Well child. SUBJECTIVE: Lizzy is a 2-year-old male who presents for a well exam. He has been doing well. Parents do not have any particular concerns about him. He drinks 1% milk and table foods. He has normal bowel movements. He is sleeping through the night but does occasionally sleep with parents as they just took him out of his crib. He uses a carseat. MEDICATIONS: He is not on any regular medications. ADR/ALLERGIES: NO KNOWN DRUG ALLERGIES. He is exposed to tobacco smoke. OBJECTIVE: VS: Ht: 33 in. Wt: 26.1 lb. Head circumference: 19 in. Well-developed, well-nourished male in no acute distress. HEENT: Atraumatic, normocephalic. Pupils equal, round, reactive to light. Conjunctivae clear. TMs clear bilaterally. Oropharynx clear. NECK: Supple without adenopathy or thyromegaly. LUNGS: Clear. CV: Regular rate and rhythm. ABD: Soft, nontender, nondistended with good bowel sounds. : Normal male genitalia. Testes are down bilaterally. EXTREMITIES: Without clubbing, cyanosis, or edema. ASSESSMENT: Well child. PLAN: Will give him PCV immunization and he also needs lead testing otherwise follow up as needed. TT: CT: RADHA:[id number] C: DOCUMENT: [id number] documented in this encounter Plan of Treatment Not on filedocumented as of this encounter Procedures Procedure Name Priority Date/Time Associated Comments Diagnosis XR WRIST RT 3+ VIEWS Routine 01/31/2003 1:26 PM R esults for this CDT procedure are i n the results section. ANC RESULT CONVERSION Routine 04/26/2002 2:48 PM Results for this DEFAULT ORDER CDT procedure are in the results section. ANC RESULT CONVERSION Routine 04/26/2002 2:21 PM Results for this DEFAULT ORDER CDT procedure are in the results section. DIFFERENTIAL MANUAL Routine 04/26/2002 2:20 PM Re sults for this CDT procedure are i n the results section. COMPLETE BLOOD Routine 04/26/2002 2:20 PM Results for this COUNT-NO DIFF CDT procedure are in the results section. HISTOPLASMA SPP, Routine 04/24/2002 2:11 PM Resul ts for this ANTIBODIES BY ID CDT procedure a re in the results section. LEAD, BLOOD CAPILLARY Routine 01/24/2002 2:18 PM Results for this CDT procedure are i n the results section. documented in this encounter Results XR Wrist Rt 3+ Views (01/31/2003 1:26 PM CDT) Anatomical Region Laterality Modality Upper Extremity, Wrist Other Specimen (Source) Anatomical Location Collection Method / Collectio n Time Received Time / Laterality Volume Narrative 01/31/2003 1:26 PM CDT FINDINGS: ??There is callus indicating a healing response of an undisplaced fracture of the distal shaft of the ulna. ??No complication is seen. [facility]/[id number] Dictating ELLEN KHANNA RADIOLOGIST Procedure Note Ellen Orozco - 09/08/2016 FINDINGS: There is callus indicating a h ealing response of an undisplaced fracture of the distal shaft of the ulna. No complication is seen. [facility]/[id number] Dictating ELLEN KHANNA RADIOLOGIST Mike Brumfield MD RAD GD Anc Result Conversion Default Order (04/26/2002 2:48 PM CDT) Anatomical Region Laterality Modality Other Specimen (Source) Anatomical Location Collection Method / Collectio n Time Received Time / Laterality Volume Narrative 04/26/2002 2:48 PM CDT CLINICAL DATA: ?LIMPING FINDINGS: ?NEGATIVE. ?[id number] TECH-ID : TRANS-ID: ? EDR Procedure Note Tashi Maria - 09/08/2016 CLINICAL DATA: LIMPING FINDINGS: NEGATIVE. 13123/[facility] TECH-ID : TRANS-ID: EDR Mimi Rodriguez APRN, CNP RAD GD Anc Result Conversion Default Order (04/26/2002 2:21 PM CDT) Anatomical Region Laterality Modality Other Specimen (Source) Anatomical Location Collection Method / Collectio n Time Received Time / Laterality Volume Narrative 04/26/2002 2:21 PM CDT CLINICAL DATA: ?LIMPING FINDINGS: ?MOTION ARTIFACT ON THE AP VIEW. OT HERWISE, UNREMARKABLE. ?[id number] TECH-ID : TRANS-ID: ? EDR Procedure Note Tashi Maria - 09/08/2016 CLINICAL DATA: LIMPING FINDINGS: MOTION ARTIFACT ON THE AP VIEW. OTHERWI SE, UNREMARKABLE. [address] [place] [address] TECH-ID : TRANS-ID: EDR Mimi Rodriguez APRN, CNP RAD GD Differential Manual (04/26/2002 2:20 PM CDT) [facility] Tap[employer] Method Time Signature Neutrophils 35 23 - 45 % HP CONVERSION Lymphocytes 59 35 - 65 % HP CONVERSION Monocyte 3 3 - 12 % HP CONVERSION Eosinophils 2 0 - 3 % HP CONVERSION Basophils 1 0 - 1 % HP CONVERSION Platelet Normal No normal HP CONVERSION Estimate range RBC Morphology Normal No normal HP CONVERSION range Comment: RBC's appear normochromic and n ormocytic. Specimen (Source) Anatomical Collection Method Collection Time Re ceived Time Location / / Volume Laterality 04/26/2002 2:20 PM CDT Mimi Rodriguez APRN, CNP LAB_1 Performing Organization Address City/State/ZIP Code Phon e Number HP CONVERSION (ABNORMAL) Complete Blood Count-No Diff (04/26/2002 2:20 PM CDT) [facility] Method Time Signature White Blood Cell 5.7 5.5 - HP CONVERSION Count 15.5 K/cmm Red Blood Cell 4.98 3.80 - HP CONVERSION Count 5.20 m/cmm Hemoglobin 12.1 11.0 - HP CONVERSION 14.5 gm/dL Hematocrit 36.6 33.0 - HP CONVERSION 42.0 % Mean Corpuscular 73.5 (LL) 75.0 - HP CONVERSION Volume 91.0 fl Mean Corpuscular 24.3 24.0 - HP CONVERSION Hemoglobin 34.0 pg Mean Corpuscular 33.1 32.0 - HP CONVERSION Hemoglobin Conc 36.5 [place] gm/dL RDW 14.1 11.0 - HP CONVERSION 15.0 % Platelet Count 497 (HH) 150 - 450 HP CONVERSION k/cmm Specimen (Source) Anatomical Collection Method Collection Time Re ceived Time Location / / Volume Laterality 04/26/2002 2:20 PM CDT Mimi Rodriguez APRN, ENGRAVER TIRE MOLD LAB_1 Performing Organization Address [facility] Phon e Number HP CONVERSION Histoplasma Capsulatum Antibody (04/24/2002 2:11 PM CDT) Patholo gist Method Time Signature Histoplasma Ab NONE DET NONE DET HP CONVERSION by ID Comment: Interpretive data: TEST INFORMATION: Histoplasma Abs (ID) In general immunodiffusion measures IgG and a positive result may suggest active or recent infe ction. Specimen (Source) Anatomical Collection Method Collection Time Re ceived Time Location / / Volume Laterality 04/24/2002 2:11 PM CDT Delmi Feldman MD LAB_1 Performing Organization Address [facility] Phon e Number HP CONVERSION Lead, Blood Capillary (01/24/2002 2:18 PM CDT) P athologist Signature Lead Capillary 5.7 0.0 - 9.9 HP CONVERSION Blood ug/dL Comment: No action required. Blood Lead in Children according to CDC Screening Young Children for Lead Poisoning program, 1997(5). Interpretive data: TEST INFORMATION: Lead, Whole Blood Capi llary Blood lead in children: Refer to CDC Scr eening Young Children for Lead Poisoning program, 199 7. Blood lead in adults, occupationally exposed: Refer to OSHA and/or industrial standards. Specimen (Source) Anatomical Collection Method Collection Time Re ceived Time Location / / Volume Laterality 01/24/2002 2:18 PM CDT Delmi Feldman MD LAB_1 Performing Organization Address [facility] Phon e Number HP CONVERSION documented in this encounter Visit Diagnoses Not on filedocumented in this encounter Care Teams Mixer Whipped Topping Relationship Specialty Start Date End Date Janelle Ambriz MD PCP - General 04/03/07 [address] [place] [address] documented as of this encounter
--- OUTSIDE RECORDS SUMMARY | 2022-05-18 14:41 | XMS_ITS | Encounter Summary ---
:2000 Author Organization [employer] Address [address] [place] [address] Care Team Providers Name Role Phone Janelle Ambriz MD Primary Care Provider Encounter Details Date Type Department Care Team Description 05/19/2003 PN Conversion Only [place] [facility] [address] [place] [address] Social History Tobacco Use Types Packs/Day Years Used Date Smoking Tobacco: Never Assessed Sex Assigned at Date Recorded Not on file documented as of this encounter Progress Notes Phone Note, Clinician - 07/17/2003 12:01 AM CST Phone Note filed by Clinician Phone Note at 10/19/10 1300 Author: Clinician Phone Note Service: (none) Author Type: Resource Filed: 10/19/10 1300 Note Time: 07/17/03 0001 Status: Signed Panama Hat Smearer: Clinician Phone Note (Resource) - REFERRED PATIENT TO EMERGENCY ROOM * HOME PHONE:[phone] * SUBJECTIVE: * WORK PHONE:[phone] * PATIENT COMPLAINS OF... Severe headache -Fever and stiff neck with fever of 103 before giving Tylenol now temp is 101. Child told mom his neck hurt and when he tried to look down at his feet he started to cr y due to pain. He is sitting on couch trying to go to sleep but is very restless and uncomfortable. ALLERGIES/SENSITIVITIES... Pediazole, Augmentin (the one that has sulfa in it.) 03/23/03 CURRENT MEDICATIONS... 03/23/03 PERTINENT PAST HISTORY... 03/23/03 ASSESSMENT: Headache-(child)-triage guideline DISPOSITION: EMERGENCY PLAN: RECOMMENDED THE FOLLOWING... Referenced guideline Headache-(child)-triage guideline. Schedule stat appointment with provider advised mom to take him to [facility] ER. Mom agreed. Assure patient safety Patient information given per Headache nurse guidelines. Verbalizes understanding and agrees with phone care recommendation INFORMED PATIENT TO CALLBACK IF... Reasons to call back reviewed- caller verbalizes understanding of the need to call back for the following reasons: -Any other questions or concerns CALL BY DIONICIO VENEGAS RN 07/17/2003 11:59PM [phone] ADDENDUM: TRICAL LINEWORKER documented in this encounter Plan of Treatment Not on filedocumented as of this encounter Visit Diagnoses Not on filedocumented in this encounter Care Teams Complaint Investigator Relationship Specialty Start Date End Date Janelle Ambriz MD PCP - General 04/03/07 [address] [place] [address] documented as of this encounter
--- OUTSIDE RECORDS SUMMARY | 2022-05-18 14:41 | XMS_ITS | Encounter Summary ---
:2000 Author Organization [facility] Address [address] [place] [address] Care Team Providers Name Role Phone Janelle Ambriz MD Primary Care Provider Reason for Visit Reason Comments Other Encounter Details Date Type Department Care Team Description 11/26/2004 Telephone [place] [facility] Butch Valadez RN Other [address] [place], [place] [address] Social History Tobacco Use Types Packs/Day Years Used Date Smoking Tobacco: Never Assessed Sex Assigned at Date Recorded Not on file documented as of this encounter Progress Notes Butch Reynoso RN - 11/26/2004 9:39 AM CDT Phone Note filed by Butch Reynoso RN at 10/18/101830 Author: Butch Reynoso RN Service: (none) Author Type: Registered Nurse Filed: 10/18/101830 Note Time: 11/26/04938 Status: Signed High Heel Builder: Butch Reynoso RN (Registered Nurse) Father calling. Fell off top of bunk bed at 7:30am this am. landed on the top of his head possibly on a toy, noticed sm amount of blood. Now has a soft spot on top of head and patient complaining of head feeling shakey. alert and responsive, no vomiting, responding normally, denies neck pain. Referenced Isaac Means--head trauma. Appt booked Created on 26Nov2004 9:39am by BUTCH REYNOSO K CARRIER documented in this encounter Plan of Treatment Not on filedocumented as of this encounter Visit Diagnoses Not on filedocumented in this encounter Care Teams Ribbing Machine Operator Relationship Specialty Start Date End Date Janelle Ambriz MD PCP - General 04/03/07 [address] [place] [address] documented as of this encounter
--- OUTSIDE RECORDS SUMMARY | 2022-05-18 14:41 | XMS_ITS | Clinical Summary ---
:2000 Author Organization [employer] [facility] [place] [address] Care Team Providers Name Role Phone Peds, [facility] Primary Care Provider Unavailable Allergies Active Allergy Reactions Severity Noted Date Comments Amoxicillin Rash 07/30/2006 Sulfa (Sulfonamide Antibiotics) Rash 7 Medications No known medications Active Problems Not on file Immunizations Name Administration Dates Next Due DTaP 07/12/2004, 05/15/2001, 2000, 2000, 2000 DTaP-HIB (TriHIBIT) 2000, 2000, 2000 HIB HbOC (HibTITER) 07/31/2001 HIB PRP-T (ActHIB,Hiberix) 07/31/2001 HPV 9 (Gardasil 9) 05/30/2018 Hepatitis A (Peds) 05/30/2018 Hepatitis B (Peds) 12/05/2007, 2000, 2000, 2000 Hib Conjugate, Unspecified 07/31/2001, 2000, 0, 2000 Inactivated Polio Vaccine 07/12/2004, 2000, 2000 , 2000 Influenza Virus, Unspecified 06/15/2010, 05/16/2007 Influenza, IIV3 (Age >=3 years) 06/15/2010, 05/16/2007 Influenza, IIV4 05/30/2018 MMR 07/12/2004, 02/15/2001 Meningococcal Vaccine (Menveo) 05/30/2018 Pneumococcal conj 7-Valent (Prevnar 7) 01/24/2002 Tdap 02/29/2012 Varicella Vaccine 12/05/2007, 02/15/2001 Social History Tobacco Use Types Packs/Day Years Used Date Current Every Day Smoker Cigarettes 0.25 Smokeless Tobacco: Never Used Tobacco Cessation: Ready to Quit: No; Co unseling Given: Yes Comments: 4-5 cigs per day Alcohol Use Standard Drinks/Week Comments Yes 0 (1 standard drink = 0.6 oz pure alcoho l) Alcohol Habits Answer Date Recorded How often do you have a drink containing alcohol? 2-4 times a month 07/28/2020 How many drinks containing alcohol do you have on a 3 or 4 07/28/2020 typical day when you are drinking? How often do you have six or more drinks on one Monthly 07/28/2020 occasion? Comment: Not asked Sex Assigned at Date Recorded Not on file Obstetrics History Last Filed Vital Signs Vital Sign Reading Time Taken Comments Blood Pressure 130/76 07/28/2020 11:00 AM KEY MAKER Pulse 88 07/28/2020 11:00 AM KEY MAKER Temperature 36.9 ??C (98.5 ??F) 10/17/2016 3:36 PM CDT Respiratory Rate 14 10/17/2016 3:36 PM CDT Oxygen Saturation 98% 07/28/2020 11:00 AM KEY MAKER Inhaled Oxygen Concentration - - Weight 95.1 kg (209 lb 9.6 oz) 07/28/2020 11:00 AM KEY MAKER Height 175.5 cm (5' 9.09) 07/28/2020 11:00 AM KEY MAKER Body Mass Index 30.87 07/28/2020 11:00 AM KEY MAKER Plan of Treatment Health Maintenance Due Date Last Done Comments COVID-19 vaccine series (#1) 2000 Pneumococcal series for age 19-64 01/26/2006 (1 - PCV) Depression screening for age 12+ 2012 Hepatitis C screening for age 0701/26/2018 18-79 HPV series for age 9-26 (2 - Male 06/27/2018 05/30/2018 3-dose series) BMI (ht and wt on same day) for 07/28/2021 07/28/2020 age 18+ Tetanus booster 02/28/2022 02/29/2012 Influenza for age 9-49 03/03/2022 05/30/2018, 06/15/2010, 06/15/2010, Additional history exists Tdap Completed 02/29/2012 Results Not on filefrom Last 3 Months Insurance Payer Benefit Plan / Subscriber ID Effective Dates Phone Addre ss Type Group BLUE CROSS BLUE CROSS OF [id number] 2017-Present [address] [id number] [place] [address] Care Teams Returns Processor Relationship Specialty Start Date End Date Song Hooks PCP - General 07/27/11
--- OUTSIDE RECORDS SUMMARY | 2022-05-18 14:41 | XMS_ITS | Encounter Summary ---
:2000 Author Organization [employer] Address [address] [place] [address] Care Team Providers Name Role Phone Janelle Ambriz MD Primary Care Provider Encounter Details Date Type Department Care Team Description 10/18/2004 [facility] Mimi Molina APRN, [address] [place] [address] [phone] [place], [place] [address] Social History Tobacco Use Types Packs/Day Years Used Date Smoking Tobacco: Never Assessed Sex Assigned at Date Recorded Not on file documented as of this encounter Last Filed Vital Signs Vital Sign Reading Time Taken Comments Blood Pressure - - Pulse - - Temperature 36.6 ??C (97.9 ??F) 10/18/2004 2:13 PM CDT C: 36 .6 C Respiratory Rate - - Oxygen Saturation - - Inhaled Oxygen Concentration - - Weight 16.5 kg (36 lb 4.6 oz) 10/18/2004 2:13 PM CDT C: 16.5kg Height - - Body Mass Index - - documented in this encounter Progress Notes Mimi Rodriguez - 10/18/2004 12:01 AM CDT Progress Notes signed by Mimi Rodriguez APRN, FIRE HYDRANT MECHANIC at 11/09/04 1132 Author: FARZANEH Caruso Service: (none) Author Type: Nurse Practitioner Filed: 10/22/10 0351 Note Time: 10/18/042010 Status: Signed Sat Tutor: FARZANEH Caruso (Nurse Practitioner) NAME: HADLEY NEAL MR: [id number] ACCT: [id number] VISIT: [id number] DICTATING CLINICIAN: MIMI RODRIGUEZ NP JOB: [id number] CLINIC PROGRESS NOTE DATE OF VISIT: 10/18/2004 SUBJECTIVE: Chief Complaint: Suture removal. Patient has had sutures in two lacerations on his forehead for five days. They were put in at [facility] and the parents were told that he should have them steri-striped with removal in five days. They have been using bacitracin ointment. OBJECTIVE: VS: Wt: 36.3 lb. Healthy-appearing child in no acute distress. He has two forehead lacerations, one with four stitches and the other with six. These were removed. There is some crusting. No purulent discharge. Steri-Strips were applied. ASSESSMENT: Suture removal. PLAN: Will continue with the bacitracin ointment and will follow up for any problems. DIAGNOSIS: Suture removal. MARY:[id number] C: 10/20/04 15:01 DOCUMENT: [id number] documented in this encounter Plan of Treatment Not on filedocumented as of this encounter Visit Diagnoses Not on filedocumented in this encounter Care Teams Agency Operator Relationship Specialty Start Date End Date Janelle Ambriz MD PCP - General 04/03/07 [address] [place] [address] documented as of this encounter
--- OUTSIDE RECORDS SUMMARY | 2022-05-18 14:41 | XMS_ITS | Encounter Summary ---
:2000 Author Organization [employer] Address [address] [place] [address] Care Team Providers Name Role Phone Janelle Ambriz MD Primary Care Provider Reason for Visit Reason Comments Other Encounter Details Date Type Department Care Team Description 04/23/2004 Telephone [facility] Aaron Jose MD Other [address] [place] [address] [place] [address] [phone] (Wo rk) Social History Tobacco Use Types Packs/Day Years Used Date Smoking Tobacco: Never Assessed Sex Assigned at Date Recorded Not on file documented as of this encounter Progress Notes Kae Griffin - 04/23/2004 4:14 PM CDT Phone Note filed by Kae Griffin RN at 10/18/10 4885 Author: Kae Griffin RN Service: (none) Author Type: (none) Filed: 10/18/10 1450 Note Time: 04/23/04 1614 Status: Signed Top Screw: Imr Conversion mom calling, child ran into the corner of a wall and hit his head. child has a goose egg. no loss of consciousness. no open wound. no vomitting. reviewed head trauma guidelines from Gray Antunez 10th edition. explained when to call back if other sx develop. mom had no other questions. FYI Created on 23Apr2004 4:14pm by KAE GRIFFIN Acknowledged by AARON FELDMAN on 8:10am documented in this encounter Plan of Treatment Not on filedocumented as of this encounter Visit Diagnoses Not on filedocumented in this encounter Care Teams Software Recruiter Relationship Specialty Start Date End Date Janelle Ambriz MD PCP - General 04/03/07 [address] [place] [address] documented as of this encounter
--- OUTSIDE RECORDS SUMMARY | 2022-05-18 14:41 | XMS_ITS | Encounter Summary ---
:2000 Author Organization [employer] Address [address] [place] [address] Care Team Providers Name Role Phone Janelle Ambriz MD Primary Care Provider Reason for Visit Reason Comments Other Encounter Details Date Type Department Care Team Description 09/24/2004 Telephone [facility] Aaron Jose MD Other [address] [place] [address] [place] [address] [phone] (Wo rk) Social History Tobacco Use Types Packs/Day Years Used Date Smoking Tobacco: Never Assessed Sex Assigned at Date Recorded Not on file documented as of this encounter Progress Notes Kae Griffin - 09/24/2004 12:58 PM CST Phone Note filed by Kae Griffin RN at 10/18/101725 Author: Kae Griffin RN Service: (none) Author Type: (none) Filed: 10/18/101725 Note Time: 09/24/04 1258 Status: Signed Certified Marine Mechanic: Imr Conversion mom calling, child started a croupy cough last night and vomited. no fever. mom then had child in steamy bathroom and then took outside in the cold air. cough resolved. slight cough today but no croupy noises. reviewed croup guidelines with mom from Isaac Antunez. mom will monitor at home for now and will call back if fever develops or if sx do not continue to improve. FYI Created on 24Sep2004 12:58pm by KAE GRIFFIN Acknowledged by AARON FELDMAN on 7:52am UT BUTTER MAKER documented in this encounter Plan of Treatment Not on filedocumented as of this encounter Visit Diagnoses Not on filedocumented in this encounter Care Teams Auto Transmission Mechanic Relationship Specialty Start Date End Date Janelle Ambriz MD PCP - General 04/03/07 [address] [place] [address] documented as of this encounter
--- OUTSIDE RECORDS SUMMARY | 2022-05-18 14:41 | XMS_ITS | Encounter Summary ---
:[address] [facility] Address [address] [place] [address] Care Team Providers Name Role Phone Janelle Ambriz MD Primary Care Provider Encounter Details Date Type Department Care Team Description 10/18/2004 PN Conversion Only [place] [facility] [address] [place] [address] Social History Tobacco Use Types Packs/Day Years Used Date Smoking Tobacco: Never Assessed Sex Assigned at Date Recorded Not on file documented as of this encounter Plan of Treatment Not on filedocumented as of this encounter Visit Diagnoses Not on filedocumented in this encounter Care Teams Architectural Manager Relationship Specialty Start Date End Date Janelle Ambriz MD PCP - General 04/03/07 [address] [place] [address] documented as of this encounter
--- OUTSIDE RECORDS SUMMARY | 2022-05-18 14:41 | XMS_ITS | Encounter Summary ---
:2000 Author Organization [employer] Address [address] [place] [address] Care Team Providers Name Role Phone Janelle Ambriz MD Primary Care Provider Encounter Details Date Type Department Care Team Description 08/05/2004 [facility] Mimi Molina APRN, [address] [place] [address] [phone] [address] [place], [place] [address] Social History Tobacco Use Types Packs/Day Years Used Date Smoking Tobacco: Never Assessed Sex Assigned at Date Recorded Not on file documented as of this encounter Progress Notes Mimi Rodriguez - 08/05/2004 12:01 AM CST Progress Notes signed by Mimi Rodriguez APRN, LOCKSTITCH HEMMER at 08/05/04 1715 Author: FARZANEH Caruso Service: (none) Author Type: Nurse Practitioner Filed: 10/22/10 0224 Note Time: 08/05/04 0001 Status: Signed Old Coin Dealer: FARZANEH Caruso (Nurse Practitioner) Acute Clinic Visit IMPRESSION: Viral URI SUBJECTIVE: Chief Complaint: Cough History of Present Illness: Illness began yesterday Afebrile Symptoms stable Cough Meds This Illness: No acute medications being used Past History: No History of Respiratory Disease Adverse Drug Reactions: Patient's ADR's were reviewed and updated today on the Health Profile screen of [facility] Chronic Medications: reviewed and updated today on Health Profile in [employer]. OBJECTIVE: Vital Signs: T: 98.9 degrees F. P: - R: - BP: - Weight: 34.9 lbs. General Appearance: Well-appearing Eyes: External exam is normal bilaterally Ears: Bilateral pinnae, canals and TMs normal Nose/Sinuses: Normal Oropharynx: Normal, mucous membranes moist, tonsils symmetric without redness or exudate. Neck: Supple without significant adenopathy or thyromegaly Respiratory: Lung sounds clear to auscultation without respiratory distress Cardiac: RRR without murmur Lab & X-Ray: None ASSESSMENT: Viral URI PLAN: Symptomatic care RTC PRN if not gradually improving *SH~PC~URIL ~S[place]th[place] Note completed on: 08/05/2004 5:17 PM KING CLERK documented in this encounter Plan of Treatment Not on filedocumented as of this encounter Visit Diagnoses Not on filedocumented in this encounter Care Teams Database Security Administrator Relationship Specialty Start Date End Date Janelle Ambriz MD PCP - General 04/03/07 [address] [place] [address] documented as of this encounter
--- OUTSIDE RECORDS SUMMARY | 2022-05-18 14:41 | XMS_ITS | Encounter Summary ---
:2000 [email or web address] Address [address] [place] [address] Care Team Providers Name Role Phone Janelle Ambriz MD Primary Care Provider Encounter Details Date Type Department Care Team Description 07/12/2004 Office Visit [facility] Aaron Jose MD [address] [place] [address] [place] [address] [phone] (Wo rk) Social History Tobacco Use Types Packs/Day Years Used Date Smoking Tobacco: Never Assessed Sex Assigned at Date Recorded Not on file documented as of this encounter Progress Notes Aaron Feldman MD - 07/12/2004 12:01 AM CST H&P signed by Aaron Feldman MD at 08/13/04 0801 Author: Aaron Feldman MD Service: (none) Author Type: Physician Filed: 10/22/10 0156 Note Time: 07/12/04 0001 Status: Signed Jacquard Loom Fixer: Aaron Feldman MD (Physician) NAME: HADLEY NEAL MR: [id number] ACCT: [id number] VISIT: [id number] DICTATING CLINICIAN: AARON EFLDMAN MD JOB: [id number] CLINIC PHYSICAL DATE OF VISIT: 07/12/2004 SUBJECTIVE: : 2000. Hadley is a 4-1/2-year-old male brought in by his father today for a well exam. His only concern is that Coel does not know all of his colors yet, but otherwise seems to be doing well. He eats everything. Drinks milk. Has daily bowel movements. He sleeps well. ADR/ALLERGIES: AMOXICILLIN. He does not get any exposure to tobacco smoke. They have one dog and one cat at home, city water, and he used to go to day care but he does not currently. Vision test: 20/30 both sides. OBJECTIVE: VS: BP: 60/40, taken in the right arm with a pediatric cuff. Ht: 3 ft. 4 in. Wt: 35 lb. GENERAL: Well-developed, well-nourished male in no acute distress. HEENT: Atraumatic, normocephalic. Pupils are equal, round, and reactive to light. Conjunctivae clear. TMs are clear bilaterally. Oropharynx is clear. NECK: Supple without adenopathy or thyromegaly. LUNGS: Clear. HEART: Regular rate and rhythm. ABDOMEN: Soft, nontender, and nondistended with good bowel sounds. No organomegaly noted. exam reveals normal male genitalia. Extremities without clubbing, cyanosis, or edema. Momo Developmental exam is normal. He did have some trouble with colors. Sometimes he seems to know them and sometimes he does not. ASSESSMENT: Well exam. PLAN: He is to get his MMR, IPV, and DTaP today, and will have him follow up as needed. KLM:[id number] C: 07/19/04 12:42 DOCUMENT: [id number] [place] PERFORMANCE COACH documented in this encounter Plan of Treatment Not on filedocumented as of this encounter Visit Diagnoses Not on filedocumented in this encounter Care Teams Package Lift Operator Relationship Specialty Start Date End Date Janelle Ambriz MD PCP - General 04/03/07 [address] [place] [address] documented as of this encounter
[2022-05-18 17:40] LABS: Amphetamine Screen Urine Negative (Negative); Barbiturate Screen Urine Negative (Negative); Benzodiazepines Screen Urine Negative (Negative); Cannabinoid Screen Urine Negative (Negative); Cocaine Screen Urine Negative (Negative); Methadone Screen Urine Negative (Negative); Methamphetamines Screen Urine Negative (Negative); Opiate Screen Urine Negative (Negative); Oxycodone Screen Urine Negative (Negative); Phencyclidine Screen Urine Negative (Negative); Tricyclic Antidepressant Urine Negative (Negative)
== END 2022-05-18 14:09 | disposition home or self-care (01) ==
LOC: NFLDREF 14:10
PROVIDERS: PCP Family Medicine; Visit Provider Family Medicine
DX: R89.2 Abnormal level of other drugs, medicaments and biological substances in specimens from other organs, systems and tissues (principal)
CPT/HCPCS: 80306

== ENCOUNTER 2022-10-28 14:26 | Outpatient (CLI) | payer BC, SELFPAY ==
--- NOTE | 2022-10-28 14:30 | CRLHL7_ITS ---
For Patients: As a result of the 21st Century Cures Act, medical imaging exams and procedure reports are released immediately into your electronic medical record. You may view this report before your referring provider. If you have questions, please contact your health care provider. INDICATION: Pain after injury. COMPARISON: None provided. TECHNIQUE: Axial and coronal PD and PD fat sat and sagittal T1 and STIR right ankle sequences without contrast. FINDINGS: Tendons: Periarticular tendons have normal caliber and signal with no subluxation. Small amount of tenosynovitis fluid in the common peroneal tendon sheath and posterior tibialis around lateral and medial ankle. - Ligaments: Intact syndesmotic ligaments. Torn anterior talofibular ligament. Partial tear of the origin of the calcaneofibular ligament. Likely some tearing in the posterior talofibular ligament. A full-thickness tear through the deltoid deep fibers with edematous attenuated superficial fibers suggesting some partial tearing. No sinus tarsus syndrome. - Ankle joint: Small joint effusion. Strandy and patchy intermediate signal hemorrhage versus synovitis. Small focal roughly 3 mm wide focal cartilage defect in the tibial plafond with underlying marrow edema (image 13 series 6). - Bones and soft tissues: Small effusion of the talonavicular joint. Posttraumatic marrow edema in the medial malleolus. Physiologic fluid calcaneocuboid joint. Intact Chopart joint ligaments with anatomic alignment. No fracture or bone lesion in the hindfoot or midfoot. Normal thickness and signal of the plantar fascia. Endosteal bone island incidentally noted in the lateral proximal metaphysis of the 4th metatarsal. IMPRESSION: 1. Full-thickness tear of anterior talofibular ligament and partial tearing of the calcaneofibular ligament and posterior talofibular ligament. 2. Fairly high-grade to near full thickness tearing of the deltoid. Deep fibers are completely disrupted and there is attenuated edematous superficial fibers which appear at least partially torn. 3. Posttraumatic ankle joint effusion. Small focal grade 3 cartilage defect anterior central tibial plafond. Probable minor synovitis in the joint effusion. No definite intra-articular body. 4. Mild likely reactive tenosynovitis common peroneal tendon sheath and the posterior tibialis or on the ankle. Dictated by Tyler Desai MD @ 10/31/2022 9:22:05 AM (Electronically Signed)
== END 2022-10-28 14:27 | disposition home or self-care (01) ==
LOC: MRI 14:26
PROVIDERS: PCP Family Medicine; Visit Provider Internal Medicine
DX: M25.572 Pain in left ankle and joints of left foot (principal); S93.412A Sprain of calcaneofibular ligament of left ankle, initial encounter; S93.422A Sprain of deltoid ligament of left ankle, initial encounter; M25.472 Effusion, left ankle
CPT/HCPCS: 73721

== ENCOUNTER 2023-11-06 23:09 | Emergency (ER) | payer BC, SELFPAY ==
[2023-11-06 23:15] VITALS: BP 144/78; PULSE 106; RESP 16; TEMP 36.6; O2SAT 98; BMI 31.0
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
--- OUTSIDE RECORDS SUMMARY | 2023-11-06 23:35 | XMS_ITS | Clinical Summary ---
Author Name Unknown Organization [facility] Address [address] [place] [address] Care Team Providers Care Production Operations Manager Name Role Phone Elsewhere, Pcp Primary Care Provider Unavailabl e Source Comments Patient records contain information from all sites at [facility]. For routine questions regarding patient records, call [phone] during business hours, M-F 8:00 AM - 5:00 PM Central Time. Record requests for emergency care only can be directed to [phone] at any time.[facility] Allergies Active Allergy Reactions Criticality Noted Date Comments Amoxicillin Rash 07/30/2006 I don't even know Sulfa (Sulfonamide Antibiotics) Rash,Other (see comments) 07/30/2006 I don't even know Medications Medication Sig Dispensed Refills Start Date End Date Status escitalopram (LEXAPRO) 10 mg tablet Take 10 mg by mouth daily. 12/27/2021 Active Active Problems Problem Noted Date Diagnosed Date Attention Deficit Hyperactive Disorder 7 Overview: Deana Conner Deliverer Outside [facility] [phone] Immunizations Name Administration Dates Next Due 9vHPV 05/30/2018 DTaP (Infanrix, Tripedia) 07/12/2004,,2000,1999,2000 DTaP / Hib 2000,2000,2000 HepA Pediatric/Adolescent 05/30/2018 HepB Pediatric/Adolescent 12/05/2007,07/2000,2000,1999 Hib (HbOC) (discontinued) 07/31/2001 Hib, Unspecified 07/31/2001, 1,2000,1999 IPV 07/12/2004, 1,2000,1999 Influenza TIV (IM) 06/15/2010,05/16/2007, 007 Influenza, Seasonal, Injectable 06/15/2010,05/16 Influenza, Unspecified 06/15/2010,05/16/2007 MCV4 (Menveo) 05/30/2018 MMR 07/12/2004,02/15/2001 PCV7 (discontinued) 01/24/2002 Tdap 02/29/2012 CHIO 12/05/2007,02/15/2001 influenza vaccine quad (FLUZONE/FLUARIX) (6 months and older)(PF) 05/30/2018 Social History Tobacco Use Types Packs/Day Years Used Date Smoking Tobacco: Former Cigarettes Passive Smoke Exposure: Never Smokeless Tobacco: Never Tobacco Cessation:Counseling Given: Not Answered Alcohol Use Standard Drinks/Week Comments Not Currently 0 (1 standard drink = 0.6 oz pur e alcohol) Nutrition Answer Date Recorded Nutrition: EVOO Fat Source Unknown 02/15 Nutrition: Servings of Fruits/Vegetables per Day Not on file 02/15/2021 Dental Answer Date Recorded Dental: Regular Dentist Unknown 02/16/20 21 Sex and Gender Information Value Date Recorded Sex Assigned at Not on file Gender Identity Not on file Sexual Orientation Not on file Last Filed Vital Signs Vital Sign Reading Time Taken Comments Blood Pressure 128/85 05/16/2023 1:20 PM DAIRY CLERK Pulse 72 05/16/2023 1:20 PM DAIRY CLERK Temperature 36.3 ??C (97.3 ??F) 05/16/2023 1:20 PM CS T Respiratory Rate 18 11/03/2022 1:33 PM CDT Oxygen Saturation 98% 05/16/2023 1:20 PM DAIRY CLERK Inhaled Oxygen Concentration - - Weight 112 kg (248 lb) 05/16/2023 1:20 PM DAIRY CLERK Height 180.3 cm (5' 11) 05/16/2023 1:20 PM DAIRY CLERK Body Mass Index 34.59 05/16/2023 1:20 PM DAIRY CLERK Plan of Treatment Health Maintenance Due Date Last Done Comments HIV Screening 2000 Hepatitis C Screening 2000 Tobacco Cessation counseling 2000 HPV Vaccines (2 - Male 3-dose series) 06/27/2018 05/30/2018 Hepatitis A Vaccines (2 of 2 - Risk 2-dose series) 11/27/2018 05/30/2018 COVID-19 Vaccine (1 - season) 2023 Influenza Vaccine (#1) 2023 8, 06/15/2010, 06/15/2010, Additional history exists Depression Screening (Annual PHQ-2) 07/03/2023 DTaP,Tdap,and Td Vaccines (8 - Td or Tdap) 08/05/2033 08/05/2023, 02/29/2012, 07/12/2004, Additional history exists Pneumococcal vaccine (0-64 years) Aged Out 01/24/2002 No longer eligible based on patient's age to complete this topic Hepatitis B Vaccines Completed 12/05/2007, 2000, 2000, Additional history exists Care Teams Production Operations Manager Relationship Specialty Start Date End Date Elsewhere, Pcp PCP - General Internal Medicine 11/03/22
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
--- OUTSIDE RECORDS SUMMARY | 2023-11-06 23:35 | XMS_ITS | Referral Summary ---
Author Name Unknown Organization [facility] Address [address] [place] [address] Care Team Providers Care Kinesiology Internship Name Role Phone Elsewhere, Pcp Primary Care Provider Unavailabl e Source Comments Patient records contain information from all sites at [facility]. For routine questions regarding patient records, call [phone] during business hours, M-F 8:00 AM - 5:00 PM Central Time. Record requests for emergency care only can be directed to [phone] at any time.[facility] Allergies Active Allergy Reactions Criticality Noted Date [...] Deficit Hyperactive Disorder 7 Overview: Deana Conner Business Development Director [facility] [phone] Immunizations Name Administration Dates Next Due 9vHPV [...] Comments Blood Pressure 128/85 05/16/2023 1:20 PM ROLLER ENGRAVER Pulse 72 05/16/2023 1:20 PM ROLLER ENGRAVER Temperature 36.3 ??C (97.3 ??F) 05/16/2023 1:20 PM CS T Respiratory Rate 18 11/03/2022 1:33 PM CDT Oxygen Saturation 98% 05/16/2023 1:20 PM ROLLER ENGRAVER Inhaled Oxygen Concentration - - Weight 112 kg (248 lb) 05/16/2023 1:20 PM ROLLER ENGRAVER Height 180.3 cm (5' 11) 05/16/2023 1:20 PM ROLLER ENGRAVER Body Mass Index 34.59 05/16/2023 1:20 PM ROLLER ENGRAVER Plan of Treatment Not on file Care Teams Kinesiology Internship Relationship Specialty Start Date End Date Elsewhere, Pcp PCP - General Internal Medicine 11/03/22
--- OUTSIDE RECORDS SUMMARY | 2023-11-06 23:35 | XMS_ITS | Referral Summary ---
Author Name Unknown Organization [facility] Address [address] [place] [id number] Care Team Providers Care Front End Java Developer Name Role Phone No Ref-Primary, Physician Primary Care Provider Allergies Active Allergy Reactions Criticality Noted Date Comments Amoxicillin 10/25/2019 I don't even know Sulfa Antibiotics 10/25/2019 I don't even know Medications No known medications Social History Tobacco Use Types Packs/Day Years Used Date Smoking Tobacco: Never Assessed Sex and Gender Information Value Date Recorded Sex Assigned at Not on file Gender Identity Not on file Sexual Orientation Not on file Last Filed Vital Signs Vital Sign Reading Time Taken Comments Blood Pressure 90/60 12/24/2019 6:40 AM CDT Pulse 57 12/24/2019 6:40 AM CDT Temperature 36.5 ??C (97.7 ??F) 12/23/2019 7:18 PM CD T Respiratory Rate 14 12/23/2019 9:45 PM CDT Oxygen Saturation 98% 12/24/2019 6:40 AM CDT Inhaled Oxygen Concentration - - Weight 95.3 kg (210 lb) 11/02/2019 3:09 PM CDT Height 177.8 cm (5' 10) 11/02/2019 3:09 PM CDT Body Mass Index 30.13 11/02/2019 3:09 PM CDT Plan of Treatment Not on file Care Teams Front End Java Developer Relationship Specialty Start Date End Date No Ref-Primary, Physician PCP - General 10/25/19
--- OUTSIDE RECORDS SUMMARY | 2023-11-06 23:35 | XMS_ITS | Clinical Summary ---
Author Name Unknown Organization [facility] Address [address] [place] [id number] Care Team Providers Care Loan Administrator Name Role Phone No Ref-Primary, Physician Primary [...] of Treatment Not on file Care Teams Loan Administrator Relationship Specialty Start Date End Date No Ref-Primary, Physician PCP - General 10/25/19
--- OUTSIDE RECORDS SUMMARY | 2023-11-06 23:35 | XMS_ITS ---
Author Name Unknown Organization [facility] Address [address] [place] [address] Care Team Providers Care Cnc Service Technician Name Role Phone Unavailable Unavailable Unavailable Surgery Details Not on file Complications Check Surgery Details section. Procedure Estimated Blood Loss Check Surgery Details section. Procedure Findings Check Surgery Details section. Procedure Specimens Taken Check Surgery Details section.
--- OUTSIDE RECORDS SUMMARY | 2023-11-06 23:36 | XMS_ITS | Encounter Summary ---
Author Name Unknown Organization [facility] Address [address], [place] [address] Care Team Providers Care Soccer Coach Name Role Phone Unassigned, Provider Primary Care Provider Unava ilable Encounter Details Date Type Department Care Team (Late st Contact Info) Description 09/19/2013 Correspondence [facility] [address] [place] [address] [place] [address] [place] [address] MEDICAL EQUIPMENT PROOF OF DELIVERY Social History Tobacco Use Types Packs/Day Years Used Date Smoking Tobacco: Passive Smo ke Exposure - Never Smoker Alcohol Use Standard Drinks/Week Comments Not Asked 0 (1 standard drink = 0.6 oz pur e alcohol) Sex and Gender Information Value Date Recorded Sex Assigned at Not on file Gender Identity Not on file Sexual Orientation Not on file documented as of this encounter Progress Notes * Janelle Ambriz MD - 09/19/2013 12:00 AM CDT documented in this encounter Plan of Treatment Not on file documented as of this encounter Visit Diagnoses Not on filedocumented in this encounter Care Teams Soccer Coach Relationship Specialty Start Date End Date Unassigned, Provider [address] [place] [address] PCP - General Unknown Physician Specialty 08/15/23 documented as of this encounter
--- OUTSIDE RECORDS SUMMARY | 2023-11-06 23:36 | XMS_ITS | Clinical Summary ---
Author Name Unknown Organization [facility] Address [address] [place] [address] Care Team Providers Care Panel Cutter Name Role Phone Unassigned, Provider Primary Care Provider Unava ilable Source Comments You are receiving this document as you are listed as the primary care provider,follow-up provider, or the patient has been referred to you for consultation.This is in compliance with the Medicare and[facility] EHR Incentive Program,which states Providers who transition their patient to another setting of careor provider of care or refers their patient to another provider of care shouldprovide summary care record for each transition of care or referral. [facility] Allergies Active Allergy Reactions Criticality Noted Date Comments Amoxicillin 03/15/2007 Sulfa Antibiotics 03/15/2007 Medications Medication Sig Dispensed Refills Start Date End Date Status naloxone (NARCAN) 2 MG/2ML injection For suspected opioid overdose, spray 1mL in each nostril. Repeat after 3 minutes if no or minimal response. 4 mL 11/11/2019 Active Misc. Devices (MUCOSAL ATOMIZATION DEVICE) [facility] Dispense two Mucosal Atomization Devices for use with Naloxone. 2 Each 11/11/2019 Active Active Problems Patient Care Coordination No te Formatting of this note migh t be different from the original. This is an FYI only. No action from the clinic is required. Hadley Ratliff was enrolled in Centralized Care Coordination and the case has been closed because they successfully completed the program. Dianne Perdomo MA, [facility] 10/10/2017, 5:28 PM Problem Noted Date Diagnosed Date ADHD (attention deficit hyperactivity disorder) 11/22/2006 Overview: Deana Conner Business Planning Director [facility] [phone] Resolved Problems Problem Noted Date Diagnosed Date Resolved Date Centralized Behavioral Health Case Management 01/17/20 17 10/10/2017 Overview: Background: Diagnosis: PTSD, Separation Anxiety of childhood, ADHD Current situation: The father indicated that the pt started DBT about a month ago, and showing improvement of mental health symptoms. The father and the pt has been having family therapy, which also appears to be effective. The father is hoping to avoid psychiatry medications if appropriate. The mbr is taking Melatonin 3 mg before bed for sleep aid. The father indicated that they are moving in near future, though, the location of the move is uncertain at this point. 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 Providers outside of [facility] [place]: [facility] for psychotherapy and DBT Goals/Recommendations: Outpatient Behavioral Health Cost ManagerEvents Director Information: Dianne Perdomo MA, [facility] [phone] Action Plan: CM to continue to communicate with the father and make certain the providers would be in place when they move to a new address. ADHD (attention deficit hype ractivity disorder) 04/02/2007 04/02/2007 Overview: ICD 10 Immunizations Name Administration Dates Next Due 9vHPV (Gardasil 9) 05/30/2018 DTaP 07/12/2004, 5,05/15/2001,2000,2000,2000,2000 DTaP/Hib 2000,2000,2000 Flu Vac (3+ yrs) 06/15/2010,05/16/2007, 7 HepA Ped/Adol (1-18 yrs) 05/30/2018 HepB Ped/Adol (0-18 yrs) 12/05/2007,07/2000,2000,1999,2000,2000,2000 Hib (ActHIB) 07/31/2001 Hib, Unspecified Formulation 07/31/2001, 2000,2000,1999 IPV (Polio) 07/12/2004, 5,2000,2000,2000,2000,2000,1 Influenza IIV4 (Quadrivalent ) 0.5mL (84817) 05/30/2018 Influenza, Unspecified Formulation 06/15/2010, MCV4 Menveo 2m.+ (two vial) 05/30/2018 MMR 07/12/2004, 5,02/15/2001,2000 Pneumococcal 7, PED 01/24/2002,01/24/2002 TDAP (BOOSTRIX) 02/29/2012 Tdap 08/05/2023,02/29/2012 Varicella 12/05/2007, 8,02/15/2001,2000 Social History Tobacco Use Types Packs/Day Years Used Date Smoking Tobacco: Some Days Cigarettes Smokeless Tobacco: Never Comments:4-5 cigs Alcohol Use Standard Drinks/Week Comments Not Currently 0 (1 standard drink = 0.6 oz pur e alcohol) Humiliation, Afraid, Rape, and Kick questionnair e Answer Date Recorded Fear of Current or Ex-Partner Not on file Emotionally Abused Not on file 08/05/2023 Within the last year, have y ou been kicked, hit, slapped, or otherwise physically hurt by your partner or ex-partner? No 08/05/2023 Within the last year, have y ou been raped or forced to have any kind of sexual activity by your partner or ex-partner? No 08/05/2023 Sex and Gender Information Value Date Recorded Sex Assigned at Not on file Gender Identity Not on file Sexual Orientation Not on file Last Filed Vital Signs Vital Sign Reading Time Taken Comments Blood Pressure 144/86 08/05/2023 7:40 PM APPLICATION TESTER Pulse 136 08/05/2023 7:40 PM APPLICATION TESTER Temperature 36.4 ??C (97.6 ??F) 08/05/2023 7:40 PM CS T Respiratory Rate 20 08/05/2023 7:40 PM APPLICATION TESTER Oxygen Saturation 96% 08/05/2023 7:40 PM APPLICATION TESTER Inhaled Oxygen Concentration - - Weight 88.9 kg (196 lb) 05/30/2018 2:15 PM APPLICATION TESTER Height 177.8 cm (5' 10) 03/11/2017 4:21 PM CDT Body Mass Index - - Plan of Treatment Health Maintenance Due Date Last Done Comments Hep C Screening (Preventive Services) 2000 Pneumococcal (1 - PCV) 01/26/2006 01/24/2002, 2001 Adult Preventive Visit 01/26/2018 01/29/2008, 2006 HPV Vaccine (2 - Male 3-dose series) 06/27/2018 05/30/2018 HepA (2 of 2 - 2-dose series) 11/27/2018 05/30/2018 COVID-19 Vaccine (2022-2 4 season) 2023 Influenza (Season Ended) 2024 018, 06/15/2010, 06/15/2010, Additional history exists DTaP/Tdap/Td (9 - Tdap) 08/05/2033 08/05/19 24, 02/29/2012, 02/29/2012, Additional history exists Zoster/Shingles (1 of 2) 01/26/2050 Hib Completed 07/31/2001, 07/04, 2000, Additional history exists IPV (Polio) Completed 07/12/2004, 07/03, 2000, Additional history exists HepB Completed 12/05/2007, 07/2000, 2000, Additional history exists Varicella Completed 12/05/2007, 10/2007, 02/15/2001, Additional history exists HIV Screening (Preventive Services) Completed 10/13/2016 MCV4 Completed 05/30/2018 Procedures Procedure Name Priority Date/Time Associated Diagnosis Comments HIV 1/2 AG/AB 4TH GEN Routine 10/13/2016 4:53 PM CDT Screening for STDs (sexually transmitted diseases) from Last 3 Months or Most Recently Relevant to Health Maintenance Results * HIV 1/2 Ag/Ab 4th Generation (10/13/2016 4:53 PM CDT) HIV 1/2 AG/AB 4thGEN Negative (Non Reactive) [facility] Comment:HIV-1 p24 Ag and HIV -1/HIV-2 Ab not detected. 10/13/2016 4:53 PM CDT 10/13/2016 4:54 PM CDT Narrative [facility] - 10/14/2016 12:27 PM CDT Performed at [facility], [address] [place] [address] ??[id number] David Leonard MD LAB_1 [facility] [place] [place] [facility] [phone] from Last 3 Months or Most Recently Relevant to Health Maintenance Care Teams Panel Cutter Relationship Specialty Start Date End Date Unassigned, Provider [address] [place] [address] PCP - General Unknown Physician Specialty 08/15/23
--- OUTSIDE RECORDS SUMMARY | 2023-11-06 23:36 | XMS_ITS | Encounter Summary ---
Author Name Unknown Organization [facility] Address [address] [place] [address] Care Team Providers Care Chief Executive Or Managing Director Name Role Phone Janelle Ambriz MD Primary Care Provider [phone] Reason for Visit * Reason Comments Animal Bite Encounter Details Date Type Department Care Team (Late st Contact Info) Description 08/05/2023 8:37 PM OUTSIDE SOLAR SALES CONSULTANT - 08/05/2023 10:17 PM OUTSIDE SOLAR SALES CONSULTANT [facility] [address] [place] [address] Christopher Naylor MD [address] [place] [address] Dog bite, initial encounter (Primary Dx); Laceration of left middle finger without foreign body, nail damage status unspecified, initial encounter; Encounter for administration of vaccine Discharge Disposition: Home Social History Tobacco Use Types Packs/Day Years [...] Comments Blood Pressure 144/86 08/05/2023 7:40 PM OUTSIDE SOLAR SALES CONSULTANT Pulse 136 08/05/2023 7:40 PM OUTSIDE SOLAR SALES CONSULTANT Temperature 36.4 ??C (97.6 ??F) 08/05/2023 7:40 PM CS T Respiratory Rate 20 08/05/2023 7:40 PM OUTSIDE SOLAR SALES CONSULTANT Oxygen Saturation 96% 08/05/2023 7:40 PM OUTSIDE SOLAR SALES CONSULTANT Inhaled Oxygen Concentration - - Weight - - Height - - Body Mass Index - - documented in this encounter Discharge Instructions * Attachments The following attachments cannot be sent through Care Everywhere. * Bites: Animal (Algerian) documented in this encounter Medications at Time of Discharge Medication Sig Dispensed Refills Start Date End Date Misc. Devices (MUCOSAL ATOMIZATION DEVICE) [facility] Dispense two Mucosal Atomization Devices for use with Naloxone. 2 Each 11/11/2019 naloxone (NARCAN) 2 MG/2ML injection For suspected opioid overdose, spray 1mL in each nostril. Repeat after 3 minutes if no or minimal response. 4 mL 11/11/2019 doxycycline monohydrate (MONODOX) 100 MG capsule Take 1 Capsule (100 mg) by mouth two times a day for 5 days. 10 Capsule 08/05/2023 08/10/2023 metroNIDAZOLE (FLAGYL) 500 MG tablet Take 1 Tablet (500 mg) by mouth two times a day for 5 days. 10 Tablet 08/05/2023 08/10/2023 documented as of this encounter ED Notes * Tonya Norris RN - 08/05/2023 10:17 PM CST [facility] ED Nursing Discharge Note Arrival Information: Patient arrived: Car Patient escorted by: Self Discharge Information: Patient discharged: Home Patient accompanied by: Transport mode: Discharge instructions given and explained to patient: New discharge prescriptions explained to patient: Yes: Medications Prescribed this Visit Disp Refills Start End doxycycline monohydrate (MONODOX) 100 MG capsule 10 Capsule 0 08/05/2023 08/10/2023 Take 1 Capsule (100 mg) by mouth two times a day for 5 days. Notes to Pharmacy: Pharmacy may substitute hyclate or monohydrate tab or capsule based on insurance Oral metroNIDAZOLE (FLAGYL) 500 MG tablet 10 Tablet 0 08/05/2023 08/10/2023 Take 1 Tablet (500 mg) by mouth two times a day for 5 days. Oral Patient appropriately dressed for weather: Yes LDA in place: Patient verbalized understanding of discharge plan and capable of completing discharge plan: Yes Does patient require hand-off or assistance with discharge plan: No Belongings and medication returned to patient and prompted to retrieve weapons: Yes Patient level of pain on discharge: (0-10) Pain Rating: Rest: 8 Holds documented by nursing during this visit - reviewed chart for most current hold status: n/a Legal Status Orders (From admission, onward) Pt ambulated with steady gait to pharmacy with friend. None IDE SOLAR SALES CONSULTANT * Tonya Norris RN - 08/05/2023 9:42 PM CST [employer] Fusion Middleware Developer placed bacitracin, gauze and kerlex to bandage middle finger on left hand. IDE SOLAR SALES CONSULTANT * Christopher Naylor MD - 08/05/2023 9:16 PM CST [facility] Emergency Department Visit Note Chief Complaint: Chief Complaint Patient presents with Animal Bite HPI: Patient bit by his friend's dog on the finger. No other injuries. No NV symptoms. Unknown Td. Dog's shots are UTD. PMH: No past medical history on file. No past surgical history on file. Meds: No outpatient medications have been marked as taking for the 08/05/23 encounter (Hospital Encounter). Allergies: Amoxicillin and Sulfa antibiotics Social and Family History: Social History Tobacco Use Smoking status: Some Days Current packs/day: 0.50 Types: Cigarettes Smokeless tobacco: Never Tobacco comments: 4-5 cigs Substance Use Topics Alcohol use: Not Currently No family history on file. Review of Systems: Please see HPI. Otherwise, complete ROS is negative. Physical Exam: BP (!) 144/86 Pulse (!) 136 Temp 97.6 ??F (36.4 ??C) (Oral) Resp 20 SpO2 96% General: alert and in no acute distress Left middle finger with linear superficial laceration along the lateral aspect. NV intact. Full active ROM. Psychiatric: affect/mood normal, cooperative, normal judgement/insight and memory intact Medical Decision Making: Patient with dog bite. Known dog and shots UTD. No rabies prophylaxis is indicated. Td updated. Thewound is superficial and I think the risks of suturing the laceration outweigh the benefits and it should heal well without repair. Plan abx (amox allergic, unknown allergy) prophylaxis with doxy andflagyl and routine wound care. Thoroughly irrigated here and dressed with bacitracin. No further workup is indicated at this time in the Emergency Department. Discussed danger signs at length with the patient and all questions fully answered. Return if symptoms persist or worsen, or any new troubling symptoms develop. Clinical Impressions as of 08/05/232153 Dog bite, initial encounter Hai Naylor MD Condition on disposition: Stable IDE SOLAR SALES CONSULTANT documented in this encounter Plan of Treatment Not on file documented as of this encounter Visit Diagnoses Diagnosis Dog bite, initial encounter- Primary Laceration of left middle finger without foreign body, nail damage status unspecified, initial encounter Encounter for administration of vaccine * Triage Assessment Note - Tiffanie Morales RN - 08/05/2023 7:41 PM OUTSIDE SOLAR SALES CONSULTANT Chief complaint: animal bite Symptoms/background/relevant history (narrative): Girlfriend was bit by large dog, patient was trying to get dog off of girlfriend when he got bitten in his hand. Patient does not believe he got bitten anywhere else. Dog was his friends. States that the dog was fully up to date on his vaccines. Unsure of last tetanus shot. Patient has small, swallow, 1 inch long laceration to left middle finger. What is most important to you about your ER visit today? Pain Initial falls risk factors: Not applicable IDE SOLAR SALES CONSULTANT documented in this encounter Administered Medications Inactive Administered Medications - up to 3 most recent administrations Medication Order MAR Action Action Date Dose Rate Site bacitracin 500 UNIT/GM ointment Topical, TID, First dose on 08/05/23 at 2130, Apply topically to (specify site) finger Hazardous waste disposal required. Given 08/05/2023 9:33 PM OUTSIDE SOLAR SALES CONSULTANT Left Hand ibuprofen (MOTRIN) tablet 400 mg 400 mg, Oral, NOW, On 08/05/23 at 2014, For 1 dose, Give with food or milk. Given 08/05/2023 7:56 PM OUTSIDE SOLAR SALES CONSULTANT 400 mg documented in this encounter Active and Recently Administered Medications Times are shown in OUTSIDE SOLAR SALES CONSULTANT. Scheduled Medication Order 08/03/2023 08/04/2023 08/05/2023 bacitracin 500 UNIT/GM ointment Topical, TID, First dose on 08/05/23 at 2130, Apply topically to (specify site) finger Hazardous waste disposal required. 2132 (Given - Provid er: Tonya Norris RN) ibuprofen (MOTRIN) tablet 400 mg (COMPLETED) 400 mg, Oral, NOW, On 08/05/23 at 2014, For 1 dose, Give with food or milk. 1955 (Given - Provid er: Tiffanie Morales RN) documented in this encounter Care Teams Chief Executive Or Managing Director Relationship Specialty Start [place] [address] [place] [address] PCP - General 04/03/07 08/14/23 documented as of this encounter
[2023-11-06 23:37] VITALS: BP 136/69; PULSE 81; RESP 16; O2SAT 98
== END 2023-11-06 23:41 | disposition home or self-care (01) ==
PROVIDERS: Emergency Provider Family Medicine; PCP Family Medicine
DX: K62.5 Hemorrhage of anus and rectum (principal); K64.4 Residual hemorrhoidal skin tags
CPT/HCPCS: 99282; 99283

== ENCOUNTER 2024-01-02 02:14 | Emergency (ER) | payer BC, SELFPAY ==
[2024-01-02 02:26] VITALS: BP 132/77; PULSE 87; RESP 16; TEMP 37.1; O2SAT 98; BMI 29.6
--- OUTSIDE RECORDS SUMMARY | 2024-01-02 03:03 | XMS_ITS ---
Author Organization [facility] Address [address] [place] [address] Care Team Providers Care Materials Scheduler Name Role Phone Unavailable Unavailable Unavailable Surgery Details Not on file Complications Check Surgery Details section. Procedure Estimated Blood Loss Check Surgery Details section. Procedure Findings Check Surgery Details section. Procedure Specimens Taken Check Surgery Details section.
--- OUTSIDE RECORDS SUMMARY | 2024-01-02 03:03 | XMS_ITS | Encounter Summary ---
Author Organization [facility] Address [address] [address] Care Team Providers Care Vehicle Trimmer Name Role Phone Unassigned, Provider Primary Care Provider Unava ilable Encounter Details Date Type Department Care Team (Late st Contact Info) Description 09/19/2013 Correspondence [facility] [address] [place], [place] [id number] [place] [address] [place] [address] MEDICAL EQUIPMENT PROOF OF DELIVERY Social History [...] on filedocumented in this encounter Care Teams Vehicle Trimmer Relationship Specialty Start Date End Date Unassigned, Provider [address] [place] [address] PCP - General Unknown Physician Specialty 08/15/23 documented as of this encounter
--- OUTSIDE RECORDS SUMMARY | 2024-01-02 03:03 | XMS_ITS | Clinical Summary ---
Author Organization [facility] Address [address] [place] [address] Care Team Providers Care Health Promotion Coordinator Name Role Phone Elsewhere, Pcp Primary Care Provider Unavailabl e Source Comments Patient records contain information from all sites at [facility]. For routine questions regarding patient records, call [phone] during business hours, M-F 8:00 AM - 5:00 PM Central Time. Record requests for emergency care only can be directed to [phone] at any time.[facility] Allergies Active Allergy Reactions Criticality Noted [...] Deficit Hyperactive Disorder 7 Overview: Deana Conner Communications Technologist [facility] [phone] Immunizations Name Administration Dates Next Due 9vHPV [...] Comments Blood Pressure 128/85 05/16/2023 1:20 PM SAFETY AND SECURITY MANAGER Pulse 72 05/16/2023 1:20 PM SAFETY AND SECURITY MANAGER Temperature 36.3 ??C (97.3 ??F) 05/16/2023 1:20 PM CS T Respiratory Rate 18 11/03/2022 1:33 PM CDT Oxygen Saturation 98% 05/16/2023 1:20 PM SAFETY AND SECURITY MANAGER Inhaled Oxygen Concentration - - Weight 112 kg (248 lb) 05/16/2023 1:20 PM SAFETY AND SECURITY MANAGER Height 180.3 cm (5' 11) 05/16/2023 1:20 PM SAFETY AND SECURITY MANAGER Body Mass Index 34.59 05/16/2023 1:20 PM SAFETY AND SECURITY MANAGER Plan of Treatment Health Maintenance Due Date Last Done Comments HIV Screening 2000 Hepatitis C Screening 2000 Tobacco Cessation counseling 2000 HPV Vaccines (2 - Male 3-dose series) 06/27/2018 05/30/2018 Hepatitis A Vaccines (2 of 2 - Risk 2-dose series) 11/27/2018 05/30/2018 COVID-19 Vaccine (1 - season) 2023 Depression Screening (Annual PHQ-2) 07/03/2023 Influenza Vaccine (#1) 2024 8, 06/15/2010, 06/15/2010, Additional history exists DTaP,Tdap,and Td Vaccines (8 - Td or Tdap) 08/05/2033 08/05/2023, 02/29/2012, 07/12/2004, Additional history exists Pneumococcal vaccine (0-64 years) Aged Out 01/24/2002 No longer eligible based on patient's age to complete this topic Hepatitis B Vaccines Completed 12/05/2007, 2000, 2000, Additional history exists Care Teams Health Promotion Coordinator Relationship Specialty Start Date End Date Elsewhere, Pcp PCP - General Internal Medicine 11/03/22
--- OUTSIDE RECORDS SUMMARY | 2024-01-02 03:03 | XMS_ITS | Clinical Summary ---
Author Organization [facility] Address [address] [place] [address] Care Team Providers Care Singing Waiter Or Waitress Name Role Phone No Ref-Primary, Physician Primary Care Provider Allergies Active Allergy Reactions Criticality Noted Date Comments Amoxicillin 10/25/2019 I don't even know Sulfa Antibiotics 10/25/2019 I don't even know Medications No known medications Social History Tobacco Use Types Packs/Day Years Used Date Smoking Tobacco: Never Assessed Adolescent Education Answer Date Record ed Getting School Help Needed Not on file 11/06 Sex and Gender Information Value Date Recorded [...] of Treatment Not on file Care Teams Singing Waiter Or Waitress Relationship Specialty Start Date End Date No Ref-Primary, Physician PCP - General 10/25/19
--- OUTSIDE RECORDS SUMMARY | 2024-01-02 03:03 | XMS_ITS | Clinical Summary ---
Author Organization [facility] Address [place], [place] [address] Care Team Providers Care Film Processing Utility Worker Name Role Phone Bismark Hernandez MD Primary Care Provider [phone] Allergies Active Allergy Reactions Criticality Noted Date [...] Code Status Discussion: Reviewed Preferences Care Teams Film Processing Utility Worker Relationship Specialty Start Date End Date Bismark Hernandez MD [address] [place] [address] PCP - General Family Practice 09/15/22
--- OUTSIDE RECORDS SUMMARY | 2024-01-02 03:03 | XMS_ITS | Referral Summary ---
Author Organization [facility] Address [address] [place] [address] Care Team Providers Care Roll Hauler Name Role Phone No Ref-Primary, Physician Primary [...] of Treatment Not on file Care Teams Roll Hauler Relationship Specialty Start Date End Date No Ref-Primary, Physician PCP - General 10/25/19
--- OUTSIDE RECORDS SUMMARY | 2024-01-02 03:03 | XMS_ITS | Referral Summary ---
Author Organization [facility] Address [address] [place] [address] Care Team Providers Care Assistant Grocery Name Role Phone Elsewhere, Pcp Primary Care Provider Unavailabl e Source Comments Patient records contain information from all sites at [facility]. For routine questions regarding patient records, call [phone] during business hours, M-F 8:00 AM - 5:00 PM Central Time. Record requests for emergency care only can be directed to [phone] at any time.[facility] Allergies Active Allergy Reactions Criticality Noted [...] Deficit Hyperactive Disorder 7 Overview: Deana Conner [employer] [facility] [facility] [phone] Immunizations Name Administration Dates Next Due 9vHPV [...] Comments Blood Pressure 128/85 05/16/2023 1:20 PM ONLINE USER EXPERIENCE STRATEGIST Pulse 72 05/16/2023 1:20 PM ONLINE USER EXPERIENCE STRATEGIST Temperature 36.3 ??C (97.3 ??F) 05/16/2023 1:20 PM CS T Respiratory Rate 18 11/03/2022 1:33 PM CDT Oxygen Saturation 98% 05/16/2023 1:20 PM ONLINE USER EXPERIENCE STRATEGIST Inhaled Oxygen Concentration - - Weight 112 kg (248 lb) 05/16/2023 1:20 PM ONLINE USER EXPERIENCE STRATEGIST Height 180.3 cm (5' 11) 05/16/2023 1:20 PM ONLINE USER EXPERIENCE STRATEGIST Body Mass Index 34.59 05/16/2023 1:20 PM ONLINE USER EXPERIENCE STRATEGIST Plan of Treatment Not on file Care Teams Assistant Grocery Relationship Specialty Start Date End Date Elsewhere, Pcp PCP - General Internal Medicine 11/03/22
--- OUTSIDE RECORDS SUMMARY | 2024-01-02 03:03 | XMS_ITS | Clinical Summary ---
Author Organization [facility] Address [address] [place] [address] Care Team Providers Care Chief Relay Tester Name Role Phone Unassigned, Provider Primary Care Provider Unava ilable Source Comments You are receiving this document as you are listed as the primary care provider,follow-up provider, or the patient has been referred to you for consultation.This is in compliance with the Medicare andDet[facility] Hospitalca[facility] EHR Incentive Program,which states Providers who transition their patient to another setting of careor provider of care or refers their patient to another provider of care shouldprovide summary care record for each transition of care or referral. [facility] Allergies Active Allergy Reactions Criticality Noted Date [...] successfully completed the program. Dianne Perdomo MA, [facility] 10/10/2017, 5:28 PM Problem Noted Date Diagnosed Date ADHD (attention deficit hyperactivity disorder) 11/22/2006 Overview: Deana Conner [facility] [phone] Resolved Problems Problem Noted Date Diagnosed Date [...] location is uncertain. Providers outside of [facility]: [facility] for psychotherapy and DBT Goals/Recommendations: Outpatient Behavioral Health Ekg TechPatient Care Manager Information: Dianne Perdomo MA, [facility] [phone] Action Plan: CM to continue to communicate [...] 07/12/2004, 5,2000,2000,2000,2000,2000,1 Influenza IIV4 (Quadrivalent ) 0.5mL (96258) 05/30/2018 Influenza, Unspecified Formulation 06/15/2010, MCV4 Menveo [...] Comments Blood Pressure 144/86 08/05/2023 7:40 PM [facility] Pulse 136 08/05/2023 7:40 PM [facility] Temperature 36.4 ??C (97.6 ??F) 08/05/2023 7:40 PM CS T Respiratory Rate 20 08/05/2023 7:40 PM [facility] Oxygen Saturation 96% 08/05/2023 7:40 PM [facility] Inhaled Oxygen Concentration - - Weight 88.9 kg (196 lb) 05/30/2018 2:15 PM [facility] Height 177.8 cm (5' 10) 03/11/2017 4:21 [...] 1/2 AG/AB 4thGEN Negative (Non Reactive) NEGNR [facility] Comment:HIV-1 p24 Ag and HIV -1/HIV-2 Ab not detected. 10/13/2016 4:53 PM CDT 10/13/2016 4:54 PM CDT Narrative [facility] - 10/14/2016 12:27 PM CDT Performed at [facility], [address] [place] [address] ??[id number] David Leonard MD LAB_1 [facility] [phone] from Last 3 Months or Most Recently Relevant to Health Maintenance Care Teams Chief Relay Tester Relationship Specialty Start Date End Date Unassigned, Provider [address] [place] [address] PCP - General Unknown Physician Specialty 08/15/23
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
== END 2024-01-02 03:07 | disposition home or self-care (01) ==
LOC: ED 03:01
PROVIDERS: Emergency Provider Family Medicine; PCP Family Medicine
DX: M79.2 Neuralgia and neuritis, unspecified (principal)
CPT/HCPCS: 99282; 99283

== ENCOUNTER 2024-02-21 07:11 | Emergency (ER) | payer BC, SELFPAY ==
[2024-02-21 07:15] VITALS: BP 137/80; PULSE 98; RESP 18; TEMP 36.4; O2SAT 99; BMI 28.7
[2024-02-21 07:44] VITALS: O2SAT 97
--- NOTE | 2024-02-21 07:44 | CRLHL7_ITS ---
For Patients: As a result of the Century Cures Act, medical imaging exams and procedure reports are released immediately into your electronic medical record. You may view this report before your referring provider. If you have questions, please contact your health care provider. INDICATION: Diffuse abdominal pain. History of liver laceration. COMPARISON: Portions of examination dated September 14, 2022 TECHNIQUE: CT examination of the abdomen and pelvis was performed following the uneventful intravenous administration of 98 cc of Isovue 370. Thin section axial images were obtained from the lung bases through the pubic symphysis. Oral contrast was not administered. Please note that all CT scans at this facility use dose modulation, iterative reconstruction, and/or weight-based dosing when appropriate to reduce radiation dose to as low as reasonably achievable. FINDINGS: LUNG BASES: The lung bases as visualized appear normal.The heart size is normal at the lung bases. LIVER/BILIARY SYSTEM:The liver is normal in size and configuration. There is no focal mass and there is no intra- or extra hepatic biliary ductal dilatation.The gall bladder appears normal. The liver laceration noted previously has resolved without visible sequela. ADRENALS: Normal KIDNEYS, URETERS and BLADDER:The kidneys appear normal. No visible mass, calculus or hydronephrosis. The ureters and bladder as visualized appear normal. SPLEEN:Normal appearance. PANCREAS: Appears normal. RETROPERITONEUM and MESENTERY: There is no mass, adenopathy or aortic aneurysm. GASTROINTESTINAL SYSTEM: Prominent loops of mid and distal small bowel. Mild wall thickening and mild dilation but no fecalization. I favor that this represents an enteritis over an incomplete distal small bowel obstruction. No intramural air, free air or collection. PELVIS: No mass or adenopathy. A small amount of free fluid is noted presumably due to the small-bowel abnormality mentioned above.. OSSEOUS STRUCTURES and ABDOMINAL WALL: There is an age-appropriate appearance of the osseous structures.No significant abdominal wall defect. IMPRESSION: 1. The liver appears normal. The laceration noted previously has resolved without visible sequela. 2. Prominent loops of mid and distal small bowel with wall thickening and mild dilation. A few scattered air-fluid levels but no fecalization. I favor that this represents an enteritis over an incomplete distal small bowel obstruction. No intramural air, free air or collection. A small amount of free fluid is noted in the pelvis presumably due to the abnormal small bowel loops Please note that all CT scans at this facility use dose modulation, iterative reconstruction, and/or weight-based dosing when appropriate to reduce radiation dose to as low as reasonably achievable. Dictated by Mike Kenyon MD @ 02/21/2024 8:27:49 AM (Electronically Signed)
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
--- OUTSIDE RECORDS SUMMARY | 2024-02-21 07:57 | XMS_ITS | Clinical Summary ---
Author Organization [facility] Address [address] [place] [address] Care Team Providers Care Telephone Surveyor Name Role Phone No Ref-Primary, Physician Primary [...] of Treatment Not on file Care Teams Telephone Surveyor Relationship Specialty Start Date End Date No Ref-Primary, Physician PCP - General 10/25/19
--- OUTSIDE RECORDS SUMMARY | 2024-02-21 07:57 | XMS_ITS ---
Author Organization [facility] Address [address] [place] [address] Care Team Providers Care Metal Roaster Name Role Phone Unavailable Unavailable Unavailable Surgery Details Not on file Complications Check Surgery Details section. Procedure Estimated Blood Loss Check Surgery Details section. Procedure Findings Check Surgery Details section. Procedure Specimens Taken Check Surgery Details section.
--- OUTSIDE RECORDS SUMMARY | 2024-02-21 07:57 | XMS_ITS | Clinical Summary ---
Author Organization [facility] Address [place], [place] [address] Care Team Providers Care Process Manufacturing Engineer Name Role Phone Bismark Hernandez MD Primary Care Provider [phone] Allergies Active Allergy Reactions Criticality Noted Date [...] Code Status Discussion: Reviewed Preferences Care Teams Process Manufacturing Engineer Relationship Specialty Start Date End Date Bismark Hernandez MD [address] [place] [address] PCP - General Family Practice 09/15/22
--- OUTSIDE RECORDS SUMMARY | 2024-02-21 07:57 | XMS_ITS | Clinical Summary ---
Author Organization [facility] Address [address] [place] [address] Care Team Providers Care Knifer Up Name Role Phone Elsewhere, Pcp Primary Care Provider Unavailabl e Source Comments Patient records contain information from all sites at [facility]. For routine questions regarding patient records, call [phone] during business hours, M-F 8:00 AM - 5:00 PM Central Time. Record requests for emergency care only can be directed to [phone] at any time.[facility] Allergies Active Allergy Reactions Criticality Noted Date Comments Amoxicillin Rash 07/30/2006 I don't even know Sulfa (Sulfonamide Antibiotics) Rash,Other (see comments) 07/30/2006 I don't even know Medications Medication Sig Dispensed Refills Start Date End Date Status escitalopram (LEXAPRO) 10 mg tablet Take 10 mg by mouth daily. 12/27/2021 Active Active Problems Problem Noted Date Diagnosed Date Attention Deficit Hyperactive Disorder 7 Overview (02/23/2022): Deana Conner Helicopter Officer [place] [employer] [facility] [phone] Immunizations Name Administration Dates Next Due 9vHPV [...] Comments Blood Pressure 128/85 05/16/2023 1:20 PM THIRD MATE Pulse 72 05/16/2023 1:20 PM THIRD MATE Temperature 36.3 ??C (97.3 ??F) 05/16/2023 1:20 PM CS T Respiratory Rate 18 11/03/2022 1:33 PM CDT Oxygen Saturation 98% 05/16/2023 1:20 PM THIRD MATE Inhaled Oxygen Concentration - - Weight 112 kg (248 lb) 05/16/2023 1:20 PM THIRD MATE Height 180.3 cm (5' 11) 05/16/2023 1:20 PM THIRD MATE Body Mass Index 34.59 05/16/2023 1:20 PM THIRD MATE Plan of Treatment Health Maintenance Due Date Last Done Comments HIV Screening 2000 Hepatitis C Screening 2000 Tobacco Cessation counseling 2000 HPV Vaccines (2 - Male 3-dose series) 06/27/2018 05/30/2018 Hepatitis A Vaccines (2 of 2 - Risk 2-dose series) 11/27/2018 05/30/2018 COVID-19 Vaccine (1 - 24 season) 2023 Depression Screening (Annual PHQ-2) 07/03/2023 Influenza Vaccine (#1) 2024 8, 06/15/2010, 06/15/2010, Additional history exists DTaP,Tdap,and Td Vaccines (8 - Td or Tdap) 08/05/2033 08/05/2023, 02/29/2012, 07/12/2004, Additional history exists Pneumococcal vaccine (0-64 years) Aged Out 01/24/2002 No longer eligible based on patient's age to complete this topic Hepatitis B Vaccines Completed 12/05/2007, 2000, 2000, Additional history exists Care Teams Knifer Up Relationship Specialty Start Date End Date Elsewhere, Pcp PCP - General Internal Medicine 11/03/22
--- OUTSIDE RECORDS SUMMARY | 2024-02-21 07:57 | XMS_ITS | Referral Summary ---
Author Organization [facility] Address [address] [place] [address] Care Team Providers Care Freezer Operator Name Role Phone No Ref-Primary, Physician Primary [...] of Treatment Not on file Care Teams Freezer Operator Relationship Specialty Start Date End Date No Ref-Primary, Physician PCP - General 10/25/19
--- OUTSIDE RECORDS SUMMARY | 2024-02-21 07:57 | XMS_ITS | Referral Summary ---
Author Organization [facility] Address [address] [place] [address] Care Team Providers Care Lumber Chain Offbearer Name Role Phone Elsewhere, Pcp Primary Care Provider Unavailabl e Source Comments Patient records contain information from all sites at [facility]. For routine questions regarding patient records, call [phone] during business hours, M-F 8:00 AM - 5:00 PM Central Time. Record requests for emergency care only can be directed to [phone] at any time.[facility] Allergies Active Allergy Reactions Criticality Noted [...] Hyperactive Disorder 7 Overview (02/23/2022): Deana Conner Cnc Lathe Programmer [place] [employer] [facility] [phone] Immunizations Name Administration Dates Next Due 9vHPV [...] Comments Blood Pressure 128/85 05/16/2023 1:20 PM ELECTRONICS WORKER Pulse 72 05/16/2023 1:20 PM ELECTRONICS WORKER Temperature 36.3 ??C (97.3 ??F) 05/16/2023 1:20 PM CS T Respiratory Rate 18 11/03/2022 1:33 PM CDT Oxygen Saturation 98% 05/16/2023 1:20 PM ELECTRONICS WORKER Inhaled Oxygen Concentration - - Weight 112 kg (248 lb) 05/16/2023 1:20 PM ELECTRONICS WORKER Height 180.3 cm (5' 11) 05/16/2023 1:20 PM ELECTRONICS WORKER Body Mass Index 34.59 05/16/2023 1:20 PM ELECTRONICS WORKER Plan of Treatment Not on file Care Teams Lumber Chain Offbearer Relationship Specialty Start Date End Date Elsewhere, Pcp PCP - General Internal Medicine 11/03/22
--- OUTSIDE RECORDS SUMMARY | 2024-02-21 07:58 | XMS_ITS | Clinical Summary ---
Author Organization [facility] Address [address] [place] [address] Care Team Providers Care Completions Engineer Name Role Phone Unassigned, Provider Primary Care Provider Unava ilable Source Comments You are receiving this document as you are listed as the primary care provider,follow-up provider, or the patient has been referred to you for consultation.This is in compliance with the Medicare and[place] EHR Incentive Program,which states Providers who transition their patient to another setting of careor provider of care or refers their patient to another provider of care shouldprovide summary care record for each transition of care or referral. [employer] Allergies Active Allergy Reactions Criticality Noted Date [...] successfully completed the program. Dianne Perdomo MA, [facility] 10/10/2017, 5:28 PM Problem Noted Date Diagnosed Date ADHD (attention deficit hyperactivity disorder) 11/22/2006 Overview (11/22/2006): Deana Conner Conservation Science Officer [facility] [phone] Resolved Problems Problem Noted Date Diagnosed Date Resolved Date Centralized Behavioral Health Case Management 01/17/20 17 10/10/2017 Overview (01/16/2017): Background: Diagnosis: PTSD, Separation Anxiety of childhood, [...] the location is uncertain. Providers outside of [facility]: [facility] and [facility] for psychotherapy and DBT Goals/Recommendations: Outpatient Behavioral Health Window Shade InstallerCash Processing Specialist Information: Dianne Perdomo MA, [facility] [phone] Action Plan: CM to continue to communicate with the father and make certain the providers would be in place when they move to a new address. ADHD (attention deficit hype ractivity disorder) 04/02/2007 04/02/2007 Overview (03/11/2015): ICD 10 Immunizations Name Administration Dates Next Due 9vHPV (Gardasil 9) 05/30/2018 DTaP 07/12/2004, 5,05/15/2001,2000,2000,2000,2000 DTaP/Hib 2000,2000,2000 Flu Vac (3+ yrs) 06/15/2010,05/16/2007, 7 HepA Ped/Adol (1-18 yrs) 05/30/2018 HepB Ped/Adol (0-18 yrs) 12/05/2007,02/0 07/2000,2000,1999,2000,2000,2000 Hib (ActHIB) 07/31/2001 Hib, Unspecified Formulation 07/31/2001, 2000,2000,1999 IPV (Polio) 07/12/2004, 5,2000,2000,2000,2000,2000,1 Influenza IIV4 (Quadrivalent ) 0.5mL (20107) 05/30/2018 Influenza, Unspecified Formulation 06/15/2010, MCV4 Menveo [...] Comments Blood Pressure 144/86 08/05/2023 7:40 PM FILLER SPREADER Pulse 136 08/05/2023 7:40 PM FILLER SPREADER Temperature 36.4 ??C (97.6 ??F) 08/05/2023 7:40 PM CS T Respiratory Rate 20 08/05/2023 7:40 PM FILLER SPREADER Oxygen Saturation 96% 08/05/2023 7:40 PM FILLER SPREADER Inhaled Oxygen Concentration - - Weight 88.9 kg (196 lb) 05/30/2018 2:15 PM FILLER SPREADER Height 177.8 cm (5' 10) 03/11/2017 4:21 PM CDT Body Mass Index - - Plan of Treatment Health Maintenance Due Date Last Done Comments Hep C Screening (Preventive Services) 2000 MTM Covered 2000 Pneumococcal (1 - PCV) 01/26/2006 01/24/2002, 2001 Adult Preventive Visit 01/26/2018 01/29/2008, 2006 HPV Vaccine (2 - Male 3-dose series) 06/27/2018 05/30/2018 HepA (2 of 2 - 2-dose series) 11/27/2018 05/30/2018 COVID-19 Vaccine (1 - 2022-2 4 season) 2023 Influenza (#1) 2024 05/30/2018, 06/02, 06/15/2010, Additional history exists DTaP/Tdap/Td (9 - [...] 1/2 AG/AB 4thGEN Negative (Non Reactive) [facility] Comment:HIV-1 p24 Ag and HIV -1/HIV-2 Ab not detected. 10/13/2016 4:53 PM CDT 10/13/2016 4:54 PM CDT Narrative [facility] - 10/14/2016 12:27 PM CDT Performed at [facility], [address] [place] [address] ??[id number] David Leonard MD LAB_1 [facility] [phone] from Last 3 Months or Most Recently Relevant to Health Maintenance Care Teams Completions Engineer Relationship Specialty Start Date End Date Unassigned, Provider [address] [place] [address] PCP - General Unknown Physician Specialty 08/15/23
--- OUTSIDE RECORDS SUMMARY | 2024-02-21 07:58 | XMS_ITS | Encounter Summary ---
Author Organization [facility] Address [address] [address] Care Team Providers Care Store Gift Wrap Associate Name Role Phone Unassigned, Provider Primary Care Provider Unava ilable Encounter Details Date Type Department Care Team (Late st Contact Info) Description 09/19/2013 Correspondence [facility] [address] [place], [place] [id number] [place] [address] [place] [address] MEDICAL EQUIPMENT PROOF OF DELIVERY Social History [...] on filedocumented in this encounter Care Teams Store Gift Wrap Associate Relationship Specialty Start Date End Date Unassigned, Provider [address] [place] [address] PCP - General Unknown Physician Specialty 08/15/23 documented as of this encounter
[2024-02-21 08:00] LABS: Lactate* 2.8 mmol/L (0.5-1.9)
[2024-02-21 08:01] LABS: Basophils Absolute Auto 0.02 K/uL (0.00-0.30); Basophils Percent Auto 0.2 % (0.0-3.0); Eosinophils Absolute Auto 0.09 K/uL (0.00-0.50); Hematocrit 44.3 % (37.0-53.0); Hemoglobin* 14.9 gm/dL (13.5-17.5); Immature Granulocytes Abs Auto 0.02 K/uL (0.00-0.30); Immature Granulocytes Pct Auto 0.2 %; Lymphocytes Percent Auto 11.3 % (20-44); Mean Corpuscular HGB Conc 34 gm/dL (32-36); Mean Corpuscular Hemoglobin 28 pg (26-34); Mean Corpuscular Volume 83 fL (80-100); Monocytes Percent Auto 8.6 % (0.0-11.0); Neutrophils Percent Auto 78.7 % (42.0-72.0); Platelet Count* 363 K/uL (140-440); RDW Coefficient of Variation % 12.1 % (11.5-15.5); Red Blood Count 5.35 m/uL (4.30-5.90); White Blood Count* 9.14 K/uL (4.50-11.00)
[2024-02-21 08:06] LABS: Appearance Urine Clear (Clear); Bilirubin Urine Negative (Negative); Blood Urine Negative (Negative); Color Urine Yellow (Yellow); Glucose Urine Negative (Negative); Ketones Urine Negative (Negative); Leukocyte Esterase Urine Negative (Negative); Nitrite Urine Negative (Negative); Protein Urine Negative (Negative); Specific Gravity Urine 1.025 (1.000-1.030); pH Urine 5.5 (5.0-8.5)
[2024-02-21 08:08] LABS: Slide Review Reflex No
[2024-02-21 08:11] LABS: RBC Urine 0-2 (0-2); WBC Urine 0-2 (0-5)
[2024-02-21 08:15] LABS: Chloride* 105 mmol/L (96-114)
[2024-02-21 08:16] LABS: Albumin* 4.5 g/dL (3.3-5.0); Potassium* 3.4 mmol/L (3.6-5.1); Sodium* 140 mmol/L (135-149)
[2024-02-21 08:18] LABS: Amylase* 72 U/L (18-89)
[2024-02-21 08:19] LABS: Alanine Aminotransferase* 27 U/L (4-50); Alkaline Phosphatase* 90 U/L (40-150); Anion Gap 12 mEq/L (7-15); Aspartate Amino Transferase* 35 U/L (12-35); Bilirubin Direct* 0.3 mg/dL (0.0-0.5); Bilirubin Total* 0.7 mg/dL (0.1-1.5); Blood Urea Nitrogen* 11 mg/dL (5-24); Carbon Dioxide* 23 mmol/L (20-32); Creatinine* 0.6 mg/dL (0.5-1.5); Est. Creatinine Clearance* 196.02; Estimated Glomerular Filt Rate 138 ml/min; Glucose* 138 mg/dL (60-115); Total Protein* 7.3 g/dL (6.0-8.3)
[2024-02-21] MEDS: MORPHINE 2 MG/ML inj IVP (08:19)
[2024-02-21] MEDS: 0.9 % SODIUM CHLORIDE 1000 ml 1,000 ML 6000 ML IV (08:19)
[2024-02-21 08:20] LABS: Calcium* 9.5 mg/dL (8.4-10.6)
[2024-02-21 08:22] LABS: C Reactive Protein* 6.3 mg/dL (0.5-1.0)
[2024-02-21 08:26] VITALS: BP 130/81; PULSE 98; RESP 18; O2SAT 98
[2024-02-21 08:27] VITALS: PULSE 100; O2SAT 100
[2024-02-21 09:00] VITALS: PULSE 90; O2SAT 98
== END 2024-02-21 09:22 | disposition home or self-care (01) ==
PROVIDERS: Emergency Provider Family Medicine; PCP Family Medicine
DX: K52.9 Noninfective gastroenteritis and colitis, unspecified (principal)
CPT/HCPCS: 36415; 74177; 80048; 80076; 81001; 82150; 83605; 85025; 86140; 87086; 94761; 96374; 99284; 99285; J2270; J7030; Q9967